=== PATIENT | female | born 1935 | race Caucasian/White ===

== ENCOUNTER 2020-01-12 14:47 | Outpatient (REF) | payer MEDICARE, SELFPAY ==
[2020-01-12 15:39] LABS: Estimated Average Glucose 120 mg/dL; Hemoglobin A1C 105.3431 umol/L; Hemoglobin A1c % 5.8 %
[2020-01-12 16:03] LABS: Anion Gap 13 (12-20); Blood Urea Nitrogen 16 mg/dL (9-16); Calcium 9.3 mg/dL (8.4-10.2); Carbon Dioxide 25 mmol/L (22-29); Chloride 108 mmol/L (96-108); Cholesterol 145 mg/dL; Estimated Glomerular Filt Rate 52; Glucose Random 128 mg/dL (60-115); HDL Cholesterol 55 mg/dL; LDL Cholesterol Calculated 67 mg/dl; Potassium 5.1 mmol/l (3.3-5.1); Sodium 141 mmol/L (135-145); Triglycerides 116 mg/dL
== END 2020-01-12 14:48 | disposition home or self-care (01) ==
LOC: HO.LAB 14:47
PROVIDERS: PCP Internal Medicine; Visit Provider Nurse Practitioner Family
DX: I15.0 Renovascular hypertension (principal); E78.00 Pure hypercholesterolemia, unspecified; E11.3593 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 without macular edema, bilateral
CPT/HCPCS: 80048; 80061; 83036

== ENCOUNTER 2020-03-10 14:25 | Outpatient (REF) | payer MEDICARE, SELFPAY ==
[2020-03-10 15:36] LABS: Alanine Aminotransferase 8 U/L (0-31); Albumin Level 4.1 g/dL (3.5-5.0); Alkaline Phosphatase 74 U/L (39-117); Anion Gap 16 (12-20); Aspartate Amino Transferase 18 U/L (5-31); Bilirubin Total 0.4 mg/dL (0.0-1.0); Blood Urea Nitrogen 22 mg/dL (9-16); Calcium 9.4 mg/dL (8.4-10.2); Carbon Dioxide 23 mmol/L (22-29); Chloride 106 mmol/L (96-108); Cholesterol 138 mg/dL; Estimated Glomerular Filt Rate 43; Glucose Fasting 134 mg/dL (60-99); HDL Cholesterol 59 mg/dL; LDL Cholesterol Calculated 59 mg/dl; Sodium 140 mmol/L (135-145); Total Protein 7.6 g/dL (6.5-8.0); Triglycerides 103 mg/dL
[2020-03-14 13:03] LABS: Vitamin D 25-OH, D2 <4 ng/mL; Vitamin D 25-OH, D3 29 ng/mL; Vitamin D 25-OH, Total 29 ng/mL (30-100)
== END 2020-03-10 14:26 | disposition home or self-care (01) ==
LOC: HO.LAB 14:25
PROVIDERS: PCP Internal Medicine; Visit Provider Internal Medicine
DX: E11.3593 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 without macular edema, bilateral (principal); E55.9 Vitamin D deficiency, unspecified; E78.5 Hyperlipidemia, unspecified
CPT/HCPCS: 80053; 80061; 82306

== ENCOUNTER 2020-07-13 14:00 | Outpatient (REF) | payer MEDICARE, SELFPAY ==
[2020-07-13 14:32] LABS: MANUAL DIFF FLAG NO
[2020-07-13 14:38] LABS: Basophils Percent Auto 0.2 % (0-2); Eosinophils Absolute Auto 0.8 X10*3/uL (0.0-0.4); Eosinophils Percent Auto 13.3 % (0-4); Hematocrit 30.5 % (37-47); Imm Gran Abs Auto 0.03 X10*3/uL (0.00-0.03); Imm Gran Pct Auto 0.5 % (0.0-0.4); Lymphocytes Absolute Auto 1.2 X10*3/uL (1.2-4.9); Lymphocytes Percent Auto 19.8 % (20-40); Mean Corpuscular HGB Conc 29.5 g/dl (31.0-35.0); Mean Platelet Volume 10.1 fL (9.4-12.3); Monocytes Absolute Auto 0.4 X10*3/uL (0.1-1.2); Monocytes Percent Auto 6.1 % (2-11); Neutrophils Absolute Auto 3.6 X10*3/uL (2.0-8.3); Neutrophils Percent Auto 60.1 % (45-73); Platelet Count 214 X10*3/uL (160-400); Red Blood Count 3.21 X10*6/uL (4.20-5.50); Red Cell Distribution Width 14.5 % (11.0-16.0)
[2020-07-13 14:55] LABS: Alanine Aminotransferase < 6 U/L (0-31); Albumin Level 3.9 g/dL (3.5-5.0); Alkaline Phosphatase 78 U/L (39-117); Anion Gap 15 (12-20); Aspartate Amino Transferase 14 U/L (5-31); Bilirubin Total 0.4 mg/dL (0.0-1.0); Blood Urea Nitrogen 21 mg/dL (9-16); Calcium 9.5 mg/dL (8.4-10.2); Carbon Dioxide 24 mmol/L (22-29); Chloride 108 mmol/L (96-108); Cholesterol 137 mg/dL; Estimated Glomerular Filt Rate 58; Glucose Fasting 137 mg/dL (60-99); HDL Cholesterol 60 mg/dL; LDL Cholesterol Calculated 63 mg/dl; Potassium 5.2 mmol/L (3.3-5.1); Sodium 142 mmol/L (135-145); Total Protein 7.3 g/dL (6.5-8.0); Triglycerides 74 mg/dL
[2020-07-13 16:46] LABS: Creatinine Urine 150.09 mg/dL; Microalbum/Creatinine Ratio Ur 472.3 ug/mg cr
[2020-07-14 13:06] LABS: Calcium (PTHI) 9.6 mg/dL (8.6-10.4); PTHI 92 pg/mL (14-64)
[2020-07-17 13:51] LABS: Vitamin D 25-OH, D2 <4 ng/mL; Vitamin D 25-OH, D3 36 ng/mL; Vitamin D 25-OH, Total 36 ng/mL (30-100)
== END 2020-07-13 14:01 | disposition home or self-care (01) ==
LOC: HO.LAB 14:00
PROVIDERS: PCP Internal Medicine; Visit Provider Internal Medicine Nephrology
DX: I12.9 Hypertensive chronic kidney disease with stage 1 through stage 4 chronic kidney disease, or unspecified chronic kidney disease (principal); E11.22 Type 2 diabetes mellitus with diabetic chronic kidney disease; N18.31 Chronic kidney disease, stage 3a; R60.0 Localized edema; E87.5 Hyperkalemia; E11.3593 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 without macular edema, bilateral; E78.5 Hyperlipidemia, unspecified; E55.9 Vitamin D deficiency, unspecified
CPT/HCPCS: 36415; 80053; 80061; 82043; 82306; 83970; 85025

== ENCOUNTER 2020-10-14 13:56 | Outpatient (REF) | payer MEDICARE, SELFPAY ==
[2020-10-14 14:49] LABS: MANUAL DIFF FLAG NO
[2020-10-14 14:52] LABS: Basophils Percent Auto 0.3 % (0-2); Eosinophils Absolute Auto 0.8 X10*3/uL (0.0-0.4); Eosinophils Percent Auto 10.6 % (0-4); Hematocrit 32.1 % (37-47); Hemoglobin 9.4 g/dl (12.0-16.0); Imm Gran Abs Auto 0.02 X10*3/uL (0.00-0.03); Imm Gran Pct Auto 0.3 % (0.0-0.4); Mean Corpuscular HGB Conc 29.3 g/dl (31.0-35.0); Mean Corpuscular Hemoglobin 27.9 pg (27.0-33.0); Mean Corpuscular Volume 95.3 fL (80-98); Mean Platelet Volume 10.5 fL (9.4-12.3); Monocytes Absolute Auto 0.5 X10*3/uL (0.1-1.2); Monocytes Percent Auto 6.6 % (2-11); Neutrophils Absolute Auto 4.9 X10*3/uL (2.0-8.3); Neutrophils Percent Auto 68.2 % (45-73); Platelet Count 206 X10*3/uL (160-400); Red Blood Count 3.37 X10*6/uL (4.20-5.50); Red Cell Distribution Width 15.9 % (11.0-16.0); White Blood Count 7.2 X10*3/uL (4.8-10.8)
[2020-10-14 15:19] LABS: Anion Gap 13 (12-20); Blood Urea Nitrogen 33 mg/dL (9-16); Calcium 9.6 mg/dL (8.4-10.2); Carbon Dioxide 23 mmol/L (22-29); Chloride 109 mmol/L (96-108); Estimated Glomerular Filt Rate 41; Phosphorus 3.5 mg/dL (2.7-4.5); Potassium 4.7 mmol/L (3.3-5.1); Sodium 140 mmol/L (135-145)
[2020-10-14 15:21] LABS: Anion Gap 13 (12-20); Blood Urea Nitrogen 33 mg/dL (9-16); Calcium 9.8 mg/dL (8.4-10.2); Carbon Dioxide 23 mmol/L (22-29); Chloride 110 mmol/L (96-108); Cholesterol 139 mg/dL; Estimated Glomerular Filt Rate 42; Glucose Fasting 138 mg/dL (60-99); HDL Cholesterol 51 mg/dL; LDL Cholesterol Calculated 70 mg/dl; Potassium 4.8 mmol/L (3.3-5.1); Sodium 141 mmol/L (135-145); Triglycerides 91 mg/dL
[2020-10-14 15:49] LABS: Renal w Reflex Lab Use Only Order verified
== END 2020-10-14 13:57 | disposition home or self-care (01) ==
LOC: HO.LAB 13:56
PROVIDERS: Absent Provider Nurse Practitioner Family; PCP Internal Medicine; Visit Provider Internal Medicine Nephrology
DX: E11.3593 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 without macular edema, bilateral (principal); E78.00 Pure hypercholesterolemia, unspecified; I12.9 Hypertensive chronic kidney disease with stage 1 through stage 4 chronic kidney disease, or unspecified chronic kidney disease; N18.30 Chronic kidney disease, stage 3 unspecified; R60.9 Edema, unspecified; E87.5 Hyperkalemia
CPT/HCPCS: 36415; 80048; 80051; 80061; 82310; 82565; 84100; 84520; 85025

== ENCOUNTER 2021-03-15 08:32 | Outpatient (REF) | payer MEDICARE, SELFPAY ==
--- NOTE | 2021-03-15 08:34 | EMG_ITS ---
This 85-year-old woman with a history of bilateral hand pain and numbness. Neurological examination reveals atrophy of the left abductor pollicis brevis and bilaterally APB weakness and decreased sensation in median nerve. No Tinel or Phalen sign. IMPRESSION: Carpal tunnel syndrome. Nerve conduction EMG study: Severe carpal tunnel syndrome on the left and moderately severe carpal tunnel syndrome on the right. Sensory axonal neuropathy. EMG of the C5-T1 innervated muscles is consistent with mild chronic denervated changes in the APB muscle consistent with median neuropathy. MD RENE Marquez/JEFF / [id number]
== END 2021-03-15 08:33 | disposition home or self-care (01) ==
LOC: HO.NEURO 08:32
PROVIDERS: PCP Internal Medicine; Visit Provider Internal Medicine
DX: G56.03 Carpal tunnel syndrome, bilateral upper limbs (principal)
CPT/HCPCS: 95886; 95913

== ENCOUNTER 2021-03-20 14:34 | Outpatient (REF) | payer MEDICARE, SELFPAY ==
[2021-03-20 14:57] LABS: MANUAL DIFF FLAG NO
[2021-03-20 15:12] LABS: Basophils Percent Auto 0.4 % (0-2); Eosinophils Absolute Auto 0.4 X10*3/uL (0.0-0.4); Eosinophils Percent Auto 6.4 % (0-4); Hemoglobin 9.9 g/dl (12.0-16.0); Imm Gran Abs Auto 0.03 X10*3/uL (0.00-0.03); Imm Gran Pct Auto 0.5 % (0.0-0.4); Lymphocytes Percent Auto 17.5 % (20-40); Mean Corpuscular Hemoglobin 29.8 pg (27.0-33.0); Mean Corpuscular Volume 99.4 fL (80.0-98.0); Monocytes Absolute Auto 0.3 X10*3/uL (0.1-1.2); Monocytes Percent Auto 5.8 % (2-11); Neutrophils Absolute Auto 3.8 x10*3/uL (2.0-8.3); Neutrophils Percent Auto 69.4 % (45-73); Platelet Count 206 X10*3/uL (160-400); Red Blood Count 3.32 X10*6/uL (4.20-5.50); Red Cell Distribution Width 13.2 % (11.0-16.0); White Blood Count 5.5 X10*3/uL (4.8-10.8)
[2021-03-20 15:25] LABS: Anion Gap 11 (12-20); Blood Urea Nitrogen 32 mg/dL (9-16); Calcium 9.9 mg/dL (8.4-10.2); Carbon Dioxide 25 mmol/L (22-29); Chloride 110 mmol/L (96-108); Estimated Glomerular Filt Rate 41; Potassium 4.7 mmol/L (3.3-5.1); Sodium 141 mmol/L (135-145)
[2021-03-20 15:30] LABS: Alanine Aminotransferase 7 U/L (0-31); Albumin Level 3.8 g/dL (3.5-5.0); Alkaline Phosphatase 77 U/L (39-117); Anion Gap 12 (12-20); Aspartate Amino Transferase 11 U/L (5-31); Bilirubin Total < 0.2 mg/dL (0.0-1.0); Blood Urea Nitrogen 32 mg/dL (9-16); Calcium 9.8 mg/dL (8.4-10.2); Carbon Dioxide 24 mmol/L (22-29); Chloride 110 mmol/L (96-108); Cholesterol 136 mg/dL; Estimated Glomerular Filt Rate 41; Glucose Fasting 156 mg/dL (60-99); HDL Cholesterol 47 mg/dL; LDL Cholesterol Calculated 62 mg/dl; Potassium 4.6 mmol/L (3.3-5.1); Sodium 141 mmol/L (135-145); Total Protein 7.1 g/dL (6.5-8.0); Triglycerides 136 mg/dL
[2021-03-24 12:52] LABS: Vitamin D 25-OH, D2 <4 ng/mL; Vitamin D 25-OH, D3 32 ng/mL; Vitamin D 25-OH, Total 32 ng/mL (30-100)
== END 2021-03-20 14:35 | disposition home or self-care (01) ==
LOC: HO.LAB 14:34
PROVIDERS: Absent Provider Internal Medicine; PCP Internal Medicine; Visit Provider Internal Medicine Nephrology
DX: E11.22 Type 2 diabetes mellitus with diabetic chronic kidney disease (principal); E11.3593 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 without macular edema, bilateral; I12.9 Hypertensive chronic kidney disease with stage 1 through stage 4 chronic kidney disease, or unspecified chronic kidney disease; N18.31 Chronic kidney disease, stage 3a; E55.9 Vitamin D deficiency, unspecified; E78.5 Hyperlipidemia, unspecified; D63.1 Anemia in chronic kidney disease; R60.0 Localized edema
CPT/HCPCS: 36415; 80051; 80053; 80061; 82043; 82306; 82310; 82565; 84520; 85025

== ENCOUNTER → 2021-04-18 12:47 | Outpatient (BNVA) | payer MEDICARE, SELFPAY | PROVIDERS: PCP Internal Medicine; Visit Provider Orthopaedic Surgery | DX: G56.03 Carpal tunnel syndrome, bilateral upper limbs (principal) | CPT/HCPCS: 99202 ==

== ENCOUNTER 2021-05-04 11:53 | Day surgery (SDC) | payer MEDICARE, SELFPAY ==
[2021-05-03 08:08] VITALS: BMI 39.9
--- NOTE | 2021-05-04 10:24 | W.PM.OPN ---
Operative Note Operative Note Date of Service: 05/04/21 Narrative: Preop diagnosis: 1. right Carpal tunnel syndrome Postop diagnosis: same Procedure: 1. right Carpal tunnel release Surgeon: Anh Peoples MD Anesthesia: local block using 1% lidocaine with epinephrine Findings: Thickened transverse carpal ligament. EBL: Less than 5 mL Specimens: None Complications: None Disposition: Brought to recovery room in stable condition Plan: Follow-up for 10-14 days for wound check and suture removal Indications: The patient is 85 years old, with right carpal tunnel syndrome that has been unresponsive to nonoperative management. The risks and benefits of operative treatment including but not limited to risk of damage to blood vessels, nerves, tendons, infection, persistent pain, persistent symptoms, or possible need for additional surgery were discussed with the patient and the patient wishes to proceed with surgery. Procedure: Once consent was obtained a local block was performed using a combination of 1% lidocaine with epinephrine. The patient was then brought back to the operating suite and placed on the operative table in supine position. A tourniquet was applied to the proximal aspect of the right upper extremity and the limb was prepped and draped in a standard surgical fashion. Once assured that we had a good block, a 1.5 cm longitudinal incision was made centered over the carpal tunnel. The incision was made through the skin to the subcutaneous tissues using a #15 blade. Dissection was made down to the level of the transverse carpal ligament with care being taken to protect the palmar cutaneous nerve. Once the transverse carpal ligament was clearly visualized, a longitudinal incision was made in the transverse carpal ligament 1st using a #15 blade, then using tenotomy scissors under direct visualization. Care was taken to look for and protect the motor branch of the median nerve when seen in this area. Once satisfied with our carpal tunnel release the wound was copiously irrigated with normal saline and hemostasis was obtained with a brief period of local pressure. The skin edges were reapproximated with some 5.0 nylon suture material and a sterile dressing was applied. The patient appears to have tolerated the procedure well and with no complications. All digits were well vascularized at the conclusion of the case.
[2021-05-04 12:03] VITALS: BP 154/51; PULSE 74; RESP 16; TEMP 36.7; O2SAT 98
--- NOTE | 2021-05-04 13:25 | MHC.SHP ---
Pre-Procedural Eval Section A Date of Service: 05/04/21 The patient is an INPATIENT: No Changes since office visit: No Cold of Flu in the past 2 weeks, No New Medical Problems, No Changes in Medication and No Patient answered all questions The History & Physical has been completed within 30 days and I have reviewed it.: Yes Section B Chief Complaint: carpal tunnel syndrome Allergies: Allergies Allergy/AdvReac Type Severity Reaction Status Date / Time No Known Allergies Allergy Unknown Verified 04/18/21 14:22 Plan I have reviewed the history and physical and performed a pertinent physical examination on my patient. No changes have occurred unless specified.
[2021-05-04 13:47] VITALS: BP 158/57; PULSE 74; RESP 16; TEMP 36.2; O2SAT 98
== END 2021-05-04 14:08 | disposition home or self-care (01) ==
PROVIDERS: PCP Internal Medicine; Visit Provider Orthopaedic Surgery
PROC: (CPT 64721; principal; 2021-05-04 13:30)
DX: G56.01 Carpal tunnel syndrome, right upper limb (principal); R20.0 Anesthesia of skin; I10 Essential (primary) hypertension; E11.9 Type 2 diabetes mellitus without complications; E55.9 Vitamin D deficiency, unspecified; F33.1 Major depressive disorder, recurrent, moderate; E78.00 Pure hypercholesterolemia, unspecified; Z87.891 Personal history of nicotine dependence; Z79.84 Long term (current) use of oral hypoglycemic drugs; Z79.899 Other long term (current) drug therapy
CPT/HCPCS: 64721

== ENCOUNTER → 2021-05-17 14:39 | Outpatient (BNVA) | payer MEDICARE, SELFPAY | PROVIDERS: PCP Internal Medicine; Visit Provider Orthopaedic Surgery | DX: G56.03 Carpal tunnel syndrome, bilateral upper limbs (principal) | CPT/HCPCS: 99212 ==

== ENCOUNTER 2021-08-25 10:10 | Outpatient (REF) | payer OTHER, SELFPAY ==
[2021-08-25 10:50] LABS: COVID-19 Test Negative (Negative)
== END 2021-08-25 10:11 | disposition home or self-care (01) ==
LOC: HO.LAB 10:10
PROVIDERS: Visit Provider Internal Medicine
DX: Z20.822 Contact with and (suspected) exposure to COVID-19 (principal)
CPT/HCPCS: 87635; C9803

== ENCOUNTER 2021-09-27 14:33 | Outpatient (REF) | payer OTHER, SELFPAY ==
--- NOTE | ~2021-09-27 | XR_ITS ---
EXAMINATION: XR CERVICAL SPINE CLINICAL INFORMATION: M54.2 - Cervicalgia COMPARISON: CT cervical spine 02/04/2017 TECHNIQUE: Cervical spine is imaged in 6 views. FINDINGS: Vertebral bodies are normal in height. There is no vertebral compression, spondylolisthesis, destructive process, or prevertebral soft tissue swelling. Cervical lordosis is within normal. The odontoid appears intact. There are degenerative disc changes again noted C5-C6 with disc narrowing and anterior and posterior spurring. There are mild degenerative disc changes C6-C7. No cervical rib. XR/XR cervical spine 2V IMPRESSION: -Degenerative disc changes C5-C6. -Mild degenerative disc changes C6-C7.
--- NOTE | ~2021-09-27 | XR_ITS ---
EXAMINATION: XR SHOULDER, RIGHT CLINICAL INFORMATION: M25.511 - Pain in right shoulder COMPARISON: None TECHNIQUE: Right shoulder is imaged in 3 views. FINDINGS: There is extensive calcific tendinosis involving the superior rotator cuff and long head biceps. There are degenerative changes acromioclavicular joint and mild narrowing inferior glenoid humeral joint. Mild mineralization and inferior labro-capsular soft tissues. There is no fracture or dislocation. XR/XR shoulder RT min 2V IMPRESSION: -Extensive calcific tendinosis rotator cuff. -Degenerative changes acromioclavicular joint and mild spurring glenohumeral joint.
[2021-09-27 16:00] LABS: Anion Gap 14 (12-20); Blood Urea Nitrogen 40 mg/dL (9-16); Calcium 9.3 mg/dL (8.4-10.2); Carbon Dioxide 21 mmol/L (22-29); Chloride 110 mmol/L (96-108); Estimated Glomerular Filt Rate 27; Potassium 4.6 mmol/L (3.3-5.1); Sodium 140 mmol/L (135-145)
[2021-09-27 16:26] LABS: Creatinine Urine 285.62 mg/dL; Protein/Creatinine Ratio, Ur 0.15 (<0.2); Total Protein Urine Random 44 mg/dL (<12)
== END 2021-09-27 14:34 | disposition home or self-care (01) ==
LOC: HO.XRAY 14:33
PROVIDERS: Absent Provider Internal Medicine; PCP Internal Medicine; Visit Provider Internal Medicine Nephrology
DX: M54.2 Cervicalgia (principal); M25.511 Pain in right shoulder; I10 Essential (primary) hypertension; N18.31 Chronic kidney disease, stage 3a
CPT/HCPCS: 36415; 72040; 73030; 80051; 82310; 82565; 84156; 84520

== ENCOUNTER 2021-12-06 15:15 | Outpatient (REF) | payer OTHER, SELFPAY ==
[2021-12-06 18:05] LABS: Anion Gap 19 (12-20); Blood Urea Nitrogen 51 mg/dL (9-16); Calcium 9.5 mg/dL (8.4-10.2); Carbon Dioxide 22 mmol/L (22-29); Chloride 107 mmol/L (96-108); Estimated Glomerular Filt Rate 28; Potassium 5.3 mmol/L (3.3-5.1); Sodium 143 mmol/L (135-145)
== END 2021-12-06 15:16 | disposition home or self-care (01) ==
LOC: HO.LAB 15:15
PROVIDERS: PCP Internal Medicine; Visit Provider Internal Medicine Nephrology
DX: N18.31 Chronic kidney disease, stage 3a (principal)
CPT/HCPCS: 36415; 80051; 82310; 82565; 84520

== ENCOUNTER → 2021-12-19 14:02 | Outpatient (BNVA) | payer OTHER, SELFPAY | PROVIDERS: PCP Internal Medicine; Visit Provider Orthopaedic Surgery | DX: G56.03 Carpal tunnel syndrome, bilateral upper limbs (principal) | CPT/HCPCS: 99212 ==

== ENCOUNTER 2022-01-04 12:51 | Day surgery (SDC) | payer OTHER, SELFPAY ==
--- NOTE | 2022-01-04 10:46 | W.PM.OPN ---
Operative Note Operative Note Date of Service: 01/04/22 Narrative: Preop diagnosis: 1. left Carpal tunnel syndrome Postop diagnosis: same Procedure: 1. left Carpal tunnel release Surgeon: nAh Peoples MD Anesthesia: local block using 1% lidocaine with epinephrine Findings: Thickened transverse carpal ligament. EBL: Less than 5 mL Specimens: None Complications: None Disposition: Brought to recovery room in stable condition Plan: Follow-up for 10-14 days for wound check and suture removal Indications: The patient is 86 years old, with left carpal tunnel syndrome that has been unresponsive to nonoperative management. The risks and benefits of operative treatment including but not limited to risk of damage to blood vessels, nerves, tendons, infection, persistent pain, persistent symptoms, or possible need for additional surgery were discussed with the patient and the patient wishes to proceed with surgery. Procedure: Once consent was obtained a local block was performed using a combination of 1% lidocaine with epinephrine. The patient was then brought back to the operating suite and placed on the operative table in supine position. A tourniquet was applied to the proximal aspect of the left upper extremity and the limb was prepped and draped in a standard surgical fashion. Once assured that we had a good block, a 2.0 cm longitudinal incision was made centered over the carpal tunnel. The incision was made through the skin to the subcutaneous tissues using a #15 blade. Dissection was made down to the level of the transverse carpal ligament with care being taken to protect the palmar cutaneous nerve. Once the transverse carpal ligament was clearly visualized, a longitudinal incision was made in the transverse carpal ligament 1st using a #15 blade, then using tenotomy scissors under direct visualization. Care was taken to look for and protect the motor branch of the median nerve when seen in this area. Once satisfied with our carpal tunnel release the wound was copiously irrigated with normal saline and hemostasis was obtained with a brief period of local pressure. The skin edges were reapproximated with some 5.0 nylon suture material and a sterile dressing was applied. The patient appears to have tolerated the procedure well and with no complications. All digits were well vascularized at the conclusion of the case.
[2022-01-04 13:01] VITALS: BMI 36.6
[2022-01-04 13:17] VITALS: BP 160/70; PULSE 72; RESP 16; TEMP 36.2; O2SAT 97
--- NOTE | 2022-01-04 14:39 | MHC.SHP ---
Pre-Procedural Eval Section A Date of Service: 01/04/22 The patient is an INPATIENT: No Changes since office visit: No Cold of Flu in the past 2 weeks, No New Medical Problems, No Changes in Medication and No Patient answered all questions The History & Physical has been completed within 30 days and I have reviewed it.: Yes Section B Chief Complaint: Carpal tunnel syndrome, left upper limb Allergies: Allergies Allergy/AdvReac Type Severity Reaction Status Date / Time No Known Allergies Allergy Unknown Verified 12/19/21 14:38 Plan I have reviewed the history and physical and performed a pertinent physical examination on my patient. No changes have occurred unless specified.
[2022-01-04 14:51] VITALS: BP 181/75; PULSE 70; RESP 16; TEMP 36.4; O2SAT 100
== END 2022-01-04 14:51 | disposition home or self-care (01) ==
PROVIDERS: PCP Internal Medicine; Visit Provider Orthopaedic Surgery
PROC: (CPT 64721; principal; 2022-01-04 14:30)
DX: G56.02 Carpal tunnel syndrome, left upper limb (principal); D64.9 Anemia, unspecified; I10 Essential (primary) hypertension; E11.9 Type 2 diabetes mellitus without complications; E55.9 Vitamin D deficiency, unspecified; F33.1 Major depressive disorder, recurrent, moderate; Z87.891 Personal history of nicotine dependence
CPT/HCPCS: 64721; J0171

== ENCOUNTER 2022-03-27 14:40 | Outpatient (REF) | payer OTHER, SELFPAY ==
[2022-03-27 16:30] LABS: Anion Gap 16 (12-20); Blood Urea Nitrogen 54 mg/dL (9-16); Calcium 9.4 mg/dL (8.4-10.2); Carbon Dioxide 24 mmol/L (22-29); Chloride 106 mmol/L (96-108); Estimated Glomerular Filt Rate 27; Potassium 4.9 mmol/L (3.3-5.1); Sodium 141 mmol/L (135-145)
== END 2022-03-27 14:41 | disposition home or self-care (01) ==
LOC: HO.LAB 14:40
PROVIDERS: PCP Internal Medicine; Visit Provider Internal Medicine Nephrology
DX: I12.9 Hypertensive chronic kidney disease with stage 1 through stage 4 chronic kidney disease, or unspecified chronic kidney disease (principal); N18.31 Chronic kidney disease, stage 3a
CPT/HCPCS: 36415; 80051; 82310; 82565; 84520

== ENCOUNTER 2022-05-17 14:30 | Outpatient (REF) | payer OTHER, SELFPAY ==
[2022-05-17 16:03] LABS: Anion Gap 14 (12-20); Blood Urea Nitrogen 70 mg/dL (9-16); Calcium 9.6 mg/dL (8.4-10.2); Carbon Dioxide 25 mmol/L (22-29); Chloride 106 mmol/L (96-108); Estimated Glomerular Filt Rate 17; Potassium 4.9 mmol/L (3.3-5.1); Sodium 140 mmol/L (135-145)
== END 2022-05-17 14:31 | disposition home or self-care (01) ==
LOC: HO.LAB 14:30
PROVIDERS: PCP Internal Medicine; Visit Provider Internal Medicine Nephrology
DX: I12.9 Hypertensive chronic kidney disease with stage 1 through stage 4 chronic kidney disease, or unspecified chronic kidney disease (principal); N18.31 Chronic kidney disease, stage 3a; R60.0 Localized edema
CPT/HCPCS: 36415; 80051; 82310; 82565; 84520

== ENCOUNTER 2022-06-25 14:51 | Outpatient (REF) | payer OTHER, SELFPAY | END 2022-06-25 14:52 | disposition home or self-care (01) | LOC: HO.LAB 14:51 | PROVIDERS: PCP Internal Medicine; Visit Provider Internal Medicine | DX: Z13.89 Encounter for screening for other disorder (principal) ==

== ENCOUNTER 2022-08-07 15:51 | Outpatient (REF) | payer OTHER, SELFPAY ==
[2022-08-07 17:21] LABS: Anion Gap 13 (12-20); Blood Urea Nitrogen 14 mg/dL (9-16); Calcium 9.5 mg/dL (8.4-10.2); Carbon Dioxide 24 mmol/L (22-29); Chloride 110 mmol/L (96-108); Estimated Glomerular Filt Rate 48; Potassium 4.9 mmol/L (3.3-5.1); Sodium 142 mmol/L (135-145)
== END 2022-08-07 15:52 | disposition home or self-care (01) ==
LOC: HO.LAB 15:51
PROVIDERS: PCP Internal Medicine; Visit Provider Internal Medicine Nephrology
DX: I12.9 Hypertensive chronic kidney disease with stage 1 through stage 4 chronic kidney disease, or unspecified chronic kidney disease (principal); N18.31 Chronic kidney disease, stage 3a
CPT/HCPCS: 36415; 80051; 82310; 82565; 84520

== ENCOUNTER 2022-08-11 13:47 | Emergency (ER) | payer OTHER, SELFPAY ==
--- NOTE | ~2022-08-11 | US_ITS ---
EXAMINATION: US VENOUS ULTRASOUND WITH DOPPLER LOWER EXTREMITY, BILATERAL CLINICAL INFORMATION: Bilateral leg edema. COMPARISON: None available. TECHNIQUE: Ultrasound of the deep veins is performed from the hip to the calf with compression sonography and color and pulse Doppler assessment. Spectral analysis with color-flow imaging is performed. FINDINGS: RIGHT: There is normal venous compression and respiratory variation and augmented flow. The visualized common femoral vein, superficial femoral vein, profunda femoral vein, popliteal vein, and the trifurcation region shows no evidence of deep venous thrombosis. There is no significant popliteal fossa cyst. LEFT: There is normal venous compression and respiratory variation and augmented flow. The visualized common femoral vein, superficial femoral vein, profunda femoral vein, popliteal vein, and the trifurcation region shows no evidence of deep venous thrombosis. There is no significant popliteal fossa cyst. If the patient's symptoms persist, followup ultrasound in 5 days 7 days might be of value to exclude proximal propagation from a non-visualized calf vein. US/US venous duplex LE BI IMPRESSION: No DVT demonstrated in bilateral lower extremity venous ultrasound.
--- NOTE | ~2022-08-11 | XR_ITS ---
EXAMINATION: XR CHEST CLINICAL INFORMATION: Shortness of breath, pedal edema. COMPARISON: 02/13/2018 chest radiograph. TECHNIQUE: Frontal view of the chest was obtained. FINDINGS: Mild linear markings are seen in the lower lung espinoza, right greater than left. Mild increased pulmonary vascular prominence. The heart and mediastinal structures are unremarkable. XR/XR chest 1V IMPRESSION: Mild linear atelectasis versus scarring in the lower lung espinoza, right greater than left. Mild congestion cannot be excluded.
[2022-08-11 14:07] VITALS: BP 182/48; PULSE 73; RESP 16; TEMP 37; O2SAT 97; BMI 34.4
[2022-08-11 14:08] VITALS: BP 190/112; PULSE 77; O2SAT 98
--- NOTE | 2022-08-11 14:13 | ED_ITS ---
HPI - General Adult General Chief complaint: General Medical Stated complaint: High BP per EMS Time Seen by Provider: 08/11/22 14:13 Source: patient, EMS, RN notes reviewed and old records reviewed Mode of arrival: EMS History of Present Illness HPI narrative: 87-year-old female with past medical history of anemia, diabetes, HTN, GERD, HL D, depression, presenting to the ED via EMS complaining of SOB, worse on exertion and elevated BP readings at home 200s over 90s since yesterday. Patient also reports acute on chronic bilateral LE edema > LLE. Denies fever, chills, cough, chest pain, abdominal pain, vomiting/diarrhea, recent travel. Denies taking home meds today Onset (ago): day(s) Related Data Previous Rx's Medication Instructions Recorded blood sugar diagnostic (FreeStyle #50 ea 05/13/20 Test strips) underpads 30 X 36 (Certainty #150 ea 07/18/20 Underpads) lancets 28 gauge #100 ea 12/09/20 mirtazapine 15 mg tablet 15 mg PO BEDTIME 90 days #90 tabs 03/23/21 paroxetine HCl 10 mg tablet 10 mg PO DAILY 90 days #90 tabs 03/23/21 acetaminophen 650 mg 650 mg PO Q8H PRN pain 30 days #90 07/28/21 tablet,extended release (Pain tabs Relief (acetaminophen)) FreeStyle Lite Strips (blood sugar 1 strip miscellaneous BID for 08/25/21 diagnostic) diabetes mellitus 30 days #50 strips recliner #1 ea 09/14/21 aspirin 81 mg tablet,delayed 81 mg PO DAILY 90 days #90 tabs 03/01/22 release calcium carbonate 500 mg-vitamin 1 tab PO BID 90 days #180 tabs 03/01/22 D3 10 mcg (400 unit) tablet cholecalciferol (vitamin D3) 25 25 mcg PO DAILY 90 days #90 tabs 03/01/22 mcg (1,000 unit) tablet metformin 1,000 mg tablet 1,000 mg PO BID 90 days #180 tabs 03/01/22 omeprazole 20 mg capsule,delayed 20 mg PO DAILY 90 days #90 caps 03/01/22 release pravastatin 40 mg tablet 40 mg PO DAILY 90 days #90 tabs 03/01/22 commode #1 ea 07/09/22 disposable bed pa #30 ea 07/09/22 incontinence pad, liner, disp #150 07/09/22 (Bladder Control Pads Ex Absorb) incontinence wipes #300 07/09/22 washable bedpads #2 07/09/22 furosemide 20 mg tablet 40 mg PO QAM HTN/Swelling 90 days 08/02/22 #180 tabs neomycin-bacitracn Zn-polymyx 3.5 1 appl topical DAILY 2 weeks #14 08/02/22 mg-400 unit-5,000 unit/gram top grams oint furosemide 20 mg tablet 40 mg PO DAILY #6 tabs 08/11/22 Allergies Allergy/AdvReac Type Severity Reaction Status Date / Time No Known Allergies Allergy Unknown Verified 08/02/22 17:08 Review of Systems Review of Systems: Constitutional: No Fever, No Chills, No Fatigue, No Malaise ENT/Mouth: No Ear Pain, No sore throat, No Rhinorrhea, No Swallowing Difficulty Eyes: No Eye Pain, No Swelling, No Vision Changes Cardiovascular: No Chest Pain, + SOB, + Dyspnea on Exertion, No Orthopnea, + Edema, No Palpitations Respiratory: No Cough, No Sputum, +Dyspnea Gastrointestinal: No Nausea, No Vomiting, No Diarrhea, No Constipation, No Abdo michaela pain Genitourinary: No Dysuria, No Hematuria, No Flank Pain Musculoskeletal: No joint pain, No Myalgias, No Joint Swelling Skin: No Skin Lesions, No rash Neuro: No Weakness, No Numbness, No Paresthesias, No Loss of Consciousness, No Dizziness, No Headache Yes all other systems are reviewed and are negative Constitutional: Constitutional: Reports as per [facility] Past Medical History Attestation statement: The following information was validated with the patient. Source: old records reviewed Medical History Anemia Bilateral carpal tunnel syndrome Carpal tunnel syndrome Diabetes Essential hypertension GERD (gastroesophageal reflux disease) High cholesterol Hypertension Hypovitaminosis D Moderate recurrent major depression Pure hypercholesterolemia Urinary incontinence Surgical History History of cholecystectomy S/P carpal tunnel release Family History Family History Father No problems noted. Mother No problems noted. Social History Social History Housing: Apartment Alcohol intake: never Patient Tobacco Use Status: Former Tobacco user Tobacco use type: Cigarette e-Cigarette/Vaping Use: Never Used Second Hand Smoke Exposure: No Advance Directives: No Advance Directives Information Provided: Yes service: No Current occupational status: disabled Current occupation: rt hand Cognitive needs: Yes Hearing needs: No Vision needs: Yes Physical Exam ED Vital Signs: Vital Signs - 24 hr 08/11/22 14:07 08/11/22 17:01 Temperature 98.6 F 98.3 F Pulse Rate 73 69 Respiratory Rate 16 22 H Blood Pressure 182/48 H 177/49 H Pulse Oximetry 97 96 Oxygen Delivery Method Room Air Room Air BMI result Body Mass Index 34.4 Const General: cooperative, healthy appearing and no acute distress Orientation/consciousness: patient oriented x3 Limitations: no limitations HENMT Head: Yes normal to inspection and Yes atraumatic Ears: hearing grossly normal bilaterally General nose exam: Normal external nose present Face and sinus: Yes normal facial exam Eyes General: appearance normal, both eyes and all related structures EOM: EOMs intact bilaterally Neck Neck: Yes normal visual inspection and Yes no meningeal signs Resp Effort & Inspection: normal respiratory effort and no respiratory distress Auscultation: diminished lung sounds bilateral in the lower lung espinoza Cardio Rate: regular rate Heart sounds: S1 normal heart sound present and S2 normal heart sound present GI Inspection: Yes normal to inspection Palpation (GI): Soft to palpation, nontender, no guarding and not rigid General: Yes no CVA tenderness Back/Spine/Pelvis Back: no CVA tenderness Skin Rashes: no rashes Wounds: no wounds Neuro General: patient oriented x3, tone normal and no meningeal signs Gait exam (Neuro): Normal gait present Extrem Other: + bilateral LE pitting edema > LLE. NV intact distally. No erythema/warmth General: Yes edema Course Course Course Narrative: XR chest 1V IMPRESSION: Mild linear atelectasis versus scarring in the lower lung espinoza, right greater than left. Mild congestion cannot be excluded. -1630--ED care transferred to [facility] pending venous duplex ultrasound, labs, and dispo per results Reevaluation(s) Reevaluation #1: Patient received in sign-out at change in shift pending labs and re-evaluation. The patient's troponin was very slightly elevated 24, she is not having any chest pain, her EKG is nonischemic. BNP was elevated to 347. Her chest x-ray is consistent with mild pulmonary vascular congestion. She takes Lasix 40 mg once daily at home. Will have her double the dose for the next 3 days. Her blood pressure has reduced to just above her baseline but she is still hypertensive. Again, she did not take her home medications today. I did discus s the patient anemia with her, she was guaiac negative and per her son, she is aware of her anemia and will see her liver specialist next week on Saturday. Time: 17:20 Medications Administered Discontinued Medications Generic Name Dose Route Start Last Admin Trade Name Freq PRN Reason Stop Dose Admin Furosemide 40 mg 08/11/22 14:50 08/11/22 15:06 Furosemide 40 Mg Tablet PO 08/11/22 14:51 40 mg ONCE ONE Administration Protocol Medical Decision Making Medical Decision Making [facility] Narrative: 87-year-old female with past medical history of anemia, diabetes, HTN, GERD, HLD, depression, presenting to the ED via EMS complaining of SOB, worse on exertion and elevated BP readings at home 200s over 90s since yesterday. Patient also reports acute on chronic bilateral LE edema > LLE. On exam hypertensive 182/48, NAD, nontoxic appearing, diminished lung sounds bibasilarly, bilateral LE pitting edema noted greater on the left without evidence of cellulitis. Concern for peripheral edema vs CHF vs pneumonia vs possible ACS. Lower suspicion for PE at this time. Plan: EKG, labs, CXR, venous duplex ultrasound, re-evaluate Please refer to course for remaining clinical decision making, interpretation of labs/imaging results, and discussions with consultants and/or family members. Differential Diagnosis Differential Diagnoses: The differential diagnosis associated with the presentation includes As above Admission/Observation Consideration of admission/observation: Escalation of care including admission/observation considered Lab Data [facility] Lab Attestation statement: I reviewed the patient's lab results. 08/11/22 16:14 08/11/22 16:14 Labs: Lab Results 08/11/22 08/11/22 08/11/22 Range/Units 16:14 16:14 16:14 WBC 5.8 (4.8-10.8) X10*3/uL RBC 3.02 L (4.20-5.50) X10*6/uL Hgb 7.3 L D (12.0-16.0) g/dl Hct 26.6 L (37.0-47.0) % MCV 88.1 (80.0-98.0) fL MCH 24.2 L (27.0-33.0) pg MCHC 27.4 L (31.0-35.0) g/dl RDW 16.0 (11.0-16.0) % Plt Count 234 (160-400) X10*3/uL MPV 9.5 (9.4-12.3) fL Immature Gran % (Auto) 0.7 H (0.0-0.4) % Neut % (Auto) 62.8 (45-73) % Lymph % (Auto) 18.8 L (20-40) % Verm[place] % (Auto) 6.4 (2-11) % Eos % (Auto) 10.6 H (0-4) % Baso % (Auto) 0.7 (0-2) % Lymph # (Auto) 1.1 L (1.2-4.9) X10*3/uL [place] # (Auto) 0.4 (0.1-1.2) X10*3/uL Eos # (Auto) 0.6 H (0.0-0.4) X10*3/uL Baso # (Auto) 0.0 (0.0-0.2) X10*3/uL Abs Immat Gran (auto) 0.04 H (0.00-0.03) X10*3/uL Absolute Neuts (auto) 3.6 (2.0-8.3) x10*3/uL Absolute Nucleated RBC 0.000 (0.0-0.012) X10*3/uL Nucleated RBC % (auto) 0.0 (0.0-0.2) /100WBC PT 11.4 (10.0-13.1) SEC INR 1.0 (0.9-1.1) Sodium 144 (135-145) mmol/L Potassium 4.2 (3.3-5.1) mmol/L Chloride 111 H (96-108) mmol/L Carbon Dioxide 23 (22-29) mmol/L Anion Gap 14 (12-20) BUN 15 (9-16) mg/dL Creatinine 0.94 (0.5-1.4) mg/dL Estim Creat Clear Calc 47.8 Estimated GFR 57 Random Glucose 114 (60-115) mg/dL Calcium 9.4 (8.4-10.2) mg/dL Magnesium 2.0 (1.6-2.6) mg/dL Total Bilirubin 0.4 (0.0-1.0) mg/dL Direct Bilirubin 0.2 (0.0-0.5) mg/dL AST 13 (5-31) U/L ALT 6 (0-31) U/L Alkaline Phosphatase 89 (39-117) U/L Troponin I High Sens (<3.5-17.0) ng/L B-Natriuretic Peptide (<100) pg/mL Total Protein 7.0 (6.5-8.0) g/dL Albumin 3.6 (3.5-5.0) g/dL Stool Occult Blood (NEGATIVE) 08/11/22 08/11/22 08/11/22 Range/Units 16:14 16:14 16:37 WBC (4.8-10.8) X10*3/uL RBC (4.20-5.50) X10*6/uL Hgb (12.0-16.0) g/dl Hct (37.0-47.0) % MCV (80.0-98.0) fL MCH (27.0-33.0) pg MCHC (31.0-35.0) g/dl RDW (11.0-16.0) % Plt Count (160-400) X10*3/uL MPV (9.4-12.3) fL Immature Gran % (Auto) (0.0-0.4) % Neut % (Auto) (45-73) % Lymph % (Auto) (20-40) % Vermillion % (Auto) (2-11) % Eos % (Auto) (0-4) % Baso % (Auto) (0-2) % Lymph # (Auto) (1.2-4.9) X10*3/uL [place] # (Auto) (0.1-1.2) X10*3/uL Eos # (Auto) (0.0-0.4) X10*3/uL Baso # (Auto) (0.0-0.2) X10*3/uL Abs Immat Gran (auto) (0.00-0.03) X10*3/uL Absolute Neuts (auto) (2.0-8.3) x10*3/uL Absolute Nucleated RBC (0.0-0.012) X10*3/uL Nucleated RBC % (auto) (0.0-0.2) /100WBC PT (10.0-13.1) SEC INR (0.9-1.1) Sodium (135-145) mmol/L Potassium (3.3-5.1) mmol/L Chloride (96-108) mmol/L Carbon Dioxide (22-29) mmol/L Anion Gap (12-20) BUN (9-16) mg/dL Creatinine (0.5-1.4) mg/dL Estim Creat Clear Calc Estimated GFR Random Glucose (60-115) mg/dL Calcium (8.4-10.2) mg/dL Magnesium (1.6-2.6) mg/dL Total Bilirubin (0.0-1.0) mg/dL Direct Bilirubin (0.0-0.5) mg/dL AST (5-31) U/L ALT (0-31) U/L Alkaline Phosphatase (39-117) U/L Troponin I High Sens 24.0 H (<3.5-17.0) ng/L B-Natriuretic Peptide 347 H (<100) pg/mL Total Protein (6.5-8.0) g/dL Albumin (3.5-5.0) g/dL Stool Occult Blood NEGATIVE (NEGATIVE) Radiology Impression Discussion of test interpretation with radiology: I have reviewed the radiologist's reading. External Record Review External record reviewed: Inpatient record, Office record, Outpatient record, Prior outpatient labs, Prior outpatient radiology, Primary care record and Outside ED record Tests considered The following testing was considered but not selected: As above Discharge Plan Discharge Clinical Impression: Pedal edema, Dyspnea, Anemia, Congestive heart failure Patient Disposition: Home, Self-Care Additional Instructions: You have a small increase in the amount of fluid around her lungs which is likely contributing to your trouble breathing. Your ultrasound did not show any evidence of blood clots Your blood work also showed that you are anemic with a hemoglobin of 7.6 Follow-up with your primary doctor For your trouble breathing, you should take a double dose of furosemide so total of 80 mg daily for the next 3 days Return for new or worsening symptoms Prescriptions: New furosemide 20 mg tablet 40 mg PO DAILY Qty: 6 0RF No Action (DME) FreeStyle Test Strip See Rx Instructions .ROUTE .MEDSUPPLY Qty: 50 11RF Rx Instructions: Use 1 test strip once a day (DME) underpads [Certainty Underpads] 30 X 36 pad See Rx Instructions .ROUTE .MEDSUPPLY Qty: 150 11RF Rx Instructions: Use 4 underpads twice a day (DME) lancets 28 gauge misc See Rx Instructions topical BID Qty: 100 11RF Rx Instructions: As directed acetaminophen [Pain Relief (acetaminophen)] 650 mg tablet extended release 650 mg PO Q8H PRN (Reason: pain) 30 Days Qty: 90 6RF FreeStyle Lite Strips Strip 1 strip miscellaneous BID 30 Days Qty: 50 11RF aspirin 81 mg tablet,delayed release (DR/EC) 81 mg PO DAILY 90 Days Qty: 90 3RF cholecalciferol (vitamin D3) 25 mcg (1,000 unit) tablet 25 mcg PO DAILY 90 Days Qty: 90 3RF calcium carbonate-vitamin D3 500 mg-10 mcg (400 unit) tablet 1 tab PO BID 90 Days Qty: 180 3RF metformin 1,000 mg tablet 1,000 mg PO BID 90 Days Qty: 180 3RF omeprazole 20 mg capsule,delayed release(DR/EC) 20 mg PO DAILY 90 Days Qty: 90 3RF pravastatin 40 mg tablet 40 mg PO DAILY 90 Days Qty: 90 3RF (DME) commode Kit See Rx Instructions .Route Qty: 1 0RF Rx Instructions: As directed (DME) Bladder Control Pads Ex Absorb Pad See Rx Instructions .Route Qty: 150 11RF Rx Instructions: As directed (DME) incontinence wipes See Rx Instructions .Route .MEDSUPPLY Qty: 300 11RF Rx Instructions: As directed (DME) disposable bed pa See Rx Instructions .Route .MEDSUPPLY Qty: 30 11RF Rx Instructions: As directed (DME) washable bedpads See Rx Instructions .Route .MEDSUPPLY Qty: 2 11RF Rx Instructions: As directed mirtazapine 15 mg tablet 15 mg PO BEDTIME 90 Days Qty: 90 3RF paroxetine HCl 10 mg tablet 10 mg PO DAILY 90 Days Qty: 90 3RF (DME) recliner See Rx Instructions .Route .MEDSUPPLY Qty: 1 0RF Rx Instructions: As directed furosemide 20 mg tablet 40 mg PO QAM 90 Days Qty: 180 1RF [id number] 3.5mg-400 unit- 5,000 unit/gram ointment 1 appl topical DAILY 14 Days Qty: 14 0RF
--- NOTE | 2022-08-11 14:24 | ECG_ITS ---
Test Reason : sob Blood Pressure : / mmHG Vent. Rate : 072 BPM Atrial Rate : 072 BPM P-R Int : 142 ms QRS Dur : 076 ms QT Int : 390 ms P-R-T Axes : 075 014 042 degrees QTc Int : 427 ms Normal sinus rhythm Normal ECG When compared with ECG of 13-FEB-2018 22:12, No significant change was found Referred By: Adriana Gibson Electronically Signed By:TAYLER SHELBY
[2022-08-11] MEDS: Furosemide 40 MG TABLET PO (15:06)
[2022-08-11 16:18] LABS: MANUAL DIFF FLAG NO
[2022-08-11 16:20] LABS: Basophils Percent Auto 0.7 % (0-2); Eosinophils Absolute Auto 0.6 X10*3/uL (0.0-0.4); Eosinophils Percent Auto 10.6 % (0-4); Hematocrit 26.6 % (37.0-47.0); Hemoglobin 7.3 g/dl (12.0-16.0); Imm Gran Abs Auto 0.04 X10*3/uL (0.00-0.03); Imm Gran Pct Auto 0.7 % (0.0-0.4); Lymphocytes Absolute Auto 1.1 X10*3/uL (1.2-4.9); Lymphocytes Percent Auto 18.8 % (20-40); Mean Corpuscular HGB Conc 27.4 g/dl (31.0-35.0); Mean Corpuscular Hemoglobin 24.2 pg (27.0-33.0); Mean Corpuscular Volume 88.1 fL (80.0-98.0); Mean Platelet Volume 9.5 fL (9.4-12.3); Monocytes Absolute Auto 0.4 X10*3/uL (0.1-1.2); Monocytes Percent Auto 6.4 % (2-11); Neutrophils Absolute Auto 3.6 x10*3/uL (2.0-8.3); Neutrophils Percent Auto 62.8 % (45-73); Platelet Count 234 X10*3/uL (160-400); Red Blood Count 3.02 X10*6/uL (4.20-5.50); White Blood Count 5.8 X10*3/uL (4.8-10.8)
[2022-08-11 16:30] LABS: Prothrombin Time 11.4 SEC (10.0-13.1)
[2022-08-11 16:45] LABS: Alanine Aminotransferase 6 U/L (0-31); Albumin Level 3.6 g/dL (3.5-5.0); Alkaline Phosphatase 89 U/L (39-117); Anion Gap 14 (12-20); Aspartate Amino Transferase 13 U/L (5-31); Bilirubin Direct 0.2 mg/dL (0.0-0.5); Bilirubin Total 0.4 mg/dL (0.0-1.0); Blood Urea Nitrogen 15 mg/dL (9-16); Calcium 9.4 mg/dL (8.4-10.2); Carbon Dioxide 23 mmol/L (22-29); Chloride 111 mmol/L (96-108); Creatinine Clr Calc Pharmacy 47.8; Estimated Glomerular Filt Rate 57; Glucose Random 114 mg/dL (60-115); Potassium 4.2 mmol/L (3.3-5.1); Sodium 144 mmol/L (135-145)
[2022-08-11 16:53] LABS: B Type Natriuretic Peptide 347 pg/mL (<100)
[2022-08-11 16:55] LABS: OBS Int Ctl Valid YES; OBS1 NEGATIVE (NEGATIVE)
[2022-08-11 17:01] VITALS: BP 177/49; PULSE 69; RESP 22; TEMP 36.8; O2SAT 96
[2022-08-11 17:30] VITALS: BP 195/68; PULSE 70; RESP 20; O2SAT 96
--- NOTE | 2022-08-11 17:30 | PC.NURSE ---
BP noted to be elevated, provider made aware but no new orders at this time.
== END 2022-08-11 17:35 | disposition home or self-care (01) ==
PROVIDERS: Physician Assistant; Emergency Provider Internal Medicine
DX: R60.0 Localized edema (principal); R06.00 Dyspnea, unspecified; D64.9 Anemia, unspecified; E11.22 Type 2 diabetes mellitus with diabetic chronic kidney disease; I13.0 Hypertensive heart and chronic kidney disease with heart failure and stage 1 through stage 4 chronic kidney disease, or unspecified chronic kidney disease; N18.4 Chronic kidney disease, stage 4 (severe); I50.9 Heart failure, unspecified; R06.02 Shortness of breath; E78.00 Pure hypercholesterolemia, unspecified; Z79.02 Long term (current) use of antithrombotics/antiplatelets; Z79.82 Long term (current) use of aspirin; Z79.899 Other long term (current) drug therapy
CPT/HCPCS: 36415; 71045; 80048; 80076; 82272; 83735; 83880; 84484; 85025; 85610; 93005; 93970; 99284

== ENCOUNTER 2022-08-30 13:56 | Outpatient (REF) | payer OTHER, SELFPAY ==
[2022-08-30 15:43] LABS: Creatinine Urine 213.53 mg/dL; Protein/Creatinine Ratio, Ur 0.22 (<0.2); Total Protein Urine Random 46 mg/dL (<12)
[2022-08-30 15:44] LABS: Albumin Level 3.7 g/dL (3.5-5.0); Anion Gap 15 (12-20); Blood Urea Nitrogen 23 mg/dL (9-16); Calcium 10.2 mg/dL (8.4-10.2); Carbon Dioxide 25 mmol/L (22-29); Chloride 107 mmol/L (96-108); Estimated Glomerular Filt Rate 44; Potassium 4.5 mmol/L (3.3-5.1); Sodium 142 mmol/L (135-145)
== END 2022-08-30 13:57 | disposition home or self-care (01) ==
LOC: HO.LAB 13:56
PROVIDERS: PCP Internal Medicine; Visit Provider Internal Medicine Nephrology
DX: I12.9 Hypertensive chronic kidney disease with stage 1 through stage 4 chronic kidney disease, or unspecified chronic kidney disease (principal); N18.31 Chronic kidney disease, stage 3a
CPT/HCPCS: 36415; 80051; 82040; 82310; 82565; 84156; 84520

== ENCOUNTER 2022-10-23 12:52 | Outpatient (REF) | payer OTHER, SELFPAY ==
--- NOTE | ~2022-10-23 | MM_ITS ---
EXAMINATION: MM SCREENING DIGITAL BREAST TOMOSYNTHESIS, BILATERAL CLINICAL INFORMATION: Screening. Asymptomatic. COMPARISON: Mammography: 10/05/2015, 07/08/2014, 05/14/2013, and 03/13/2012. TECHNIQUE: Digital breast tomosynthesis is performed in both the craniocaudal and mediolateral oblique views along with computer-aided detection (CAD). Synthesized 2D images are generated from the tomosynthesis. FINDINGS: There are scattered areas of fibroglandular density (ACR BI-RADS breast composition Category b). There are benign scattered calcifications and vascular calcifications in both breasts. There are no suspicious masses, suspicious grouped calcifications, or areas of architectural distortion. The parenchymal pattern is stable from prior exams. MM/MM tomosynthesis screening BI IMPRESSION: No mammographic evidence of malignancy. ASSESSMENT: BI-RADS BI-RADS 2 - Benign Findings RECOMMENDATION: Routine annual mammography screening. 1 year F/U This examination should not preclude the clinical evaluation of a suspicious palpable abnormality. This patient's information was entered into a reminder system with a target due date for their next mammogram.
== END 2022-10-23 12:53 | disposition home or self-care (01) ==
LOC: HO.MAMMO 12:52
PROVIDERS: PCP Internal Medicine; Visit Provider Internal Medicine
DX: Z12.31 Encounter for screening mammogram for malignant neoplasm of breast (principal)
CPT/HCPCS: 77063; 77067

== ENCOUNTER → 2022-10-23 13:15 | Outpatient (BNV) | payer OTHER, SELFPAY | PROVIDERS: PCP Internal Medicine; Visit Provider Radiology Diagnostic Radiology | DX: Z12.31 Encounter for screening mammogram for malignant neoplasm of breast (principal) | CPT/HCPCS: 77063; 77067 ==

== ENCOUNTER 2022-11-01 15:24 | Outpatient (AMB) | payer OTHER, SELFPAY ==
--- NOTE | 2022-11-01 15:42 | MHC.PC.OV ---
Vital Signs 11/01/22 15:44 11/01/22 16:09 Height 5 ft 4 in Weight 182 lb 8 oz BMI 31.3 BP 164/102 H 160/100 H Blood Pressure Location Lt brachial Lt brachial Position Sitting Sitting Pulse 68 Pulse Source Pulse Oximeter Pulse Oximetry (%) 98 Oxygen Delivery Method Room Air Intake Visit Reasons: dm Intake Note: Patient is here to follow up on DM type 2. 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 Accompanied by: Grandson Allergies No Known Allergies Allergy (Unknown, Verified 11/01/22 15:51) Medication List - Last Reconciled 11/01/22 by Karina Brothers MD acetaminophen ER (Pain Relief (acetaminophen)) 650 mg PO Q8H PRN 30 days aspirin 81 mg PO DAILY 90 days blood sugar diagnostic (FreeStyle Test strips) Use 1 test strip once a day calcium carbonate-vitamin D3 500 mg-10 mcg (400 unit) 1 tab PO BID 90 days cholecalciferol (vitamin D3) 25 mcg PO DAILY 90 days commode As directed [disposable bed pa As directed] FreeStyle Lite Strips (blood sugar diagnostic) 1 strip miscellaneous BID 30 days NS furosemide 40 mg (2 x 20 mg) PO DAILY furosemide 40 mg (2 x 20 mg) PO QAM 90 days incontinence pad, liner, disp (Bladder Control Pads Ex Absorb) As directed [incontinence wipes As directed] lancets As directed losartan 25 mg PO DAILY 90 days metformin 1,000 mg PO BID 90 days mirtazapine 15 mg PO BEDTIME 90 days [id number] 3.5mg-400 unit- 5,000 unit/gram 1 appl topical DAILY 2 weeks omeprazole 20 mg PO DAILY 90 days paroxetine HCl 10 mg PO DAILY 90 days pravastatin 40 mg PO DAILY 90 days [recliner As directed] underpads (Certainty Underpads) Use 4 underpads twice a day [washable bedpads As directed] Tobacco use date assessed: 07/02/22 Fall risk assessment: 2 + Falls in past year Last assessed Fall Risk: 11/01/22 Dental Screening Dental Screen Date: 11/01/22 Did you have a dental visit in the last 12 months?: Yes Did you have a dental problem in the last 6 months where you did not have access to dental care?: No Was dental information given to patient?: Patient has dentist HPI HPI Comments History of Present Illness Details This is an 87-year-old female with diabetes mellitus type 2, hypertension, hyperlipidemia, chronic kidney disease stage 3 and moderate major depression that comes today accompanied by grandson for follow-up on her conditions. A1c within goal. Blood pressure still elevated and I will increase losartan from 25 mg to 50 mg. Blood pressure will be recheck with nurse navigator in 3 weeks. Last LDL last year was within goal and this will be repeated. Chronic kidney disease has somewhat improved from stage IV to stage III with last GFR being 44 and this is follow by Nephrology. She also has anemia that is normocytic most likely due to chronic kidney disease. Denies any active bleeding. Walks with a walker for gait stability due to chronic back pain. Depression has been stable with paroxetine. [facility] Medical History (Updated 11/02/22 @ 05:25 by Karina Brothers MD) Anemia Bilateral carpal tunnel syndrome Carpal tunnel syndrome CKD (chronic kidney disease) stage 4, GFR 15-29 ml/min Diabetes Essential hypertension GERD (gastroesophageal reflux disease) High cholesterol Hypertension Hypovitaminosis D Moderate recurrent major depression Pure hypercholesterolemia Urinary incontinence Surgical History History of cholecystectomy S/P carpal tunnel release Family History Father No problems noted. Mother No problems noted. Social History Housing: Apartment Alcohol intake: never Patient Tobacco Use Status: Former Tobacco user Tobacco use type: Cigarette e-Cigarette/Vaping Use: Never Used Second Hand Smoke Exposure: No service: No Current occupational status: disabled Current occupation: rt hand Cognitive needs: Yes Hearing needs: No Vision needs: Yes Questionnaire Thrive Questionnaire Date Thrive assessed: 07/02/22 BHARAT-7 AMB Questionnaire BHARAT-7 Date BHARAT - 7 assessed: 07/02/22 Source: Developed by Drs. Nemesio Virgen, Anna Dempsey, Gil Avila and colleagues, with an educational hair from [employer] Review of Systems Const All systems reviewed & are unremarkable except as noted in HPI and below Eyes Reports no additional complaints, Denies change in vision and Denies other visual disturbances Card Denies chest pain at rest, Denies chest pain with activity, Denies edema, Denies irregular heart rhythm, Denies claudication, Denies dyspnea, Denies dyspnea on exertion, Denies orthopnea, Denies paroxysmal nocturnal dyspnea and Denies slow heart rate Resp Denies cough, Denies dyspnea and Denies dyspnea on exertion GI Denies abdominal pain, Denies change in bowel habits, Denies excessive flatus, Denies nausea and Denies vomiting Denies urinary incontinence, Denies urinary hesitancy and Denies urinary urgency Musc Denies abnormal gait, Denies atrophy, Denies deformity and Denies limited range of motion Skin/Breast Denies bleeding lesions, Denies changing lesions and Denies rash Neuro Denies abnormal gait and Denies lack of coordination Physical exam (Primary Care) Vital Signs: Last Vital Signs Pulse 68 11/01/22 15:44 BP 160/100 H 11/01/22 16:09 Pulse Ox 98 11/01/22 15:44 Oxygen Delivery Method Room Air 11/01/22 15:44 BMI result Body Mass Index 31.3 Tobacco/Smoking Status: Tobacco use Status Tobacco use date assessed 07/02/22 11/01/22 15:44 Patient Tobacco Use Status Former Tobacco user 11/01/22 15:44 Tobacco use type Cigarette 11/01/22 15:44 e-Cigarette/Vaping Use Never Used 11/01/22 15:44 Thrive Assessment: Date of Thrive Assessment Date Thrive assessed 07/02/22 11/01/22 15:44 Const Limitations: ambulation with walker Eyes General: appearance normal, both eyes and all related structures Eyelids: Yes eyelids normal Conjunctivae: conjunctivae normal Neck Neck: Yes normal visual inspection and Yes supple Resp Effort & Inspection: normal respiratory effort Auscultation: clear to auscultation bilaterally Cardio Jugular venous distension: no JVD Rate: regular rate Rhythm: regular rhythm Heart sounds: S1 normal heart sound present and S2 normal heart sound present Extrem General: Yes full ROM Results AMB Hemoglobin A1c AMB Hemoglobin A1c 5.7 % Last Edit by SHEY Oliver on 11/01/22 15:54 Results Reviewed Results Reviewed: Laboratory Last Values Hgb A1c (Clinic) 5.7 % (4.0-6.0) 11/01/22 15:41 Assessment and Plan Assessment & Plan (1) Diabetes: Code(s): E11.9 - Type 2 diabetes mellitus without complications Qualifiers: Diabetes mellitus type: type 2 Diabetes mellitus roll handler insulin use: without [place] [facility] use Diabetes mellitus complication status: with ophthalmic complications Diabetes mellitus complication detail: with diabetic retinopathy Diabetic retinopathy severity: with proliferative retinopathy Proliferative retinopathy type: unspecified Diabetes mellitus macular edema: macular edema presence unspecified Laterality: bilateral Qualified Code(s): 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 A1c goal is equal or less than 7% (2) Essential hypertension: Code(s): I10 - Essential (primary) hypertension Plan: Increase losartan to 50 mg. Blood pressure goal is equal or less than 130/80. (3) CKD (chronic kidney disease) stage 3, GFR 30-59 ml/min: Code(s): N18.30 - Chronic kidney disease, stage 3 unspecified Plan: Avoid NSAIDs. Keep blood pressure less than 130/80. Follow-up with nephrology. (4) Hyperlipidemia LDL goal <70: Code(s): E78.5 - Hyperlipidemia, unspecified Plan: Continue statins. Repeat lipid panel. LDL goal is less than 70. (5) Moderate recurrent major depression: Code(s): F33.1 - Major depressive disorder, recurrent, moderate Plan: Continue paroxetine. Orders: Orders Vitamin B12 and Folate 1 Week E53.8 - Deficiency of other specified B group vitamins Comprehensive [place]. Panel Fast 1 Week N18.4 - Chronic kidney disease, stage 4 (severe) IRON PROFILE 1 Week D64.9 - Anemia, unspecified Lipid Panel 1 Week E78.5 - Hyperlipidemia, unspecified Vitamin D 25-OH Total 1 Week E55.9 - Vitamin D deficiency, unspecified Microalbumin, Random (w Creat) 1 Week E11.9 - Type 2 diabetes mellitus without complications Complete Blood Count Auto Diff 1 Week D64.9 - Anemia, unspecified AMB Hemoglobin A1c 11/01/22 E11.9 - Type 2 diabetes mellitus without complications Medications: New losartan 50 mg PO DAILY 90 days 90 tabs 0RF I15.0 - Renovascular hypertension Refilled blood sugar diagnostic (FreeStyle Test strips) Use 1 test strip once a day 50 ea 11RF E11.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, bilateral Discontinued losartan Discontinued Reason: Patient Completed Course 25 mg PO DAILY 90 days 90 tabs 1RF Coding Level of Care Code Est Pt Level 4 (09494) Diagnoses Diabetes E11.3593 Diabetes mellitus type: type 2 Diabetes mellitus roll handler insulin use: without [place] [facility] use Diabetes mellitus complication status: with ophthalmic complications Diabetes mellitus complication detail: with diabetic retinopathy Diabetic retinopathy severity: with proliferative retinopathy Proliferative retinopathy type: unspecified Diabetes mellitus macular edema: macular edema presence unspecified Laterality: bilateral Essential hypertension I10 CKD (chronic kidney disease) stage 3, GFR 30-59 ml/min N18.30 Hyperlipidemia LDL goal <70 E78.5 Moderate recurrent major depression F33.1 Time Spent (min) 23
[2022-11-01 15:44] VITALS: BP 164/102; PULSE 68; O2SAT 98; BMI 31.3
[2022-11-01 16:09] VITALS: BP 160/100
== END 2022-11-01 16:20 | disposition home or self-care (01) ==
PROVIDERS: Visit Provider Internal Medicine
DX: E11.3593 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 without macular edema, bilateral (principal); I12.9 Hypertensive chronic kidney disease with stage 1 through stage 4 chronic kidney disease, or unspecified chronic kidney disease; N18.30 Chronic kidney disease, stage 3 unspecified; F33.1 Major depressive disorder, recurrent, moderate; E78.5 Hyperlipidemia, unspecified
CPT/HCPCS: 83036; 99214

== ENCOUNTER 2022-11-06 14:20 | Outpatient (REF) | payer OTHER, SELFPAY ==
[2022-11-06 14:32] LABS: MANUAL DIFF FLAG NO
[2022-11-06 14:45] LABS: Basophils Percent Auto 0.5 % (0-2); Eosinophils Absolute Auto 0.8 X10*3/uL (0.0-0.4); Eosinophils Percent Auto 12.8 % (0-4); Hematocrit 28.2 % (37.0-47.0); Imm Gran Abs Auto 0.01 X10*3/uL (0.00-0.03); Imm Gran Pct Auto 0.2 % (0.0-0.4); Mean Corpuscular HGB Conc 28.4 g/dl (31.0-35.0); Mean Corpuscular Volume 84.4 fL (80.0-98.0); Mean Platelet Volume 10.1 fL (9.4-12.3); Monocytes Absolute Auto 0.3 X10*3/uL (0.1-1.2); Monocytes Percent Auto 5.4 % (2-11); Neutrophils Absolute Auto 3.9 x10*3/uL (2.0-8.3); Neutrophils Percent Auto 64.1 % (45-73); Platelet Count 268 X10*3/uL (160-400); Red Blood Count 3.34 X10*6/uL (4.20-5.50); Red Cell Distribution Width 17.1 % (11.0-16.0); White Blood Count 6.1 X10*3/uL (4.8-10.8)
[2022-11-06 15:22] LABS: Alanine Aminotransferase 9 U/L (0-31); Alkaline Phosphatase 92 U/L (39-117); Anion Gap 12 (12-20); Aspartate Amino Transferase 16 U/L (5-31); Bilirubin Total 0.4 mg/dL (0.0-1.0); Blood Urea Nitrogen 17 mg/dL (9-16); Calcium 9.9 mg/dL (8.4-10.2); Carbon Dioxide 24 mmol/L (22-29); Chloride 111 mmol/L (96-108); Cholesterol 114 mg/dL (<200); Estimated Glomerular Filt Rate 49; Glucose Fasting 138 mg/dL (60-99); HDL Cholesterol 51 mg/dL (>40); Iron 23 mcg/dL (30-160); LDL Cholesterol Calculated 44 mg/dL (<100); Percent Iron Saturation 7 % (15-50); Sodium 142 mmol/L (135-145); Total Iron Binding Capacity 325 mcg/dL (228-428); Total Protein 7.5 g/dL (6.5-8.0); Triglycerides 97 mg/dL (<150); Unsaturated Iron Binding 302 ug/dL
[2022-11-06 15:37] LABS: Vitamin D 25-OH Total 44.2 ng/mL (>30)
[2022-11-06 15:47] LABS: Folate 10.4 ng/mL (> or = 4.0); Vitamin B12 525 pg/mL (200-900)
[2022-11-06 17:03] LABS: Microalbum/Creatinine Ratio Ur 120.6 ug/mg cr (<30)
== END 2022-11-06 14:21 | disposition home or self-care (01) ==
LOC: HO.LAB 14:20
PROVIDERS: PCP Internal Medicine; Visit Provider Internal Medicine
DX: I10 Essential (primary) hypertension (principal); D64.9 Anemia, unspecified; E53.8 Deficiency of other specified B group vitamins; E11.9 Type 2 diabetes mellitus without complications; E55.9 Vitamin D deficiency, unspecified; E78.5 Hyperlipidemia, unspecified
CPT/HCPCS: 36415; 80053; 80061; 82043; 82306; 82607; 82746; 83540; 85025

== ENCOUNTER 2022-12-19 15:15 | Outpatient (AMB) | payer OTHER, SELFPAY ==
--- NOTE | 2022-12-19 15:44 | MHC.PC.OV ---
Vital Signs 12/19/22 15:45 12/19/22 16:20 Height 5 ft 4 in Weight 176 lb BMI 30.2 BP 160/86 H 160/70 H Blood Pressure Location Lt brachial Lt brachial Position Sitting Sitting Pulse 56 Pulse Source Pulse Oximeter Temp Source Skin Pulse Oximetry (%) 99 Oxygen Delivery Method Room Air Intake Visit Reasons: HTN & BP meds Intake Note: pt states on going High blood pressure Medical Device Assembler Required: No Allergies No Known Allergies Allergy (Unknown, Verified 12/19/22 16:08) Medication List - Last Reconciled 12/19/22 by KWASI Briones acetaminophen ER (Pain Relief (acetaminophen)) 650 mg PO Q8H PRN 30 days aspirin 81 mg PO DAILY 90 days blood sugar diagnostic (FreeStyle Test strips) Use 1 test strip once a day calcium carbonate-vitamin D3 500 mg-10 mcg (400 unit) 1 tab PO BID 90 days cholecalciferol (vitamin D3) 25 mcg PO DAILY 90 days commode As directed [disposable bed pa As directed] ferrous sulfate 325 mg PO DAILY 90 days FreeStyle Lite Strips (blood sugar diagnostic) 1 strip miscellaneous BID 30 days NS furosemide 40 mg (2 x 20 mg) PO DAILY incontinence pad, liner, disp (Bladder Control Pads Ex Absorb) As directed [incontinence wipes As directed] lancets As directed losartan 100 mg PO DAILY 90 days metformin 1,000 mg PO BID 90 days mirtazapine 15 mg PO BEDTIME 90 days [id number]-cqhvahgyxCo-ghqzxvqzV 3.5mg-400 unit- 5,000 unit/gram 1 appl topical DAILY 2 weeks omeprazole 20 mg PO DAILY 90 days paroxetine HCl 10 mg PO DAILY 90 days pravastatin 40 mg PO DAILY 90 days [recliner As directed] underpads (Certainty Underpads) Use 4 underpads twice a day [washable bedpads As directed] Tobacco use date assessed: 12/19/22 Fall risk assessment: No Falls in past year Last assessed Fall Risk: 12/19/22 HPI HTN & BP meds HPI Details Patient is an 87-year-old female who presents today to follow-up on hypertension. Patient of Dr. Gomes. Medical history significant for hypertension, diabetes, GERD, hyperlipidemia, CKD stage 3-followed by Nephrology. Patient is on Lasix 20 mg in the morning, prescription for 40 mg in the morning, although patient reports taking only 20 mg in the morning because of increased urination with medication. In addition, patient reports that she has been taking losartan 100 mg b.i.d. instead of daily as ordered. She reports high blood pressures at home 180/70, one time she had systolic blood pressure of 140. Patient denies vision changes, chest pain, headache, or extremity swelling. Patient is a Polish-speaking and her ORTHOPTIST Sari was helping with interpretation. [facility] Medical History CKD (chronic kidney disease) stage 4, GFR 15-29 ml/min Anemia Bilateral carpal tunnel syndrome Moderate recurrent major depression Pure hypercholesterolemia Essential hypertension Carpal tunnel syndrome Urinary incontinence Hypovitaminosis D GERD (gastroesophageal reflux disease) High cholesterol Diabetes Hypertension Surgical History S/P carpal tunnel release History of cholecystectomy Family History Father No problems noted. Mother No problems noted. Social History Housing: Apartment Alcohol intake: never Patient Tobacco Use Status: Former Tobacco user Tobacco use type: Cigarette e-Cigarette/Vaping Use: Never Used Second Hand Smoke Exposure: No service: No Current occupational status: disabled Current occupation: rt hand Cognitive needs: Yes Hearing needs: No Vision needs: Yes Questionnaire PHQ-9 Over the last 2 weeks, how often have you been bothered by any of the following problems? 1. Little interest or pleasure in doing things: not at all 2. Feeling down, depressed, or hopeless: not at all 3. Trouble falling or staying asleep, or sleeping too much: not at all 4. Feeling tired or having little energy: not at all 5. Poor appetite or overeating: not at all 6. Feeling bad about yourself - or that you are a failure or have let yourself or your family down: not at all 7. Trouble concentrating on things, such as reading the newspaper or watching television: not at all 8. Moving or speaking so slowly that other people could have noticed. Or the opposite - being so fidgety or restless that you have been moving around a lot more than usual: not at all 9. Thoughts that you would be better off or of hurting yourself in some way: not at all Total score: 0 Depression Screening Interpretation: Negative Depression Screening Done: Yes 07273 - PHQ-9 Billing: Yes Source: Developed by Drs. Nemesio Virgen, Anna Dempsey, Gil Avila and colleagues, with an educational hair from [employer] Thrive Questionnaire Date Thrive assessed: 07/02/22 AUDIT C Alcohol Use Questionnaire (AUDIT-C) 1. How often do you have a drink containing alcohol?: Never 3. How often do you have six or more drinks on one occasion?: Never Total Score: 0 Score Reviewed/Action Taken: No BHARAT-7 AMB Questionnaire BHARAT-7 Date BHARAT - 7 assessed: 07/02/22 Source: Developed by Drs. Nemesio Virgen, Anna Dempsey, Gil Avila and colleagues, with an educational hair from [employer] Review of Systems Const Denies body aches, Denies chills, Denies fever(s) and Denies headache(s) Eyes Denies change in vision ENT Denies dizziness, Denies otalgia, Denies headache(s), Denies nasal discharge, Denies sinus pain and Denies sore throat Card Denies chest pain, Denies edema, Denies lightheadedness and Denies dyspnea Resp Denies cough, Denies dyspnea and Denies wheezing GI Denies abdominal pain Denies dysuria Musc Denies myalgias Skin/Breast Denies rash Neuro Denies dizziness and Denies headache(s) Aller/Immun Denies wheezing Physical exam (Primary Care) Vital Signs: Last Vital Signs Pulse 56 12/19/22 15:45 BP 160/70 H 12/19/22 16:20 Pulse Ox 99 12/19/22 15:45 Oxygen Delivery Method Room Air 12/19/22 15:45 BMI result Body Mass Index 30.2 Tobacco/Smoking Status: Tobacco use Status Tobacco use date assessed 12/19/22 12/19/22 15:46 Patient Tobacco Use Status Former Tobacco user 12/19/22 15:46 Tobacco use type Cigarette 12/19/22 15:46 e-Cigarette/Vaping Use Never Used 12/19/22 15:46 PHQ-9: PHQ-9 Score PHQ-9: Total score 0 12/19/22 16:28 Depression Screening Interpretation: Negative Thrive Assessment: Date of Thrive Assessment Date Thrive assessed 07/02/22 12/19/22 15:46 Const General: cooperative and no acute distress Orientation/consciousness: patient oriented x3 HENMT Head: Yes normocephalic and Yes atraumatic Throat: Yes posterior oropharynx normal Eyes General: appearance normal, both eyes and all related structures Neck Neck: Yes normal visual inspection and Yes full ROM Resp Effort & Inspection: normal respiratory effort and able to speak in complete sentences Auscultation: clear to auscultation bilaterally, no crackles, no rales, no rhonchi and no wheezes Cardio Rate: regular rate Rhythm: regular rhythm Heart sounds: S1 normal heart sound present and S2 normal heart sound present GI Auscultation: normal bowel sounds Skin General skin exam: no rashes or lesions noted Neuro General: patient oriented x3 Extrem General: Yes full ROM and No edema Office Procedures Flu Questionnaire Does the patient have a severe egg allergy?: No Does the patient have severe life threatening allergies?: No Does the patient have a fever or illness today?: No Has the patient ever had Guillain-[place] Syndrome?: No Has the patient ever had any past reaction to a flu shot?: No Immunizations flu vacc [id number] 6mos up(PF) 60 mcg(15 mcgx4)/0.5 mL IM syringe Performing Provider: KWASI Briones Performing Location: [facility] Administered by: SHEY Oliver on 12/19/22 16:41 Dose Route Admin Location Dispensed Lot Number Expiration Date [facility] Entry Level Account Representative 0.5 mL IM Left Deltoid 0.5 mL [id number] 09/15/23 [id number] Worklight VIS Given Date VIS Provided VIS Publication Date 12/19/22 Single Vaccine 20 Eligibility Eligibility Date Funding Source Not [facility] Eligible 12/19/22 Private Assessment and Plan Assessment & Plan (1) Hypertension: Code(s): I10 - Essential (primary) hypertension Qualifiers: Hypertension type: renovascular hypertension Qualified Code(s): I15.0 - Renovascular hypertension Plan: Goal BP equal or less than 140/90 Blood pressure elevated in the office today Patient denies acute symptoms Patient is to continue Lasix 20 mg in the morning and losartan 100 mg daily in the morning Start amlodipine 2.5 mg at bedtime-educated about possible adverse reactions and when to notify provider Reinforced low-sodium diet Continue to monitor blood pressures at home Signs and symptoms reviewed when to notify provider go to the emergency department Follow-up with nurse in 2 weeks for BP recheck Patient agreed with the plan Orders: Orders Influenza [id number] Immunization Today Z23 - Encounter for immunization Medications: New amlodipine 2.5 mg PO BEDTIME 30 tabs 1RF I10 - Essential (primary) hypertension Changed From furosemide 40 mg (2 x 20 mg) PO DAILY 6 tabs 0RF I10 - Essential (primary) hypertension To furosemide 20 mg PO DAILY 30 tabs 1RF I10 - Essential (primary) hypertension Coding Level of Care Code Est Pt Level 3 (48549) Diagnoses 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
[2022-12-19 15:45] VITALS: BP 160/86; PULSE 56; O2SAT 99; BMI 30.2
[2022-12-19 16:20] VITALS: BP 160/70
== END 2022-12-19 16:32 | disposition home or self-care (01) ==
PROVIDERS: PCP Internal Medicine; Visit Provider Nurse Practitioner Family
DX: Z23 Encounter for immunization (principal); I15.0 Renovascular hypertension
CPT/HCPCS: 90471; 90686; 99213

== ENCOUNTER 2023-03-04 15:05 | Outpatient (AMB) | payer OTHER, SELFPAY ==
--- NOTE | 2023-03-04 15:08 | A.OFFPC_ITS ---
Vital Signs 03/04/23 15:09 03/04/23 15:38 Height 5 ft 4 in Weight 179 lb BMI 30.7 BP 142/70 H 138/70 Blood Pressure Location Lt brachial Lt brachial Position Sitting Sitting Intake Visit Reasons: dm Intake Note: Patient here for a follow up DM Court Collections Officer Required: No Accompanied by: GATE WATCHMAN Allergies No Known Allergies Allergy (Unknown, Verified 03/04/23 15:25) Medication List - Last Reconciled 03/04/23 by Karina Brothers MD acetaminophen ER (Pain Relief (acetaminophen)) 650 mg PO Q8H PRN 30 days amlodipine 10 mg PO DAILY 90 days aspirin 81 mg PO DAILY 90 days blood sugar diagnostic (FreeStyle Test strips) Use 1 test strip once a day calcium carbonate-vitamin D3 500 mg-10 mcg (400 unit) 1 tab PO BID 90 days cholecalciferol (vitamin D3) 25 mcg PO DAILY 90 days commode As directed [disposable bed pa As directed] ferrous sulfate 325 mg PO DAILY 90 days FreeStyle Lite Strips (blood sugar diagnostic) 1 strip miscellaneous BID 30 days NS furosemide 20 mg PO DAILY incontinence pad, liner, disp (Bladder Control Pads Ex Absorb) As directed [incontinence wipes As directed] lancets As directed losartan 100 mg PO DAILY 90 days metformin 1,000 mg PO BID 90 days mirtazapine 15 mg PO BEDTIME 90 days [id number]-[id number]-yucqayigU 3.5mg-400 unit- 5,000 unit/gram 1 appl topical DAILY 2 weeks omeprazole 20 mg PO DAILY 90 days paroxetine HCl 10 mg PO DAILY 90 days pravastatin 40 mg PO DAILY 90 days [recliner As directed] underpads (Certainty Underpads) Use 4 underpads twice a day [washable bedpads As directed] Tobacco use date assessed: 12/19/22 Fall risk assessment: No Falls in past year Last assessed Fall Risk: 03/04/23 Dental Screening Dental Screen Date: 03/04/23 Did you have a dental visit in the last 12 months?: Yes Did you have a dental problem in the last 6 months where you did not have access to dental care?: No Was dental information given to patient?: Patient has dentist HPI HPI Comments History of Present Illness Details This is an 87-year-old female with diabetes mellitus type 2, hypertension, hyperlipidemia, moderate recurrent major depression and chronic kidney disease stage 3 comes today accompanied by GATE WATCHMAN for follow-up on her conditions. A1c within goal. Blood pressure stable. Last LDL was within goal. Depression well controlled with medications. GFR has improved to 49 and is follow by Nephrology. Walks with a walker for gait stability. Due to lumbar degenerative disc disease causing chronic constant low back pain she will benefit from a recliner which was prescribed a year ago but she is still not have it. [facility] Medical History (Updated 03/04/23 @ 15:41 by Karina Brothers MD) CKD (chronic kidney disease) stage 4, GFR 15-29 ml/min Anemia Bilateral carpal tunnel syndrome Moderate recurrent major depression Pure hypercholesterolemia Essential hypertension Carpal tunnel syndrome Urinary incontinence Hypovitaminosis D GERD (gastroesophageal reflux disease) High cholesterol Diabetes Hypertension Surgical History S/P carpal tunnel release History of cholecystectomy Family History Father No problems noted. Mother No problems noted. Social History Housing: Apartment Alcohol intake: never Patient Tobacco Use Status: Former Tobacco user Tobacco use type: Cigarette e-Cigarette/Vaping Use: Never Used Second Hand Smoke Exposure: No service: No Current occupational status: disabled Current occupation: rt hand Cognitive needs: Yes Hearing needs: No Vision needs: Yes Questionnaire Thrive Questionnaire Date Thrive assessed: 07/02/22 BHARAT-7 AMB Questionnaire BHARAT-7 Date BHARAT - 7 assessed: 07/02/22 Source: Developed by Drs. Nemesio Virgen, Anna Dempsey, Gil Avila and colleagues, with an educational hair from [employer]. Review of Systems Const All systems reviewed & are unremarkable except as noted in HPI and below Eyes Reports no additional complaints, Denies change in vision and Denies other visual disturbances Card Denies chest pain at rest, Denies chest pain with activity, Denies edema, Denies irregular heart rhythm, Denies claudication, Denies dyspnea, Denies dyspnea on exertion, Denies orthopnea, Denies paroxysmal nocturnal dyspnea and Denies slow heart rate Resp Denies cough, Denies dyspnea and Denies dyspnea on exertion GI Denies abdominal pain, Denies change in bowel habits, Denies excessive flatus, Denies nausea and Denies vomiting Denies urinary incontinence, Denies urinary hesitancy and Denies urinary urgency Musc Denies abnormal gait, Denies atrophy, Denies deformity and Denies limited range of motion Skin/Breast Denies bleeding lesions, Denies changing lesions and Denies rash Neuro Denies abnormal gait, Denies behavioral changes and Denies lack of coordination Psych Denies behavioral changes Physical exam (Primary Care) Vital Signs: Last Vital Signs BP 142/70 H 03/04/23 15:09 BMI result Body Mass Index 30.7 Tobacco/Smoking Status: Tobacco use Status Tobacco use date assessed 12/19/22 03/04/23 15:20 Patient Tobacco Use Status Former Tobacco user 03/04/23 15:20 Tobacco use type Cigarette 03/04/23 15:20 e-Cigarette/Vaping Use Never Used 03/04/23 15:20 Thrive Assessment: Date of Thrive Assessment Date Thrive assessed 07/02/22 03/04/23 15:20 Const Limitations: ambulation with walker Eyes General: appearance normal, both eyes and all related structures Eyelids: Yes eyelids normal Conjunctivae: conjunctivae normal Neck Neck: Yes normal visual inspection and Yes supple Resp Effort & Inspection: normal respiratory effort Auscultation: clear to auscultation bilaterally Cardio Jugular venous distension: no JVD Rate: regular rate Rhythm: regular rhythm Heart sounds: S1 normal heart sound present and S2 normal heart sound present Extrem General: Yes full ROM Results AMB Hemoglobin A1c AMB Hemoglobin A1c 6.1 % Last Edit by CULLEN Girard on 03/04/23 15:2 3 Results Reviewed Results Reviewed: Laboratory Last Values Hgb A1c (Clinic) 6.1 % (4.0-6.0) H 03/04/23 15:22 Assessment and Plan Assessment & Plan (1) CKD (chronic kidney disease) stage 3, GFR 30-59 ml/min: Code(s): N18.30 - Chronic kidney disease, stage 3 unspecified Qualifiers: Chronic kidney disease stage 3 subtype: stage 3a (GFR 45-59) Qualified Code(s): N18.31 - Chronic kidney disease, stage 3a Plan: Follow-up with Nephrology. Avoid NSAIDs. Keep blood pressure less than 130/80. (2) Hyperlipidemia LDL goal <70: Code(s): E78.5 - Hyperlipidemia, unspecified Plan: Continue statins. LDL goal is less than 70. (3) Moderate recurrent major depression: Code(s): F33.1 - Major depressive disorder, recurrent, moderate Plan: Continue paroxetine. (4) Diabetes: Code(s): E11.9 - Type 2 diabetes mellitus without complications Qualifiers: Diabetes mellitus type: type 2 Diabetes mellitus extermination supervisor insulin use: without extermination supervisor use Diabetes mellitus complication status: with ophthalmic complications Diabetes mellitus complication detail: with diabetic retinopathy Diabetic retinopathy severity: with proliferative retinopathy Proliferative retinopathy type: unspecified Diabetes mellitus macular edema: macular edema presence unspecified Laterality: bilateral Qualified Code(s): 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 A1c goal is equal or less than 7%. (5) Hypertension: Code(s): I10 - Essential (primary) hypertension Qualifiers: Hypertension type: renovascular hypertension Qualified Code(s): I15.0 - Renovascular hypertension Plan: Continue losartan and amlodipine. Blood pressure goal is equal or less than 130/80. Orders: Orders Complete Blood Count Auto Diff Today D64.9 - Anemia, unspecified Vitamin B12 and Folate Today E53.8 - Deficiency of other specified B group vitamins Comprehensive [place]. Panel Fast Today N18.30 - Chronic kidney disease, stage 3 unspecified AMB Hemoglobin A1c Today E11.9 - Type 2 diabetes mellitus without complications IRON PROFILE Today D64.9 - Anemia, unspecified Vitamin D 25-OH Total Today E55.9 - Vitamin D deficiency, unspecified Lipid Panel Today E78.5 - Hyperlipidemia, unspecified Microalbumin, Random (w Creat) Today E11.9 - Type 2 diabetes mellitus without complications Medications: Refilled amlodipine 10 mg PO DAILY 90 days 90 tabs 1RF losartan 100 mg PO DAILY 90 days 90 tabs 1RF ferrous sulfate 325 mg PO DAILY 90 days 90 tabs 1RF pravastatin 40 mg PO DAILY 90 days 90 tabs 3RF metformin 1,000 mg PO BID 90 days 180 tabs 3RF [recliner] As directed 1 ea 0RF M51.36 - Other intervertebral disc degeneration, lumbar region Coding Level of Care Code Est Pt Level 4 (70484) Diagnoses Stage 3a chronic kidney disease N18.31 Chronic kidney disease stage 3 subtype: stage 3a (GFR 45-59) Hyperlipidemia LDL goal <70 E78.5 Moderate recurrent major depression F33.1 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, without long-term current use of insulin, macular edema presence unspecified, unspecified proliferative retinopathy type E11.3593 Diabetes mellitus type: type 2 Diabetes mellitus [facility] insulin use: without extermination supervisor use Diabetes mellitus complication status: with ophthalmic complications Diabetes mellitus complication detail: with diabetic retinopathy Diabetic retinopathy severity: with proliferative retinopathy Proliferative retinopathy type: unspecified Diabetes mellitus macular edema: macular edema presence unspecified Laterality: bilateral 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
[2023-03-04 15:09] VITALS: BP 142/70; BMI 30.7
[2023-03-04 15:38] VITALS: BP 138/70
== END 2023-03-04 15:35 | disposition home or self-care (01) ==
PROVIDERS: PCP Internal Medicine; Visit Provider Internal Medicine
DX: E11.22 Type 2 diabetes mellitus with diabetic chronic kidney disease (principal); N18.31 Chronic kidney disease, stage 3a; F33.1 Major depressive disorder, recurrent, moderate; E11.3593 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 without macular edema, bilateral; E78.5 Hyperlipidemia, unspecified; I15.0 Renovascular hypertension
CPT/HCPCS: 83036; 99214

== ENCOUNTER 2023-04-04 14:24 | Outpatient (REF) | payer OTHER, SELFPAY ==
[2023-04-04 14:58] LABS: MANUAL DIFF FLAG NO
[2023-04-04 15:29] LABS: Estimated Average Glucose 114 mg/dL; Hemoglobin A1c % 5.6 % (<6.0)
[2023-04-04 15:32] LABS: Basophils Absolute Auto 0.1 X10*3/uL (0.0-0.2); Basophils Percent Auto 0.7 % (0-2); Eosinophils Absolute Auto 0.2 X10*3/uL (0.0-0.4); Eosinophils Percent Auto 2.6 % (0-4); Hematocrit 38.5 % (37.0-47.0); Hemoglobin 12.4 g/dl (12.0-16.0); Imm Gran Abs Auto 0.01 X10*3/uL (0.00-0.03); Imm Gran Pct Auto 0.1 % (0.0-0.4); Lymphocytes Absolute Auto 1.1 X10*3/uL (1.2-4.9); Lymphocytes Percent Auto 14.7 % (20-40); Mean Corpuscular HGB Conc 32.2 g/dl (31.0-35.0); Mean Corpuscular Hemoglobin 32.5 pg (27.0-33.0); Mean Corpuscular Volume 100.8 fL (80.0-98.0); Mean Platelet Volume 9.5 fL (9.4-12.3); Monocytes Absolute Auto 0.4 X10*3/uL (0.1-1.2); Monocytes Percent Auto 5.4 % (2-11); Neutrophils Absolute Auto 5.5 x10*3/uL (2.0-8.3); Neutrophils Percent Auto 76.5 % (45-73); Platelet Count 205 X10*3/uL (160-400); Red Blood Count 3.82 X10*6/uL (4.20-5.50); White Blood Count 7.2 X10*3/uL (4.8-10.8)
[2023-04-04 15:57] LABS: Iron 122 mcg/dL (30-160); Percent Iron Saturation 39 % (15-50); Total Iron Binding Capacity 315 mcg/dL (228-428); Unsaturated Iron Binding 193 ug/dL
[2023-04-04 16:12] LABS: Vitamin D 25-OH Total 37.7 ng/mL (>30)
[2023-04-04 16:25] LABS: Folate 9.5 ng/mL (> or = 4.0); Vitamin B12 653 pg/mL (200-900)
[2023-04-04 18:13] LABS: Creatinine Urine 141.28 mg/dL; Microalbum/Creatinine Ratio Ur 321.3 ug/mg cr (<30)
== END 2023-04-04 14:25 | disposition home or self-care (01) ==
LOC: HO.LAB 14:24
PROVIDERS: Absent Provider Internal Medicine Nephrology; PCP Internal Medicine; Visit Provider Internal Medicine
DX: E55.9 Vitamin D deficiency, unspecified (principal); E53.8 Deficiency of other specified B group vitamins; D64.9 Anemia, unspecified; E11.40 Type 2 diabetes mellitus with diabetic neuropathy, unspecified
CPT/HCPCS: 36415; 82043; 82306; 82570; 82607; 82746; 83036; 83540; 85025

== ENCOUNTER 2023-04-08 13:59 | Outpatient (REF) | payer OTHER, SELFPAY ==
[2023-04-08 14:12] LABS: MANUAL DIFF FLAG NO
[2023-04-08 14:19] LABS: Basophils Percent Auto 0.7 % (0-2); Eosinophils Absolute Auto 0.5 X10*3/uL (0.0-0.4); Eosinophils Percent Auto 7.5 % (0-4); Hematocrit 38.3 % (37.0-47.0); Hemoglobin 12.2 g/dl (12.0-16.0); Imm Gran Abs Auto 0.02 X10*3/uL (0.00-0.03); Imm Gran Pct Auto 0.3 % (0.0-0.4); Lymphocytes Absolute Auto 1.2 X10*3/uL (1.2-4.9); Lymphocytes Percent Auto 20.3 % (20-40); Mean Corpuscular HGB Conc 31.9 g/dl (31.0-35.0); Mean Corpuscular Hemoglobin 32.4 pg (27.0-33.0); Mean Corpuscular Volume 101.6 fL (80.0-98.0); Mean Platelet Volume 9.6 fL (9.4-12.3); Monocytes Absolute Auto 0.3 X10*3/uL (0.1-1.2); Monocytes Percent Auto 5.7 % (2-11); Neutrophils Absolute Auto 3.9 x10*3/uL (2.0-8.3); Neutrophils Percent Auto 65.5 % (45-73); Platelet Count 208 X10*3/uL (160-400); Red Blood Count 3.77 X10*6/uL (4.20-5.50); Red Cell Distribution Width 12.8 % (11.0-16.0)
[2023-04-08 15:50] LABS: Alanine Aminotransferase 8 U/L (0-31); Albumin Level 4.2 g/dL (3.5-5.0); Alkaline Phosphatase 90 U/L (39-117); Anion Gap 15 (12-20); Aspartate Amino Transferase 13 U/L (5-31); Bilirubin Total 0.4 mg/dL (0.0-1.0); Blood Urea Nitrogen 28 mg/dL (9-16); Calcium 10.1 mg/dL (8.4-10.2); Carbon Dioxide 26 mmol/L (22-29); Chloride 109 mmol/L (96-108); Cholesterol 133 mg/dL (<200); Estimated Glomerular Filt Rate 44; Glucose Fasting 128 mg/dL (60-99); HDL Cholesterol 61 mg/dL (>40); Iron 78 mcg/dL (30-160); LDL Cholesterol Calculated 56 mg/dL (<100); Percent Iron Saturation 27 % (15-50); Sodium 145 mmol/L (135-145); Total Iron Binding Capacity 289 mcg/dL (228-428); Total Protein 7.8 g/dL (6.5-8.0); Triglycerides 81 mg/dL (<150); Unsaturated Iron Binding 211 ug/dL
[2023-04-08 15:52] LABS: Vitamin D 25-OH Total 37.5 ng/mL (>30)
[2023-04-08 16:02] LABS: Folate 6.9 ng/mL (> or = 4.0); Vitamin B12 619 pg/mL (200-900)
[2023-04-08 18:02] LABS: Creatinine Urine 157.72 mg/dL; Microalbum/Creatinine Ratio Ur 286.5 ug/mg cr (<30)
== END 2023-04-08 14:00 | disposition home or self-care (01) ==
LOC: HO.LAB 13:59
PROVIDERS: PCP Internal Medicine; Visit Provider Internal Medicine
DX: D64.9 Anemia, unspecified (principal); N18.30 Chronic kidney disease, stage 3 unspecified; E55.9 Vitamin D deficiency, unspecified; E78.5 Hyperlipidemia, unspecified; E11.9 Type 2 diabetes mellitus without complications; E53.8 Deficiency of other specified B group vitamins
CPT/HCPCS: 36415; 80053; 80061; 82043; 82306; 82570; 82607; 82746; 83540; 85025

== ENCOUNTER 2023-04-10 14:32 | Outpatient (AMB) | payer OTHER, SELFPAY ==
[2023-04-10 14:52] VITALS: BP 132/74; PULSE 55; O2SAT 97; BMI 30.4
--- NOTE | 2023-04-10 14:52 | HO.NEPHOV ---
HPI HPI Comments History of Present Illness Details I had the privilege of seeing Sharon in follow-up of her chronic kidney disease and hypertension. Her volume status is well maintained on current dose of diuretics. Her blood pressure has been at goal. She does not have any chest pain, orthostatic symptoms, shortness of breath, proximal nocturnal dyspnea, orthopnea, pedal edema or urinary symptoms. She does not have any nausea vomiting or diarrhea. She does not take any nonsteroidal anti-inflammatories. She has not had any medication changes today. She is traveling to [place] this weekend for couple of weeks. She currently feels well. [facility], [facility] Medical History CKD (chronic kidney disease) stage 4, GFR 15-29 ml/min Anemia Bilateral carpal tunnel syndrome Moderate recurrent major depression Pure hypercholesterolemia Essential hypertension Carpal tunnel syndrome Urinary incontinence Hypovitaminosis D GERD (gastroesophageal reflux disease) High cholesterol Diabetes Hypertension Surgical History S/P carpal tunnel release History of cholecystectomy Family History Father No problems noted. Mother No problems noted. Social History Housing: Apartment Alcohol intake: never Patient Tobacco Use Status: Former Tobacco user Tobacco use type: Cigarette e-Cigarette/Vaping Use: Never Used Second Hand Smoke Exposure: No service: No Current occupational status: disabled Current occupation: rt hand Cognitive needs: Yes Hearing needs: No Vision needs: Yes Vital Signs 04/10/23 14:52 Height 5 ft 4 in Weight 177 lb 2 oz BMI 30.4 BP 132/74 Blood Pressure Location Lt brachial Position Sitting Pulse 55 Pulse Source Pulse Oximeter Pulse Oximetry (%) 97 Oxygen Delivery Method Room Air Physical Exam Vital Signs: Last Vital Signs Pulse 55 04/10/23 14:52 BP 132/74 04/10/23 14:52 Pulse Ox 97 04/10/23 14:52 Oxygen Delivery Method Room Air 04/10/23 14:52 BMI result Body Mass Index 30.4 Const General: comfortable and no acute distress Orientation/consciousness: patient oriented x3 HEENT Head: Yes normocephalic Mouth: Normal oral and palatal mucosa present Eyes EOM: EOMs intact bilaterally Neck Neck: Yes supple Resp Auscultation: clear to auscultation bilaterally Cardio Jugular venous distension: no JVD Rate: regular rate GI Palpation (GI): Soft to palpation Auscultation: normal bowel sounds General: Yes no CVA tenderness Back/Spine/Pelvis Back: no CVA tenderness Skin General skin exam: no rashes or lesions noted Neuro General: patient oriented x3 and moves all extremities Extrem General: Yes no pedal edema Assessment & Plan Assessment & Plan (1) CKD (chronic kidney disease) stage 3, GFR 30-59 ml/min: Code(s): N18.30 - Chronic kidney disease, stage 3 unspecified Qualifiers: Chronic kidney disease stage 3 subtype: stage 3a (GFR 45-59) Qualified Code(s): N18.31 - Chronic kidney disease, stage 3a (2) Essential hypertension: Code(s): I10 - Essential (primary) hypertension Plan Shraon has 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 She has no significant proteinuria. Her blood pressure is currently at goal. Her volume status is optimal. She avoids nonsteroidal anti-inflammatories. She is on angiotensin receptor ambrose. She is a great candidate for [employer]. I did not make any medication changes today. All her questions were answered. Follow-up blood work ordered. Follow-up appointment given. Orders: Orders Blood Urea Nitrogen 04/10/23 N18.30 - Chronic kidney disease, stage 3 unspecified Creatinine 04/10/23 N18.30 - Chronic kidney disease, stage 3 unspecified Protein Creatinine Ratio, Ur 04/10/23 N18.30 - Chronic kidney disease, stage 3 unspecified Electrolytes 04/10/23 N18.30 - Chronic kidney disease, stage 3 unspecified Coding Level of Care Code Est Pt Level 3 (37696) Diagnoses Stage 3a chronic kidney disease N18.31 Chronic kidney disease stage 3 subtype: stage 3a (GFR 45-59) Essential hypertension I10 Results Reviewed Nephrology Results: Hgb 12.2 g/dl (12.0-16.0) 04/08/23 WBC 6.0 X10*3/uL (4.8-10.8) 04/08/23 Plt Count 208 X10*3/uL (160-400) 04/08/23 Sodium 145 mmol/L (135-145) 04/08/23 Potassium 5.0 mmol/L (3.3-5.1) 04/08/23 Chloride 109 mmol/L (96-108) H 04/08/23 Carbon Dioxide 26 mmol/L (22-29) 04/08/23 BUN 28 mg/dL (9-16) H 04/08/23 Creatinine 1.18 mg/dL (0.5-1.4) 04/08/23 Calcium 10.1 mg/dL (8.4-10.2) 04/08/23 Urine Creatinine 157.72 mg/dL 04/08/23 Protein/Creatinin Ratio 0.22 (<0.2) H 08/30/22
== END 2023-04-10 15:17 | disposition home or self-care (01) ==
PROVIDERS: PCP Internal Medicine; Visit Provider Internal Medicine Nephrology
DX: N18.31 Chronic kidney disease, stage 3a (principal); I10 Essential (primary) hypertension
CPT/HCPCS: 99213

== ENCOUNTER → 2023-04-10 14:32 | Outpatient (BNVA) | payer OTHER, SELFPAY | PROVIDERS: PCP Internal Medicine; Visit Provider Internal Medicine Nephrology | DX: I12.9 Hypertensive chronic kidney disease with stage 1 through stage 4 chronic kidney disease, or unspecified chronic kidney disease (principal); N18.31 Chronic kidney disease, stage 3a | CPT/HCPCS: 99212 ==

== ENCOUNTER 2023-07-09 15:07 | Outpatient (AMB) | payer OTHER, SELFPAY ==
[2023-07-09 15:16] VITALS: BP 146/72; PULSE 54; O2SAT 98; BMI 30.6
--- NOTE | 2023-07-09 15:16 | A.OFFPC_ITS ---
Vital Signs 07/09/23 15:16 Height 5 ft 4 in Weight 178 lb 9.191 oz BMI 30.6 BP 146/72 H Blood Pressure Location Lt brachial Position Sitting Pulse 54 Pulse Source Pulse Oximeter Pulse Oximetry (%) 98 Oxygen Delivery Method Room Air Intake Visit Reasons: pe Intake Note: Patient is here today for a physical. 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 Accompanied by: Self / Same As Patient Allergies No Known Allergies Allergy (Unknown, Verified 07/09/23 15:38) Medication List - Last Reconciled 07/09/23 by Karina Brothers MD acetaminophen ER (Pain Relief (acetaminophen)) 650 mg PO Q8H PRN 30 days amlodipine 10 mg PO DAILY 90 days aspirin 81 mg PO DAILY 90 days blood sugar diagnostic (FreeStyle Test strips) Use 1 test strip once a day calcium carbonate-vitamin D3 500 mg-10 mcg (400 unit) 1 tab PO BID 90 days calcium carbonate-vitamin D3 600 mg-10 mcg (400 unit) 1 tab PO BID 90 days cholecalciferol (vitamin D3) 25 mcg PO DAILY 90 days commode As directed [disposable bed pa As directed] ferrous sulfate 325 mg PO DAILY 90 days FreeStyle Lite Strips (blood sugar diagnostic) 1 strip miscellaneous BID 30 days NS furosemide 20 mg PO DAILY incontinence pad, liner, disp (Bladder Control Pads Ex Absorb) As directed [incontinence wipes As directed] lancets As directed losartan 100 mg PO DAILY 90 days metformin 1,000 mg PO BID 90 days mirtazapine 15 mg PO BEDTIME 90 days [id number]-jgzkxeunR 3.5mg-400 unit- 5,000 unit/gram 1 appl topical DAILY 2 weeks omeprazole 20 mg PO DAILY 90 days paroxetine HCl 10 mg PO DAILY 90 days pravastatin 40 mg PO DAILY 90 days [recliner As directed] underpads (Certainty Underpads) Use 4 underpads twice a day [washable bedpads As directed] Tobacco use date assessed: 07/09/23 Fall risk assessment: No Falls in past year Last assessed Fall Risk: 07/09/23 Dental Screening Dental Screen Date: 07/09/23 Did you have a dental visit in the last 12 months?: No Did you have a dental problem in the last 6 months where you did not have access to dental care?: No HPI HPI Comments History of Present Illness Details This is an 88-year-old female with diabetes mellitus type 2, mild major depression and chronic kidney disease stage 3 that comes accompanied by [facility] for her physical exam. A1c within goal. Depression has markedly improved with paroxetine. 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 Last GFR was 44. She is aware she has to avoid NSAIDs. Blood pressure is usually within normal limits but today's mildly elevated. Walks with a walker for gait stability. Complains of chronic low back pain with bilateral leg weakness and will benefit from a recliner. She will also benefit from having diabetic shoes. No need for mammogram, Pap smear or colonoscopy due to age. Bone density test was ordered. [facility] Medical History (Updated 07/09/23 @ 18:07 by Karina Brothers MD) CKD (chronic kidney disease) stage 4, GFR 15-29 ml/min Anemia Bilateral carpal tunnel syndrome Moderate recurrent major depression Pure hypercholesterolemia Essential hypertension Carpal tunnel syndrome Urinary incontinence Hypovitaminosis D GERD (gastroesophageal reflux disease) High cholesterol Diabetes Hypertension Surgical History S/P carpal tunnel release History of cholecystectomy Family History Father No problems noted. Mother No problems noted. Social History (Updated 07/09/23 @ 15:43 by Karina Brothers MD) Housing: Apartment Alcohol intake: former Patient Tobacco Use Status: Former Tobacco user Tobacco use type: Cigarette e-Cigarette/Vaping Use: Never Used Second Hand Smoke Exposure: No service: No Current occupational status: disabled Current occupation: rt hand Cognitive needs: Yes Hearing needs: No Vision needs: Yes Questionnaire PHQ-9 Over the last 2 weeks, how often have you been bothered by any of the following problems? 1. Little interest or pleasure in doing things: not at all 2. Feeling down, depressed, or hopeless: not at all 3. Trouble falling or staying asleep, or sleeping too much: not at all 4. Feeling tired or having little energy: not at all 5. Poor appetite or overeating: not at all 6. Feeling bad about yourself - or that you are a failure or have let yourself or your family down: not at all 7. Trouble concentrating on things, such as reading the newspaper or watching television: not at all 8. Moving or speaking so slowly that other people could have noticed. Or the opposite - being so fidgety or restless that you have been moving around a lot more than usual: not at all 9. Thoughts that you would be better off or of hurting yourself in some way: not at all Total score: 0 Depression Screening Interpretation: Negative Depression Screening Done: Yes 15385 - PHQ-9 Billing: Yes Source: Developed by Drs. Nemesio Virgen, Anna Dempsey, Gil Avila and colleagues, with an educational hair from [employer]. Thrive Questionnaire Date Thrive assessed: 07/09/23 I am a: Patient What is your living situation today?: I have a steady place to live Within the past 12 months, did the food you bought not last and you didn't have the money to get more?: Never true Within the past 12 months, did you worry whether your food would run out before you got money to buy more?: Never true Do you have trouble paying for medicines?: No Do you have trouble getting transportation to medical appointments?: No Do you have trouble paying your heating and electricity bill?: No Do you have trouble taking care of your child, family member or friend?: No Do you have trouble with day-to-day activities such as bathing, preparing meals, shopping, managing finances, etc.?: No Are you currently unemployed and looking for a job?: No Are you interested in more education?: No Please select the resources that you would like help with: None Currently or been in a relationship where the following occur: no concerns reported THRIVE Score: 0 AUDIT C Alcohol Use Questionnaire (AUDIT-C) 1. How often do you have a drink containing alcohol?: Never 3. How often do you have six or more drinks on one occasion?: Never Total Score: 0 Score Reviewed/Action Taken: No BHARAT-7 AMB Questionnaire BHARAT-7 Date BHARAT - 7 assessed: 07/09/23 Feeling nervous, anxious, or on edge: 0 = Not at all Not being able to stop or control worryin = Nearly every day Worrying too much about different things: 0 = Not at all Trouble relaxin = Not at all Being so restless that it is hard to sit still: 0 = Not at all Becoming easily annoyed or irritable: 0 = Not at all Feeling afraid as if something awful might happen: 0 = Not at all Total BHARAT-7 score (0-4 normal; 5-9 mild; 10-14 moderate; 15-21 severe): 3 Source: Developed by Drs. Nemesio Virgen, Anna Dempsey, Gil Avila and colleagues, with an educational hair from [employer]. BHARAT-7 Assessment Billing BHARAT-7 Assessment Tool: BHARAT-7 Assessment 21924 Review of Systems Const All systems reviewed & are unremarkable except as noted in HPI and below Eyes Reports no additional complaints, Denies change in vision and Denies other visual disturbances Card Denies chest pain at rest, Denies chest pain with activity, Denies edema, Denies irregular heart rhythm, Denies claudication, Denies dyspnea, Denies dyspnea on exertion, Denies orthopnea, Denies paroxysmal nocturnal dyspnea and Denies slow heart rate Resp Denies cough, Denies dyspnea and Denies dyspnea on exertion Physical exam (Primary Care) Vital Signs: Last Vital Signs Pulse 54 07/09/23 15:16 BP 146/72 H 07/09/23 15:16 Pulse Ox 98 07/09/23 15:16 Oxygen Delivery Method Room Air 07/09/23 15:16 BMI result Body Mass Index 30.6 Tobacco/Smoking Status: Tobacco use Status Tobacco use date assessed 07/09/23 07/09/23 15:17 Patient Tobacco Use Status Former Tobacco user 07/09/23 15:43 Tobacco use type Cigarette 07/09/23 15:43 e-Cigarette/Vaping Use Never Used 07/09/23 15:43 PHQ-9: PHQ-9 Score PHQ-9: Total score 0 07/09/23 15:55 Depression Screening Interpretation: Negative Thrive Assessment: Date of Thrive Assessment Date Thrive assessed 07/09/23 07/09/23 15:17 Currently or been in a relationship where the following occur: no concerns reported Const Orientation/consciousness: patient oriented x3 Limitations: ambulation with walker HENMT Head: Yes normal to inspection, Yes normocephalic and Yes atraumatic Ears: external ears normal Eyes General: appearance normal, both eyes and all related structures Eyelids: Yes eyelids normal Conjunctivae: conjunctivae normal Neck Neck: Yes normal visual inspection and Yes supple Resp Effort & Inspection: normal respiratory effort Auscultation: clear to auscultation bilaterally Cardio Jugular venous distension: no JVD Rate: regular rate Rhythm: regular rhythm Heart sounds: S1 normal heart sound present and S2 normal heart sound present GI Inspection: Yes normal to inspection Palpation (GI): Soft to palpation and nontender Auscultation: normal bowel sounds Skin General skin exam: no rashes or lesions noted Neuro General: patient oriented x3 and no focal motor deficits Psych Appearance: grossly normal Results AMB Hemoglobin A1c AMB Hemoglobin A1c 5.3 % Last Edit by CULLEN Pagan on 07/09/23 15:34 Immunizations tetanus-diphtheria toxoids-Td 2 Lf unit-2 Lf unit/0.5 mL IM suspension Performing Provider: Karina Brothers MD [facility] Administered by: CULLEN Pagan on 07/09/23 15:56 Dose Route Admin Location Dispensed Lot Number Expiration Date NDC Sr. Operations Manager 0.5 mL IM Left Deltoid 0.5 mL [id number] 04/27/24 [address]-1 [employer] VIS Given Date VIS Provided VIS Publication Date 07/09/23 Single Vaccine 20 Eligibility Eligibility Date Funding Source Not [facility] Eligible 07/09/23 Private Results Reviewed Results Reviewed: Laboratory Last Values Hgb A1c (Clinic) 5.3 % (4.0-6.0) 07/09/23 11:50 Assessment and Plan Assessment & Plan (1) Physical exam: Code(s): Z00.00 - Encounter for general adult medical examination without abnormal findings Plan: Repeat in a year. (2) CKD (chronic kidney disease) stage 3, GFR 30-59 ml/min: Code(s): N18.30 - Chronic kidney disease, stage 3 unspecified Qualifiers: Chronic kidney disease stage 3 subtype: stage 3a (GFR 45-59) Qualified Code(s): N18.31 - Chronic kidney disease, stage 3a Plan: Follow-up nephrology. (3) Diabetes: Code(s): E11.9 - Type 2 diabetes mellitus without complications Qualifiers: Diabetes mellitus type: type 2 Diabetes mellitus fpc insulin use: without long term acute care registered nurse use Diabetes mellitus complication status: with ophthalmic complications Diabetes mellitus complication detail: with diabetic retinopathy Diabetic retinopathy severity: with proliferative retinopathy Proliferative retinopathy type: unspecified Diabetes mellitus macular edema: macular edema presence unspecified Laterality: bilateral Qualified Code(s): 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 A1c goal is equal or less than 7%. (4) Mild major depression: Code(s): F32.0 - Major depressive disorder, single episode, mild Plan: Continue paroxetine. Orders: Orders AMB Hemoglobin A1c Today E11.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, bilateral XR DEXA axial skeleton Today N95.9 - Unspecified menopausal and perimenopausal disorder Td State Immunization Today Z23 - Encounter for immunization Lipid Panel 4 Months E78.5 - Hyperlipidemia, unspecified Vitamin D 25-OH Total 4 Months E55.9 - Vitamin D deficiency, unspecified Comprehensive [place]. Panel Fast 4 Months N18.31 - Chronic kidney disease, stage 3a Microalbumin, Random (w Creat) 4 Months E11.9 - Type 2 diabetes mellitus without complications Medications: Changed From furosemide 20 mg PO DAILY 30 tabs 0RF I10 - Essential (primary) hypertension To furosemide 20 mg PO DAILY 90 days 90 tabs 1RF I10 - Essential (primary) hypertension Refilled blood sugar diagnostic (FreeStyle Test strips) Use 1 test strip once a day 100 ea 11RF E11.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, bilateral [recliner] As directed 1 ea 0RF M51.36 - Other intervertebral disc degeneration, lumbar region acetaminophen ER (Pain Relief (acetaminophen)) 650 mg PO Q8H 30 days PRN 90 tabs 6RF pain E11.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, bilateral amlodipine 10 mg PO DAILY 90 days 90 tabs 1RF calcium carbonate-vitamin D3 600 mg-10 mcg (400 unit) 1 tab PO BID 90 days 180 tabs 1RF cholecalciferol (vitamin D3) 25 mcg PO DAILY 90 days 90 tabs 3RF ferrous sulfate 325 mg PO DAILY 90 days 90 tabs 1RF losartan 100 mg PO DAILY 90 days 90 tabs 1RF metformin 1,000 mg PO BID 90 days 180 tabs 3RF mirtazapine 15 mg PO BEDTIME 90 days 90 tabs 3RF paroxetine HCl 10 mg PO DAILY 90 days 90 tabs 3RF pravastatin 40 mg PO DAILY 90 days 90 tabs 3RF lancets As directed 100 ea 11RF aspirin 81 mg PO DAILY 90 days 90 tabs 3RF omeprazole 20 mg PO DAILY 90 days 90 caps 3RF Discontinued 2 calcium carbonate-vitamin D3 500 mg-10 mcg (400 unit) Discontinued Reason: Duplicate 1 tab PO BID 90 days 180 tabs 3RF Coding Level of Care Code Est Pt Prev Care >65y(78199) Diagnoses Physical exam Z00.00 Stage 3a chronic kidney disease N18.31 Chronic kidney disease stage 3 subtype: stage 3a (GFR 45-59) 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, without long-term current use of insulin, macular edema presence unspecified, unspecified proliferative retinopathy type E11.3593 Diabetes mellitus type: type 2 Diabetes mellitus fpc insulin use: without long term acute care registered nurse use Diabetes mellitus complication status: with ophthalmic complications Diabetes mellitus complication detail: with diabetic retinopathy Diabetic retinopathy severity: with proliferative retinopathy Proliferative retinopathy type: unspecified Diabetes mellitus macular edema: macular edema presence unspecified Laterality: bilateral Mild major depression F32.0 Additional Codes BHARAT-7 Assessment Billing - BHARAT-7 Assessment Tool: BHARAT-7 Assessment [id number] ([id number]) Time Spent (min) 35
== END 2023-07-09 15:57 | disposition home or self-care (01) ==
PROVIDERS: PCP Internal Medicine; Visit Provider Internal Medicine
DX: Z00.00 Encounter for general adult medical examination without abnormal findings (principal); N18.31 Chronic kidney disease, stage 3a; E11.3593 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 without macular edema, bilateral; Z23 Encounter for immunization; F32.0 Major depressive disorder, single episode, mild
CPT/HCPCS: 83036; 90471; 90714; 99397

== ENCOUNTER 2023-07-17 15:17 | Outpatient (REF) | payer OTHER, SELFPAY ==
[2023-07-17 18:06] LABS: Anion Gap 14 (12-20); Blood Urea Nitrogen 19 mg/dL (9-16); Calcium 9.7 mg/dL (8.4-10.2); Carbon Dioxide 22 mmol/L (22-29); Chloride 109 mmol/L (96-108); Estimated Glomerular Filt Rate 59; Potassium 4.7 mmol/L (3.3-5.1); Sodium 140 mmol/L (135-145)
== END 2023-07-17 15:18 | disposition home or self-care (01) ==
LOC: HO.LAB 15:17
PROVIDERS: PCP Internal Medicine; Visit Provider Internal Medicine Nephrology
DX: I15.0 Renovascular hypertension (principal); E11.22 Type 2 diabetes mellitus with diabetic chronic kidney disease; N18.31 Chronic kidney disease, stage 3a
CPT/HCPCS: 36415; 80051; 82310; 82565; 84520; 99212

== ENCOUNTER 2023-07-17 15:17 | Outpatient (AMB) | payer OTHER, SELFPAY ==
--- NOTE | 2023-07-17 15:21 | HO.NEPHOV ---
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 Her volume status is well maintained on current dose of diuretics. Her blood pressure has been at goal. She does not have any chest pain, orthostatic symptoms, shortness of breath, proximal nocturnal dyspnea, orthopnea, pedal edema or urinary symptoms. She does not have any nausea vomiting or diarrhea. She does not take any nonsteroidal anti-inflammatories. She has not had any medication changes today. She currently feels well. [facility] Medical History (Updated 07/09/23 @ 18:07 by Karina Brothers MD) CKD (chronic kidney disease) stage 4, GFR 15-29 ml/min Anemia Bilateral carpal tunnel syndrome Moderate recurrent major depression Pure hypercholesterolemia Essential hypertension Carpal tunnel syndrome Urinary incontinence Hypovitaminosis D GERD (gastroesophageal reflux disease) High cholesterol Diabetes Hypertension Surgical History S/P carpal tunnel release History of cholecystectomy Family History Father No problems noted. Mother No problems noted. Social History Housing: Apartment Alcohol intake: former Patient Tobacco Use Status: Former Tobacco user Tobacco use type: Cigarette e-Cigarette/Vaping Use: Never Used Second Hand Smoke Exposure: No service: No Current occupational status: disabled Current occupation: rt hand Cognitive needs: Yes Hearing needs: No Vision needs: Yes Physical Exam Vital Signs: Last Vital Signs Pulse 52 07/17/23 15:22 BP 142/70 H 07/17/23 15:22 Pulse Ox 98 07/17/23 15:22 Oxygen Delivery Method Room Air 07/17/23 15:22 BMI result Body Mass Index 30.1 Const General: comfortable and no acute distress Orientation/consciousness: patient oriented x3 HEENT Head: Yes normocephalic Mouth: Normal oral and palatal mucosa present Eyes EOM: EOMs intact bilaterally Neck Neck: Yes supple Resp Auscultation: clear to auscultation bilaterally Cardio Jugular venous distension: no JVD Rate: regular rate GI Palpation (GI): Soft to palpation Auscultation: normal bowel sounds General: Yes no CVA tenderness Back/Spine/Pelvis Back: no CVA tenderness Skin General skin exam: no rashes or lesions noted Neuro General: patient oriented x3 and moves all extremities Extrem General: Yes no pedal edema Results Reviewed Nephrology Results: Hgb 12.2 g/dl (12.0-16.0) 04/08/23 WBC 6.0 X10*3/uL (4.8-10.8) 04/08/23 Plt Count 208 X10*3/uL (160-400) 04/08/23 Sodium 145 mmol/L (135-145) 04/08/23 Potassium 5.0 mmol/L (3.3-5.1) 04/08/23 Chloride 109 mmol/L (96-108) H 04/08/23 Carbon Dioxide 26 mmol/L (22-29) 04/08/23 BUN 28 mg/dL (9-16) H 04/08/23 Creatinine 1.18 mg/dL (0.5-1.4) 04/08/23 Calcium 10.1 mg/dL (8.4-10.2) 04/08/23 Urine Creatinine 157.72 mg/dL 04/08/23 Assessment & Plan Assessment & Plan (1) CKD (chronic kidney disease) stage 3, GFR 30-59 ml/min: Code(s): N18.30 - Chronic kidney disease, stage 3 unspecified Category: Medical Qualifiers: Chronic kidney disease stage 3 subtype: stage 3a (GFR 45-59) Qualified Code(s): N18.31 - Chronic kidney disease, stage 3a (2) Hypertension: Code(s): I10 - Essential (primary) hypertension Category: Medical Qualifiers: Hypertension type: renovascular hypertension Qualified Code(s): I15.0 - Renovascular hypertension Plan 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 She has no significant proteinuria. Her blood pressure is currently at goal. Her volume status is optimal. She avoids nonsteroidal anti-inflammatories. She is on angiotensin receptor ambrose. She is a great candidate for [employer]. I did not make any medication changes today. All her questions were answered. Follow-up blood work ordered. Follow-up appointment given. Orders: Orders Electrolytes 3 Months N18.31 - Chronic kidney disease, stage 3a Calcium 3 Months N18.31 - Chronic kidney disease, stage 3a Creatinine Today N18.31 - Chronic kidney disease, stage 3a Blood Urea Nitrogen Today N18.31 - Chronic kidney disease, stage 3a Electrolytes Today N18.31 - Chronic kidney disease, stage 3a Calcium Today N18.31 - Chronic kidney disease, stage 3a Creatinine 3 Months N18.31 - Chronic kidney disease, stage 3a Blood Urea Nitrogen 3 Months N18.31 - Chronic kidney disease, stage 3a Coding Level of Care Code Est Pt Level 4 (82900) Diagnoses Stage 3a chronic kidney disease N18.31 Chronic kidney disease stage 3 subtype: stage 3a (GFR 45-59) 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
[2023-07-17 15:22] VITALS: BP 140/70; PULSE 52; O2SAT 98; BMI 30.1
== END 2023-07-17 15:46 | disposition home or self-care (01) ==
PROVIDERS: PCP Internal Medicine; Visit Provider Internal Medicine Nephrology
DX: N18.31 Chronic kidney disease, stage 3a (principal); I15.0 Renovascular hypertension
CPT/HCPCS: 99214

== ENCOUNTER 2023-10-11 14:29 | Outpatient (REF) | payer OTHER, SELFPAY ==
--- NOTE | ~2023-10-11 | MM_ITS ---
EXAMINATION: BONE DENSITOMETRY CLINICAL INDICATION: Unspecified menopausal and perimenopausal disorder. COMPARISON: Baseline BD dated 03/12/2013. TECHNIQUE: Using a [employer] DXA System (software version: 13.1) manufactured by [employer], dual-energy x-ray absorptiometry was performed of the lumbar spine and left hip. The images are of good technical quality. Summary results are attached. FINDINGS: LEFT FEMUR, NECK: Current: BMD 0.881 g/cm2, Z-score 1.0, T-score -1.1, osteopenia. Baseline: BMD 1.073 g/cm2. LEFT FEMUR, TOTAL: Current: BMD 0.866 g/cm2, Z-score 0.9, T-score -1.1, osteopenia, 23.0% decrease from baseline (<5% change is not significant). Baseline: BMD 1.124 g/cm2. AP SPINE L1-L4: Current: BMD 1.322 g/cm2, Z-score 2.7, T-score 1.2, normal, 1.1% increase from baseline (<5% change is not significant). Baseline: BMD 1.308 g/cm2. IDENTIFIED RISK FACTORS: Height loss, history of fracture (adult), osteoporosis, recurrent falls, kidney disease, menopause, hysterectomy. HISTORY OF FRACTURE: Other. MEDICATIONS: Calcium supplements or multivitamin, vitamin D. MM/XR DEXA axial skeleton IMPRESSION: 1. DIAGNOSIS: Osteopenia based on the lowest T-score value of -1.1 in the femoral neck and total femur applying World Health Organization criteria. 2. 10-YEAR FRACTURE RISK PREDICTION, FRAX: Major osteoporotic fracture (clinical spine, forearm, hip or shoulder) 9.9%. Hip fracture 2.1%. 3. Treatment Recommendations: NOF guidelines recommend consideration for treatment in postmenopausal women and men age 50 and older presenting with the following: -A hip or vertebral (clinical or morphometric) fracture. -T-score less than or equal to -2.5 at the femoral neck or spine after appropriate evaluation to exclude secondary causes. -Low bone mass at the hip or spine and a 10-year fracture probability by FRAX of greater than or equal to 3% for hip fracture or greater than or equal to 20% for major osteoporotic fracture based on the [place] adapted WHO algorithm. 4. Other Recommendations: All treatment decisions require clinical judgment and consideration of individual patient factors, including patient preferences, comorbidities, previous drug use, risk factors not captured in the FRAX model (e.g. frailty, falls, vitamin D deficiency, increased bone turnover, interval significant decline in bone density) and possible under or overestimation of fracture risk by FRAX. Additional medical evaluation for secondary cause of low bone mineral density may be appropriate. FUTURE SCAN RECOMMENDATION: People with diagnosed cases of osteoporosis or at high risk for fracture should have regular bone mineral density tests. For patients eligible for Medicare, routine testing is allowed once every 2 years. The testing frequency can be increased to one year for patients who have rapidly progressing disease, those who are receiving or discontinuing medical therapy to restore bone mass, or have additional risk factors.
== END 2023-10-11 14:30 | disposition home or self-care (01) ==
LOC: HO.MAMMO 14:29
PROVIDERS: PCP Internal Medicine; Visit Provider Internal Medicine
DX: Z13.820 Encounter for screening for osteoporosis (principal); Z78.0 Asymptomatic menopausal state
CPT/HCPCS: 77080

== ENCOUNTER 2023-10-22 10:55 | Outpatient (AMB) | payer OTHER, SELFPAY ==
--- NOTE | 2023-10-22 11:05 | MHC.PC.OV ---
Vital Signs 10/22/23 11:09 10/22/23 11:48 Height 5 ft 7 in Weight 171 lb BMI 26.8 BP 168/90 H 160/90 H Blood Pressure Location Lt brachial Lt brachial Position Sitting Sitting Intake Visit Reasons: follow up Intake Note: Patient here for a follow up DM Employment Consultant Required: No Accompanied by: Grand Child Allergies No Known Allergies Allergy (Unknown, Verified 10/22/23 11:24) Medication List - Last Reconciled 10/22/23 by Karina Brothers MD acetaminophen ER (Pain Relief (acetaminophen)) 650 mg PO Q8H PRN 30 days amlodipine 10 mg PO DAILY 90 days aspirin 81 mg PO DAILY 90 days blood sugar diagnostic (FreeStyle Test strips) Use 1 test strip once a day calcium carbonate-vitamin D3 600 mg-10 mcg (400 unit) 1 tab PO BID 90 days cholecalciferol (vitamin D3) 25 mcg PO DAILY 90 days commode As directed ferrous sulfate 325 mg PO DAILY 90 days FreeStyle Lite Strips (blood sugar diagnostic) 1 strip miscellaneous BID 30 days NS furosemide 20 mg PO DAILY 90 days incontinence pad, liner, disp (Bladder Control Pads Ex Absorb) As directed [incontinence wipes As directed] lancets As directed losartan 100 mg PO DAILY 90 days metformin 1,000 mg PO BID 90 days mirtazapine 15 mg PO BEDTIME 90 days [id number]-lxuswjogY 3.5mg-400 unit- 5,000 unit/gram 1 appl topical DAILY 2 weeks omeprazole 20 mg PO DAILY 90 days paroxetine HCl 10 mg PO DAILY 90 days pravastatin 40 mg PO DAILY 90 days [recliner As directed] [washable bedpads As directed] Tobacco use date assessed: 07/09/23 Fall risk assessment: 2 + Falls in past year Last assessed Fall Risk: 10/22/23 Dental Screening Dental Screen Date: 07/09/23 HPI HPI Comments History of Present Illness Details This is an 88-year-old female with diabetes mellitus type 2, hypertension, hyperlipidemia and mild major depression that comes today accompanied by grandson for follow-up on her conditions. A1c within goal. Blood pressure elevated but she has not take her medications yet. Blood pressure will be recheck in 3 weeks by nurse navigator. Lipid panel will be order and her LDL goal should be less than 70. Mild major depression stable with paroxetine. Denies any chest pain or shortness on breath. She has chronic kidney disease stage 3 with last GFR being 49 and this is follow by Nephrology. No chest pain or shortness on breath. Walks with a walker for gait stability. [facility] Medical History CKD (chronic kidney disease) stage 4, GFR 15-29 ml/min Anemia Bilateral carpal tunnel syndrome Moderate recurrent major depression Pure hypercholesterolemia Essential hypertension Carpal tunnel syndrome Urinary incontinence Hypovitaminosis D GERD (gastroesophageal reflux disease) High cholesterol Diabetes Hypertension Surgical History S/P carpal tunnel release History of cholecystectomy Family History Father No problems noted. Mother No problems noted. Social History Housing: Apartment Alcohol intake: former Patient Tobacco Use Status: Former Tobacco user Tobacco use type: Cigarette e-Cigarette/Vaping Use: Never Used Second Hand Smoke Exposure: No service: No Current occupational status: disabled Current occupation: rt hand Cognitive needs: Yes Hearing needs: No Vision needs: Yes Questionnaire Thrive Questionnaire Date Thrive assessed: 07/09/23 BHARAT-7 AMB Questionnaire BHARAT-7 Date BHARAT - 7 assessed: 07/09/23 Source: Developed by Drs. Nemesio Virgen, Anna Dempsey, Gil Avila and colleagues, with an educational hair from [employer]. Review of Systems Const All systems reviewed & are unremarkable except as noted in HPI and below Card Denies chest pain at rest, Denies chest pain with activity, Denies edema, Denies irregular heart rhythm, Denies claudication, Denies dyspnea, Denies dyspnea on exertion, Denies orthopnea, Denies paroxysmal nocturnal dyspnea and Denies slow heart rate Resp Denies cough, Denies dyspnea and Denies dyspnea on exertion Physical exam (Primary Care) Vital Signs: Last Vital Signs BP 168/90 H 10/22/23 11:09 BMI result Body Mass Index 26.8 BMI Assessment/Plan discussion: High BMI High, discussed plan: lifestyle, weight reduction, dietary and physical activity Tobacco/Smoking Status: Tobacco use Status Tobacco use date assessed 07/09/23 10/22/23 11:06 Patient Tobacco Use Status Former Tobacco user 10/22/23 11:06 Tobacco use type Cigarette 10/22/23 11:06 e-Cigarette/Vaping Use Never Used 10/22/23 11:06 Thrive Assessment: Date of Thrive Assessment Date Thrive assessed 07/09/23 10/22/23 11:06 Const Limitations: ambulation with walker Resp Effort & Inspection: normal respiratory effort Auscultation: clear to auscultation bilaterally Cardio Jugular venous distension: no JVD Rate: regular rate Rhythm: regular rhythm Heart sounds: S1 normal heart sound present and S2 normal heart sound present Extrem General: Yes full ROM Psych Appearance: grossly normal Results AMB Hemoglobin A1c AMB Hemoglobin A1c 6.0 % Last Edit by CULLEN Girard on 10/22/23 11:24 Assessment and Plan Assessment & Plan (1) Mild major depression: Code(s): F32.0 - Major depressive disorder, single episode, mild Plan: Continue paroxetine. (2) CKD (chronic kidney disease) stage 3, GFR 30-59 ml/min: Code(s): N18.30 - Chronic kidney disease, stage 3 unspecified Qualifiers: Chronic kidney disease stage 3 subtype: stage 3a (GFR 45-59) Qualified Code(s): N18.31 - Chronic kidney disease, stage 3a Plan: Avoid NSAIDs. Blood pressure goal is less than 130/80. (3) Diabetes: Code(s): E11.9 - Type 2 diabetes mellitus without complications Qualifiers: Diabetes mellitus type: type 2 Diabetes mellitus watermelon harvesting supervisor insulin use: without watermelon harvesting supervisor use Diabetes mellitus complication status: with ophthalmic complications Diabetes mellitus complication detail: with diabetic retinopathy Diabetic retinopathy severity: with proliferative retinopathy Proliferative retinopathy type: unspecified Diabetes mellitus macular edema: macular edema presence unspecified Laterality: bilateral Qualified Code(s): 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 A1c goal is equal or less than 7%. (4) Essential hypertension: Code(s): I10 - Essential (primary) hypertension Plan: Continue amlodipine and losartan. Blood pressure goal is equal or less than 130/80. (5) Hyperlipidemia LDL goal <70: Code(s): E78.5 - Hyperlipidemia, unspecified Plan: Continue statins. LDL goal is less than 70. Orders: Orders AMB Hemoglobin A1c Today E11.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, bilateral Microalbumin, Random (w Creat) Today E11.9 - Type 2 diabetes mellitus without complications Comprehensive [place]. 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, without long-term current use of insulin, macular edema presence unspecified, unspecified proliferative retinopathy type E11.3593 Diabetes mellitus type: type 2 Diabetes mellitus watermelon harvesting supervisor insulin use: without fdc use Diabetes mellitus complication status: with ophthalmic complications Diabetes mellitus complication detail: with diabetic retinopathy Diabetic retinopathy severity: with proliferative retinopathy Proliferative retinopathy type: unspecified Diabetes mellitus macular edema: macular edema presence unspecified Laterality: bilateral Essential hypertension I10 Hyperlipidemia LDL goal <70 E78.5 Time Spent (min) 22
[2023-10-22 11:09] VITALS: BP 168/90; BMI 26.8
[2023-10-22 11:48] VITALS: BP 160/90
== END 2023-10-22 11:30 | disposition home or self-care (01) ==
PROVIDERS: PCP Internal Medicine; Visit Provider Internal Medicine
DX: F32.0 Major depressive disorder, single episode, mild (principal); I12.9 Hypertensive chronic kidney disease with stage 1 through stage 4 chronic kidney disease, or unspecified chronic kidney disease; N18.31 Chronic kidney disease, stage 3a; E78.5 Hyperlipidemia, unspecified; E11.649 Type 2 diabetes mellitus with hypoglycemia without coma
CPT/HCPCS: 83036; 99214; G2211

== ENCOUNTER 2023-10-22 13:52 | Outpatient (REF) | payer OTHER, SELFPAY ==
[2023-10-22 15:02] LABS: Alanine Aminotransferase 9 U/L (0-31); Alkaline Phosphatase 85 U/L (39-117); Anion Gap 11 (12-20); Aspartate Amino Transferase 13 U/L (5-31); Bilirubin Total 0.5 mg/dL (0.0-1.0); Blood Urea Nitrogen 24 mg/dL (9-16); Carbon Dioxide 24 mmol/L (22-29); Chloride 110 mmol/L (96-108); Cholesterol 126 mg/dL (<200); Estimated Glomerular Filt Rate 54; Glucose Fasting 104 mg/dL (60-99); HDL Cholesterol 50 mg/dL (>40); LDL Cholesterol Calculated 54 mg/dL (<100); Potassium 4.4 mmol/L (3.3-5.1); Sodium 141 mmol/L (135-145); Total Protein 7.4 g/dL (6.5-8.0); Triglycerides 110 mg/dL (<150)
[2023-10-22 15:51] LABS: Creatinine Urine 153.15 mg/dL
[2023-10-22 16:03] LABS: Microalbum/Creatinine Ratio Ur 624.8 ug/mg cr (<30)
== END 2023-10-22 13:53 | disposition home or self-care (01) ==
LOC: HO.LAB 13:52
PROVIDERS: Absent Provider Internal Medicine; PCP Internal Medicine; Visit Provider Internal Medicine Nephrology
DX: E11.22 Type 2 diabetes mellitus with diabetic chronic kidney disease (principal); N18.31 Chronic kidney disease, stage 3a; E78.5 Hyperlipidemia, unspecified
CPT/HCPCS: 80053; 80061; 82043; 82570

== ENCOUNTER 2023-12-17 14:09 | Outpatient (REF) | payer OTHER, SELFPAY ==
[2023-12-17 15:37] LABS: Anion Gap 12 (12-20); Blood Urea Nitrogen 21 mg/dL (9-16); Calcium 9.7 mg/dL (8.4-10.2); Carbon Dioxide 26 mmol/L (22-29); Chloride 108 mmol/L (96-108); Estimated Glomerular Filt Rate > 60; Potassium 4.6 mmol/L (3.3-5.1); Sodium 141 mmol/L (135-145)
[2023-12-17 15:42] LABS: Creatinine Urine 147.09 mg/dL
[2023-12-17 15:56] LABS: Total Protein Urine Random 220 mg/dL (<12)
== END 2023-12-17 14:10 | disposition home or self-care (01) ==
LOC: HO.LAB 14:09
PROVIDERS: PCP Internal Medicine; Visit Provider Internal Medicine Nephrology
DX: N18.31 Chronic kidney disease, stage 3a (principal); N18.30 Chronic kidney disease, stage 3 unspecified
CPT/HCPCS: 36415; 80051; 82310; 82565; 82570; 84156; 84520

== ENCOUNTER 2023-12-20 14:12 | Outpatient (AMB) | payer OTHER, SELFPAY ==
[2023-12-20 14:31] VITALS: BP 130/68; PULSE 58; O2SAT 98; BMI 30.1
--- NOTE | 2023-12-20 14:31 | HO.NEPHOV ---
Vital Signs 12/20/23 14:31 Height 5 ft 4 in Weight 175 lb 8 oz BMI 30.1 BP 130/68 Blood Pressure Location Rt brachial Position Sitting Pulse 58 Pulse Source Pulse Oximeter Pulse Oximetry (%) 98 Oxygen Delivery Method Room Air Intake Visit Reasons: CKD/ 4 MO FU/ Conf Electric Motor Repairman Required: No Accompanied by: Daughter Allergies No Known Allergies Allergy (Unknown, Verified 12/20/23 14:35) HPI Comments Details: I had the privilege of seeing Sharon in follow-up of her chronic kidney disease and hypertension. Her volume status is well maintained on current dose of diuretics. Her blood pressure has been at goal. She does not have any chest pain, orthostatic symptoms, shortness of breath, proximal nocturnal dyspnea, orthopnea, pedal edema or urinary symptoms. She does not have any nausea vomiting or diarrhea. She does not take any nonsteroidal anti-inflammatories. She has not had any medication changes today. She currently feels well. [facility] Medical History CKD (chronic kidney disease) stage 4, GFR 15-29 ml/min Anemia Bilateral carpal tunnel syndrome Moderate recurrent major depression Pure hypercholesterolemia Essential hypertension Carpal tunnel syndrome Urinary incontinence Hypovitaminosis D GERD (gastroesophageal reflux disease) High cholesterol Diabetes Hypertension Surgical History S/P carpal tunnel release History of cholecystectomy Family History Father No problems noted. Mother No problems noted. Social History Housing: Apartment Alcohol intake: former Patient Tobacco Use Status: Former Tobacco user Tobacco use type: Cigarette e-Cigarette/Vaping Use: Never Used Second Hand Smoke Exposure: No service: No Current occupational status: disabled Current occupation: rt hand Cognitive needs: Yes Hearing needs: No Vision needs: Yes Review of Systems Const All systems reviewed & are unremarkable except as noted in HPI and below Physical Exam Vital Signs: Last Vital Signs Pulse 58 12/20/23 14:31 BP 130/68 12/20/23 14:31 Pulse Ox 98 12/20/23 14:31 Oxygen Delivery Method Room Air 12/20/23 14:31 BMI result Body Mass Index 30.1 Const General: comfortable and no acute distress Orientation/consciousness: patient oriented x3 HEENT Head: Yes normocephalic Mouth: Normal oral and palatal mucosa present Eyes EOM: EOMs intact bilaterally Neck Neck: Yes supple Resp Auscultation: clear to auscultation bilaterally Cardio Jugular venous distension: no JVD Rate: regular rate GI Palpation (GI): Soft to palpation Auscultation: normal bowel sounds General: Yes no CVA tenderness Back/Spine/Pelvis Back: no CVA tenderness Skin General skin exam: no rashes or lesions noted Neuro General: patient oriented x3 and moves all extremities Extrem General: Yes no pedal edema Results Reviewed Nephrology Results: Hgb 12.2 g/dl (12.0-16.0) 04/08/23 WBC 6.0 X10*3/uL (4.8-10.8) 04/08/23 Plt Count 208 X10*3/uL (160-400) 04/08/23 Sodium 141 mmol/L (135-145) 12/17/23 Potassium 4.6 mmol/L (3.3-5.1) 12/17/23 Chloride 108 mmol/L (96-108) 12/17/23 Carbon Dioxide 26 mmol/L (22-29) 12/17/23 BUN 21 mg/dL (9-16) H 12/17/23 Creatinine 0.87 mg/dL (0.5-1.4) 12/17/23 Calcium 9.7 mg/dL (8.4-10.2) 12/17/23 Urine Creatinine 147.09 mg/dL 12/17/23 Protein/Creatinin Ratio 1.50 (<0.2) H 12/17/23 Assessment & Plan Assessment & Plan (1) CKD (chronic kidney disease) stage 3, GFR 30-59 ml/min: Code(s): N18.30 - Chronic kidney disease, stage 3 unspecified Category: Medical Qualifiers: Chronic kidney disease stage 3 subtype: stage 3a (GFR 45-59) Qualified Code(s): N18.31 - Chronic kidney disease, stage 3a (2) Essential hypertension: Code(s): I10 - Essential (primary) hypertension Category: Medical Plan 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 She has no significant proteinuria. Her blood pressure is currently at goal. She avoids nonsteroidal anti-inflammatories. She is on angiotensin receptor ambrose. She is a great candidate for Osper. I did not make any medication changes today. All her questions were answered. Follow-up blood work ordered. Follow-up appointment given. Orders: Orders Creatinine 4 Months N18.31 - Chronic kidney disease, stage 3a Electrolytes 4 Months N18.31 - Chronic kidney disease, stage 3a Albumin Level 4 Months N18.31 - Chronic kidney disease, stage 3a Blood Urea Nitrogen 4 Months N18.31 - Chronic kidney disease, stage 3a Coding Level of Care Code Est Pt Level 4 (39594) Diagnoses Stage 3a chronic kidney disease N18.31 Chronic kidney disease stage 3 subtype: stage 3a (GFR 45-59) Essential hypertension I10
== END 2023-12-20 14:51 | disposition home or self-care (01) ==
PROVIDERS: PCP Internal Medicine; Visit Provider Internal Medicine Nephrology
DX: I12.9 Hypertensive chronic kidney disease with stage 1 through stage 4 chronic kidney disease, or unspecified chronic kidney disease (principal); N18.31 Chronic kidney disease, stage 3a
CPT/HCPCS: 99214

== ENCOUNTER → 2023-12-20 14:12 | Outpatient (BNVA) | payer OTHER, SELFPAY | PROVIDERS: PCP Internal Medicine; Visit Provider Internal Medicine Nephrology | DX: I12.9 Hypertensive chronic kidney disease with stage 1 through stage 4 chronic kidney disease, or unspecified chronic kidney disease (principal); E11.22 Type 2 diabetes mellitus with diabetic chronic kidney disease; N18.31 Chronic kidney disease, stage 3a | CPT/HCPCS: 99212 ==

== ENCOUNTER 2024-04-17 11:40 | Outpatient (REF) | payer OTHER, SELFPAY ==
[2024-04-17 12:14] LABS: MANUAL DIFF FLAG NO
--- OUTSIDE RECORDS SUMMARY | 2024-04-17 12:23 | XMS_ITS | Encounter Summary ---
Author Organization [employer] [facility] Address [address] [place] [address] Care Team Providers Care Support Service Tech Name Role Phone Unavailable Primary Care Provider Unavailabl e Encounter Details Date Type Department Care Team (Late st Contact Info) Description 02/28/2022 Abstract [facility]AL [address] [place] [address] Brian Boydaris [address] [place] [address] Social History Tobacco Use Types Packs/Day Years Used Date Smoking Tobacco: Never Assessed Comments Unknown Sex and Gender Information Value Date Recorded Sex Assigned at Female 01/15/2022 10:15 AM EDT Legal Sex Female 10:15 AM EDT Gender Identity Female 04/26/2022 12:57 PM EST Sexual Orientation Choose not to disclose 2021 10:15 AM EDT documented as of this encounter Plan of Treatment Not on file documented as of this encounter Procedures Procedure Name Priority Date/Time Associated Diagnosis Comments 31 EXTRACTION Routine 02/28/2022 12:00 AM EST 24 EXTRACTION Routine 02/28/2022 12:00 AM EST 19 EXTRACTION Routine 02/28/2022 12:00 AM EST 18 EXTRACTION Routine 02/28/2022 12:00 AM EST 17 EXTRACTION Routine 02/28/2022 12:00 AM EST 16 EXTRACTION Routine 02/28/2022 12:00 AM EST 15 EXTRACTION Routine 02/28/2022 12:00 AM EST 3 EXTRACTION Routine 02/28/2022 12:00 AM EST 2 EXTRACTION Routine 02/28/2022 12:00 AM EST 14 EXTRACTION Routine 02/28/2022 12:00 AM EST 1 EXTRACTION Routine 02/28/2022 12:00 AM EST documented in this encounter Visit Diagnoses Not on filedocumented in this encounter
--- OUTSIDE RECORDS SUMMARY | 2024-04-17 12:23 | XMS_ITS | Clinical Summary ---
Author Organization [facility] Address [address] [place] [address] [place] [address] Phone Care Team Providers Care Customer Support Agent Name Role Phone Karina Baires MD Primary Care Provider [phone] Allergies No known active allergies Medications aspirin (ST JOSE) 81 MG EC tablet Take 1 tablet by mouth 1 (one) time each day Active cholecalciferol (VITAMIN D-3) 25 MCG (1000 UT) tablet Take 1 capsule by mouth 1 (one) time each day Active metFORMIN (GLUCOPHAGE) 1000 MG tablet Take 1 tablet by mouth 2 (two) times a day with meals Active calcium carbonate-tana calciferol (Calcium 500+D) 500-400 MG-UNIT per tablet Take 1 tablet by mouth 2 (two) times a day Active omeprazole (PriLOSEC) [address] capsule Take 1 capsule by mouth 1 (one) time each day 07/06/2020 Active Mapap Arthritis Pain 650 MG 8 hr tablet Take 1 tablet by mouth if needed 06/29/2020 Active losartan (COZAAR) 25 MG tablet Take 1 tablet by mouth 1 (one) time each day 09/29/2022 Active furosemide (LASIX) 40 MG tablet TAKE 1 TABLET BY MOUTH TWICE DAILY 56 tablet 11/09/2022 Active Active Problems Problem Noted Date Diagnosed Date Acute nontraumatic kidney injury 05/23/2022 Hypertension 10/19/2020 Stage 3a chronic kidney disease 06/15/2020 Edema 06/15/2020 Hyperkalemia 06/15/2020 Hypertensive renal disease 06/15/2020 Family History Medical History Relation Comments Stroke Child 1 Hypertension Child 2 Relation Status Comments Child 1 Child 2 Father Mother Social History Tobacco Use Types Packs/Day Years Used Date Smoking Tobacco: Never Smokeless Tobacco: Never Tobacco Cessation:Counseling Given: Not Answered Alcohol Use Standard Drinks/Week Comments No 0 (1 standard drink = 0.6 oz pur e alcohol) Comments Unknown Sex and Gender Information Value Date Recorded Sex Assigned at Not on file Legal Sex Female 5:08 PM EST Gender Identity Not on file Sexual Orientation Not on file Last Filed Vital Signs Vital Sign Reading Time Taken Comments Blood Pressure 136/80 10/10/2022 3:07 PM EDT Pulse 68 06/27/2022 2:39 PM EDT Temperature - - Respiratory Rate - - Oxygen Saturation 95% 05/23/2022 1:54 PM EST Inhaled Oxygen Concentration - - Weight 85.7 kg (189 lb) 10/10/2022 3:07 PM EDT Height 165.1 cm (5' 5 ) 05/23/2022 1:54 PM EST Body Mass Index 31.45 05/23/2022 1:54 PM EST Plan of Treatment Health Maintenance Due Date Last Done Comments Pneumococcal Vaccine: 65+ Ye ars (1 of 2 - PCV) 1941 Influenza Vaccine (#1) 2023 Hepatitis B Vaccine Aged Out No longe r eligible based on patient's age to complete this topic Insurance [facility] ([id number]) [facility] ([id number]) [place] [id number] Care Teams Customer Support Agent Relationship Specialty Start Date End Date Karina Baires MD [address] [place] [address] PCP - General 03/28/20
--- OUTSIDE RECORDS SUMMARY | 2024-04-17 12:23 | XMS_ITS | Clinical Summary ---
Author Organization [employer] [facility] Address [address] [place] [address] [address] [place] [address] Care Team Providers Care Intelligence Senior Sergeant Name Role Phone Unavailable Primary Care Provider Unavailabl e Allergies No known active allergies Medications acetaminophen (Tylenol) 500 MG tabletIndication s:Dental abscess Take 1 tablet (500 mg) by mouth every 6 (six) hours if needed for mild pain for up to 20 doses. 20 tablet 04/26/2022 Active Aspirin Low Dose 81 MG EC tablet 05/15/2022 Act no cholecalciferol (Vitamin D3) 25 MCG (1000 UT) tablet 05/15/2022 Active Social History Tobacco Use Types Packs/Day Years Used Date Smoking Tobacco: Never Assessed Comments Unknown Sex and Gender Information Value Date Recorded Sex Assigned at Female 01/15/2022 10:15 AM EDT Legal Sex Female 10:15 AM EDT Gender Identity Female 04/26/2022 12:57 PM EST Sexual Orientation Choose not to disclose 2021 10:15 AM EDT Last Filed Vital Signs Vital Sign Reading Time Taken Comments Blood Pressure 120/60 06/05/2022 2:08 PM EDT Pulse 70 06/05/2022 2:08 PM EDT Temperature - - Respiratory Rate - - Oxygen Saturation - - Inhaled Oxygen Concentration - - Weight - - Height - - Body Mass Index - - Plan of Treatment Health Maintenance Due Date Last Done Comments Dental Prophylaxis 1937 Dental X-Ray: Bitewings 1937 Dental X-Ray: Full Mouth 1937 Depression Screening 1937 Lipid Panel 1937 SDOH Screening 1937 Alcohol/Substance Use Screening 1949 Tobacco Screening 1949 RSV Patients and Patients Aged 60 years or older (1 - 1-dose 75+ series) 2012 Zoster Vaccines (2 of 3) 08/12/2014 06/17/2014 Dental Oral Exam 12/07/2022 06/05/2022 COVID-19 Vaccine (3 - season) 2023 11/07/2020, 10/10/2020 Influenza Vaccine (#1) 2023 , 03/23/2021, 12/17/2018, Additional history exists DTaP/Tdap/Td Vaccines (4 - Td or Tdap) 07/08/2033 07/09/2023, 03/25/2017, 12/14/2013, Additional history exists Hepatitis B Vaccines Completed 01/07/2015, 09/27/2014, 06/17/2014 Pneumococcal Vaccine: 50+ Years Completed 04/13/2015, 05/25/2010, 11/17/1999 HIB Vaccines Aged Out No longer eligi ble based on patient's age to complete this topic HPV Vaccines Aged Out No longer eligi ble based on patient's age to complete this topic Hepatitis A Vaccines Aged Out No long er eligible based on patient's age to complete this topic IPV Vaccines Aged Out No longer eligi ble based on patient's age to complete this topic Meningococcal Vaccine Aged Out No kayy diana eligible based on patient's age to complete this topic RSV under 20 months Aged Out No longe r eligible based on patient's age to complete this topic Rotavirus Vaccines Aged Out No longer eligible based on patient's age to complete this topic Procedures Procedure Name Priority Date/Time Associated Diagnosis Comments PERIODIC ORAL EVALUATION - ESTABLISHED PATIENT Routine 06/05/2022 2:00 PM EDT Periodontal disease from Last 3 Months or Most Recently Relevant to Health Maintenance Insurance [facility]AL - [facility]
[2024-04-17 12:46] LABS: Basophils Absolute Auto 0.1 X10*3/uL (0.0-0.2); Eosinophils Absolute Auto 0.3 X10*3/uL (0.0-0.4); Eosinophils Percent Auto 5.5 % (0-4); Hematocrit 37.2 % (37.0-47.0); Hemoglobin 11.7 g/dl (12.0-16.0); Imm Gran Abs Auto 0.02 X10*3/uL (0.00-0.03); Imm Gran Pct Auto 0.4 % (0.0-0.4); Lymphocytes Absolute Auto 1.1 X10*3/uL (1.2-4.9); Lymphocytes Percent Auto 20.5 % (20-40); Mean Corpuscular HGB Conc 31.5 g/dl (31.0-35.0); Mean Corpuscular Hemoglobin 32.9 pg (27.0-33.0); Mean Corpuscular Volume 104.5 fL (80.0-98.0); Monocytes Absolute Auto 0.3 X10*3/uL (0.1-1.2); Neutrophils Absolute Auto 3.4 x10*3/uL (2.0-8.3); Neutrophils Percent Auto 66.6 % (45-73); Platelet Count 174 X10*3/uL (160-400); Red Blood Count 3.56 X10*6/uL (4.20-5.50); Red Cell Distribution Width 12.6 % (11.0-16.0); White Blood Count 5.1 X10*3/uL (4.8-10.8)
[2024-04-17 13:33] LABS: Alanine Aminotransferase 10 U/L (0-31); Albumin Level 3.8 g/dL (3.5-5.0); Alkaline Phosphatase 84 U/L (39-117); Anion Gap 13 (12-20); Aspartate Amino Transferase 21 U/L (5-31); Bilirubin Total 0.5 mg/dL (0.0-1.0); Blood Urea Nitrogen 26 mg/dL (9-16); Calcium 9.9 mg/dL (8.4-10.2); Carbon Dioxide 24 mmol/L (22-29); Chloride 111 mmol/L (96-108); Cholesterol 139 mg/dL (<200); Estimated Glomerular Filt Rate 56; Glucose Fasting 124 mg/dL (60-99); HDL Cholesterol 56 mg/dL (>40); Iron 67 mcg/dL (30-160); LDL Cholesterol Calculated 67 mg/dL (<100); Percent Iron Saturation 26 % (15-50); Potassium 4.6 mmol/L (3.3-5.1); Sodium 143 mmol/L (135-145); Total Iron Binding Capacity 255 mcg/dL (228-428); Total Protein 7.4 g/dL (6.5-8.0); Triglycerides 82 mg/dL (<150); Unsaturated Iron Binding 188 ug/dL
[2024-04-17 13:49] LABS: Vitamin D 25-OH Total 31.8 ng/mL (>30)
[2024-04-17 13:55] LABS: Creatinine Urine 173.12 mg/dL; Microalbum/Creatinine Ratio Ur 1155.2 ug/mg cr (<30); Microalbumin Urine > 2000.0 mg/L
== END 2024-04-17 11:41 | disposition home or self-care (01) ==
LOC: HO.LAB 11:40
PROVIDERS: PCP Internal Medicine; Visit Provider Internal Medicine
DX: D64.9 Anemia, unspecified (principal); E55.9 Vitamin D deficiency, unspecified; E11.9 Type 2 diabetes mellitus without complications; N18.31 Chronic kidney disease, stage 3a; E78.5 Hyperlipidemia, unspecified
CPT/HCPCS: 36415; 80053; 80061; 82043; 82306; 82570; 83540; 85025

== ENCOUNTER 2024-04-21 15:24 | Outpatient (AMB) | payer OTHER, SELFPAY ==
--- OUTSIDE RECORDS SUMMARY | 2024-04-21 15:27 | XMS_ITS | Encounter Summary ---
Author Organization [employer] [facility] Address [address] [place] [address] Care Team Providers Care Palliative Senior Np Name Role Phone Unavailable Primary Care Provider Unavailabl e Encounter Details Date Type Department Care Team (Late st Contact Info) Description 02/28/2022 Abstract [facility] [address] [place] [address] Brian Boydaris [address] [place] [address] Social History Tobacco Use Types Packs/Day Years [...]
--- OUTSIDE RECORDS SUMMARY | 2024-04-21 15:27 | XMS_ITS | Clinical Summary ---
Author Organization [facility] Address [address] [place] [address] [place] [address] Phone Care Team Providers Care Marine Consultant Name Role Phone Karina Baires MD Primary Care Provider [phone] Allergies No known active allergies Medications aspirin [...] patient's age to complete this topic Insurance [facility] ([id number]) [facility] ([id number]) [place] [id number] Care Teams Marine Consultant Relationship Specialty Start Date End Date Karina Baires MD [address] [place] [address] PCP - General 03/28/20
--- OUTSIDE RECORDS SUMMARY | 2024-04-21 15:27 | XMS_ITS | Clinical Summary ---
Author Organization [employer] [facility] Address [address] [place] [address] [address] [place] [address] Care Team Providers Care Process Checker Name Role Phone Unavailable Primary Care Provider [...] Relevant to Health Maintenance Insurance DENTAL - [facility]
--- NOTE | 2024-04-21 15:32 | A.OFFPC_ITS ---
Vital Signs 04/21/24 15:33 Height 5 ft 4 in Weight 173 lb BMI 29.7 BP 148/76 H Blood Pressure Location Lt brachial Position Sitting Intake Visit Reasons: 6M- Follow up - Med Review Industrial Machine Operator Required: Yes Industrial Machine Operator Language: Critical Care Clinical Nurse Specialist Name: Karina Brothers MD Information Interpreted: non-clinical & clinical Accompanied by: INSOLE BOTTOM FILLER Allergies No Known Allergies Allergy (Unknown, Verified 04/21/24 16:08) Medication List - Last Reconciled 04/21/24 by Karina Brothers MD acetaminophen ER (Pain Relief (acetaminophen)) 650 mg PO Q8H PRN 30 days amlodipine 10 mg PO DAILY 90 days aspirin 81 mg PO DAILY 90 days blood sugar diagnostic (FreeStyle Test strips) Use 1 test strip once a day calcium carbonate-vitamin D3 600 mg-10 mcg (400 unit) 1 tab PO BID 90 days cholecalciferol (vitamin D3) 25 mcg PO DAILY 90 days commode As directed [compression stockings As directed] ferrous sulfate 325 mg PO DAILY 90 days FreeStyle Lite Strips (blood sugar diagnostic) 1 strip miscellaneous BID 30 days NS furosemide 20 mg PO DAILY 90 days incontinence pad, liner, disp (Bladder Control Pads Ex Absorb) As directed [incontinence wipes As directed] lancets As directed losartan 100 mg PO DAILY 90 days metformin 1,000 mg PO BID 90 days mirtazapine 15 mg PO BEDTIME 90 days czboihyv-rmyvdwazjXr-mwnorsetU 3.5mg-400 unit- 5,000 unit/gram 1 appl topical DAILY 2 weeks omeprazole 20 mg PO DAILY 90 days paroxetine HCl 10 mg PO DAILY 90 days pravastatin 40 mg PO DAILY 90 days [recliner As directed] [washable bedpads As directed] Tobacco use date assessed: 04/21/24 Fall risk assessment: 2 + Falls in past year Dental Screening Dental Screen Date: 04/21/24 Did you have a dental visit in the last 12 months?: Yes Did you have a dental problem in the last 6 months where you did not have access to dental care?: No Was dental information given to patient?: Patient has dentist HPI HPI Comments History of Present Illness Details The patient is an 88-year-old female presenting for follow-up on her chronic conditions. Her medical history includes essential hypertension, for which she is currently taking amlodipine and losartan. She also has a history of diabetes mellitus type 2, well controlled with a current A1c of 5.8%. She is on metformin as part of her diabetes management plan. The patient suffers from osteopenia, diagnosed last year, which is managed with calcium and vitamin D supplementation. Additionally, she has depression with anxiety, managed with paroxetine and mirtazapine. Her hyperlipidemia is controlled with pravastatin, and her recent LDL levels are reported to be at 67 mg/dL, indicating adequate control. Proteinuria was noted in recent lab results, with a microalbumin level exceeding 2000, necessitating a follow-up with a bilingual sales consultant. While she reports no active smoking or alcohol use in her current lifestyle, there is a history of smoking and alcohol use in her younger years. She is also seeking a referral to a window glass installer following her previous clinician's passing, and she requires assistance with obtaining orthopedic footwear. [facility] Medical History (Updated 04/21/24 @ 20:14 by Karina Brothers MD) CKD (chronic kidney disease) stage 3, GFR 30-59 ml/min CKD (chronic kidney disease) stage 4, GFR 15-29 ml/min Anemia Bilateral carpal tunnel syndrome Moderate recurrent major depression Pure hypercholesterolemia Essential hypertension Carpal tunnel syndrome Urinary incontinence Hypovitaminosis D GERD (gastroesophageal reflux disease) High cholesterol Diabetes Hypertension Surgical History S/P carpal tunnel release History of cholecystectomy Family History Father No problems noted. Mother No problems noted. Social History Housing: Apartment Alcohol intake: former Patient Tobacco Use Status: Former Tobacco user Tobacco use type: Cigarette e-Cigarette/Vaping Use: Never Used Second Hand Smoke Exposure: No service: No Current occupational status: disabled Current occupation: rt hand Cognitive needs: Yes Hearing needs: No Vision needs: Yes Questionnaire PHQ-9 Over the last 2 weeks, how often have you been bothered by any of the following problems? 1. Little interest or pleasure in doing things: several days 2. Feeling down, depressed, or hopeless: several days 3. Trouble falling or staying asleep, or sleeping too much: not at all 4. Feeling tired or having little energy: several days 5. Poor appetite or overeating: several days 6. Feeling bad about yourself - or that you are a failure or have let yourself or your family down: not at all 7. Trouble concentrating on things, such as reading the newspaper or watching television: not at all 8. Moving or speaking so slowly that other people could have noticed. Or the opposite - being so fidgety or restless that you have been moving around a lot more than usual: not at all 9. Thoughts that you would be better off or of hurting yourself in some way: not at all Total score: 4 Depression Screening Interpretation: Positive Depression Screening Follow-up: Existing condition and Follow-up Visit Requested Depression Screening Done: Yes 19689 - PHQ-9 Billing: Yes Source: Developed by Drs. Nemesio Virgen, Anna Dempsey, Gil Avila and colleagues, with an educational hair from [employer]. Thrive Questionnaire Date Thrive assessed: 04/21/24 I am a: Patient What is your living situation today?: I have a steady place to live Within the past 12 months, did the food you bought not last and you didn't have the money to get more?: Never true Within the past 12 months, did you worry whether your food would run out before you got money to buy more?: Never true Do you have trouble paying for medicines?: No Do you have trouble getting transportation to medical appointments?: No Do you have trouble paying your heating and electricity bill?: No Do you have trouble taking care of your child, family member or friend?: No Do you have trouble with day-to-day activities such as bathing, preparing meals, shopping, managing finances, etc.?: No Are you currently unemployed and looking for a job?: No Are you interested in more education?: No Please select the resources that you would like help with: None Currently or been in a relationship where the following occur: No concerns reported THRIVE Score: 0 AUDIT C Alcohol Use Questionnaire (AUDIT-C) 1. How often do you have a drink containing alcohol?: Never Total Score: 0 Score Reviewed/Action Taken: No BHARAT-7 AMB Questionnaire BHARAT-7 Date BHARAT - 7 assessed: 02/04/25 Feeling nervous, anxious, or on edge: 1 = Several days Not being able to stop or control worryin = Not at all Worrying too much about different things: 1 = Several days Trouble relaxin = Not at all Being so restless that it is hard to sit still: 0 = Not at all Becoming easily annoyed or irritable: 0 = Not at all Feeling afraid as if something awful might happen: 0 = Not at all Total BHARAT-7 score (0-4 normal; 5-9 mild; 10-14 moderate; 15-21 severe): 2 Source: Developed by Drs. Nemesio Virgen, Anna Dempsey, Gil Avila and colleagues, with an educational hair from [employer]. BHARAT-7 Assessment Billing BHARAT-7 Assessment Tool: BHARAT-7 Assessment 52622 Review of Systems Const All systems reviewed & are unremarkable except as noted in HPI and below Card Denies chest pain at rest, Denies chest pain with activity, Denies edema, Denies irregular heart rhythm, Denies claudication, Denies dyspnea, Denies dyspnea on exertion, Denies orthopnea, Denies paroxysmal nocturnal dyspnea and Denies slow heart rate Resp Denies cough, Denies dyspnea and Denies dyspnea on exertion GI Denies abdominal pain, Denies change in bowel habits, Denies excessive flatus, Denies nausea and Denies vomiting Physical exam (Primary Care) Vital Signs: Last Vital Signs BP 148/76 H 04/21/24 15:33 BMI result Body Mass Index 29.7 Tobacco/Smoking Status: Tobacco use Status Tobacco use date assessed 04/21/24 04/21/24 15:43 Patient Tobacco Use Status Former Tobacco user 04/21/24 15:43 Tobacco use type Cigarette 04/21/24 15:43 e-Cigarette/Vaping Use Never Used 04/21/24 15:43 PHQ-9: PHQ-9 Score PHQ-9: Total score 4 04/21/24 16:28 Depression Screening Interpretation: Positive Depression Screening Follow-up: Existing condition and Follow-up Visit Requested Thrive Assessment: Date of Thrive Assessment Date Thrive assessed 04/21/24 04/21/24 15:43 Currently or been in a relationship where the following occur: No concerns reported Const General: cooperative Limitations: ambulation with walker Resp Effort & Inspection: normal respiratory effort Auscultation: clear to auscultation bilaterally Cardio Jugular venous distension: no JVD Rate: regular rate Rhythm: regular rhythm Heart sounds: S1 normal heart sound present and S2 normal heart sound present Extrem General: Yes full ROM Office Procedures Flu Questionnaire Does the patient have a severe egg allergy?: No Results AMB Hemoglobin A1c AMB Hemoglobin A1c 5.8 % Last Edit by CULLEN Girard on 04/21/24 15:4 8 Immunizations Fluarix Triv [id number] (PF) 45 mcg (15 mcg x 3)/0.5 mL IM syringe Performing Provider: Karina Brothers MD Performing Location: [facility] Documented (not given) by: CULLEN Girard on 04/21/24 16:29 Reason Not Given: Patient Refused Results Reviewed Results Reviewed: Laboratory Last Values Hgb A1c (Clinic) 5.8 % (4.0-6.0) 04/21/24 15:32 Coding Level of Care Code Est Pt Level 4 (52276) Complex EM visit Add On G2211 Diagnoses Mild major depression F32.0 Hyperlipidemia LDL goal <70 E78.5 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, without long-term current use of insulin, macular edema presence unspecified, unspecified proliferative retinopathy type E11.3593 Diabetes mellitus type: type 2 Diabetes mellitus terminal operations manager insulin use: without assisted use Diabetes mellitus complication status: with ophthalmic complications Diabetes mellitus complication detail: with diabetic retinopathy Diabetic retinopathy severity: with proliferative retinopathy Proliferative retinopathy type: unspecified Diabetes mellitus macular edema: macular edema presence unspecified Laterality: bilateral Essential hypertension I10 Additional Codes BHARAT-7 Assessment Billing - BHARAT-7 Assessment Tool: BHARAT-7 Assessment 82461 ([id number]) PHQ-9 - 07788 - PHQ-9 Billing: Yes ([id number]) Time Spent (min) 22 Assessment & Plan Assessment & Plan (1) Mild major depression: Code(s): F32.0 - Major depressive disorder, single episode, mild Category: Medical (2) Hyperlipidemia LDL goal <70: Code(s): E78.5 - Hyperlipidemia, unspecified Category: Medical (3) Diabetes: Code(s): E11.9 - Type 2 diabetes mellitus without complications Category: Medical Qualifiers: Diabetes mellitus type: type 2 Diabetes mellitus assisted insulin use: without terminal operations manager use Diabetes mellitus complication status: with ophthalmic complications Diabetes mellitus complication detail: with diabetic retinopathy Diabetic retinopathy severity: with proliferative retinopathy Proliferative retinopathy type: unspecified Diabetes mellitus macular edema: macular edema presence unspecified Laterality: bilateral Qualified Code(s): E11.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, bilateral (4) Essential hypertension: Code(s): I10 - Essential (primary) hypertension Category: Medical Plan - Continue current antihypertensive regimen with amlodipine and losartan pending nephrology consultation. - Maintain diabetes management with metformin, given excellent glycemic control. - Continue depression and anxiety management with paroxetine and mirtazapine. - Reassess osteopenia management as needed; ensure continued calcium and vitamin D intake. - Follow-up with bilingual sales consultant for consultation on proteinuria management. - Issue a referral for a window glass installer at [facility] in [place]. - Adjust pain management strategy to two tablets every 8 hours due to inadequate relief from current regimen. Patient was informed and verbally consented to the use of an ambient scribe for clinic note documentation during this visit. Following the review of the patient's medical history and current condition, I discussed her excellent control of diabetes, with A1c levels well below the target threshold. Her blood pressure control is stable, with existing medication therapy. I emphasized the importance of continuing her current regimens for hypertension, diabetes, and hyperlipidemia due to optimal control. We addressed changes to her pain management by increasing the dosage frequency to enhance effectiveness. I also discussed the need for a nephrology consultation to evaluate her significant proteinuria, which may necessitate adjustments in her antihypertensive medications to reduce renal stress. A referral to [facility] pod[facility] was issued due to the previous provider's passing. I highlighted the pending approval of mobility aids and suggested continued follow-up. Orders: Orders AMB Hemoglobin A1c Today E11.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, bilateral Influenza [id number] Immunization Today Z23 - Encounter for immunization Referrals Podiatry Referral E11.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, bilateral Medications: Changed From acetaminophen ER (Pain Relief (acetaminophen)) 650 mg PO Q8H 30 days PRN 90 tabs 6RF pain To acetaminophen ER (Pain Relief (acetaminophen)) 1,300 mg (2 x 650 mg) PO Q8H PRN 180 tabs 6RF pain 30 days Refilled [recliner] As directed 1 ea 0RF M51.36 - Other intervertebral disc degeneration, lumbar region Patient Instructions: - Continue all medications as prescribed. - Follow up with the bilingual sales consultant as planned. - Maintain a balanced diet rich in calcium and vitamin D. - Await podiatry appointment at [facility] in [place]. - Monitor pain relief with adjusted dosing and report any changes. - Contact the office for any new symptoms or concerns.
[2024-04-21 15:33] VITALS: BP 148/76; BMI 29.7
== END 2024-04-21 16:21 | disposition home or self-care (01) ==
PROVIDERS: PCP Internal Medicine; Visit Provider Internal Medicine
DX: F32.0 Major depressive disorder, single episode, mild (principal); E78.5 Hyperlipidemia, unspecified; E11.3593 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 without macular edema, bilateral; I10 Essential (primary) hypertension; Z23 Encounter for immunization

== ENCOUNTER → 2024-04-21 15:24 | Outpatient (BNVA) | payer OTHER, SELFPAY | PROVIDERS: PCP Internal Medicine; Visit Provider Internal Medicine | DX: F32.0 Major depressive disorder, single episode, mild (principal); E78.5 Hyperlipidemia, unspecified; E11.3593 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 without macular edema, bilateral; I10 Essential (primary) hypertension | CPT/HCPCS: 83036; 90471; 96127; 99212 ==

== ENCOUNTER 2024-05-06 09:01 | Inpatient (IN) | payer OTHER, SELFPAY ==
[2024-05-06] VITALS (9 sets, daily range): BP systolic 159–224; BP diastolic 47–105; PULSE 60–71; RESP 12–18; TEMP 36.6–37.1; O2SAT 96–98; BMI 28.5
--- NOTE | ~2024-05-06 | MR_ITS ---
CLINICAL HISTORY: altered mental status, no obvious etiology, neg CT Pt motion throughout images. MR brain without gadolinium Comparison: CT 05/06/2024 Findings: No acute signal abnormalities noted on diffusion-weighted imaging. No acute intracranial fluid collection, hematoma or signal abnormality. Chronic ischemic white matter disease and volume loss noted. Midline structures are intact and within normal limits. Normal flow voids are noted within the vascular structures. Nonspecific right mastoid density. Sinuses and left mastoids clear. Impression: No significant abnormalities. This document has been electronically signed by: Jaiden Corley MD on 05/08/2024 19:55:31
--- NOTE | ~2024-05-06 | CT_ITS ---
EXAMINATION: CT HEAD WITHOUT CONTRAST CLINICAL INFORMATION: Altered mental status. COMPARISON: 02/13/2018. TECHNIQUE: Contiguous axial imaging was performed from the skull base to vertex without intravenous administration of contrast. This CT examination was performed using dose optimization techniques as appropriate, variously including the following: *Automated exposure control *Adjustment of mA and/or kV according to patient size (this includes techniques or standardized protocols for targeted exams where dose is matched to indication/reason for exam; i.e. extremities or head) *Use of iterative reconstruction technique FINDINGS: There is no evidence of intracranial hemorrhage or extra-axial fluid collection. There is no mass effect, or edema. No CT evidence of acute territorial infarct. Ventricles, sulci, and cisterns are normal in size and configuration for patient age. No hydrocephalus. No midline shift. Negative hyperdense MCA sign. Negative insular ribbon sign. Patchy periventricular and deep white matter hypoattenuation is consistent with mild small vessel ischemic changes. 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 Partial empty sella. Mild atheromatous calcification of the bilateral carotid siphons. Globes and orbital contents image normally. There are bilateral lens replacements. No extracranial soft tissue abnormalities. The paranasal sinuses, mastoid air cells, and tympanic cavities are normally aerated. No suspicious bony abnormalities. Hyperostosis frontalis. There are no acute fractures evident. CT/CT head/brain wo IV con IMPRESSION: No acute intracranial abnormalities. Stable chronic changes. Electronically signed by: Reagan Ogden MD 05/06/2024 11:46 AM [facility]
--- NOTE | 2024-05-06 09:02 | ED_ITS ---
HPI - General Adult General Chief complaint: Altered Mental Status Stated complaint: CONFUSION 2 DAYS Time Seen by Provider: 05/06/24 09:02 History of Present Illness ED Provider: Stacey BRADLEY narrative: The patient is an 88-year-old female who lives at home with her family. An ambulance was called today because the family was concerned that she has been confused. She apparently tried to get up and go outside naked today. Family also says that she has been more incontinent of urine. There is no report of any fever, sweats, chills. No report of vomiting. No report of headache or other body pains. The patient denies headache, chest pain, shortness of breath, abdominal pain, nausea, vomiting. She is poorly oriented. Family says that the patient has a tendency to depression and she has a therapist. Apparently the birthday anniversary of a sister who recently is coming up. Related Data Previous Rx's ?Medication ?Instructions ?Recorded commode #1 ea 07/09/22 incontinence pad, liner, disp #150 ea 07/09/22 (Bladder Control Pads Ex Absorb) incontinence wipes #300 ea 07/09/22 washable bedpads #2 ea 07/09/22 neomycin-bacitracn Zn-polymyx 3.5 1 appl topical DAILY 2 weeks #14 08/02/22 mg-400 unit-5,000 unit/gram top grams oint aspirin 81 mg tablet,delayed 81 mg PO DAILY 90 days #90 tabs 07/09/23 release blood sugar diagnostic (FreeStyle #100 ea 07/09/23 Test strips) cholecalciferol (vitamin D3) 25 25 mcg PO DAILY 90 days #90 tabs 07/09/23 mcg (1,000 unit) tablet lancets 28 gauge #100 ea 07/09/23 metformin 1,000 mg tablet 1,000 mg PO BID 90 days #180 tabs 07/09/23 mirtazapine 15 mg tablet 15 mg PO BEDTIME 90 days #90 tabs 07/09/23 omeprazole 20 mg capsule,delayed 20 mg PO DAILY 90 days #90 caps 07/09/23 release pravastatin 40 mg tablet 40 mg PO DAILY 90 days #90 tabs 07/09/23 FreeStyle Lite Strips (blood sugar 1 strip miscellaneous BID for 07/19/23 diagnostic) diabetes mellitus 30 days #60 strips compression stockings #4 ea 11/03/23 furosemide 20 mg tablet 20 mg PO DAILY 90 days #90 tabs 01/03/24 amlodipine 10 mg tablet 10 mg PO DAILY 90 days #90 tabs 03/26/24 calcium 600 mg (as 1 tab PO BID 90 days #180 tabs 03/26/24 carbonate)-vitamin D3 10 mcg (400 unit) tablet ferrous sulfate 325 mg (65 mg 325 mg PO DAILY 90 days #90 tabs 03/26/24 iron) tablet losartan 100 mg tablet 100 mg PO DAILY 90 days #90 tabs 03/26/24 acetaminophen 650 mg 1,300 mg (2 x 650 mg) PO Q8H PRN 04/21/24 tablet,extended release (Pain pain 30 days #180 tabs Relief (acetaminophen)) recliner #1 ea 04/21/24 Allergies Allergy/AdvReac Type Severity Reaction Status Date / Time No Known Allergies Allergy Unknown Verified 05/06/24 09:18 Review of Systems 2 Review of Systems: Yes all other systems are reviewed and are negative PMFSH Past Medical History Medical History (Updated 05/06/24 @ 18:58 by Anuel Ibarra MD) CKD (chronic kidney disease) stage 3, GFR 30-59 ml/min CKD (chronic kidney disease) stage 4, GFR 15-29 ml/min Anemia Bilateral carpal tunnel syndrome Moderate recurrent major depression Pure hypercholesterolemia Essential hypertension Carpal tunnel syndrome Urinary incontinence Hypovitaminosis D GERD (gastroesophageal reflux disease) High cholesterol Diabetes Hypertension Surgical History S/P carpal tunnel release History of cholecystectomy Family History Family History Father No problems noted. Mother No problems noted. Social History Social History Housing: Apartment Alcohol intake: former Patient Tobacco Use Status: Former Tobacco user Tobacco use type: Cigarette Smoked in Last 30 Days: No e-Cigarette/Vaping Use: Never Used Second Hand Smoke Exposure: No Use of substances other than those prescribed or required for medical reasons: No Advance Directives: No Advance Directives Information Provided: Yes service: No Current occupational status: disabled Current occupation: rt hand Cognitive needs: Yes Hearing needs: No Vision needs: Yes Physical Exam ED Vital Signs: Vital Signs - 24 hr 05/06/24 09:13 05/06/24 10:25 05/06/24 10:29 Temperature 97.9 F Pulse Rate 64 60 Respiratory Rate 18 16 Blood Pressure 214/83 H 224/72 H 224/72 H Pulse Oximetry 97 Oxygen Delivery Method Room Air 05/06/24 10:30 05/06/24 12:05 05/06/24 14:23 Temperature 98.3 F 98.8 F Pulse Rate 66 66 Respiratory Rate 12 13 Blood Pressure 224/72 H 199/62 H 159/50 H Pulse Oximetry 97 97 Oxygen Delivery Method Room Air Room Air 05/06/24 14:56 Temperature 97.8 F Pulse Rate 71 Respiratory Rate 18 Blood Pressure 160/47 H Pulse Oximetry 97 Oxygen Delivery Method Room Air BMI result Body Mass Index 28.5 Const Other: The patient is awake and alert. She has a pleasant demeanor. She does not seem in distress. However she is poorly oriented and can not tell me how old she is or where she is or why she is here. HENMT Other: Face is symmetrical. Mucous membranes moist. Tongue is midline. Eyes Other: Pupils are round equal, conjunctivae are clear, extraocular movements intact. Neck Neck: Yes full ROM, Yes no lymphadenopathy and Yes no JVD Resp Effort & Inspection: normal respiratory effort Auscultation: clear to auscultation bilaterally Cardio Rate: regular rate Rhythm: regular rhythm Heart sounds: S1 normal heart sound present and S2 normal heart sound present GI Other: Abdomen is soft and nontender Skin Other: skin is dry and unremarkable Neuro Other: the patient is awake. she has a normal level of alertness. Her demeanor is cheerful and positive. She is very poorly oriented however. She cannot tell me the year or her age or her address. Cranial nerves 2-12 are intact. She moves her extremities symmetrically and appropriately. She has no focal neurological deficits. She seems to have a mental status consistent with dementia. Extrem Other: No peripheral edema. No calf swelling or tenderness. Psych Other: The patient is awake but seems poorly oriented in a manner consistent with dementia. She seems to have a cheerful demeanor. She is quite disoriented. Medications Administered Discontinued Medications Generic Name Dose Route Start Last Admin Trade Name Freq PRN Reason Stop Dose Admin Amlodipine Besylate 10 mg 05/06/24 10:06 05/06/24 10:29 Amlodipine Besylate 10 Mg Tablet PO 05/06/24 10:07 10 mg ONCE ONE Administration Protocol Losartan Potassium 100 mg 05/06/24 10:06 05/06/24 10:30 Losartan Potassium 50 Mg Tablet PO 05/06/24 10:07 100 mg ONCE ONE Administration Protocol Medical Decision Making Medical Decision Making MDM Narrative: The patient is an 88-year-old female who comes to the emergency room with 2 days of a change in behavior. The grandson was at the bedside and said the patient has not been herself for the last 2 days. She has seemed more confused and has been exhibiting uncharacteristic behaviors such as getting up at odd hours and wandering around and having trouble getting dressed. Family thought there might be increased frequency of urination. No fevers. The patient is denying any pains. She is denying any headache, chest pain or abdominal pain. There has been no nausea or vomiting. She has no obvious focal neurological findings on exam. The patient's medical testing is essentially unremarkable. Her white count is 5.4, hemoglobin 13.3, platelet count 176. The differential on her white count is normal. Her basic metabolic panel is unremarkable. Electrolytes are normal. Renal function is good. Glucose is 117. Her troponin is 24.9. This seems to be her baseline. A previous troponin was 24.0 Urinalysis is unremarkable. No sign of a UTI. Noncontrast head CT shows no acute findings. The patient is strikes me as being pleasantly demented. She does not strike me as acutely ill. The grandson says that her behavior over the last 2 days is fairly distinctly different and uncharacteristic for her. I do not find any obvious acute medical explanation for this change. The grandson also spoke about the patient being depressed about the upcoming birthday anniversary of a relative who was very close to the patient. Grandson believes the patient has been depressed because of this imminent birthday. It is possible that the patient has behavior changes could be related to depression. Given that the family seems to have trouble managing the patient has behavior I think a care team and possibly a psychiatric consult might be helpful. Lab Data 05/06/24 10:23 05/06/24 10:23 Labs: Lab Results 05/06/24 05/06/24 Range/Units 10:23 17:53 WBC 5.4 (4.8-10.8) X10*3/uL RBC 3.95 L (4.20-5.50) X10*6/uL Hgb 13.3 (12.0-16.0) g/dl Hct 40.8 (37.0-47.0) % MCV 103.3 H (80.0-98.0) fL MCH 33.7 H (27.0-33.0) pg MCHC 32.6 (31.0-35.0) g/dl RDW 12.4 (11.0-16.0) % Plt Count 176 (160-400) X10*3/uL MPV 9.7 (9.4-12.3) fL Immature Gran % (Auto) 0.2 (0.0-0.4) % Neut % (Auto) 55.9 (45-73) % Lymph % (Auto) 29.1 (20-40) % Garrett % (Auto) 8.4 (2-11) % Eos % (Auto) 5.8 H (0-4) % Baso % (Auto) 0.6 (0-2) % Lymph # (Auto) 1.6 (1.2-4.9) X10*3/uL Garrett # (Auto) 0.5 (0.1-1.2) X10*3/uL Eos # (Auto) 0.3 (0.0-0.4) X10*3/uL Baso # (Auto) 0.0 (0.0-0.2) X10*3/uL Abs Immat Gran (auto) 0.01 (0.00-0.03) X10*3/uL Absolute Neuts (auto) 3.0 (2.0-8.3) x10*3/uL Absolute Nucleated RBC 0.000 (0.0-0.012) X10*3/uL Nucleated RBC % (auto) 0.0 (0.0-0.2) /100WBC Sodium 140 (135-145) mmol/L Potassium 4.6 (3.3-5.1) mmol/L Chloride 108 (96-108) mmol/L Carbon Dioxide 23 (22-29) mmol/L Anion Gap 14 (12-20) BUN 17 H (9-16) mg/dL Creatinine 0.78 (0.5-1.4) mg/dL Estim Creat Clear Calc 55.2 Estimated GFR > 60 Random Glucose 117 H (60-115) mg/dL Calcium 9.7 (8.4-10.2) mg/dL Magnesium 1.9 (1.6-2.6) mg/dL Total Bilirubin 0.6 (0.0-1.0) mg/dL Direct Bilirubin 0.1 (0.0-0.5) mg/dL AST 36 H (5-31) U/L ALT 14 (0-31) U/L Alkaline Phosphatase 79 (39-117) U/L Troponin I High Sens 24.9 H 21.8 H (<3.5-17.0) ng/L C-Reactive Protein 0.14 (< or = 0.50) mg/dL Total Protein 8.0 (6.5-8.0) g/dL Albumin 3.9 (3.5-5.0) g/dL Urine Color Yellow Urine Appearance Clear Urine pH 6.5 (5.0-9.0) Ur Specific [place] 1.010 (1.005-1.025) Urine Protein 300 (3+) H (Neg-Trace) mg/dL Urine Glucose (UA) Negative (Negative) mg/dL Urine Ketones Negative (Negative) mg/dL Urine Blood Trace H (Negative) Urine Nitrite Negative (Negative) Ur Leukocyte Esterase Negative (Negative) Urine RBC 0-2 (0-2) /HPF Urine WBC 0-5 (0-5) /HPF Ur Squamous Epith Cells 0-2 (0-2) /HPF Urine Bacteria None Seen (None Seen) Hyaline Casts 0-2 (0-2) /LPF Influenza Type A (PCR) NEGATIVE (Negative) Influenza Type B (PCR) NEGATIVE (Negative) RSV RNA Qual (PCR) NEGATIVE (Negative) SARS-CoV-2 RNA (RT-PCR) NEGATIVE (Negative) Independent Interpretation I performed an independent interpretation of an: EKG Interpretation: EKG at 09:27 shows normal sinus rhythm at 62 beats per minute. No definite acute ischemic changes. Discharge Plan Discharge Clinical Impression: Altered mental status Patient Disposition: Still a Patient Prescriptions: No Action (DME) commode Kit See Rx Instructions .Route Qty: 1 0RF Rx Instructions: As directed (DME) Bladder Control Pads Ex Absorb Pad See Rx Instructions .Route Qty: 150 11RF Rx Instructions: As directed (DME) incontinence wipes See Rx Instructions .Route .MEDSUPPLY Qty: 300 11RF Rx Instructions: As directed (DME) washable bedpads See Rx Instructions .Route .MEDSUPPLY Qty: 2 11RF Rx Instructions: As directed FreeStyle Lite Strips Strip 1 strip miscellaneous BID 30 Days Qty: 60 11RF (DME) compression stockings See Rx Instructions .Route .MEDSUPPLY Qty: 4 3RF Rx Instructions: As directed furosemide 20 mg tablet 20 mg PO DAILY 90 Days Qty: 90 5RF calcium carbonate-vitamin D3 600 mg-10 mcg (400 unit) tablet 1 tab PO BID 90 Days Qty: 180 0RF amlodipine 10 mg tablet 10 mg PO DAILY 90 Days Qty: 90 0RF losartan 100 mg tablet 100 mg PO DAILY 90 Days Qty: 90 0RF ferrous sulfate 325 mg (65 mg iron) tablet 325 mg PO DAILY 90 Days Qty: 90 0RF eztmofew-[id number] 3.5mg-400 unit- 5,000 unit/gram ointment 1 appl topical DAILY 14 Days Qty: 14 0RF (DME) FreeStyle Test Strip See Rx Instructions .ROUTE .MEDSUPPLY Qty: 100 11RF Rx Instructions: Use 1 test strip once a day (DME) lancets 28 gauge misc See Rx Instructions topical BID Qty: 100 11RF Rx Instructions: As directed aspirin 81 mg tablet,delayed release (DR/EC) 81 mg PO DAILY 90 Days Qty: 90 3RF cholecalciferol (vitamin D3) 25 mcg (1,000 unit) tablet 25 mcg PO DAILY 90 Days Qty: 90 3RF metformin 1,000 mg tablet 1,000 mg PO BID 90 Days Qty: 180 3RF mirtazapine 15 mg tablet 15 mg PO BEDTIME 90 Days Qty: 90 3RF omeprazole 20 mg capsule,delayed release(DR/EC) 20 mg PO DAILY 90 Days Qty: 90 3RF pravastatin 40 mg tablet 40 mg PO DAILY 90 Days Qty: 90 3RF acetaminophen [Pain Relief (acetaminophen)] 650 mg tablet extended release 1,300 mg PO Q8H PRN (Reason: pain) 30 Days Qty: 180 6RF (DME) recliner See Rx Instructions .Route .MEDSUPPLY Qty: 1 0RF Rx Instructions: As directed Print Language: Setswana
--- NOTE | 2024-05-06 09:10 | ECG_ITS ---
Test Reason : altered mental Blood Pressure : */* mmHG Vent. Rate : 62 BPM Atrial Rate : 62 BPM P-R Int : 126 ms QRS Dur : 70 ms QT Int : 396 ms P-R-T Axes : 0 60 -6 degrees QTcB Int : 401 ms Normal sinus rhythm Nonspecific ST and T wave abnormality Abnormal ECG When compared with ECG of 11-Aug-2022 15:04, Inverted T waves have replaced nonspecific T wave abnormality in Inferior leads Referred By: Anuel Ibarra Electronically Signed By: TAYLER SHELBY
--- OUTSIDE RECORDS SUMMARY | 2024-05-06 10:14 | XMS_ITS | Clinical Summary ---
Author Organization [facility] Address [address] [place] [address] [place] [address] Phone Care Team Providers Care Hiv Prevention Specialist Name Role Phone Karina Baires MD Primary Care Provider [phone] Allergies No known active allergies Medications aspirin [...] patient's age to complete this topic Insurance [facility] ([id number]) [facility] ([id number]) [place] [id number] Care Teams Hiv Prevention Specialist Relationship Specialty Start Date End Date Karina Baires MD [address] [place] [address] PCP - General 03/28/20
[2024-05-06 10:28] LABS: MANUAL DIFF FLAG NO
[2024-05-06] MEDS: amLODIPine Besylate 10 MG TABLET PO (10:29)
[2024-05-06] MEDS: Losartan Potassium 50 MG TABLET 100 MG PO (10:30)
[2024-05-06 10:31] LABS: Appearance Urine Clear; Basophils Percent Auto 0.6 % (0-2); Color Urine Yellow; Eosinophils Absolute Auto 0.3 X10*3/uL (0.0-0.4); Eosinophils Percent Auto 5.8 % (0-4); Glucose Urine UA Negative (Negative); Hematocrit 40.8 % (37.0-47.0); Hemoglobin 13.3 g/dl (12.0-16.0); Imm Gran Abs Auto 0.01 X10*3/uL (0.00-0.03); Imm Gran Pct Auto 0.2 % (0.0-0.4); Leukocyte Esterase Urine Negative (Negative); Lymphocytes Absolute Auto 1.6 X10*3/uL (1.2-4.9); Lymphocytes Percent Auto 29.1 % (20-40); Mean Corpuscular HGB Conc 32.6 g/dl (31.0-35.0); Mean Corpuscular Hemoglobin 33.7 pg (27.0-33.0); Mean Corpuscular Volume 103.3 fL (80.0-98.0); Mean Platelet Volume 9.7 fL (9.4-12.3); Monocytes Absolute Auto 0.5 X10*3/uL (0.1-1.2); Monocytes Percent Auto 8.4 % (2-11); Neutrophils Percent Auto 55.9 % (45-73); Nitrite Urine Negative (Negative); PH 6.5 (5.0-9.0); Platelet Count 176 X10*3/uL (160-400); Red Blood Count 3.95 X10*6/uL (4.20-5.50); Red Cell Distribution Width 12.4 % (11.0-16.0); UMIC TRIGGER UACC YES; Urine Blood Trace (Negative); Urine Ketones Negative (Negative); Urine Protein 300 (3+) mg/dL (Neg-Trace); White Blood Count 5.4 X10*3/uL (4.8-10.8)
[2024-05-06 10:36] LABS: Bacteria Urine None Seen (None Seen); Hyaline Casts Urine 0-2 /LPF (0-2); RBC Urine 0-2 /HPF (0-2); Squamous Epithelial Cell Urine 0-2 /HPF (0-2); WBC Urine 0-5 /HPF (0-5)
--- NOTE | 2024-05-06 10:45 | PC.NURSE ---
Pt presents to ED via EMS from home for confusion and weakness X2 days worsening. per family, pt very confused, not making sense and not recognizing them X2 days, tried to leave the house at 1AM. Pt is alert and mostly oriented at baseline, breathing even and unlabored, skin warm and dry. Uses walker at baseline. Family denies recent falls or illnesses. Pt did not take her normal meds this morning or last night.
[2024-05-06 10:58] LABS: Alanine Aminotransferase 14 U/L (0-31); Albumin Level 3.9 g/dL (3.5-5.0); Alkaline Phosphatase 79 U/L (39-117); Anion Gap 14 (12-20); Aspartate Amino Transferase 36 U/L (5-31); Bilirubin Direct 0.1 mg/dL (0.0-0.5); Bilirubin Total 0.6 mg/dL (0.0-1.0); Blood Urea Nitrogen 17 mg/dL (9-16); C Reactive Protein 0.14 mg/dL (< or = 0.50); Calcium 9.7 mg/dL (8.4-10.2); Carbon Dioxide 23 mmol/L (22-29); Chloride 108 mmol/L (96-108); Creatinine Clr Calc Pharmacy 55.2; Estimated Glomerular Filt Rate > 60; Glucose Random 117 mg/dL (60-115); Magnesium 1.9 mg/dL (1.6-2.6); Potassium 4.6 mmol/L (3.3-5.1); Sodium 140 mmol/L (135-145)
[2024-05-06 11:15] LABS: Troponin-I High Sensitivity 24.9 ng/L (<3.5-17.0)
[2024-05-06 11:18] LABS: Influenza A PCR NEGATIVE (Negative); Influenza B PCR NEGATIVE (Negative); Resp Syncy Virus RNA Qual PCR NEGATIVE (Negative); SARS COV2 PCR INHOUSE NEGATIVE (Negative)
--- NOTE | 2024-05-06 15:31 | PC.NURSE ---
Per provider pt cleared medically, plan for psych eval
--- NOTE | 2024-05-06 16:37 | PC.NURSE ---
Med rec done by this RN using list from family member
[2024-05-06 18:17] LABS: Troponin-I High Sensitivity 21.8 ng/L (<3.5-17.0)
[2024-05-06] MEDS: diphenhydrAMINE HCL 50 MG/ML VIAL IVPUSH (22:12)
[2024-05-06] MEDS: LORazepam 2 MG/ML VIAL 1 MG IVPUSH (22:15)
--- NOTE | 2024-05-06 22:23 | PC.NURSE ---
pt medicated per mar, pt reposition in bed.
[2024-05-07] VITALS (7 sets, daily range): BP systolic 159–197; BP diastolic 54–73; PULSE 74–82; RESP 14–19; TEMP 36.4–37.7; O2SAT 95–97
[2024-05-07] MEDS: OLANZapine 10 MG VIAL IM (00:29)
--- NOTE | 2024-05-07 07:33 | MHC.EDTECH ---
Patient is sleeping now.
--- NOTE | 2024-05-07 15:42 | PHA.MEDREC ---
Addendum entered by Jennyfer Hernadez RPh 05/07/24 16:00: reviewed by [facility]. Original Note: Pharmacy Consult ? Medication Reconciliation Pharmacy reviewed med rec done by nursing. Got list from patients family at bedside and they were able to confirm how the patient is taking their medications. He confirmed she is not taking any topical ointments or creams at this time, I took off the Neomycin-Bacitracin ointment and he confirmed she last took her medications yesterday morning.
--- NOTE | 2024-05-07 16:28 | PM.PSYCN ---
History of Present Illness Date of Service: 05/07/24 Chief Complaint: Confusion x 2 Days Requesting physician: Priscila Hernandez Discussed with referring provider: Yes Sources of Information: patient interviewed, chart reviewed and crisis/core team assessment reviewed HPI Narrative: Patient is a 89-year-old Stateless-speaking female with history of HTN, DM, HLD, mild depression who presents for sudden onset delirium. Psychiatry consulted to assess psychiatric component to altered mental status. In the ED, patient remained confused and not fully oriented; overnight she became combative and required medication restraint. Today Family at her side which includes daughter and grandson and granddaughter. Patient is confused. She is oriented to herself but not the place or the situation. Family reports that about 3 days ago, patient said she was going to bed early because I am cold. She woke up about 01:00 and said she needs to go to the doctor but was redirected to sleep; she got up at 05:00, walked around the house naked, put on only a coat and tried to go outside; she did not recognize her grandson or her family members, was not making sense and confused. Family brought her to the emergency room. Family, primarily grandson, reports that patient has had no recent illness or trauma, medication changes or travel. They say she is functional at baseline, independent, no confusion, no history of dementia, always fully oriented and organized in speech and behavior, takes care of herself without trouble. She does have a [employer] that comes in to help cook and clean the house but otherwise she is fully independent. They say nothing like this has ever happened before and she has never been aggressive. Grandson reports that patient has had some stressful situations over the past few months which include her daughter dying about 4 months ago in December; 1 of her daughters is having health issues and an [id number] grandson is having other psychosocial stressors. However patient has been coping with these chronic struggles without any obvious issues. And this episode was sudden. Past Psychiatric History: None other than history of mild depression Medical Evaluation Reviewed: Yes [facility] Medical History (Updated 05/09/24 @ 08:40 by Mega Paz MD) CKD (chronic kidney disease) stage 3, GFR 30-59 ml/min CKD (chronic kidney disease) stage 4, GFR 15-29 ml/min Anemia Bilateral carpal tunnel syndrome Moderate recurrent major depression Pure hypercholesterolemia Essential hypertension Carpal tunnel syndrome Urinary incontinence Hypovitaminosis D GERD (gastroesophageal reflux disease) High cholesterol Diabetes Hypertension Surgical History S/P carpal tunnel release History of cholecystectomy Family History: None Social History: Lives at home with her daughter and grand children Independent Substance History: None Trauma History: Deferred Diagnostics Vital Signs (24Hr): Vital Signs - 24 hr 05/06/24 20:43 05/07/24 01:10 05/07/24 06:15 Temperature 98.3 F 97.7 F 97.6 F Pulse Rate 68 74 76 Respiratory Rate 18 14 17 Blood Pressure 165/105 H 159/55 H 165/54 H Pulse Oximetry 98 95 97 Oxygen Delivery Method Room Air Room Air Room Air 05/07/24 11:51 05/07/24 14:42 Temperature 97.6 F Pulse Rate 82 76 Respiratory Rate 19 16 Blood Pressure 172/73 H 197/59 H Pulse Oximetry 97 96 Oxygen Delivery Method Room Air Room Air BMI result Body Mass Index 28.5 Labs 05/07/24 17:57 05/07/24 17:57 Labs: Laboratory Results - last 48 hr 05/06/24 05/06/24 10:23 17:53 WBC 5.4 RBC 3.95 L Hgb 13.3 Hct 40.8 MCV 103.3 H MCH 33.7 H MCHC 32.6 RDW 12.4 Plt Count 176 MPV 9.7 Immature Gran % (Auto) 0.2 Neut % (Auto) 55.9 Lymph % (Auto) 29.1 Gibson % (Auto) 8.4 Eos % (Auto) 5.8 H Baso % (Auto) 0.6 Lymph # (Auto) 1.6 Gibson # (Auto) 0.5 Eos # (Auto) 0.3 Baso # (Auto) 0.0 Abs Immat Gran (auto) 0.01 Absolute Neuts (auto) 3.0 Absolute Nucleated RBC 0.000 Nucleated RBC % (auto) 0.0 Sodium 140 Potassium 4.6 Chloride 108 Carbon Dioxide 23 Anion Gap 14 BUN 17 H Creatinine 0.78 Estim Creat Clear Calc 55.2 Estimated GFR > 60 Random Glucose 117 H Calcium 9.7 Magnesium 1.9 Total Bilirubin 0.6 Direct Bilirubin 0.1 AST 36 H ALT 14 Alkaline Phosphatase 79 Troponin I High Sens 24.9 H 21.8 H C-Reactive Protein 0.14 Total Protein 8.0 Albumin 3.9 Urine Color Yellow Urine Appearance Clear Urine pH 6.5 Ur Specific [place] 1.010 Urine Protein 300 (3+) H Urine Glucose (UA) Negative Urine Ketones Negative Urine Blood Trace H Urine Nitrite Negative Ur Leukocyte Esterase Negative Urine RBC 0-2 Urine WBC 0-5 Ur Squamous Epith Cells 0-2 Urine Bacteria None Seen Hyaline Casts 0-2 Influenza Type A (PCR) NEGATIVE Influenza Type B (PCR) NEGATIVE RSV RNA Qual (PCR) NEGATIVE SARS-CoV-2 RNA (RT-PCR) NEGATIVE Imaging Radiology Impressions: ITS Impressions Head CT 05/06/24 11:15 IMPRESSION: No acute intracranial abnormalities. Stable chronic changes. Electronically signed by: Reagan Ogden MD 05/06/2024 11:46 AM [facility] Mental Status Exam Mental Status Exam Narrative: Pt is alert only to self; does not know where she is or understand the situation. Patient disorganized in speech and behavior, trying to get out of the bed, unable to answer questions appropriately. Patient in bed, in night gown; affect constricted, eye contact distracted; speech is sparse but when talks, normal volume, rate and prosody; psychomotor agitation present. Thought process disorganized; thought content disorganized. Earlier Patient reported seeing visual hallucinations however this was only after antipsychotic medication was administered for medication restraint Insight and judgment impaired. Medications Allergies Allergies Allergy/AdvReac Type Severity Reaction Status Date / Time No Known Allergies Allergy Unknown Verified 05/06/24 09:18 Assessment & Plan Assessment & Plan (1) Delirium: Status: Acute Code(s): R41.0 - Disorientation, unspecified (2) Hypertension: Qualifiers: Hypertension type: renovascular hypertension Qualified Code(s): I15.0 - Renovascular hypertension Status: Acute Code(s): I10 - Essential (primary) hypertension (3) High cholesterol: Status: Acute Code(s): E78.00 - Pure hypercholesterolemia, unspecified (4) Diabetes: Qualifiers: Diabetes mellitus type: type 2 Diabetes mellitus senior care insulin use: without senior care use Diabetes mellitus complication status: with ophthalmic complications Diabetes mellitus complication detail: with diabetic retinopathy Diabetic retinopathy severity: with proliferative retinopathy Proliferative retinopathy type: unspecified Diabetes mellitus macular edema: macular edema presence unspecified Laterality: bilateral Qualified Code(s): E11.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, bilateral Status: Acute Code(s): E11.9 - Type 2 diabetes mellitus without complications (5) Mild major depression: Status: Acute Code(s): F32.0 - Major depressive disorder, single episode, mild Plan HPI: Patient is a 89-year-old Stateless-speaking female with history of HTN, DM, HLD, mild depression who presents for sudden onset delirium. Psychiatry consulted to assess psychiatric component to altered mental status. In the ED, patient remained confused and not fully oriented; overnight she became combative and required medication restraint. Today Family at her side which includes daughter and grandson and granddaughter. Patient is confused. She is oriented to herself but not the place or the situation. Family reports that about 3 days ago, patient said she was going to bed early because I am cold. She woke up about 01:00 and said she needs to go to the doctor but was redirected to sleep; she got up at 05:00, walked around the house naked, put on only a coat and tried to go outside; she did not recognize her grandson or her family members, was not making sense and confused. Family brought her to the emergency room. Family, primarily grandson, reports that patient has had no recent illness or trauma, medication changes or travel. They say she is functional at baseline, independent, no confusion, no history of dementia, always fully oriented and organized in speech and behavior, takes care of herself without trouble. She does have a [employer] that comes in to help cook and clean the house but otherwise she is fully independent. They say nothing like this has ever happened before and she has never been aggressive. Grandson reports that patient has had some stressful situations over the past few months which include her daughter dying about 4 months ago in December; 1 of her daughters is having health issues and an ofm-je-fbyaw grandson is having other psychosocial stressors. However patient has been coping with these chronic struggles without any obvious issues. And this episode was sudden. Formulation/clinical reasoning: Patient presents as delirious. While it is possible she may have some mild to moderate underlying cognitive decline, it has been chronically subclinical and she has remained fully functional and independent and it would not account for this sudden change in mental status. Patient does have some significantly stressful events going on her life, the of her daughter 4 months ago, her other daughter healthcare issues... However these are chronic and though possibly contributory, are very unlikely to account for this sudden change in mental status. Physician'S Assistant discussed case with ED provider and agree that current workup is unremarkable, including head CT. However, At this time, patient's presentation does not appear to be psychiatrically related and entry writer recommends continued medical workup; consider Neurology consult, LP? MRI? -entry writer discussed case with Dr. Swanson who agrees that patient's sudden decline seems unlikely to be due to solely a psychiatric illness -psychiatry will continue to follow as needed. Total time managing care of this patient today ____ minutes. Patient educated on: diagnosis Informed Consent: does not understand
[2024-05-07 18:03] LABS: MANUAL DIFF FLAG NO
[2024-05-07 18:05] LABS: Basophils Percent Auto 0.5 % (0-2); Eosinophils Absolute Auto 0.1 X10*3/uL (0.0-0.4); Hemoglobin 11.7 g/dl (12.0-16.0); Imm Gran Abs Auto 0.02 X10*3/uL (0.00-0.03); Imm Gran Pct Auto 0.3 % (0.0-0.4); Lymphocytes Absolute Auto 1.1 X10*3/uL (1.2-4.9); Lymphocytes Percent Auto 14.3 % (20-40); Mean Corpuscular HGB Conc 33.4 g/dl (31.0-35.0); Mean Corpuscular Hemoglobin 33.3 pg (27.0-33.0); Mean Corpuscular Volume 99.7 fL (80.0-98.0); Mean Platelet Volume 9.6 fL (9.4-12.3); Monocytes Absolute Auto 0.7 X10*3/uL (0.1-1.2); Monocytes Percent Auto 9.4 % (2-11); Neutrophils Absolute Auto 5.8 x10*3/uL (2.0-8.3); Neutrophils Percent Auto 74.5 % (45-73); Platelet Count 190 X10*3/uL (160-400); Red Blood Count 3.51 X10*6/uL (4.20-5.50); Red Cell Distribution Width 12.5 % (11.0-16.0); White Blood Count 7.8 X10*3/uL (4.8-10.8)
[2024-05-07 18:12] LABS: Ammonia 31 umol/L (13-55)
[2024-05-07 18:19] LABS: Alanine Aminotransferase 24 U/L (0-31); Albumin Level 3.5 g/dL (3.5-5.0); Alkaline Phosphatase 80 U/L (39-117); Anion Gap 12 (12-20); Aspartate Amino Transferase 54 U/L (5-31); Bilirubin Direct 0.2 mg/dL (0.0-0.5); Bilirubin Total 0.6 mg/dL (0.0-1.0); Blood Urea Nitrogen 13 mg/dL (9-16); Calcium 9.5 mg/dL (8.4-10.2); Carbon Dioxide 26 mmol/L (22-29); Chloride 108 mmol/L (96-108); Estimated Glomerular Filt Rate > 60; Glucose Random 133 mg/dL (60-115); Lipase 11 U/L (8-78); Potassium 3.7 mmol/L (3.3-5.1); Sodium 142 mmol/L (135-145); Total Protein 6.9 g/dL (6.5-8.0)
--- NOTE | 2024-05-07 21:30 | MHC.EDTECH ---
This pct assumed care of Patient at 1900 ,Patient was soiled ,bed bath given ,bedding change ,clear pure wick in place and clean gown given .RN Yue aware of Patient high blood Pressure ,Patient was very combative during care ,Patient grand son at bedside ,600 ml urine empty from purewick .
[2024-05-07] MEDS: Losartan Potassium 50 MG TABLET 100 MG PO (21:48)
[2024-05-07] MEDS: amLODIPine Besylate 10 MG TABLET PO (21:49)
[2024-05-08] VITALS (15 sets, daily range): BP systolic 167–253; BP diastolic 54–88; PULSE 55–76; RESP 16–20; TEMP 36–36.9; O2SAT 93–99
[2024-05-08] MEDS: LORazepam 2 MG/ML VIAL IVPUSH (00:11)
[2024-05-08] MEDS: diphenhydrAMINE HCL 50 MG/ML VIAL 25 MG IVPUSH (00:11)
--- NOTE | 2024-05-08 03:42 | PC.NURSE ---
report rec from marcos sterling
--- NOTE | 2024-05-08 07:42 | PC.NURSE ---
assumed care of patient 0700, patient is somnolent, slightly open eyes to noxious stimuli. patient VSS, ED provider notified of hypertension. resp even and unlabored, sitter in place for safety.
--- NOTE | 2024-05-08 09:21 | PC.NURSE ---
patient remains somnolent, patient unable to take morning meds safely at this time. will make ED attending aware. VSS, resp even and unlabored, sitter remains in place.
[2024-05-08] MEDS: Labetalol HCL 100 MG/20 ML VIAL 10 MG IVPUSH (12:26)
--- NOTE | 2024-05-08 13:40 | MHC.CM.ED ---
Received case management consult this morning from Dr Ibarra. Patient came to the ER on 05/06 with AMS. Patient was seen by Care Team. Psych consult was recommended. Waiting for psych consult note to be completed. Physical therapy eval ordered and attempted. Patient unable to participate d/t being drowsy. Patient received IV benadryl and ativan last night. Discharge plan is unable to be determined at this time. Continue to monitor for d/c needs.
--- NOTE | 2024-05-08 14:23 | PC.NURSE ---
patient mri form complered with grandlaina dudley on the phone
[2024-05-08 16:08] LABS: Thyroid Stimulating Hormone 1.78 uIU/mL (0.32-4.0)
[2024-05-08] MEDS: Labetalol HCL 100 MG/20 ML VIAL IVPUSH (16:24)
--- NOTE | 2024-05-08 18:12 | PC.NURSE ---
patient appears to be more awake, grandson at bedside. patient off unit to MRI
[2024-05-08] MEDS: amLODIPine Besylate 10 MG TABLET PO (19:54)
[2024-05-08] MEDS: Losartan Potassium 50 MG TABLET 100 MG PO (19:55)
[2024-05-08] MEDS: metFORMIN HCl 1,000 MG TABLET 1000 MG PO (20:54)
[2024-05-08] MEDS: Mirtazapine 15 MG TABLET PO (20:54)
[2024-05-08 21:00] LABS: Glucose, Whole Blood 105 mg/dL (60-115)
[2024-05-08] MEDS: Calcium + Vitamin D 250 MG TABLET 500 MG PO (21:39)
--- NOTE | 2024-05-08 21:53 | PC.NURSE ---
Blood pressure remains elevated at this time. MD aware. Ordered losaartan and amlodipine since patient did not take this morning due to lethargy. Will continue to monitor blood pressure and keep MD informed.
[2024-05-08 22:05] LABS: Appearance Urine Clear; Color Urine Yellow; Glucose Urine UA Negative (Negative); Leukocyte Esterase Urine Negative (Negative); Nitrite Urine Negative (Negative); UMIC TRIGGER UACC YES; Urine Blood Moderate (2+) (Negative); Urine Ketones 15 mg/dL (Negative); Urine Protein >=1000 (4+) mg/dL (Neg-Trace)
[2024-05-08 22:20] LABS: Bacteria Urine None Seen (None Seen); Granular Casts Urine Present; Hyaline Casts Urine 0-2 /LPF (0-2); RBC Urine 0-2 /HPF (0-2); Squamous Epithelial Cell Urine 0-2 /HPF (0-2); WBC Urine 0-5 /HPF (0-5)
[2024-05-09] VITALS (7 sets, daily range): BP systolic 126–182; BP diastolic 55–83; PULSE 83–96; RESP 14–18; TEMP 36.4–36.8; O2SAT 95–98
--- NOTE | 2024-05-09 02:12 | PC.NURSE ---
this rn assumed care of pt @ 2300. pt calm and cooperative positioned on back with lights dimmed to promote sleep. pt denies pain or discomfort at this time
--- NOTE | 2024-05-09 02:47 | PC.NURSE ---
dr hamlin made aware of BP of 182/70 no new orders at this time
--- NOTE | 2024-05-09 03:06 | PC.NURSE ---
pt calm and cooperative found to have self removed iv from R hand pt unable to say why iv was removed
--- NOTE | 2024-05-09 04:36 | PC.NURSE ---
pt repositioned in bed and sat up after requesting a drink of water. pt provided with water
--- NOTE | 2024-05-09 05:42 | MHC.EDTECH ---
Pt received incontinence care and right after was able to get up with assistance by this tech and a nurse to move bowels on commode at this time. Pt was able to get into bed with assistance and able to communicate and also know that she was at a hospital when asked if she knew where she was.
--- NOTE | 2024-05-09 05:43 | PC.NURSE ---
pt found to be attempting to get out of bed states needs to use restroom bedpan use attempted pt did not want to use pt two assist to bedside commode bedlinens changed loose foul smelling stool noted dr hamlin made aware stool sample collect pt repositioned back to bed lights dimmed to promote sleep
[2024-05-09] MEDS: Omeprazole 20 MG CAPSULE.DR PO (06:23)
--- NOTE | 2024-05-09 06:26 | PC.NURSE ---
pt medicated according to grecia pt repositioned to back lights dimmed to promote rest
[2024-05-09] MEDS: Cholecalciferol (Vitamin D3) 25 MCG TABLET PO (09:13)
[2024-05-09] MEDS: Ferrous Sulfate 324 MG TABLET.DR PO (09:13)
[2024-05-09] MEDS: amLODIPine Besylate 10 MG TABLET PO (09:13)
[2024-05-09] MEDS: metFORMIN HCl 1,000 MG TABLET 1000 MG PO ×2 (09:13→21:57)
[2024-05-09] MEDS: Aspirin Enteric Coated 81 MG TABLET.DR PO (09:13)
[2024-05-09] MEDS: Losartan Potassium 50 MG TABLET 100 MG PO (09:13)
[2024-05-09] MEDS: Pravastatin Sodium 40 MG TABLET PO (09:14)
[2024-05-09] MEDS: Calcium + Vitamin D 250 MG TABLET 500 MG PO ×2 (09:14→21:58)
[2024-05-09] MEDS: Furosemide 20 MG TABLET PO (09:14)
--- NOTE | 2024-05-09 09:46 | PC.NURSE ---
resumed care of patient at 0700, pt resting in bed comfortably, Tech at bedside to assist with feeding patient as she did not have good hand coordination with eating, pt has been cooperative with care as of this morning, she took her medications whole with some staff assist by RN.
[2024-05-09 11:34] LABS: Adenovirus F 40/41 Not Detected (Not Detect.); Astrovirus Not Detected (Not Detect.); Campylobacter Not Detected (Not Detect.); Cryptosporidium Not Detected (Not Detect.); Cyclospora cayetanensis Not Detected (Not Detect.); E. coli EAEC Not Detected (Not Detect.); E. coli EPEC Not Detected (Not Detect.); E. coli ETEC Not Detected (Not Detect.); E. coli STEC Not Detected (Not Detect.); Entamoeba histolytica Not Detected (Not Detect.); Norovirus GI/GII Not Detected (Not Detect.); Plesiomonas shigelloides Not Detected (Not Detect.); Rotavirus A Not Detected (Not Detect.); Salmonella Not Detected (Not Detect.); Sapovirus Detected (Not Detect.); Shigella sp./EIEC Not Detected (Not Detect.); Vibrio Not Detected (Not Detect.); Vibrio Cholerae Not Detected (Not Detect.); Yersinia enterocolitica Not Detected (Not Detect.)
[2024-05-09 11:55] LABS: Giardia lamblia Detected (Not Detect.)
--- NOTE | 2024-05-09 13:37 | MHC.CM.PN ---
CM FOLLOWING. AWAITING NEUROLOGY CONSULT.
[2024-05-09] MEDS: metroNIDAZOLE 500 MG TABLET PO ×2 (13:46→21:57)
[2024-05-09] MEDS: OLANZapine 5 MG TABLET PO (13:46)
--- NOTE | 2024-05-09 13:52 | PC.NURSE ---
Pt starting to get anxious trying to get out of bed, needing to be redirected multiple times, camera placed on patient at this time. PO zyprexa given per MAY.
--- NOTE | 2024-05-09 13:55 | PM.IMHP ---
History of Present Illness Date of Service: 05/09/24 Chief Complaint: confusion 89-year-old woman presented to the ER on 04/1924. According to the patient's family the patient had seemed more confused than normal and family was concerned. The patient is confused but knows her name but unable to say where she was. Patient has been in the ER for psychiatric evaluation due to depression however patient had foul smelling stool and the stool was checked and found to be positive for Giardia therefore medical admission was requested. The psychiatric team also felt that the patient's behavior was more related to dementia. In the ER brain MRI was negative for any significant abnormality, UA negative, no leukocytosis or fever. In the ER, patient received labetalol and Norvasc for hypertension, Zyprexa and Flagyl. Plan will be to admit patient for treatment of giardia and acute encephalopathy. Review of Systems Review of Systems: Yes Unobtainable due to mental status [facility] Medical History (Updated 05/09/24 @ 08:40 by Mega Paz MD) CKD (chronic kidney disease) stage 3, GFR 30-59 ml/min CKD (chronic kidney disease) stage 4, GFR 15-29 ml/min Anemia Bilateral carpal tunnel syndrome Moderate recurrent major depression Pure hypercholesterolemia Essential hypertension Carpal tunnel syndrome Urinary incontinence Hypovitaminosis D GERD (gastroesophageal reflux disease) High cholesterol Diabetes Hypertension Family History Father No problems noted. Mother No problems noted. Surgical History S/P carpal tunnel release History of cholecystectomy Social History Housing: Apartment Alcohol intake: former Patient Tobacco Use Status: Former Tobacco user Tobacco use type: Cigarette Smoked in Last 30 Days: No e-Cigarette/Vaping Use: Never Used Second Hand Smoke Exposure: No Use of substances other than those prescribed or required for medical reasons: No Advance Directives: No Advance Directives Information Provided: Yes service: No Current occupational status: disabled Current occupation: rt hand Cognitive needs: Yes Hearing needs: No Vision needs: Yes Meds Allergies Allergy/AdvReac Type Severity Reaction Status Date / Time No Known Allergies Allergy Unknown Verified 05/06/24 09:18 Active Medications: Current Medications Acetaminophen (Acetaminophen 325 Mg Tablet) 1,300 mg PO Q8H PRN PRN Reason: pain Acetaminophen (Acetaminophen 325 Mg Tablet) 650 mg PO Q6H PRN PRN Reason: Pain, Mild 1-3,fever,headache Amlodipine Besylate (Amlodipine Besylate 10 Mg Tablet) 10 mg PO DAILY [facility]; Protocol Last Admin: 05/09/24 09:13 Dose: 10 mg Aspirin (Aspirin Enteric Coated 81 Mg Tablet.) 81 mg PO DAILY [facility] Last Admin: 05/09/24 09:13 Dose: 81 mg Calcium Carbonate (Calcium Carbonate 750 Mg Tab.Chew) 750 mg PO Q4H PRN PRN Reason: Heartburn Calcium Carbonate/Cholecalciferol (Calcium + Vitamin D 250 Mg Tablet) 500 mg PO BID [facility] Last Admin: 05/09/24 09:14 Dose: 500 mg Ferrous Sulfate (Ferrous Sulfate 324 Mg Tablet.) 324 mg PO DAILY [facility] Last Admin: 05/09/24 09:13 Dose: 324 mg Furosemide (Furosemide 20 Mg Tablet) 20 mg PO DAILY [facility]; Protocol Last Admin: 05/09/24 09:14 Dose: 20 mg Heparin Sodium (Porcine) (Heparin Sodium,Porcine 5,000 Unit/Ml Vial) 5,000 unit SUBCUT Q12H [facility] Losartan Potassium (Losartan Potassium 50 Mg Tablet) 100 mg PO DAILY [facility]; Protocol Last Admin: 05/09/24 09:13 Dose: 100 mg Magnesium Hydroxide (Milk Of Magnesia 30 Ml Oral.Susp) 30 ml PO DAILY PRN PRN Reason: Constipation Melatonin (Melatonin 3 Mg Tablet) 6 mg PO BEDTIME PRN PRN Reason: Insomnia Metformin HCl (Metformin Hcl 1,000 Mg Tablet) 1,000 mg PO BID [facility] Last Admin: 05/09/24 09:13 Dose: 1,000 mg Metronidazole (Metronidazole 500 Mg Tablet) 500 mg PO Q8H [facility] Mirtazapine (Mirtazapine 15 Mg Tablet) 15 mg PO BEDTIME [facility] Last Admin: 05/08/24 20:54 Dose: 15 mg Omeprazole (Omeprazole 20 Mg Capsule.) 20 mg PO DAILY@0630 [facility] Last Admin: 05/09/24 06:23 Dose: 20 mg Ondansetron HCl (Ondansetron Hcl 4 Mg/2 Ml Vial) 4 mg IVPUSH Q8H PRN PRN Reason: Nausea and Vomiting Pravastatin Sodium (Pravastatin Sodium 40 Mg Tablet) 40 mg PO DAILY [facility] Last Admin: 05/09/24 09:14 Dose: 40 mg Sodium Chloride (0.9 % Sodium Chloride Flush 3 Ml Syringe) 3 ml IVFLUSH QSHIFT [facility] Vitamin D (Cholecalciferol (Vitamin D3) 25 Mcg Tablet) 25 mcg PO DAILY [facility] Last Admin: 05/09/24 09:13 Dose: 25 mcg Home Medications ?Medication ?Instructions ?Recorded ?Confirmed ?Last Taken ?Type omeprazole 20 mg capsule,delayed 20 mg PO DAILY@0630 05/07/24 05/07/24 1 Day Ago History release ~05/06/24 Physical Exam Vital Signs and Narrative: Vital Signs: Last Vital Signs Temp 97.9 F 05/09/24 13:14 Pulse 90 05/09/24 13:14 Resp 14 05/09/24 13:14 BP 157/73 H 05/09/24 13:14 Pulse Ox 97 05/09/24 13:14 O2 Del Method Room Air 05/09/24 13:14 BMI result Body Mass Index 28.5 Appearing in no acute distress head is normocephalic atraumatic eyes pupils are PERRLA sclera is anicteric mouth throat mucous membranes are intact and moist neck is supple no lymphadenopathy, no JVD noted lung sounds are clear to auscultation heart regular rate rhythm, clear S1, S2 positive bowel sounds, abdomen is soft, nontender neuro patient is alert, confused Results Labs 05/07/24 17:57 05/07/24 17:57 Labs: Laboratory Results - last 24 hr 05/07/24 05/08/24 05/08/24 17:57 20:57 21:53 POC Glucose 105 TSH 1.78 Urine Color Yellow Urine Appearance Clear Urine pH 6.0 Ur Specific [place] 1.020 Urine Protein >=1000 (4+) H Urine Glucose (UA) Negative Urine Ketones 15 Urine Blood Moderate (2+) H Urine Nitrite Negative Ur Leukocyte Esterase Negative Urine RBC 0-2 Urine WBC 0-5 Ur Squamous Epith Cells 0-2 Urine Bacteria None Seen Hyaline Casts 0-2 Granular Casts Present Stl C. cayetanensis PCR Stool Rotavirus A PCR Stl Adenov F 40/41 PCR Stool Astrovirus (PCR) Stool Campylobacter PCR Stool Cryptosporidium PCR Stl Sh Tox Pr E STEC PCR Stool E coli O157 PCR Stl Enterotoxigenic E PCR Stool EPEC (PCR) Stool EAEC (PCR) Stl E. histolytica PCR Stool Giardia Lamblia PCR Stl P. shigelloides PCR Stool Salmonella PCR Stool Sapovirus (PCR) Stl Shigella/EIEC PCR St Y.enterocolitica PCR Stool Vibrio (PCR) Stl Vibrio cholerae PCR Stl Norovirus GI/GII PCR 05/09/24 05:49 POC Glucose TSH Urine Color Urine Appearance Urine pH Ur Specific [place] Urine Protein Urine Glucose (UA) Urine Ketones Urine Blood Urine Nitrite Ur Leukocyte Esterase Urine RBC Urine WBC Ur Squamous Epith Cells Urine Bacteria Hyaline Casts Granular Casts Stl C. cayetanensis PCR Not Detected Stool Rotavirus A PCR Not Detected Stl Adenov F 40/41 PCR Not Detected Stool Astrovirus (PCR) Not Detected Stool Campylobacter PCR Not Detected Stool Cryptosporidium PCR Not Detected Stl Sh Tox Pr E STEC PCR Not Detected Stool E coli O157 PCR Not applicable Stl Enterotoxigenic E PCR Not Detected Stool EPEC (PCR) Not Detected Stool EAEC (PCR) Not Detected Stl E. histolytica PCR Not Detected Stool Giardia Lamblia PCR Detected A Stl P. shigelloides PCR Not Detected Stool Salmonella PCR Not Detected Stool Sapovirus (PCR) Detected A Stl Shigella/EIEC PCR Not Detected St Y.enterocolitica PCR Not Detected Stool Vibrio (PCR) Not Detected Stl Vibrio cholerae PCR Not Detected Stl Norovirus GI/GII PCR Not Detected Assessment and Plan (1) Hypertension: Qualifiers: Hypertension type: renovascular hypertension Qualified Code(s): I15.0 - Renovascular hypertension Status: Acute Plan 89-year-old Amharic-speaking woman admitted to medical service for findings of giardia diarrhea. Acute encephalopathy. Unknown etiology UA negative, no fever or leukocytosis, no acute significant abnormality on MRI Possibly secondary to Giardia Blood cultures pending Giardia/sapovirus IV Flagyl 500 mg every 8 hours for 5-7 days Supportive care Hypertension Stable blood pressure Continue amlodipine, furosemide, losartan Diabetes mellitus type 2 Sliding scale, ADA diet Macrocytic anemia, chronic Stable H&H Continue iron supplementation GERD Continue PPI Disposition. Physical therapy consultation DVT prophylaxis with heparin Full code Quality Stroke Does the patient have a stroke diagnosis?: No VTE Prior VTE?: No VTE Risk Level:: Medical - moderate - high VTE Device Contraindication: Treatment Not Indicated VTE Drug Contraindication: N/A - Med Ordered
--- NOTE | 2024-05-09 14:12 | P.CNNE_ITS ---
History of Present Illness Data of Consult Service Date: 05/09/24 Primary Care Provider: Radha Singh MD [facility] Reason for consult: Confusion 89 years old woman I was asked to see for change in mental status. She was unable to provide any meaningful history. Apparently she was admitted few days ago with this problem. There was no evidence of any focal weakness or seizure- like episode. There was no history of drug use for exposure. Review of Systems 2 Review of Systems: No recent cold or flu-like illness PMFSH Past Medical History Medical History (Updated 05/09/24 @ 08:40 by Mega Paz MD) CKD (chronic kidney disease) stage 3, GFR 30-59 ml/min CKD (chronic kidney disease) stage 4, GFR 15-29 ml/min Anemia Bilateral carpal tunnel syndrome Moderate recurrent major depression Pure hypercholesterolemia Essential hypertension Carpal tunnel syndrome Urinary incontinence Hypovitaminosis D GERD (gastroesophageal reflux disease) High cholesterol Diabetes Hypertension Family History Family History Father No problems noted. Mother No problems noted. Surgical History Surgical History S/P carpal tunnel release History of cholecystectomy Social History Social History Housing: Apartment Alcohol intake: former Patient Tobacco Use Status: Former Tobacco user Tobacco use type: Cigarette Smoked in Last 30 Days: No e-Cigarette/Vaping Use: Never Used Second Hand Smoke Exposure: No Use of substances other than those prescribed or required for medical reasons: No Advance Directives: No Advance Directives Information Provided: Yes service: No Current occupational status: disabled Current occupation: rt hand Cognitive needs: Yes Hearing needs: No Vision needs: Yes Meds Allergies Allergy/AdvReac Type Severity Reaction Status Date / Time No Known Allergies Allergy Unknown Verified 05/06/24 09:18 Active Medications: Current Medications Acetaminophen (Acetaminophen 325 Mg Tablet) 1,300 mg PO Q8H PRN PRN Reason: pain Acetaminophen (Acetaminophen 325 Mg Tablet) 650 mg PO Q6H PRN PRN Reason: Pain, Mild 1-3,fever,headache Amlodipine Besylate (Amlodipine Besylate 10 Mg Tablet) 10 mg PO DAILY [facility]; Protocol Last Admin: 05/09/24 09:13 Dose: 10 mg Aspirin (Aspirin Enteric Coated 81 Mg Tablet.) 81 mg PO DAILY [facility] Last Admin: 05/09/24 09:13 Dose: 81 mg Calcium Carbonate (Calcium Carbonate 750 Mg Tab.Chew) 750 mg PO Q4H PRN PRN Reason: Heartburn Calcium Carbonate/Cholecalciferol (Calcium + Vitamin D 250 Mg Tablet) 500 mg PO BID [facility] Last Admin: 05/09/24 09:14 Dose: 500 mg Ferrous Sulfate (Ferrous Sulfate 324 Mg Tablet.) 324 mg PO DAILY [facility] Last Admin: 05/09/24 09:13 Dose: 324 mg Furosemide (Furosemide 20 Mg Tablet) 20 mg PO DAILY [facility]; Protocol Last Admin: 05/09/24 09:14 Dose: 20 mg Heparin Sodium (Porcine) (Heparin Sodium,Porcine 5,000 Unit/Ml Vial) 5,000 unit SUBCUT Q12H [facility] Losartan Potassium (Losartan Potassium 50 Mg Tablet) 100 mg PO DAILY [facility]; Protocol Last Admin: 05/09/24 09:13 Dose: 100 mg Magnesium Hydroxide (Milk Of Magnesia 30 Ml Oral.Susp) 30 ml PO DAILY PRN PRN Reason: Constipation Melatonin (Melatonin 3 Mg Tablet) 6 mg PO BEDTIME PRN PRN Reason: Insomnia Metformin HCl (Metformin Hcl 1,000 Mg Tablet) 1,000 mg PO BID [facility] Last Admin: 05/09/24 09:13 Dose: 1,000 mg Metronidazole (Metronidazole 500 Mg Tablet) 500 mg PO Q8H [facility] Mirtazapine (Mirtazapine 15 Mg Tablet) 15 mg PO BEDTIME [facility] Last Admin: 05/08/24 20:54 Dose: 15 mg Omeprazole (Omeprazole 20 Mg Capsule.) 20 mg PO DAILY@0630 [facility] Last Admin: 05/09/24 06:23 Dose: 20 mg Ondansetron HCl (Ondansetron Hcl 4 Mg/2 Ml Vial) 4 mg IVPUSH Q8H PRN PRN Reason: Nausea and Vomiting Pravastatin Sodium (Pravastatin Sodium 40 Mg Tablet) 40 mg PO DAILY [facility] Last Admin: 05/09/24 09:14 Dose: 40 mg Sodium Chloride (0.9 % Sodium Chloride Flush 3 Ml Syringe) 3 ml IVFLUSH QSHIFT [facility] Vitamin D (Cholecalciferol (Vitamin D3) 25 Mcg Tablet) 25 mcg PO DAILY [facility] Last Admin: 05/09/24 09:13 Dose: 25 mcg Home Medications ?Medication ?Instructions ?Recorded ?Confirmed ?Last Taken ?Type omeprazole 20 mg capsule,delayed 20 mg PO DAILY@0630 05/07/24 05/07/24 1 Day Ago History release ~05/06/24 Physical Exam 2 Vital Signs: Vital Signs: Last Vital Signs Temp 97.9 F 05/09/24 13:14 Pulse 90 05/09/24 13:14 Resp 14 05/09/24 13:14 BP 157/73 H 05/09/24 13:14 Pulse Ox 97 05/09/24 13:14 O2 Del Method Room Air 05/09/24 13:14 BMI result Body Mass Index 28.5 Neuro: Other: He is alert and awake with normal spontaneity of speech fluency comprehension and affect. He does not speak Welsh but even in Kyrgyz she did understand me in followed some commands. In Kyrgyz she was following commands. She thought she was in [place] and she did not know what was going on. Face was symmetrical. Visual espinoza are full. There was no focal weakness. Plantars were flexor. Speech was normal. Results Labs 05/07/24 17:57 05/07/24 17:57 Labs: Urine 05/08/24 Range/Units 21:53 Urine Color Yellow Urine Appearance Clear Urine pH 6.0 (5.0-9.0) Ur Specific [place] 1.020 (1.005-1.025) Urine Protein >=1000 (4+) H (Neg-Trace) mg/dL Urine Glucose (UA) Negative (Negative) mg/dL Her head CT revealed mild cerebral atrophy but for her age this CT was pretty good. MRI of brain did not reveal any significant acute abnormality. Assessment and Plan (1) Delirium: Status: Acute Elderly woman with change in mental status. This type of presentation typically happens with a common infection like UTI, which apparently was not found but she was still being treated for alternate infection. 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 Treatment of infection is recommended. Otherwise she should go back to her place of residence as soon as possible as prolonged stay in hospital might create more behavioral difficulties. Procedures Date of Service Date of Service: 05/09/24
[2024-05-09] MEDS: LORazepam 2 MG/ML VIAL 1 MG IM (14:20)
--- NOTE | 2024-05-09 19:25 | PC.NURSE ---
Pt remains intermit aggravated, if family is at bedside pt is more cooperative, camera remains in place at this time. Pt has removed multiple IVs, this RN reached out to MD who agreed to keep IV removed if pt is not cooperative.
[2024-05-09 21:53] LABS: Glucose, Whole Blood 132 mg/dL (60-115)
[2024-05-09] MEDS: Mirtazapine 15 MG TABLET PO (21:58)
[2024-05-10] MEDS: Heparin Sodium,Porcine 5,000 UNIT/ML VIAL 5000 UNIT SUBCUT ×2 (02:50→14:03)
[2024-05-10 03:57] VITALS: BP 167/59; TEMP 36.6
[2024-05-10] MEDS: Omeprazole 20 MG CAPSULE.DR PO (05:37)
[2024-05-10] MEDS: metroNIDAZOLE 500 MG TABLET PO ×3 (05:37→21:10)
[2024-05-10 05:52] LABS: MANUAL DIFF FLAG NO
[2024-05-10 05:55] LABS: Basophils Percent Auto 0.5 % (0-2); Eosinophils Absolute Auto 0.1 X10*3/uL (0.0-0.4); Eosinophils Percent Auto 0.9 % (0-4); Hematocrit 38.7 % (37.0-47.0); Hemoglobin 12.9 g/dl (12.0-16.0); Imm Gran Abs Auto 0.03 X10*3/uL (0.00-0.03); Imm Gran Pct Auto 0.3 % (0.0-0.4); Lymphocytes Absolute Auto 0.9 X10*3/uL (1.2-4.9); Lymphocytes Percent Auto 10.5 % (20-40); Mean Corpuscular HGB Conc 33.3 g/dl (31.0-35.0); Mean Corpuscular Hemoglobin 32.9 pg (27.0-33.0); Mean Corpuscular Volume 98.7 fL (80.0-98.0); Mean Platelet Volume 9.7 fL (9.4-12.3); Monocytes Absolute Auto 0.7 X10*3/uL (0.1-1.2); Monocytes Percent Auto 7.4 % (2-11); Neutrophils Absolute Auto 7.1 x10*3/uL (2.0-8.3); Neutrophils Percent Auto 80.4 % (45-73); Platelet Count 214 X10*3/uL (160-400); Red Blood Count 3.92 X10*6/uL (4.20-5.50); Red Cell Distribution Width 12.6 % (11.0-16.0); White Blood Count 8.8 X10*3/uL (4.8-10.8)
--- NOTE | 2024-05-10 05:55 | PC.NURSE ---
Patient medicated per MAR, patient took medications whole with water. Patient resting on stretcher bed at this time, video monitor at bedside for safety.
[2024-05-10 06:07] LABS: Anion Gap 16 (12-20); Blood Urea Nitrogen 24 mg/dL (9-16); Calcium 9.9 mg/dL (8.4-10.2); Carbon Dioxide 23 mmol/L (22-29); Chloride 105 mmol/L (96-108); Creatinine Clr Calc Pharmacy 49.7; Estimated Glomerular Filt Rate > 60; Glucose Random 140 mg/dL (60-115); Potassium 3.9 mmol/L (3.3-5.1); Sodium 140 mmol/L (135-145)
[2024-05-10 06:16] VITALS: BP 178/73; RESP 18; TEMP 36.9
[2024-05-10 06:17] LABS: Glucose, Whole Blood 143 mg/dL (60-115)
[2024-05-10] MEDS: amLODIPine Besylate 10 MG TABLET PO (11:24)
[2024-05-10] MEDS: Losartan Potassium 50 MG TABLET 100 MG PO (11:24)
[2024-05-10 11:29] VITALS: BMI 25.2
[2024-05-10 11:39] VITALS: BP 151/97; PULSE 92; RESP 16; TEMP 35.8; O2SAT 96
[2024-05-10 11:58] LABS: Glucose, Whole Blood 146 mg/dL (60-115)
--- NOTE | 2024-05-10 12:58 | MHC.CM.PN ---
Patient is here with increased Confusion; CM spoke with Primary Contact/Grandson/Kye @ [phone] and addressed IMM with him (at Kye's request, the original has been left at bedside and a copy will be placed in the chart). Patient lives in an apartment with her Grandson and her Daughter and she uses a walker to assist with mobility. Patient has a [employer]IST[employer] 15 hours/week and Kye has requested a referral to [facility]. 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 PCP is Dr.Maria Guzman and Grandson VS S for transport to home. Patient is not able to complete a HCP at this time rt/t Confusion.
--- NOTE | 2024-05-10 13:28 | HO.PM.IMPN ---
Subjective Subjective Date of Service: 05/10/24 Interval History: seen and evaluated this morning altered, unable to provide any meaningful answers looks comfortable Review of Systems Review of Systems: Yes Unobtainable due to mental status Physical Exam Vital Signs: Vital Signs: Last Vital Signs Temp 96.5 F L 05/10/24 11:39 Pulse 92 05/10/24 11:39 Resp 16 05/10/24 11:39 BP 151/97 H 05/10/24 11:39 Pulse Ox 96 05/10/24 11:39 O2 Del Method Room Air 05/10/24 11:39 BMI result Body Mass Index 25.2 Const: Other: Constitutional : alert, non-verbal, not in distress Cardiovascular : no JVP, no lower extremity edema Respiratory : bilateral chest movement, not in resp distress Gastrointestinal: soft, lax, Non tender Skin : Warm, Dry Neurological : Alert with stimulation, makes eye contact but not interactive , No focal deficit Objective Data Active Medications Acetaminophen (Acetaminophen 325 Mg Tablet) 1,300 mg PO Q8H PRN PRN Reason: pain Acetaminophen (Acetaminophen 325 Mg Tablet) 650 mg PO Q6H PRN PRN Reason: Pain, Mild 1-3,fever,headache Amlodipine Besylate (Amlodipine Besylate 10 Mg Tablet) 10 mg PO DAILY [facility]; Protocol Last Admin: 05/10/24 11:24 Dose: 10 mg Documented By: RAJ Aspirin (Aspirin Enteric Coated 81 Mg Tablet.) 81 mg PO DAILY [facility] Last Admin: 05/10/24 11:55 Dose: Not Given Documented By: RAJ Non-Admin Reason: Agitation Calcium Carbonate (Calcium Carbonate 750 Mg Tab.Chew) 750 mg PO Q4H PRN PRN Reason: Heartburn Calcium Carbonate/Cholecalciferol (Calcium + Vitamin D 250 Mg Tablet) 500 mg PO BID [facility] Last Admin: 05/10/24 11:55 Dose: Not Given Documented By: RAJ Non-Admin Reason: Agitation Ferrous Sulfate (Ferrous Sulfate 324 Mg Tablet.) 324 mg PO DAILY [facility] Last Admin: 05/10/24 12:24 Dose: Not Given Documented By: RAJ Non-Admin Reason: Agitation Furosemide (Furosemide 20 Mg Tablet) 20 mg PO DAILY [facility]; Protocol Last Admin: 05/10/24 12:25 Dose: Not Given Documented By: RAJ Non-Admin Reason: Agitation Heparin Sodium (Porcine) (Heparin Sodium,Porcine 5,000 Unit/Ml Vial) 5,000 unit SUBCUT Q12H [facility] Last Admin: 05/10/24 02:50 Dose: 5,000 unit Documented By: SOFI Losartan Potassium (Losartan Potassium 50 Mg Tablet) 100 mg PO DAILY [facility]; Protocol Last Admin: 05/10/24 11:24 Dose: 100 mg Documented By: RAJ Magnesium Hydroxide (Milk Of Magnesia 30 Ml Oral.Susp) 30 ml PO DAILY PRN PRN Reason: Constipation Melatonin (Melatonin 3 Mg Tablet) 6 mg PO BEDTIME PRN PRN Reason: Insomnia Metformin HCl (Metformin Hcl 1,000 Mg Tablet) 1,000 mg PO BID [facility] Last Admin: 05/10/24 11:56 Dose: Not Given Documented By: RAJ Non-Admin Reason: Agitation Metronidazole (Metronidazole 500 Mg Tablet) 500 mg PO Q8H [facility] Last Admin: 05/10/24 05:37 Dose: 500 mg Documented By: SOFI Mirtazapine (Mirtazapine 15 Mg Tablet) 15 mg PO BEDTIME [facility] Last Admin: 05/09/24 21:58 Dose: 15 mg Documented By: SOFI Omeprazole (Omeprazole 20 Mg Capsule.Dr) 20 mg PO DAILY@0630 [facility] Last Admin: 05/10/24 05:37 Dose: 20 mg Documented By: SOFI Ondansetron HCl (Ondansetron Hcl 4 Mg/2 Ml Vial) 4 mg IVPUSH Q8H PRN PRN Reason: Nausea and Vomiting Pravastatin Sodium (Pravastatin Sodium 40 Mg Tablet) 40 mg PO DAILY [facility] Last Admin: 05/10/24 11:56 Dose: Not Given Documented By: RAJ Non-Admin Reason: Agitation Sodium Chloride (0.9 % Sodium Chloride Flush 3 Ml Syringe) 3 ml IVFLUSH QSHIFT [facility] Last Admin: 05/10/24 08:00 Dose: Not Given Documented By: CLAIRE Non-Admin Reason: No Access Vitamin D (Cholecalciferol (Vitamin D3) 25 Mcg Tablet) 25 mcg PO DAILY [facility] Last Admin: 05/10/24 11:55 Dose: Not Given Documented By: RAJ Non-Admin Reason: Agitation Labs 05/10/24 05:39 05/10/24 05:39 Labs: Laboratory Results - last 24 hr 02/22/25 02/23/25 02/23/25 21:47 05:39 06:13 MCV 98.7 H MCH 32.9 MCHC 33.3 RDW 12.6 Plt Count 214 MPV 9.7 Immature Gran % (Auto) 0.3 Neut % (Auto) 80.4 H Lymph % (Auto) 10.5 L [place] % (Auto) 7.4 Eos % (Auto) 0.9 Baso % (Auto) 0.5 Lymph # (Auto) 0.9 L [place] # (Auto) 0.7 Eos # (Auto) 0.1 Baso # (Auto) 0.0 Abs Immat Gran (auto) 0.03 Absolute Neuts (auto) 7.1 Absolute Nucleated RBC 0.000 Nucleated RBC % (auto) 0.0 Anion Gap 16 Estim Creat Clear Calc 49.7 Estimated GFR > 60 POC Glucose 132 H 143 H Random Glucose 140 H Calcium 9.9 05/10/24 11:50 MCV MCH MCHC RDW Plt Count MPV Immature Gran % (Auto) Neut % (Auto) Lymph % (Auto) [place] % (Auto) Eos % (Auto) Baso % (Auto) Lymph # (Auto) [place] # (Auto) Eos # (Auto) Baso # (Auto) Abs Immat Gran (auto) Absolute Neuts (auto) Absolute Nucleated RBC Nucleated RBC % (auto) Anion Gap Estim Creat Clear Calc Estimated GFR POC Glucose 146 H Random Glucose Calcium Assessment and Plan (1) Colitis due to Giardia lamblia: Status: Acute (2) Delirium: Status: Acute Plan 89-year-old Georgian-speaking woman admitted to medical service for findings of giardia diarrhea. Acute toxic metabolic encephalopathy. Multifactorial; infection, medications, demetia, delerium treated infection avoid sedative meds Blood cultures pending redirect Giardia/sapovirus PO Flagyl 500 mg every 8 hours for 5-7 days Supportive care Hypertension Stable blood pressure Continue amlodipine, furosemide, losartan Diabetes mellitus type 2 Sliding scale, ADA diet Macrocytic anemia, chronic Stable H&H Continue iron supplementation GERD Continue PPI Disposition. Physical therapy consultation DVT prophylaxis with heparin Full code The patient will need overnight monitoring for altered mentation and treatment of infection Quality Stroke Does the patient have a stroke diagnosis?: No VTE Prior VTE?: No VTE Risk Level:: Medical - moderate - high VTE Device Contraindication: Treatment Not Indicated VTE Drug Contraindication: N/A - Med Ordered
[2024-05-10 16:00] VITALS: BP 115/61; PULSE 90; RESP 20; TEMP 36.6; O2SAT 100
[2024-05-10 16:14] LABS: Glucose, Whole Blood 138 mg/dL (60-115)
[2024-05-10 19:55] VITALS: BP 165/63; PULSE 80; RESP 16; TEMP 36.6; O2SAT 97
[2024-05-10] MEDS: metFORMIN HCl 1,000 MG TABLET 1000 MG PO (21:10)
[2024-05-10] MEDS: Mirtazapine 15 MG TABLET PO (21:10)
[2024-05-10 22:52] VITALS: PULSE 87; RESP 16; TEMP 36.2; O2SAT 97
[2024-05-11] MEDS: Heparin Sodium,Porcine 5,000 UNIT/ML VIAL 5000 UNIT SUBCUT ×2 (03:50→14:58)
[2024-05-11 04:00] VITALS: BP 120/60; PULSE 77; RESP 20; TEMP 37.1; O2SAT 95
[2024-05-11 06:40] LABS: MANUAL DIFF FLAG NO
[2024-05-11 06:49] LABS: Basophils Percent Auto 0.5 % (0-2); Eosinophils Absolute Auto 0.2 X10*3/uL (0.0-0.4); Eosinophils Percent Auto 2.3 % (0-4); Hematocrit 37.6 % (37.0-47.0); Imm Gran Abs Auto 0.02 X10*3/uL (0.00-0.03); Imm Gran Pct Auto 0.3 % (0.0-0.4); Lymphocytes Absolute Auto 1.3 X10*3/uL (1.2-4.9); Lymphocytes Percent Auto 16.7 % (20-40); Mean Corpuscular HGB Conc 31.9 g/dl (31.0-35.0); Mean Corpuscular Hemoglobin 32.8 pg (27.0-33.0); Mean Corpuscular Volume 102.7 fL (80.0-98.0); Mean Platelet Volume 9.9 fL (9.4-12.3); Monocytes Absolute Auto 0.8 X10*3/uL (0.1-1.2); Monocytes Percent Auto 10.1 % (2-11); Neutrophils Absolute Auto 5.4 x10*3/uL (2.0-8.3); Neutrophils Percent Auto 70.1 % (45-73); Platelet Count 217 X10*3/uL (160-400); Red Blood Count 3.66 X10*6/uL (4.20-5.50); Red Cell Distribution Width 12.4 % (11.0-16.0); White Blood Count 7.7 X10*3/uL (4.8-10.8)
[2024-05-11] MEDS: metroNIDAZOLE 500 MG TABLET PO ×3 (06:49→21:32)
[2024-05-11] MEDS: Omeprazole 20 MG CAPSULE.DR PO (06:49)
[2024-05-11 07:18] LABS: Anion Gap 14 (12-20); Blood Urea Nitrogen 32 mg/dL (9-16); Calcium 9.2 mg/dL (8.4-10.2); Carbon Dioxide 26 mmol/L (22-29); Chloride 105 mmol/L (96-108); Creatinine Clr Calc Pharmacy 32.5; Estimated Glomerular Filt Rate 45; Glucose Random 129 mg/dL (60-115); Potassium 3.7 mmol/L (3.3-5.1); Sodium 141 mmol/L (135-145)
[2024-05-11 07:39] VITALS: BP 149/58; PULSE 76; RESP 16; TEMP 36.6; O2SAT 96
[2024-05-11 08:08] LABS: Glucose, Whole Blood 124 mg/dL (60-115)
[2024-05-11 08:32] VITALS: BP 141/62; PULSE 80; RESP 16; TEMP 36.2; O2SAT 94
[2024-05-11] MEDS: Cholecalciferol (Vitamin D3) 25 MCG TABLET PO (09:07)
[2024-05-11 09:08] VITALS: BP 141/62
[2024-05-11] MEDS: amLODIPine Besylate 10 MG TABLET PO (09:08)
[2024-05-11] MEDS: Ferrous Sulfate 324 MG TABLET.DR PO (09:08)
[2024-05-11] MEDS: metFORMIN HCl 1,000 MG TABLET 1000 MG PO (09:08)
[2024-05-11] MEDS: Calcium + Vitamin D 250 MG TABLET 500 MG PO ×2 (09:08→20:00)
[2024-05-11] MEDS: Furosemide 20 MG TABLET PO (09:08)
[2024-05-11] MEDS: Pravastatin Sodium 40 MG TABLET PO (09:08)
[2024-05-11] MEDS: Losartan Potassium 50 MG TABLET 100 MG PO (09:08)
[2024-05-11] MEDS: Aspirin Enteric Coated 81 MG TABLET.DR PO (09:09)
--- NOTE | 2024-05-11 10:22 | P.PNIM_ITS ---
Subjective Subjective Date of Service: 05/11/24 Interval History: seen and evaluated this morning more alert and interactive mildly confused but verbal and communicating looks comfortable Review of Systems Review of Systems: Yes all other systems are reviewed and are negative Physical Exam 2 Vital Signs: Vital Signs: Last Vital Signs Temp 97.1 F 05/11/24 08:32 Pulse 80 05/11/24 08:32 Resp 16 05/11/24 08:32 BP 141/62 H 05/11/24 09:08 Pulse Ox 94 05/11/24 08:32 O2 Del Method Room Air 05/11/24 08:32 BMI result Body Mass Index 25.2 Const: Other: Constitutional : alert, interactive, not in distress Cardiovascular : no JVP, no lower extremity edema Respiratory : bilateral chest movement, not in resp distress Gastrointestinal: soft, lax, Non tender Skin : Warm, Dry Neurological : Alert , oriented to self , No focal deficit Objective Data Active Medications Acetaminophen (Acetaminophen 325 Mg Tablet) 1,300 mg PO Q8H PRN PRN Reason: pain Acetaminophen (Acetaminophen 325 Mg Tablet) 650 mg PO Q6H PRN PRN Reason: Pain, Mild 1-3,fever,headache Amlodipine Besylate (Amlodipine Besylate 10 Mg Tablet) 10 mg PO DAILY [facility]; Protocol Last Admin: 05/11/24 09:08 Dose: 10 mg Documented By: ELVIA Aspirin (Aspirin Enteric Coated 81 Mg Tablet.) 81 mg PO DAILY [facility] Last Admin: 05/11/24 09:09 Dose: 81 mg Documented By: ELVIA Calcium Carbonate (Calcium Carbonate 750 Mg Tab.Chew) 750 mg PO Q4H PRN PRN Reason: Heartburn Calcium Carbonate/Cholecalciferol (Calcium + Vitamin D 250 Mg Tablet) 500 mg PO BID [facility] Last Admin: 05/11/24 09:08 Dose: 500 mg Documented By: ELVIA Ferrous Sulfate (Ferrous Sulfate 324 Mg Tablet.) 324 mg PO DAILY [facility] Last Admin: 05/11/24 09:08 Dose: 324 mg Documented By: ELVIA Furosemide (Furosemide 20 Mg Tablet) 20 mg PO DAILY [facility]; Protocol Last Admin: 05/11/24 09:08 Dose: 20 mg Documented By: ELVIA Heparin Sodium (Porcine) (Heparin Sodium,Porcine 5,000 Unit/Ml Vial) 5,000 unit SUBCUT Q12H [facility] Last Admin: 05/11/24 03:50 Dose: 5,000 unit Documented By: MARQUISE Losartan Potassium (Losartan Potassium 50 Mg Tablet) 100 mg PO DAILY [facility]; Protocol Last Admin: 05/11/24 09:08 Dose: 100 mg Documented By: ELVIA Magnesium Hydroxide (Milk Of Magnesia 30 Ml Oral.Susp) 30 ml PO DAILY PRN PRN Reason: Constipation Melatonin (Melatonin 3 Mg Tablet) 6 mg PO BEDTIME PRN PRN Reason: Insomnia Metformin HCl (Metformin Hcl 1,000 Mg Tablet) 1,000 mg PO BID [facility] Last Admin: 05/11/24 09:08 Dose: 1,000 mg Documented By: ELVIA Metronidazole (Metronidazole 500 Mg Tablet) 500 mg PO Q8H [facility] Last Admin: 05/11/24 06:49 Dose: 500 mg Documented By: MARQUISE Mirtazapine (Mirtazapine 15 Mg Tablet) 15 mg PO BEDTIME [facility] Last Admin: 05/10/24 21:10 Dose: 15 mg Documented By: DAVID Omeprazole (Omeprazole 20 Mg Capsule.Dr) 20 mg PO DAILY@0630 [facility] Last Admin: 05/11/24 06:49 Dose: 20 mg Documented By: MARQUISE Ondansetron HCl (Ondansetron Hcl 4 Mg/2 Ml Vial) 4 mg IVPUSH Q8H PRN PRN Reason: Nausea and Vomiting Pravastatin Sodium (Pravastatin Sodium 40 Mg Tablet) 40 mg PO DAILY [facility] Last Admin: 05/11/24 09:08 Dose: 40 mg Documented By: ELVIA Sodium Chloride (0.9 % Sodium Chloride Flush 3 Ml Syringe) 3 ml IVFLUSH QSHIFT [facility] Last Admin: 05/11/24 08:31 Dose: Not Given Documented By: ELVIA Non-Admin Reason: No Access Vitamin D (Cholecalciferol (Vitamin D3) 25 Mcg Tablet) 25 mcg PO DAILY [facility] Last Admin: 05/11/24 09:07 Dose: 25 mcg Documented By: ELVIA Labs 05/11/24 05:50 05/11/24 05:50 Labs: Laboratory Results - last 24 hr 05/10/24 05/10/24 05/11/24 11:50 16:08 05:50 MCV 102.7 H MCH 32.8 MCHC 31.9 RDW 12.4 Plt Count 217 MPV 9.9 Immature Gran % (Auto) 0.3 Neut % (Auto) 70.1 Lymph % (Auto) 16.7 L [place] % (Auto) 10.1 Eos % (Auto) 2.3 Baso % (Auto) 0.5 Lymph # (Auto) 1.3 [place] # (Auto) 0.8 Eos # (Auto) 0.2 Baso # (Auto) 0.0 Abs Immat Gran (auto) 0.02 Absolute Neuts (auto) 5.4 Absolute Nucleated RBC 0.000 Nucleated RBC % (auto) 0.0 Anion Gap 14 Estim Creat Clear Calc 32.5 Estimated GFR 45 POC Glucose 146 H 138 H Random Glucose 129 H Calcium 9.2 D 05/11/24 08:04 MCV MCH MCHC RDW Plt Count MPV Immature Gran % (Auto) Neut % (Auto) Lymph % (Auto) [place] % (Auto) Eos % (Auto) Baso % (Auto) Lymph # (Auto) [place] # (Auto) Eos # (Auto) Baso # (Auto) Abs Immat Gran (auto) Absolute Neuts (auto) Absolute Nucleated RBC Nucleated RBC % (auto) Anion Gap Estim Creat Clear Calc Estimated GFR POC Glucose 124 H Random Glucose Calcium Microbiology Microbiology Results: Microbiology 05/09/24 13:07 Blood Culture - Preliminary Blood - Venous No growth after 24 hours. 05/09/24 13:07 Blood Culture - Preliminary Blood - Venous No growth after 24 hours. Assessment and Plan (1) Colitis due to Giardia lamblia: Status: Acute (2) Delirium: Status: Acute (3) Altered mental status: Status: Acute Plan 89-year-old Kiswahili-speaking woman admitted to medical service for findings of giardia diarrhea. Acute toxic metabolic encephalopathy. Multifactorial; infection, medications, demetia, delerium treated infection avoid sedative meds Blood cultures pending redirect as needed Giardia/sapovirus diarrhea resolving PO Flagyl 500 mg every 8 hours for 5-7 days Supportive care Physical deconditining PT eval Hypertension Stable blood pressure Continue amlodipine, furosemide, losartan Diabetes mellitus type 2 Sliding scale, ADA diet Macrocytic anemia, chronic Stable H&H Continue iron supplementation GERD Continue PPI Disposition. Physical therapy consultation DVT prophylaxis with heparin Full code The patient will need overnight monitoring for altered mentation and treatment of infection Quality Stroke Does the patient have a stroke diagnosis?: No VTE Prior VTE?: No VTE Risk Level:: Medical - moderate - high VTE Device Contraindication: Treatment Not Indicated VTE Drug Contraindication: N/A - Med Ordered
[2024-05-11 11:12] LABS: Glucose, Whole Blood 187 mg/dL (60-115)
--- NOTE | 2024-05-11 12:43 | MHC.CM.PN ---
pt to be dcd home w/vna will be transported by shefali kramer completed an placed on chart
[2024-05-11 15:20] VITALS: BP 137/77; PULSE 83; RESP 18; TEMP 36.4; O2SAT 97
[2024-05-11 19:23] VITALS: BP 167/73; PULSE 80; RESP 18; TEMP 36.6; O2SAT 97
[2024-05-11] MEDS: metFORMIN HCl 500 MG TABLET PO (20:00)
[2024-05-11] MEDS: Mirtazapine 15 MG TABLET PO (20:00)
[2024-05-12] MEDS: Heparin Sodium,Porcine 5,000 UNIT/ML VIAL 5000 UNIT SUBCUT ×2 (02:01→14:15)
[2024-05-12 03:13] VITALS: BP 159/82; PULSE 84; RESP 16; TEMP 36.3; O2SAT 98
[2024-05-12] MEDS: metroNIDAZOLE 500 MG TABLET PO ×2 (05:37→14:15)
[2024-05-12] MEDS: Omeprazole 20 MG CAPSULE.DR PO (05:37)
[2024-05-12 06:49] LABS: Anion Gap 14 (12-20); Blood Urea Nitrogen 31 mg/dL (9-16); Calcium 9.5 mg/dL (8.4-10.2); Carbon Dioxide 27 mmol/L (22-29); Chloride 105 mmol/L (96-108); Creatinine Clr Calc Pharmacy 38.6; Estimated Glomerular Filt Rate 55; Glucose Random 117 mg/dL (60-115); Sodium 142 mmol/L (135-145)
[2024-05-12 07:23] VITALS: BP 172/77; PULSE 84; RESP 16; TEMP 36.8; O2SAT 97
[2024-05-12 07:30] LABS: Glucose, Whole Blood 129 mg/dL (60-115)
[2024-05-12 09:29] VITALS: BP 172/77
[2024-05-12] MEDS: amLODIPine Besylate 10 MG TABLET PO (09:29)
[2024-05-12] MEDS: Furosemide 20 MG TABLET PO (09:29)
[2024-05-12] MEDS: Pravastatin Sodium 40 MG TABLET PO (09:29)
[2024-05-12] MEDS: Losartan Potassium 50 MG TABLET 100 MG PO (09:29)
[2024-05-12] MEDS: Calcium + Vitamin D 250 MG TABLET 500 MG PO (09:30)
[2024-05-12] MEDS: metFORMIN HCl 500 MG TABLET PO (09:30)
[2024-05-12] MEDS: Cholecalciferol (Vitamin D3) 25 MCG TABLET PO (09:30)
[2024-05-12] MEDS: Ferrous Sulfate 324 MG TABLET.DR PO (09:30)
[2024-05-12] MEDS: Aspirin Enteric Coated 81 MG TABLET.DR PO (09:30)
--- NOTE | 2024-05-12 10:23 | P.F2F_ITS ---
Service Date Service Date: 05/12/24 Encounter Date of encounter: 05/12/24 Reasons for Services Signs and symptoms assessed: physical deconditioning Reason for physical therapy: home safety and mobility and therapeutic exercises Homebound: Leaving the home is medically contraindicated at this time without the asist of a device and/or another person due th the listed conditions above and below. Reason homebound: unsteady gait / fall risk Certification: Based on the above findings, I certify that this patient is confined to the home and needs intermittent senior living care, physical therapy and/or speech therapy, or continues to need occupational therapy. The patient is under my care, and I have initiated the establishment of the plan of care. The patient will be followed by a physician who will periodically review the plan of care. Time Spent With Patient Time: Total time managing care of this patient today ____ minutes.
--- NOTE | 2024-05-12 10:24 | P.DS_ITS ---
DS: Providers Provider Date of Service: 05/12/24 Date of admission: 05/09/24 13:45 Date of discharge: 05/12/24 Primary care physician: Radha Singh MD Consults: 05/06/24 13:42 ED CARE Team Crisis Consult Stat Comment: Reason for consultation: behavioral changes in older person c depression 05/08/24 07:15 Consult to Case Management Stat Comment: 05/09/24 08:19 Consult to Neurology Routine Consulting Provider: [facility] Reason for consultation: sudden onset confusion DS: Diagnosis Discharge Diagnosis (1) Colitis due to Giardia lamblia: Status: Acute (2) Delirium: Status: Acute (3) Altered mental status: Status: Acute (4) Physical deconditioning: Status: Acute DS: Summary Hospital Course Hospital Course: Admission note HPI 89-year-old woman presented to the ER on 04/1924. According to the patient's family the patient had seemed more confused than normal and family was concerned. The patient is confused but knows her name but unable to say where she was. Patient has been in the ER for psychiatric evaluation due to depression however patient had foul smelling stool and the stool was checked and found to be positive for Giardia therefore medical admission was requested. The psychiatric team also felt that the patient's behavior was more related to dementia. In the ER brain MRI was negative for any significant abnormality, UA negative, no leukocytosis or fever. In the ER, patient received labetalol and Norvasc for hypertension, Zyprexa and Flagyl. Plan will be to admit patient for treatment of giardia and acute encephalopathy. Hospital course The patient was treated for the following: # acute toxic metabolic encephalopathy. believed to be multifactorial as a result of infection, medications, demetia, delerium. treated infection and avoided sedative meds with redirect as needed as her mentation improved back to baseline. # Treated for colitis cause by Giardia and sapovirus infection with Metoprolol as diarrhea resolved and she was able to tolerate PO. PO Flagyl 500 mg every 8 hours for 5 days on discharge. to keep her well hydrated. # Physical deconditining. PT evaluation recommended short term rehab but family prefers to take her back home with VNA services. Discharge plan Continue Flagyl for 5 more days keep well hydrated increase physical activity as tolerated Time Attestation Discharge Coordination Time (in mins): 39 Quality: Safe Use of Opioids Does Pt have an Active Cancer Diagnosis on the Problem List?: No Quality: Stroke Does the patient have a stroke diagnosis?: No Physical Exam Vital Signs: Vital Signs: Last Vital Signs Temp 98.3 F 05/12/24 07:23 Pulse 84 05/12/24 07:23 Resp 16 05/12/24 07:23 BP 172/77 H 05/12/24 09:29 Pulse Ox 97 05/12/24 07:23 O2 Del Method Room Air 05/12/24 07:23 BMI result Body Mass Index 25.2 Const: Other: Constitutional : alert, interactive, not in distress Cardiovascular : no JVP, no lower extremity edema Respiratory : bilateral chest movement, not in resp distress Gastrointestinal: soft, lax, Non tender Skin : Warm, Dry Neurological : Alert , oriented to self , No focal deficit DS: Data Data Completed and Pending Labs on day of discharge: Laboratory Results - last 24 hr 05/11/24 05/12/24 05/12/24 11:08 05:48 07:26 Hold Purple Top SEE NOTE Sodium 142 Potassium 4.0 Chloride 105 Carbon Dioxide 27 Anion Gap 14 BUN 31 H Creatinine 0.96 Estim Creat Clear Calc 38.6 Estimated GFR 55 POC Glucose 187 H 129 H Random Glucose 117 H Calcium 9.5 Preliminary micro results at discharge 05/09/24 13:07 Blood Culture - Preliminary Blood - Venous No growth after 48 hours. 05/09/24 13:07 Blood Culture - Preliminary Blood - Venous No growth after 48 hours. Imaging Chest x-ray: Radiologist's impression: ITS Impressions Head CT 05/06/24 11:15 IMPRESSION: No acute intracranial abnormalities. Stable chronic changes. Electronically signed by: Reagan Ogden MD 05/06/2024 11:46 AM [facility] [place], [place] Discharge Plan Discharge Anticipated Discharge Date/Time: 05/12/24 10:21 Patient Disposition: Home Health Service Discharge Diagnosis: Colitis Giardia lambia infection Referrals: Radha White MD [Primary Care Provider] - 1 Week Discharge Medications: New metronidazole 500 mg Tablet 500 mg PO Q8H 5 Days Qty: 15 0RF Continued (DME) commode Kit See Rx Instructions .Route Qty: 1 0RF Rx Instructions: As directed (DME) Bladder Control Pads Ex Absorb Pad See Rx Instructions .Route Qty: 150 11RF Rx Instructions: As directed (DME) incontinence wipes See Rx Instructions .Route .MEDSUPPLY Qty: 300 11RF Rx Instructions: As directed (DME) washable bedpads See Rx Instructions .Route .MEDSUPPLY Qty: 2 11RF Rx Instructions: As directed (DME) compression stockings See Rx Instructions .Route .MEDSUPPLY Qty: 4 3RF Rx Instructions: As directed furosemide 20 mg tablet 20 mg PO DAILY 90 Days Qty: 90 5RF calcium carbonate-vitamin D3 600 mg-10 mcg (400 unit) tablet 1 tab PO BID 90 Days Qty: 180 0RF amlodipine 10 mg tablet 10 mg PO DAILY 90 Days Qty: 90 0RF losartan 100 mg tablet 100 mg PO DAILY 90 Days Qty: 90 0RF ferrous sulfate 325 mg (65 mg iron) tablet 325 mg PO DAILY 90 Days Qty: 90 0RF omeprazole 20 mg capsule,delayed release(DR/EC) 20 mg PO DAILY@0630 (DME) FreeStyle Test Strip See Rx Instructions .ROUTE .MEDSUPPLY Qty: 100 11RF Rx Instructions: Use 1 test strip once a day (DME) lancets 28 gauge misc See Rx Instructions topical BID Qty: 100 11RF Rx Instructions: As directed aspirin 81 mg tablet,delayed release (DR/EC) 81 mg PO DAILY 90 Days Qty: 90 3RF cholecalciferol (vitamin D3) 25 mcg (1,000 unit) tablet 25 mcg PO DAILY 90 Days Qty: 90 3RF metformin 1,000 mg tablet 1,000 mg PO BID 90 Days Qty: 180 3RF mirtazapine 15 mg tablet 15 mg PO BEDTIME 90 Days Qty: 90 3RF pravastatin 40 mg tablet 40 mg PO DAILY 90 Days Qty: 90 3RF acetaminophen [Pain Relief (acetaminophen)] 650 mg tablet extended release 1,300 mg PO Q8H PRN (Reason: pain) 30 Days Qty: 180 6RF (DME) recliner See Rx Instructions .Route .MEDSUPPLY Qty: 1 0RF Rx Instructions: As directed Discharge Orders: Discharge Order (Routine); Ordered 05/12/24 Ordered By: Gerson Chance Diet: Advance to usual diet Activity on Discharge: As tolerated Stand Alone Forms: Patient Portal Discharge page Print Language: French Care Plan Goals: Continue Flagyl for 5 more days keep well hydrated increase physical activity as tolerated Health Concerns: Colitis : Giardia infection Plan of Treatment: Metronidazole Assessment: as above
--- NOTE | 2024-05-12 10:49 | MHC.CM.PN ---
DEVONTE MCGHEE WILL PICK PT UP AT 2 PT DCD HOME WITH [facility]
== END 2024-05-12 15:07 | disposition home health service (06) | DRG 371 ==
LOC: HO.ED 18:58 → HO.EDOVER 05-09 15:18 → HO.IMC 05-10 09:05 → HO.S3 05-11 07:41
PROVIDERS: Emergency Medicine; Admitting Provider Nurse Practitioner Acute Care; Emergency Provider Emergency Medicine; PCP Internal Medicine; Visit Provider Student in an Organized Health Care Education/Training Program
DX: A07.1 Giardiasis [lambliasis] (principal); G92.8 Other toxic encephalopathy; F05 Delirium due to known physiological condition; F32.0 Major depressive disorder, single episode, mild; K21.9 Gastro-esophageal reflux disease without esophagitis; N18.30 Chronic kidney disease, stage 3 unspecified; F03.90 Unspecified dementia, unspecified severity, without behavioral disturbance, psychotic disturbance, mood disturbance, and anxiety; E11.22 Type 2 diabetes mellitus with diabetic chronic kidney disease; D53.9 Nutritional anemia, unspecified; I12.9 Hypertensive chronic kidney disease with stage 1 through stage 4 chronic kidney disease, or unspecified chronic kidney disease; E78.5 Hyperlipidemia, unspecified; E78.00 Pure hypercholesterolemia, unspecified; Z87.891 Personal history of nicotine dependence; Z20.822 Contact with and (suspected) exposure to COVID-19; Z79.82 Long term (current) use of aspirin; Z79.84 Long term (current) use of oral hypoglycemic drugs; Z79.899 Other long term (current) drug therapy
CPT/HCPCS: 0241U; 36415; 70450; 70551; 80048; 80076; 81001; 81003; 82140; 82947; 83690; 83735; 84443; 84484; 85025; 86140; 87040; 87507; 93005; 97162; 99285; J1200; J1644; J1920; J2060; J2359; S9485

== ENCOUNTER → 2024-05-06 09:10 | Outpatient (BNV) | payer OTHER, SELFPAY | PROVIDERS: Emergency Provider Emergency Medicine; PCP Internal Medicine; Visit Provider Internal Medicine | DX: R94.31 Abnormal electrocardiogram [ECG] [EKG] (principal); R41.82 Altered mental status, unspecified | CPT/HCPCS: 93010 ==

== ENCOUNTER → 2024-05-06 09:51 | Outpatient (BNV) | payer OTHER, SELFPAY | PROVIDERS: Emergency Provider Emergency Medicine; PCP Internal Medicine; Visit Provider Psychiatry & Neurology Psychiatry | DX: F32.0 Major depressive disorder, single episode, mild (principal); R41.0 Disorientation, unspecified; E11.3593 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 without macular edema, bilateral | CPT/HCPCS: 99283 ==

== ENCOUNTER → 2024-05-06 09:51 | Outpatient (BNV) | payer OTHER, SELFPAY | PROVIDERS: Emergency Provider Emergency Medicine; PCP Internal Medicine; Visit Provider Psychiatry & Neurology Neurology | DX: R41.0 Disorientation, unspecified (principal) | CPT/HCPCS: 99222 ==

== ENCOUNTER → 2024-05-06 11:03 | Outpatient (BNV) | payer OTHER, SELFPAY | PROVIDERS: Emergency Provider Emergency Medicine; PCP Internal Medicine; Visit Provider Radiology Diagnostic Radiology | DX: R41.82 Altered mental status, unspecified (principal) | CPT/HCPCS: 70450 ==

== ENCOUNTER → 2024-05-08 14:09 | Outpatient (BNV) | payer OTHER, SELFPAY | PROVIDERS: Emergency Provider Emergency Medicine; PCP Internal Medicine; Visit Provider Radiology Diagnostic Radiology | DX: R41.82 Altered mental status, unspecified (principal) | CPT/HCPCS: 70551 ==

== ENCOUNTER → 2024-05-09 13:45 | Outpatient (BNV) | payer OTHER, SELFPAY | PROVIDERS: Admitting Provider Nurse Practitioner Acute Care; Emergency Provider Emergency Medicine; PCP Internal Medicine; Visit Provider Nurse Practitioner Acute Care | DX: A07.1 Giardiasis [lambliasis] (principal); R41.82 Altered mental status, unspecified | CPT/HCPCS: 99232; 99239; G0180 ==

== ENCOUNTER 2024-05-13 14:38 | Outpatient (AMB) | payer OTHER, SELFPAY ==
--- NOTE | 2024-05-13 14:39 | HO.NEPHOV_ITS ---
Vital Signs 05/13/24 14:58 Height 5 ft 5 in Weight 158 lb BMI 26.3 BP 136/56 L Blood Pressure Location Lt brachial Position Sitting Intake Visit Reasons: CKD-Conf Front Office Developer Required: No Accompanied by: Other Relationship Allergies No Known Allergies Allergy (Unknown, Verified 05/13/24 15:00) Do you need a note to return to daycare/school/sports/work: No HPI Comments Details: Sharon in follow-up of her chronic kidney disease and hypertension. She recently had a hospitalization for GI infection as well as AMS. Her volume status is well maintained on current dose of diuretics. Her blood pressure has been at goal. She does not have any chest pain, orthostatic symptoms, shortness of breath, proximal nocturnal dyspnea, orthopnea, pedal edema or urinary symptoms. She does not have any nausea vomiting or diarrhea now. She does not take any nonsteroidal anti-inflammatories. She currently feels improved since recent hospital D/C. [facility] Medical History CKD (chronic kidney disease) stage 3, GFR 30-59 ml/min CKD (chronic kidney disease) stage 4, GFR 15-29 ml/min Anemia Bilateral carpal tunnel syndrome Moderate recurrent major depression Pure hypercholesterolemia Essential hypertension Carpal tunnel syndrome Urinary incontinence Hypovitaminosis D GERD (gastroesophageal reflux disease) High cholesterol Diabetes Hypertension Surgical History S/P carpal tunnel release History of cholecystectomy Family History Father No problems noted. Mother No problems noted. Social History Household Members: Unknown / Unable to assess Housing: Unknown / Unable to assess Do you presently have visiting nurse or other home services: No (unknown) Alcohol intake: former Patient Tobacco Use Status: Former Tobacco user Tobacco use type: Cigarette e-Cigarette/Vaping Use: Never Used Second Hand Smoke Exposure: No service: No Current occupational status: disabled Current occupation: rt hand Cognitive needs: Yes Hearing needs: No Vision needs: Yes Review of Systems Const All systems reviewed & are unremarkable except as noted in HPI and below Physical Exam Vital Signs: Last Vital Signs BP 136/56 L 05/13/24 14:58 BMI result Body Mass Index 26.3 Const General: comfortable and no acute distress Orientation/consciousness: patient oriented x3 HEENT Head: Yes normocephalic Mouth: Normal oral and palatal mucosa present Eyes EOM: EOMs intact bilaterally Neck Neck: Yes supple Resp Auscultation: clear to auscultation bilaterally Cardio Jugular venous distension: no JVD Rate: regular rate GI Palpation (GI): Soft to palpation Auscultation: normal bowel sounds General: Yes no CVA tenderness Back/Spine/Pelvis Back: no CVA tenderness Skin General skin exam: no rashes or lesions noted Neuro General: patient oriented x3 and moves all extremities Extrem General: Yes no pedal edema Results Reviewed Nephrology Results: Hgb 12.0 g/dl (12.0-16.0) 05/11/24 WBC 7.7 X10*3/uL (4.8-10.8) 05/11/24 Plt Count 217 X10*3/uL (160-400) 05/11/24 Sodium 142 mmol/L (135-145) 05/12/24 Potassium 4.0 mmol/L (3.3-5.1) 05/12/24 Chloride 105 mmol/L (96-108) 05/12/24 Carbon Dioxide 27 mmol/L (22-29) 05/12/24 BUN 31 mg/dL (9-16) H 05/12/24 Creatinine 0.96 mg/dL (0.5-1.4) 05/12/24 Calcium 9.5 mg/dL (8.4-10.2) 05/12/24 Urine Protein >=1000 (4+) mg/dL (Neg-Trace) H 5 Urine Creatinine 173.12 mg/dL 04/17/24 Assessment & Plan Assessment & Plan (1) Hypertension: Code(s): I10 - Essential (primary) hypertension Category: Medical Qualifiers: Hypertension type: renovascular hypertension Qualified Code(s): I15.0 - Renovascular hypertension (2) Proteinuria: Code(s): R80.9 - Proteinuria, unspecified Category: Medical Qualifiers: Proteinuria type: other Qualified Code(s): R80.8 - Other proteinuria Plan 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 She had no significant proteinuria in the past but may be having now( being repeated). Her blood pressure is currently at goal. She avoids nonsteroidal anti- inflammatories. She is on angiotensin receptor ambrose. She is a great candidate for New Relic. I did not make any medication changes today. All her questions were answered. Follow-up blood work ordered. Follow-up appointment given. Orders: Orders Electrolytes 2 Months I15.0 - Renovascular hypertension Protein Creatinine Ratio, Ur 2 Months I15.0 - Renovascular hypertension Creatinine 2 Months I15.0 - Renovascular hypertension Blood Urea Nitrogen 2 Months I15.0 - Renovascular hypertension Coding Level of Care Code Est Pt Level 4 (24010) Diagnoses 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 Other proteinuria R80.8 Proteinuria type: other
[2024-05-13 14:58] VITALS: BP 136/56; BMI 26.3
--- OUTSIDE RECORDS SUMMARY | 2024-05-13 18:02 | XMS_ITS | Encounter Summary ---
Author Organization [facility] [facility] Address [address] 7[address] [place] [address] Care Team Providers Care Industrial Analyst Name Role Phone Unavailable Primary Care Provider Unavailabl e Encounter Details Date Type Department Care Team (Late st Contact Info) Description 05/06/2024 Orders Only [facility] External Provider, [facility] Social History Tobacco Use Types Packs/Day Years [...] Procedure Name Priority Date/Time Associated Diagnosis Comments HIGH SENSITIVITY TROPONIN I Routine 05/07/2024 5:57 PM EST CBC WITH AUTO DIFFERENTIAL Routine 05/07/2024 5:57 PM EST LIPASE Routine 05/07/2024 5:57 PM EST AMMONIA (P) Routine 05/07/2024 5:57 PM EST HEPATIC FUNCTION PANEL Routine 05/07/2024 5:57 PM EST BASIC METABOLIC PANEL Routine 05/07/2024 5:57 PM EST HIGH SENSITIVITY TROPONIN I Routine 05/06/2024 5:[address] HEAD WO CONTRAST Routine 05/06/2024 1 1:15 AM EST documented in this encounter Results * (ABNORMAL) High Sensitivity Troponin I (05/07/2024 5:57 PM EST) [facility] TROPONIN I HIGH SENSITIVITY 29.0(H) <3.5 - 17.0 ng/L [facility] Comment:The Sanders high sens itivity Troponin-I results should beused in conjunction with other diagnostic information suchas ECG, clinical observations and information, and patientsymptoms to aid in the diagnosis of NM. 05/07/2024 5:57 PM EST 05/07/2024 5:57 PM EST Generic External Data Provider LAB BLOOD ORDERAB LES Final Result Performing Organization Address [facility]/ZIP Co de Phone Number [facility] [address] [place] [phone] * Lipase (05/07/2024 5:57 PM EST) [facility] Lipase 11 8 - 78 U/L [facility] 05/07/2024 5:57 PM EST 05/07/2024 5:57 PM EST Generic External Data Provider LAB BLOOD ORDERAB LES Final Result Performing Organization Address [facility] Co de Phone Number [facility] [address] [place] [phone] * (ABNORMAL) Basic Metabolic Panel (05/07/2024 5:57 PM EST) [facility] Sodium 142 135 - 145 mmol/L [facility] Potassium 3.7 3.3 - 5.1 mmol/L [facility] Chloride 108 96 - 108 mmol/L [facility] Carbon Dioxide 26 22 - 29 mmol/L [facility] Anion Gap 12 12 - 20 [facility] Urea Nitrogen (BUN) 13 9 - 16 mg/dL [facility] Creatinine, Serum 0.73 0.5 - 1.4 mg/dL [facility] Creatinine Clr Calc Pharmacy 59.0 [facility] Comment:Provided height and weight: 167.64 cm,80 kg.eGFR (calculated from the MDRD study equation) and eCrCl(calculated from the Cockcroft-Gault equation) are based ondifferent parameters and may not yield comparable results.If eCrCl result is absurd, please check patient'sheight/weight. Estimated Glomerular Filt Rate >60 [facility] Comment:Chronic Kidney Disea se: Estimated GFR < 60 mL/min/1.09g9Mldyrc Kidney Disease: Estimated GFR < 15 mL/min/1.73m2 Glucose 133(H) 60 - 115 mg/dL [facility] Calcium 9.5 8.4 - 10.2 mg/dL [facility] 05/07/2024 5:57 PM EST 05/07/2024 5:57 PM EST us Generic External Data Provider LAB BLOOD ORDERAB LES Final Result Performing Organization Address [facility] Co de Phone Number [facility] [address] [place] [phone] * (ABNORMAL) Hepatic Function Panel (05/07/2024 5:57 PM EST) Bilirubin, Total 0.6 0.0 - 1.0 mg/dL [facility] Bilirubin, Direct 0.2 0.0 - 0.5 mg/dL [facility] Aspartate Amino Transferase 54(H) 5 - 31 U/L [facility] Alanine Aminotransferase 24 0 - 31 U/L [facility] Total Protein 6.9 6.5 - 8.0 g/dL [facility] Albumin Level 3.5 3.5 - 5.0 g/dL [facility] Alkaline Phosphatase 80 39 - 117 U/L [facility] 05/07/2024 5:57 PM EST 05/07/2024 5:57 PM EST us Generic External Data Provider LAB BLOOD ORDERAB LES Final Result Performing Organization Address City/[facility]/ZIP Co de Phone Number [facility] [address] [place] [phone] * Ammonia, Plasma (05/07/2024 5:57 PM EST) Pathologist [facility] Ammonia (P) 31 13 - 55 umol/L [facility] 05/07/2024 5:57 PM EST 05/07/2024 6:02 PM EST us Generic External Data Provider LAB BLOOD ORDERAB LES Final Result Performing Organization Address City/[facility] Co de Phone Number [facility] [address] [place] [phone] * (ABNORMAL) CBC auto differential (05/07/2024 5:57 PM EST) [facility] White Blood Count 7.8 4.8 - 10.8 X10*3/uL [facility] Red Blood Count 3.51(L) 4.20 - 5.50 X10*6/uL [facility] Hemoglobin 11.7(L) 12.0 - 16.0 g/dl [facility] Hematocrit 35.0(L) 37.0 - 47.0 % [facility] Mean Corpuscular Volume 99.7(H) 80.0 - 98.0 fL [facility] Mean Corpuscular Hemoglobin 33.3(H) 27.0 - 33.0 pg [facility] Mean Corpuscular HGB Conc 33.4 31.0 - 35.0 g/dl [facility] Red Cell Distribution Width 12.5 11.0 - 16.0 % [facility] Platelet Count 190 160 - 400 X10*3/uL [facility] Mean Platelet Volume 9.6 9.4 - 12.3 fL [facility] Neutrophils Percent Auto 74.5(H) 45 - 73 % [facility] Imm Gran Pct Auto 0.3 0.0 - 0.4 % [facility] Lymphocytes Percent Auto 14.3(L) 20 - 40 % [facility] Monocytes Percent Auto 9.4 2 - 11 % [facility] Eosinophils Percent Auto 1.0 0 - 4 % [facility] Basophils Percent Auto 0.5 0 - 2 % [facility] NRBC Pct Auto 0.0 0.0 - 0.2 /100WBC [facility] Neutrophils Absolute Auto 5.8 2.0 - 8.3 x10*3/uL [facility] Imm Gran Abs Auto 0.02 0.00 - 0.03 X10*3/uL [facility] Lymphocytes Absolute Auto 1.1(L) 1.2 - 4.9 X10*3/uL [facility] Monocytes Absolute Auto 0.7 0.1 - 1.2 X10*3/uL [facility] Eosinophils Absolute Auto 0.1 0.0 - 0.4 X10*3/uL [facility] Basophils Absolute Auto 0.0 0.0 - 0.2 X10*3/uL [facility] NRBC Abs Auto 0.000 0.0 - 0.012 X10*3/uL [facility] 05/07/2024 5:57 PM EST 05/07/2024 5:57 PM EST us Generic External Data Provider LAB BLOOD ORDERAB LES Final Result [facility] [address] [place] [phone] * (ABNORMAL) High Sensitivity Troponin I (05/06/2024 5:53 PM EST) TROPONIN I HIGH SENSITIVITY 21.8(H) <3.5 - 17.0 ng/L [facility] Comment:The Sanders high sens itivity Troponin-I results should beused in conjunction with other diagnostic information suchas ECG, clinical observations and information, and patientsymptoms to aid in the diagnosis of NM. 05/06/2024 5:53 PM EST 05/06/2024 5:56 PM EST us Generic External Data Provider LAB BLOOD ORDERAB LES Final Result [facility] [address] [place] [phone] * CT Head w/o Contrast (05/06/2024 11:15 AM EST) Anatomical Region Laterality Modality Head, Neck Computed Tomogra phy 05/06/2024 11:1 5 AM EST Narrative 05/06/2024 11:48 AM EST ? [facility] ?[address] ?[place] [address] ? CT Scan Report ? Signed ? Patient: Sharon Gaona ?MR#: [id number] ? : 1935 ?Acct:[id number] ? Age/Sex: 88 / F ?ADM Date: 05/06/24 ? Loc: HO.ED ? Attending Dr: ? Ordering Physician: Anuel Ibarra MD ?? Date of Service: 05/06/24 ?? Procedure(s): CT head/brain wo IV con ?? Accession Number(s): [id number] ? cc: Radha White MD; Anuel Ibarra MD ? Report Number: ?? [id number]: Total DLP = 1254.00 mGy-cm ?? EXAMINATION: ?? CT HEAD WITHOUT CONTRAST ? CLINICAL INFORMATION: ?? Altered mental status. ? COMPARISON: ?? 02/13/2018. ? TECHNIQUE: ?? Contiguous axial imaging was performed from the skull base to vertex ?? without intravenous administration of contrast. ? This CT examination was performed using dose optimization techniques as ?? appropriate, variously including the following: ?? *Automated exposure control ?? *Adjustment of mA and/or kV according to patient size (this includes ?? techniques or standardized protocols for targeted exams where dose is ?? matched to indication/reason for exam; i.e. extremities or head) ?? *Use of iterative reconstruction technique ? FINDINGS: ?? There is no evidence of intracranial hemorrhage or extra-axial fluid ?? collection. ?? There is no mass effect, or edema. No CT evidence of acute territorial ?? infarct. ?? Ventricles, sulci, and cisterns are normal in size and configuration ?? for patient age. No hydrocephalus. No midline shift. ?? Negative hyperdense MCA sign. Negative insular ribbon sign. ? Patchy periventricular and deep white matter hypoattenuation is ?? consistent with mild small vessel ischemic changes. ?? 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 ?? Partial empty sella. ?? Mild atheromatous calcification of the bilateral carotid siphons. ? Globes and orbital contents image normally. There are bilateral lens ?? replacements. ?? No extracranial soft tissue abnormalities. ? The paranasal sinuses, mastoid air cells, and tympanic cavities are ?? normally aerated. ?? No suspicious bony abnormalities. Hyperostosis frontalis. There are no ?? acute fractures evident. ? CT/CT head/brain wo IV con ?? IMPRESSION: ?? No acute intracranial abnormalities. Stable chronic changes. ? Electronically signed by: ??Reagan Ogden MD ??05/06/2024 11:46 AM EST RP ? Dictated By: ?Reagan Ogden MD ? Signed By: ?<Electronically signed by Reagan Ogden MD in OV> ?05/06/24 1146 ? DD/ 1115 ? TD/TT: 05/06/24 1132 ? Vacuum Forming Machine Operator: ? Procedure Note Cristobal, Image - 05/07/[address] [place] [address] [address] Scan Report Signed Patient: Sharon Gaona#: [id number] : 8Acct:[id number] Age/Sex: 88 / FADM Date: 05/06/24 Loc: HO.ED Attending Dr: Ordering Physician: Anuel Ibarra MD Date of Service: 05/06/24 Procedure(s): CT head/brain wo IV con Accession Number(s): [id number] cc: Radha White MD; Anuel Ibarra MD Report Number: [id number]: Total DLP = 1254.00 mGy-cm EXAMINATION: CT HEAD WITHOUT CONTRAST CLINICAL INFORMATION: Altered mental status. COMPARISON: 02/13/2018. TECHNIQUE: Contiguous axial imaging was performed from the skull base to vertex without intravenous administration of contrast. This CT examination was performed using dose optimization techniques as appropriate, variously including the following: *Automated exposure control *Adjustment of mA and/or kV according to patient size (this includes techniques or standardized protocols for targeted exams where dose is matched to indication/reason for exam; i.e. extremities or head) *Use of iterative reconstruction technique FINDINGS: There is no evidence of intracranial hemorrhage or extra-axial fluid collection. There is no mass effect, or edema. No CT evidence of acute territorial infarct. Ventricles, sulci, and cisterns are normal in size and configuration for patient age. No hydrocephalus. No midline shift. Negative hyperdense MCA sign. Negative insular ribbon sign. Patchy periventricular and deep white matter hypoattenuation is consistent with mild small vessel ischemic changes. 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 Partial empty sella. Mild atheromatous calcification of the bilateral carotid siphons. Globes and orbital contents image normally. There are bilateral lens replacements. No extracranial soft tissue abnormalities. The paranasal sinuses, mastoid air cells, and tympanic cavities are normally aerated. No suspicious bony abnormalities. Hyperostosis frontalis. There are no acute fractures evident. CT/CT head/brain wo IV con IMPRESSION: No acute intracranial abnormalities. Stable chronic changes. Electronically signed by: Reagan Ogden MD 05/06/2024 11:46 AM [facility] Dictated By: Reagan Ogden MD Signed By: <Electronically signed by Reagan Ogden MD in OV> 05/06/24 1146 DD/ 1115 TD/TT: 05/06/24 1132 Vacuum Forming Machine Operator: [facility] External Provider IMG CT PROCEDURES Final Result documented in this encounter Visit Diagnoses Not on filedocumented in this encounter
--- OUTSIDE RECORDS SUMMARY | 2024-05-13 18:02 | XMS_ITS | Encounter Summary ---
Author Organization [employer] [facility] Address [address] [place] [address] Care Team Providers Care Retail Service Lead Merchandiser Name Role Phone Unavailable Primary Care Provider Unavailabl e Encounter Details Date Type Department Care Team (Late st Contact Info) Description 02/28/2022 Abstract [facility] [address] [place] [address] Brian Boydaris [address] [place] [address] Social History Tobacco Use Types Packs/Day Years [...]
--- OUTSIDE RECORDS SUMMARY | 2024-05-13 18:02 | XMS_ITS | Clinical Summary ---
Author Organization [facility] Address [address] [place] [phone] Phone Care Team Providers Care Tube Closing Machine Operator Name Role Phone Karina Baires MD Primary Care Provider [phone] Allergies No known active allergies Medications aspirin [...] patient's age to complete this topic Insurance [facility] ([id number]) [facility] ([id number]) [place] [id number] Care Teams Tube Closing Machine Operator Relationship Specialty Start Date End Date Karina Baires MD [address] [place] [address] PCP - General 03/28/20
--- OUTSIDE RECORDS SUMMARY | 2024-05-13 18:02 | XMS_ITS | Clinical Summary ---
Author Organization [facility] [facility] Address [address] 7t [place] [address] Care Team Providers Care Curriculum Development Coordinator Name Role Phone Unavailable Primary Care Provider [...] 25 MCG (1000 UT) tablet 05/15/2022 Active Encounters Date Type Department Care Team Description 05/06/2024 Orders Only [facility] External Provider, [facility] from Last 3 Months Social History Tobacco Use Types Packs/Day Years [...] 03/23/2021, 12/17/2018, Additional history exists DTaP/Tdap/Td Vaccines (5 - Td or Tdap) 07/08/2033 07/09/2023, 03/25/2017, 03/25/2017, Additional history exists Hepatitis B Vaccines Completed [...] TROPONIN I Routine 05/07/2024 5:57 PM EST LIPASE Routine 05/07/2024 5:57 PM EST BASIC METABOLIC PANEL Routine 05/07/2024 5:57 PM EST HEPATIC FUNCTION PANEL Routine 05/07/2024 5:57 PM EST AMMONIA (P) Routine 05/07/2024 5:57 PM EST CBC WITH AUTO DIFFERENTIAL Routine 05/07/2024 5:57 PM EST HIGH SENSITIVITY TROPONIN I Routine 05/06/2024 5:[address] HEAD WO CONTRAST Routine 05/06/2024 1 1:15 AM EST PERIODIC ORAL EVALUATION - ESTABLISHED PATIENT Routine 06/05/2022 2:00 PM EDT Periodontal disease from Last 3 Months or Most Recently Relevant to Health Maintenance Results * (ABNORMAL) High Sensitivity Troponin I (05/07/2024 5:57 PM EST) Only the most recent of2 resultswithin the time period is included. [facility] TROPONIN I HIGH SENSITIVITY 29.0(H) <3.5 - 17.0 ng/L [facility] Comment:The Sanders high sens itivity Troponin-I results should beused in conjunction with other diagnostic information suchas ECG, clinical observations and information, and patientsymptoms to aid in the diagnosis of VT. 05/07/2024 5:57 PM EST 05/07/2024 5:57 PM EST us Generic External Data Provider LAB BLOOD ORDERAB LES Final Result [facility] [address] [place] [address] [phone] * (ABNORMAL) CBC auto differential (05/07/2024 5:57 PM EST) [facility] White Blood Count 7.8 4.8 - 10.8 X10*3/uL [facility] Red Blood Count 3.51(L) 4.20 - 5.50 X10*6/uL [facility] Hemoglobin 11.7(L) 12.0 - 16.0 g/dl [facility] Hematocrit 35.0(L) 37.0 - 47.0 % [facility] Mean Corpuscular Volume 99.7(H) 80.0 - 98.0 fL [facility] Mean Corpuscular Hemoglobin 33.3(H) 27.0 - 33.0 pg [facility] Mean Corpuscular HGB Conc 33.4 31.0 - 35.0 g/dl [facility] Red Cell Distribution Width 12.5 11.0 - 16.0 % [facility] Platelet Count 190 160 - 400 X10*3/uL [facility] Mean Platelet Volume 9.6 9.4 - 12.3 fL [facility] Neutrophils Percent Auto 74.5(H) 45 - 73 % [facility] Imm Gran Pct Auto 0.3 0.0 - 0.4 % [facility] Lymphocytes Percent Auto 14.3(L) 20 - 40 % [facility] Monocytes Percent Auto 9.4 2 - 11 % [facility] Eosinophils Percent Auto 1.0 0 - 4 % [facility] Basophils Percent Auto 0.5 0 - 2 % [facility] NRBC Pct Auto 0.0 0.0 - 0.2 /100WBC [facility] Neutrophils Absolute Auto 5.8 2.0 - 8.3 x10*3/uL [facility] Imm Gran Abs Auto 0.02 0.00 - 0.03 X10*3/uL [facility] Lymphocytes Absolute Auto 1.1(L) 1.2 - 4.9 X10*3/uL [facility] Monocytes Absolute Auto 0.7 0.1 - 1.2 X10*3/uL [facility] Eosinophils Absolute Auto 0.1 0.0 - 0.4 X10*3/uL [facility] Basophils Absolute Auto 0.0 0.0 - 0.2 X10*3/uL [facility] NRBC Abs Auto 0.000 0.0 - 0.012 X10*3/uL [facility] 05/07/2024 5:57 PM EST 05/07/2024 5:57 PM EST us Generic External Data Provider LAB BLOOD ORDERAB LES Final Result [facility] [address] [place] [phone] * Lipase (05/07/2024 5:57 PM EST) Lipase 11 8 - 78 U/L [facility] 05/07/2024 5:57 PM EST 05/07/2024 5:57 PM EST Generic External Data Provider LAB BLOOD ORDERAB LES Final Result Performing Organization Address City/[facility]/ZIP Co de Phone Number [facility] [address] [place] [phone] * Ammonia, Plasma (05/07/2024 5:57 PM EST) Pathologist [facility] Ammonia (P) 31 13 - 55 umol/L [facility] 05/07/2024 5:57 PM EST 05/07/2024 6:02 PM EST us Generic External Data Provider LAB BLOOD ORDERAB LES Final Result Performing Organization Address City/[facility]/ZIP Co de Phone Number [facility] [address] [place] [phone] * (ABNORMAL) Hepatic Function Panel (05/07/2024 5:57 PM EST) Bilirubin, Total 0.6 0.0 - 1.0 mg/dL [facility] Bilirubin, Direct 0.2 0.0 - 0.5 mg/dL [facility] Aspartate Amino Transferase 54(H) 5 - 31 U/L [facility] Alanine Aminotransferase 24 0 - 31 U/L [facility] Total Protein 6.9 6.5 - 8.0 g/dL [facility] Albumin Level 3.5 3.5 - 5.0 g/dL [facility] Alkaline Phosphatase 80 39 - 117 U/L [facility] 05/07/2024 5:57 PM EST 05/07/2024 5:57 PM EST us Generic External Data Provider LAB BLOOD ORDERAB LES Final Result Performing Organization Address City/[facility]/ZIP Co de Phone Number [facility] [address] [place] [phone] * (ABNORMAL) Basic Metabolic Panel (05/07/2024 5:57 PM EST) Sodium 142 135 - 145 mmol/L [facility] Potassium 3.7 3.3 - 5.1 mmol/L [facility] Chloride 108 96 - 108 mmol/L [facility] Carbon Dioxide 26 22 - 29 mmol/L [facility] Anion Gap 12 12 - 20 [facility] Urea Nitrogen (BUN) 13 9 - 16 mg/dL [facility] Creatinine, Serum 0.73 0.5 - 1.4 mg/dL [facility] Creatinine Clr Calc Pharmacy 59.0 [facility] Comment:Provided height and weight: 167.64 cm,80 kg.eGFR (calculated from the MDRD study equation) and eCrCl(calculated from the Cockcroft-Gault equation) are based ondifferent parameters and may not yield comparable results.If eCrCl result is absurd, please check patient'sheight/weight. Estimated Glomerular Filt Rate >60 [facility] Comment:Chronic Kidney Disea se: Estimated GFR < 60 mL/min/1.89n5Xuuzpa Kidney Disease: Estimated GFR < 15 mL/min/1.73m2 Glucose 133(H) 60 - 115 mg/dL [facility] Calcium 9.5 8.4 - 10.2 mg/dL [facility] 05/07/2024 5:57 PM EST 05/07/2024 5:57 PM EST us Generic External Data Provider LAB BLOOD ORDERAB LES Final Result Performing Organization Address [facility]/ZIP Co de Phone Number [facility] [address] [place] [phone] * CT Head w/o Contrast (05/06/2024 11:15 AM EST) Anatomical Region Laterality Modality Head, Neck Computed Tomogra phy 05/06/2024 11:1 5 AM EST Narrative 05/06/2024 11:48 AM EST ? [facility] ?[address] ?[place] [address] ? CT Scan Report ? Signed ? Patient: Gaona,Sharon ?MR#: [id number] ? : 1935 ?Acct:[id number] ? Age/Sex: 88 / F ?ADM Date: 05/06/24 ? Loc: HO.ED ? Attending Dr: ? Ordering Physician: Anuel Ibarra MD ?? Date of Service: 05/06/24 ?? Procedure(s): CT head/brain wo IV con ?? Accession Number(s): [id number] ? cc: Radha White MD; Anuel Ibarra MD ? Report Number: ?? [id number]: Total DLP = 1254.00 mGy-cm ?? EXAMINATION: [...] DD/ 1115 ? TD/TT: 05/06/24 1132 ? Storage Receipt Poster: ? Procedure Note Deep Jain - 05/07/[address] [place] [address] [address] Scan Report Signed Patient: Sharon GaonaMR#: [id number] : 8Acct:[id number] Age/Sex: 88 / FADM Date: 05/06/24 Loc: HO.ED Attending Dr: Ordering Physician: Anuel Ibarra MD Date of Service: 05/06/24 Procedure(s): CT head/brain wo IV con Accession Number(s): [id number] cc: Radha White MD; Anuel Ibarra MD Report Number: [id number]: Total DLP = 1254.00 mGy-cm EXAMINATION: CT [...] by: Reagan Ogden MD 05/06/2024 11:46 AM [facility] Dictated By: Reagan Ogden MD Signed By: <Electronically signed by Reagan Ogden MD in OV> 05/06/24 1146 DD/ 1115 TD/TT: 05/06/24 1132 Storage Receipt Poster: [facility] External Provider IMG CT PROCEDURES Final Result from Last 3 Months Insurance [facility] Member Subscriber Plan / Payer (Ef fective 2015-Present) Name:Sharon Gaona Relation to Subscriber:Self Name:Sharon Gaona Payer ID:Not on file Group ID:[id number] Type:Not on file Address: [place] [id number] [facility] - [facility]
== END 2024-05-13 15:34 | disposition home or self-care (01) ==
PROVIDERS: PCP Internal Medicine; Visit Provider Internal Medicine Nephrology
DX: I12.9 Hypertensive chronic kidney disease with stage 1 through stage 4 chronic kidney disease, or unspecified chronic kidney disease (principal); E11.22 Type 2 diabetes mellitus with diabetic chronic kidney disease; N18.30 Chronic kidney disease, stage 3 unspecified; R80.8 Other proteinuria
CPT/HCPCS: 99214

== ENCOUNTER → 2024-05-13 14:38 | Outpatient (BNVA) | payer OTHER, SELFPAY | PROVIDERS: PCP Internal Medicine; Visit Provider Internal Medicine Nephrology | DX: I15.0 Renovascular hypertension (principal); R80.8 Other proteinuria | CPT/HCPCS: 99212 ==

== ENCOUNTER 2024-07-08 14:32 | Outpatient (REF) | payer OTHER, SELFPAY ==
[2024-07-08 15:28] LABS: Albumin Level 4.1 g/dL (3.5-5.0); Anion Gap 14 (12-20); Blood Urea Nitrogen 39 mg/dL (9-16); Carbon Dioxide 26 mmol/L (22-29); Chloride 105 mmol/L (96-108); Estimated Glomerular Filt Rate 52; Potassium 4.7 mmol/L (3.3-5.1); Sodium 140 mmol/L (135-145)
[2024-07-08 15:43] LABS: Creatinine Urine 101.53 mg/dL; Protein/Creatinine Ratio, Ur 1.55 (<0.2); Total Protein Urine Random 157 mg/dL (<12)
--- OUTSIDE RECORDS SUMMARY | 2024-07-08 17:25 | XMS_ITS | Encounter Summary ---
Author Organization [employer] [facility] Address [address] [place] [address] Care Team Providers Care Mobile Device Developer Name Role Phone Unavailable Primary Care Provider Unavailabl e Encounter Details Date Type Department Care Team (Late st Contact Info) Description 02/28/2022 Abstract [facility] [address] [place] [address] Brian Boydaris [address] [place] [address] Social History Tobacco Use Types Packs/Day Years [...]
--- OUTSIDE RECORDS SUMMARY | 2024-07-08 17:25 | XMS_ITS | Clinical Summary ---
Author Organization [facility] Address [address] [place] [address] [place] [phone] Phone Care Team Providers Care Sign Writer Hand Name Role Phone Karina Baires MD Primary Care Provider [phone] Allergies No known active allergies Medications aspirin [...] Due Date Last Done Comments Pneumococcal Vaccine: 50+ Ye ars (1 of 2 - PCV) 1954 Influenza Vaccine (Season Ended) 2024 Hepatitis B Vaccine Aged Out No longe r eligible based on patient's age to complete this topic Insurance [facility] ([id number]) [facility] ([id number]) [place] [id number] Care Teams Sign Writer Hand Relationship Specialty Start Date End Date Karina aBires MD [address] [place] [address] PCP - General 03/28/20
--- OUTSIDE RECORDS SUMMARY | 2024-07-08 17:25 | XMS_ITS | Clinical Summary ---
Author Organization [facility] Address [address] [place] [address] Care Team Providers Care Lead Sustainability Specialist Name Role Phone Unavailable Primary Care Provider [...] Department Care Team Description 05/06/2024 Orders Only [facility] External Provider, [facility] from Last 3 Months Social History [...] of2 resultswithin the time period is included. [facility] TROPONIN I HIGH SENSITIVITY 29.0(H) <3.5 - 17.0 ng/L [facility] Comment:The Sanders high sens itivity Troponin-I results should beused in conjunction with other diagnostic information suchas ECG, clinical observations and information, and patientsymptoms to aid in the diagnosis of [place]. 05/07/2024 5:57 PM EST 05/07/2024 5:57 PM EST us Generic External Data Provider LAB BLOOD ORDERAB LES Final Result [facility] [address] [place] [address] [phone] * (ABNORMAL) CBC auto differential (05/07/2024 5:57 PM EST) [facility] White Blood Count 7.8 4.8 - 10.8 X10*3/uL [facility] Red Blood Count 3.51(L) 4.20 - 5.50 X10*6/uL [facility] Hemoglobin 11.7(L) 12.0 - 16.0 g/dl [facility] Hematocrit 35.0(L) 37.0 - 47.0 % [facility] Mean Corpuscular Volume 99.7(H) 80.0 - 98.0 fL [facility] Mean Corpuscular Hemoglobin 33.3(H) 27.0 - 33.0 pg [facility] Mean Corpuscular HGB Conc 33.4 31.0 - 35.0 g/dl [facility] Red Cell Distribution Width 12.5 11.0 - 16.0 % [facility] Platelet Count 190 160 - 400 X10*3/uL [facility] Mean Platelet Volume 9.6 9.4 - 12.3 fL [facility] Neutrophils Percent Auto 74.5(H) 45 - 73 % [facility] Imm Gran Pct Auto 0.3 0.0 - 0.4 % [facility] Lymphocytes Percent Auto 14.3(L) 20 - 40 % [facility] Monocytes Percent Auto 9.4 2 - 11 % [facility] Eosinophils Percent Auto 1.0 0 - 4 % [facility] Basophils Percent Auto 0.5 0 - 2 % [facility] NRBC Pct Auto 0.0 0.0 - 0.2 /100WBC [facility] Neutrophils Absolute Auto 5.8 2.0 - 8.3 x10*3/uL [facility] Imm Gran Abs Auto 0.02 0.00 - 0.03 X10*3/uL [facility] Lymphocytes Absolute Auto 1.1(L) 1.2 - 4.9 X10*3/uL [facility] Monocytes Absolute Auto 0.7 0.1 - 1.2 X10*3/uL [facility] Eosinophils Absolute Auto 0.1 0.0 - 0.4 X10*3/uL [facility] Basophils Absolute Auto 0.0 0.0 - 0.2 X10*3/uL [facility] NRBC Abs Auto 0.000 0.0 - 0.012 X10*3/uL [facility] 05/07/2024 5:57 PM EST 05/07/2024 5:57 PM EST us Generic External Data Provider LAB BLOOD ORDERAB LES Final Result [facility] [address] [place] [phone] * Lipase (05/07/2024 5:57 PM EST) Lipase 11 8 - 78 U/L [facility] 05/07/2024 5:57 PM EST 05/07/2024 5:57 PM EST Generic External Data Provider LAB BLOOD ORDERAB LES Final Result Performing Organization Address City/[facility]/ZIP Co de Phone Number [facility] [address] [place] [phone] * Ammonia, Plasma (05/07/2024 5:57 PM EST) Pathologist [facility] Ammonia (P) 31 13 - 55 umol/L [facility] 05/07/2024 5:57 PM EST 05/07/2024 6:02 PM EST us Generic External Data Provider LAB BLOOD ORDERAB LES Final Result Performing Organization Address City/[facility]/ZIP Co de Phone Number [facility] [address] [place] [phone] * (ABNORMAL) Hepatic Function Panel (05/07/2024 5:57 PM EST) Bilirubin, Total 0.6 0.0 - 1.0 mg/dL [facility] Bilirubin, Direct 0.2 0.0 - 0.5 mg/dL [facility] Aspartate Amino Transferase 54(H) 5 - 31 U/L [facility] Alanine Aminotransferase 24 0 - 31 U/L [facility] Total Protein 6.9 6.5 - 8.0 g/dL [facility] Albumin Level 3.5 3.5 - 5.0 g/dL [facility] Alkaline Phosphatase 80 39 - 117 U/L [facility] 05/07/2024 5:57 PM EST 05/07/2024 5:57 PM EST us Generic External Data Provider LAB BLOOD ORDERAB LES Final Result Performing Organization Address City/[facility]/ZIP Co de Phone Number [facility] [address] [place] [phone] * (ABNORMAL) Basic Metabolic Panel (05/07/2024 5:57 PM EST) Sodium 142 135 - 145 mmol/L [facility] Potassium 3.7 3.3 - 5.1 mmol/L [facility] Chloride 108 96 - 108 mmol/L [facility] Carbon Dioxide 26 22 - 29 mmol/L [facility] Anion Gap 12 12 - 20 [facility] Urea Nitrogen (BUN) 13 9 - 16 mg/dL [facility] Creatinine, Serum 0.73 0.5 - 1.4 mg/dL [facility] Creatinine Clr Calc Pharmacy 59.0 [facility] Comment:Provided height and weight: 167.64 cm,80 kg.eGFR (calculated from the MDRD study equation) and eCrCl(calculated from the Cockcroft-Gault equation) are based ondifferent parameters and may not yield comparable results.If eCrCl result is absurd, please check patient'sheight/weight. Estimated Glomerular Filt Rate >60 [facility] Comment:Chronic Kidney Disea se: Estimated GFR < 60 mL/min/1.64c5Hulvks Kidney Disease: Estimated GFR < 15 mL/min/1.73m2 Glucose 133(H) 60 - 115 mg/dL [facility] Calcium 9.5 8.4 - 10.2 mg/dL [facility] 05/07/2024 5:57 PM EST 05/07/2024 5:57 PM EST us Generic External Data Provider LAB BLOOD ORDERAB LES Final Result Performing Organization Address [facility]/ZIP Co de Phone Number [facility] [address] [place] [phone] * CT Head w/o Contrast (05/06/2024 11:15 AM EST) Anatomical Region Laterality Modality Head, Neck Computed Tomogra phy 05/06/2024 11:1 5 AM EST Narrative 05/06/2024 11:48 AM EST ? [facility] ?[address] ?[place] [address] ? CT Scan Report ? Signed ? Patient: Gaona,Sharon ?MR#: [id number] ? : 1935 ?Acct:[id number] ? Age/Sex: 88 / F ?ADM Date: 05/06/24 ? Loc: HO.ED ? Attending Dr: ? Ordering Physician: Anuel Ibarra MD ?? Date of Service: 05/06/24 ?? Procedure(s): CT head/brain wo IV con ?? Accession Number(s): [id number] ? cc: Radha White MD; Anuel Ibarra MD ? Report Number: ?? [id number]: Total DLP = 1254.00 mGy-cm ?? EXAMINATION: [...] DD/ 1115 ? TD/TT: 05/06/24 1132 ? Adoption Specialist: ? Procedure Note Deep Jain - 05/07/[address] [place] [address] [address] Scan Report Signed Patient: Sharon GaonaMR#: [id number] : 8Acct:[id number] Age/Sex: 88 / FADM Date: 05/06/24 Loc: HO.ED Attending Dr: Ordering Physician: Anuel Ibarra MD Date of Service: 05/06/24 Procedure(s): CT head/brain wo IV con Accession Number(s): [id number] cc: Radha White MD; Anuel Ibarra MD Report Number: [id number]: Total DLP = 1254.00 mGy-cm EXAMINATION: CT [...] by: Reagan Ogden MD 05/06/2024 11:46 AM [facility] Dictated By: Reagan Ogden MD Signed By: <Electronically signed by Reagan Ogden MD in OV> 05/06/24 1146 DD/ 1115 TD/TT: 05/06/24 1132 Adoption Specialist: [facility] External Provider IMG CT PROCEDURES Final Result from Last 3 Months Insurance [facility] Member Subscriber Plan / Payer (Ef fective 2015-Present) Name:Sharon Gaona Relation to Subscriber:Self Name:Sharon Gaona Payer ID:Not on file Group ID:[id number] Type:Not on file Address: [place] [id number] [facility]
== END 2024-07-08 14:33 | disposition home or self-care (01) ==
LOC: HO.LAB 14:32
PROVIDERS: Absent Provider Internal Medicine; PCP Internal Medicine; Visit Provider Internal Medicine Nephrology
DX: I15.0 Renovascular hypertension (principal); N18.31 Chronic kidney disease, stage 3a
CPT/HCPCS: 36415; 80051; 82040; 82565; 82570; 84156; 84520

== ENCOUNTER 2024-07-15 14:17 | Outpatient (AMB) | payer OTHER, SELFPAY ==
--- NOTE | 2024-07-15 14:27 | HO.NEPHOV ---
Vital Signs 07/15/24 14:29 Height 5 ft 5 in Weight 163 lb 4 oz BMI 27.2 BP 142/50 H Blood Pressure Location Rt brachial Position Sitting Pulse 64 Pulse Source Pulse Oximeter Pulse Oximetry (%) 98 Oxygen Delivery Method Room Air Intake Visit Reasons: CKD-Conf [employer] Required: Yes [employer] Language: Lawnmower Repair Mechanic Services: [employer] Offered & Declined ([facility] scientific recruiter services refused ) Accompanied by: Daughter Allergies No Known Allergies Allergy (Unknown, Verified 07/15/24 14:29) HPI Comments Details: Sharon in follow-up of her chronic kidney disease and hypertension. Her volume status is well maintained on current dose of diuretics. Her blood pressure has been at goal. She does not have any chest pain, orthostatic symptoms, shortness of breath, proximal nocturnal dyspnea, orthopnea, pedal edema or urinary symptoms. She does not have any nausea vomiting or diarrhea now. She does not take any nonsteroidal anti-inflammatories. She has some edema but had no other new complaints at the time of this visit [facility] Medical History CKD (chronic kidney disease) stage 3, GFR 30-59 ml/min CKD (chronic kidney disease) stage 4, GFR 15-29 ml/min Anemia Bilateral carpal tunnel syndrome Moderate recurrent major depression Pure hypercholesterolemia Essential hypertension Carpal tunnel syndrome Urinary incontinence Hypovitaminosis D GERD (gastroesophageal reflux disease) High cholesterol Diabetes Hypertension Surgical History S/P carpal tunnel release History of cholecystectomy Family History Father No problems noted. Mother No problems noted. Social History Household Members: Unknown / Unable to assess Housing: Unknown / Unable to assess Do you presently have visiting nurse or other home services: No (unknown) Alcohol intake: former Patient Tobacco Use Status: Former Tobacco user Tobacco use type: Cigarette e-Cigarette/Vaping Use: Never Used Second Hand Smoke Exposure: No service: No Current occupational status: disabled Current occupation: rt hand Cognitive needs: Yes Hearing needs: No Vision needs: Yes Review of Systems Const All systems reviewed & are unremarkable except as noted in HPI and below Physical Exam Vital Signs: Last Vital Signs Pulse 64 07/15/24 14:29 BP 142/50 H 07/15/24 14:29 Pulse Ox 98 07/15/24 14:29 Oxygen Delivery Method Room Air 07/15/24 14:29 BMI result Body Mass Index 27.2 Const General: comfortable and no acute distress Orientation/consciousness: patient oriented x3 HEENT Head: Yes normocephalic Mouth: Normal oral and palatal mucosa present Eyes EOM: EOMs intact bilaterally Neck Neck: Yes supple Resp Auscultation: clear to auscultation bilaterally Cardio Jugular venous distension: no JVD Rate: regular rate GI Palpation (GI): Soft to palpation Auscultation: normal bowel sounds General: Yes no CVA tenderness Back/Spine/Pelvis Back: no CVA tenderness Skin General skin exam: no rashes or lesions noted Neuro General: patient oriented x3 and moves all extremities Extrem General: Yes no pedal edema Results Reviewed Nephrology Results: Hgb 12.0 g/dl (12.0-16.0) 05/11/24 WBC 7.7 X10*3/uL (4.8-10.8) 05/11/24 Plt Count 217 X10*3/uL (160-400) 05/11/24 Sodium 140 mmol/L (135-145) 07/08/24 Potassium 4.7 mmol/L (3.3-5.1) 07/08/24 Chloride 105 mmol/L (96-108) 07/08/24 Carbon Dioxide 26 mmol/L (22-29) 07/08/24 BUN 39 mg/dL (9-16) H 07/08/24 Creatinine 1.01 mg/dL (0.5-1.4) 07/08/24 Calcium 9.5 mg/dL (8.4-10.2) 05/12/24 Urine Protein >=1000 (4+) mg/dL (Neg-Trace) H 05/08/24 Urine Creatinine 101.53 mg/dL 07/08/24 Protein/Creatinin Ratio 1.55 (<0.2) H 07/08/24 Assessment & Plan Assessment & Plan (1) Proteinuria: Code(s): R80.9 - Proteinuria, unspecified Category: Medical Qualifiers: Proteinuria type: other Qualified Code(s): R80.8 - Other proteinuria (2) Essential hypertension: Code(s): I10 - Essential (primary) hypertension Category: Medical Plan 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 She had no significant proteinuria in the past but has it now. Her blood pressure is usually at goal. I D/Gerson lasix 20 mg and started her on bumex 1 mg daily. She avoids nonsteroidal anti-inflammatories. She is on angiotensin receptor ambrose. I started her on 10 mg Jardiance daily as well. I did not make any other medication changes today. All her questions were answered. Follow-up blood work ordered. Follow-up appointment given. Orders: Orders Creatinine 1 Month I10 - Essential (primary) hypertension, R80.8 - Other proteinuria Electrolytes 1 Month I10 - Essential (primary) hypertension, R80.8 - Other proteinuria Blood Urea Nitrogen 1 Month I10 - Essential (primary) hypertension, R80.8 - Other proteinuria Medications: New bumetanide 1 mg PO DAILY 90 tabs 3RF empagliflozin (Jardiance) 10 mg PO DAILY 30 tabs 6RF Discontinued furosemide Discontinued Reason: Doctor's Order 20 mg PO DAILY 90 days 90 tabs 5RF I10 - Essential (primary) hypertension Coding Level of Care Code Est Pt Level 4 (67369) Diagnoses Other proteinuria R80.8 Proteinuria type: other Essential hypertension I10
[2024-07-15 14:29] VITALS: BP 142/50; PULSE 64; O2SAT 98; BMI 27.2
--- OUTSIDE RECORDS SUMMARY | 2024-07-15 15:39 | XMS_ITS | Clinical Summary ---
Author Organization [facility] Address [address] [place] [address] Care Team Providers Care Site Supervisor Name Role Phone Unavailable Primary Care Provider [...] Department Care Team Description 05/06/2024 Orders Only [facility] External Provider, [facility] from Last 3 Months Social History [...] of2 resultswithin the time period is included. [facility] TROPONIN I HIGH SENSITIVITY 29.0(H) <3.5 - 17.0 ng/L [facility] Comment:The Sanders high sens itivity Troponin-I results should beused in conjunction with other diagnostic information suchas ECG, clinical observations and information, and patientsymptoms to aid in the diagnosis of AR. 05/07/2024 5:57 PM EST 05/07/2024 5:57 PM EST us Generic External Data Provider LAB BLOOD ORDERAB LES Final Result [facility] [address] [place] [address] [phone] * (ABNORMAL) CBC auto differential (05/07/2024 5:57 PM EST) [facility] White Blood Count 7.8 4.8 - 10.8 X10*3/uL [facility] Red Blood Count 3.51(L) 4.20 - 5.50 X10*6/uL [facility] Hemoglobin 11.7(L) 12.0 - 16.0 g/dl [facility] Hematocrit 35.0(L) 37.0 - 47.0 % [facility] Mean Corpuscular Volume 99.7(H) 80.0 - 98.0 fL [facility] Mean Corpuscular Hemoglobin 33.3(H) 27.0 - 33.0 pg [facility] Mean Corpuscular HGB Conc 33.4 31.0 - 35.0 g/dl [facility] Red Cell Distribution Width 12.5 11.0 - 16.0 % [facility] Platelet Count 190 160 - 400 X10*3/uL [facility] Mean Platelet Volume 9.6 9.4 - 12.3 fL [facility] Neutrophils Percent Auto 74.5(H) 45 - 73 % [facility] Imm Gran Pct Auto 0.3 0.0 - 0.4 % [facility] Lymphocytes Percent Auto 14.3(L) 20 - 40 % [facility] Monocytes Percent Auto 9.4 2 - 11 % [facility] Eosinophils Percent Auto 1.0 0 - 4 % [facility] Basophils Percent Auto 0.5 0 - 2 % [facility] NRBC Pct Auto 0.0 0.0 - 0.2 /100WBC [facility] Neutrophils Absolute Auto 5.8 2.0 - 8.3 x10*3/uL [facility] Imm Gran Abs Auto 0.02 0.00 - 0.03 X10*3/uL [facility] Lymphocytes Absolute Auto 1.1(L) 1.2 - 4.9 X10*3/uL [facility] Monocytes Absolute Auto 0.7 0.1 - 1.2 X10*3/uL [facility] Eosinophils Absolute Auto 0.1 0.0 - 0.4 X10*3/uL [facility] Basophils Absolute Auto 0.0 0.0 - 0.2 X10*3/uL [facility] NRBC Abs Auto 0.000 0.0 - 0.012 X10*3/uL [facility] 05/07/2024 5:57 PM EST 05/07/2024 5:57 PM EST us Generic External Data Provider LAB BLOOD ORDERAB LES Final Result [facility] [address] [place] [address] [phone] * Lipase (05/07/2024 5:57 PM EST) Lipase 11 8 - 78 U/L [facility] 05/07/2024 5:57 PM EST 05/07/2024 5:57 PM EST Generic External Data Provider LAB BLOOD ORDERAB LES Final Result Performing Organization Address City/[facility]/ZIP Co de Phone Number [facility] [address] [place] [address] [phone] * Ammonia, Plasma (05/07/2024 5:57 PM EST) Pathologist [facility] Ammonia (P) 31 13 - 55 umol/L [facility] 05/07/2024 5:57 PM EST 05/07/2024 6:02 PM EST us Generic External Data Provider LAB BLOOD ORDERAB LES Final Result Performing Organization Address City/[facility]/ZIP Co de Phone Number [facility] [address] [place] [address] [phone] * (ABNORMAL) Hepatic Function Panel (05/07/2024 5:57 PM EST) Bilirubin, Total 0.6 0.0 - 1.0 mg/dL [facility] Bilirubin, Direct 0.2 0.0 - 0.5 mg/dL [facility] Aspartate Amino Transferase 54(H) 5 - 31 U/L [facility] Alanine Aminotransferase 24 0 - 31 U/L [facility] Total Protein 6.9 6.5 - 8.0 g/dL [facility] Albumin Level 3.5 3.5 - 5.0 g/dL [facility] Alkaline Phosphatase 80 39 - 117 U/L [facility] 05/07/2024 5:57 PM EST 05/07/2024 5:57 PM EST us Generic External Data Provider LAB BLOOD ORDERAB LES Final Result Performing Organization Address City/[facility]/ZIP Co de Phone Number [facility] [address] [place] [address] [phone] * (ABNORMAL) Basic Metabolic Panel (05/07/2024 5:57 PM EST) Sodium 142 135 - 145 mmol/L [facility] Potassium 3.7 3.3 - 5.1 mmol/L [facility] Chloride 108 96 - 108 mmol/L [facility] Carbon Dioxide 26 22 - 29 mmol/L [facility] Anion Gap 12 12 - 20 [facility] Urea Nitrogen (BUN) 13 9 - 16 mg/dL [facility] Creatinine, Serum 0.73 0.5 - 1.4 mg/dL [facility] Creatinine Clr Calc Pharmacy 59.0 [facility] Comment:Provided height and weight: 167.64 cm,80 kg.eGFR (calculated from the MDRD study equation) and eCrCl(calculated from the Cockcroft-Gault equation) are based ondifferent parameters and may not yield comparable results.If eCrCl result is absurd, please check patient'sheight/weight. Estimated Glomerular Filt Rate >60 [facility] Comment:Chronic Kidney Disea se: Estimated GFR < 60 mL/min/[id number] Kidney Disease: Estimated GFR < 15 mL/min/1.73m2 Glucose 133(H) 60 - 115 mg/dL [facility] Calcium 9.5 8.4 - 10.2 mg/dL [facility] 05/07/2024 5:57 PM EST 05/07/2024 5:57 PM EST us Generic External Data Provider LAB BLOOD ORDERAB LES Final Result Performing Organization Address [facility]/ZIP Co de Phone Number [facility] [address] [place] [phone] * CT Head w/o Contrast (05/06/2024 11:15 AM EST) Anatomical Region Laterality Modality Head, Neck Computed Tomogra phy 05/06/2024 11:1 5 AM EST Narrative 05/06/2024 11:48 AM EST ? [facility] ?[address] ?[place] [address] ? CT Scan Report ? Signed ? Patient: Gaona,Sharon ?MR#: [id number] ? : 1935 ?Acct:[id number] ? Age/Sex: 88 / F ?ADM Date: 05/06/24 ? Loc: HO.ED ? Attending Dr: ? Ordering Physician: Anuel Ibarra MD ?? Date of Service: 05/06/24 ?? Procedure(s): CT head/brain wo IV con ?? Accession Number(s): [id number] ? cc: Radha White MD; Anuel Ibarra MD ? Report Number: ?? [id number]: Total DLP = 1254.00 mGy-cm ?? EXAMINATION: [...] DD/ 1115 ? TD/TT: 05/06/24 1132 ? Service Delivery Manager: ? Procedure Note Deep Jain - 05/07/[address] [place] [phone] [address] Scan Report Signed Patient: Sharon GaonaMR#: [id number] : 8Acct:[id number] Age/Sex: 88 / FADM Date: 05/06/24 Loc: HO.ED Attending Dr: Ordering Physician: Anuel Ibarra MD Date of Service: 05/06/24 Procedure(s): CT head/brain wo IV con Accession Number(s): [id number] cc: Radha White MD; Anuel Ibarra MD Report Number: [id number]: Total DLP = 1254.00 mGy-cm EXAMINATION: CT [...] by: Reagan Ogden MD 05/06/2024 11:46 AM [facility] Dictated By: Reagan Ogden MD Signed By: <Electronically signed by Reagan Ogden MD in OV> 05/06/24 1146 DD/ 1115 TD/TT: 05/06/24 1132 Service Delivery Manager: [facility] External Provider IMG CT PROCEDURES Final Result from Last [address] [facility] Member Subscriber Plan / Payer (Ef fective 2015-Present) Name:Sharon Gaona Relation to Subscriber:Self Name:Sharon Gaona Payer ID:Not on file Group ID:[id number] Type:Not on file Address: [place] [id number] DENTAL - [facility]
--- OUTSIDE RECORDS SUMMARY | 2024-07-15 15:39 | XMS_ITS | Encounter Summary ---
Author Organization [facility] Address [address] [place] [address] Care Team Providers Care Core Inspector Name Role Phone Unavailable Primary Care Provider Unavailabl e Encounter Details Date Type Department Care Team (Late st Contact Info) Description 02/28/2022 Abstract [facility] [address] [place] [address] Brian Boydaris [address] [place] [address] Social History Tobacco Use Types Packs/Day Years [...]
--- OUTSIDE RECORDS SUMMARY | 2024-07-15 15:39 | XMS_ITS | Clinical Summary ---
Author Organization [facility] Address [address] [place] [address] [place] [phone] Phone Care Team Providers Care Juice Standardizer Name Role Phone Karina Baires MD Primary Care Provider [phone] Allergies No known active allergies Medications aspirin [...] patient's age to complete this topic Insurance [facility] ([id number]) [facility] ([id number]) [place] [id number] Care Teams Juice Standardizer Relationship Specialty Start Date End Date Karina Baires MD [address] [place] [address] PCP - General 03/28/20
== END 2024-07-15 14:53 | disposition home or self-care (01) ==
LOC: HO.HKA 14:18
PROVIDERS: PCP Internal Medicine; Visit Provider Internal Medicine Nephrology
DX: R80.8 Other proteinuria (principal); I10 Essential (primary) hypertension
CPT/HCPCS: 99214

== ENCOUNTER → 2024-07-15 14:17 | Outpatient (BNVA) | payer OTHER, SELFPAY | PROVIDERS: PCP Internal Medicine; Visit Provider Internal Medicine Nephrology | DX: Z00.00 Encounter for general adult medical examination without abnormal findings (principal); E11.3593 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 without macular edema, bilateral; E11.22 Type 2 diabetes mellitus with diabetic chronic kidney disease; E78.5 Hyperlipidemia, unspecified; F32.0 Major depressive disorder, single episode, mild; E55.9 Vitamin D deficiency, unspecified; I12.9 Hypertensive chronic kidney disease with stage 1 through stage 4 chronic kidney disease, or unspecified chronic kidney disease; N18.31 Chronic kidney disease, stage 3a; R80.8 Other proteinuria | CPT/HCPCS: 96127; 99212; 99397 ==

== ENCOUNTER 2024-07-15 15:09 | Outpatient (AMB) | payer OTHER, SELFPAY ==
[2024-07-15 15:30] VITALS: BP 144/60; BMI 28.0
--- NOTE | 2024-07-15 15:30 | A.OFFPC_ITS ---
Vital Signs 07/15/24 15:30 Height 5 ft 5 in Weight 168 lb BMI 28.0 BP 144/60 H Blood Pressure Location Lt brachial Position Sitting Intake Visit Reasons: annual exam Intake Note: Patient here for a physical exam Family And Consumer Sciences Professor Required: Yes Family And Consumer Sciences Professor Language: Franchise Manager Name: Karina Brothers MD Information Interpreted: non-clinical & clinical Accompanied by: CAN CLOSING MACHINE TENDER Allergies No Known Allergies Allergy (Unknown, Verified 07/15/24 16:01) Medication List - Last Reconciled 07/15/24 by Karina Brothers MD acetaminophen ER (Pain Relief (acetaminophen)) 1,300 mg (2 x 650 mg) PO Q8H PRN 30 days amlodipine 10 mg PO DAILY 90 days aspirin 81 mg PO DAILY 90 days blood sugar diagnostic (FreeStyle Test strips) Use 1 test strip once a day bumetanide 1 mg PO DAILY calcium carbonate-vitamin D3 600 mg-10 mcg (400 unit) 1 tab PO BID 90 days cholecalciferol (vitamin D3) 25 mcg PO DAILY 90 days commode As directed [compression stockings As directed] empagliflozin (Jardiance) 10 mg PO DAILY ferrous sulfate 325 mg PO DAILY 90 days incontinence pad, liner, disp (Bladder Control Pads Ex Absorb) As directed [incontinence wipes As directed] lancets As directed losartan 100 mg PO DAILY 90 days metformin 1,000 mg PO BID 90 days mirtazapine 15 mg PO BEDTIME 90 days omeprazole 20 mg PO DAILY pravastatin 40 mg PO DAILY 90 days [recliner As directed] [washable bedpads As directed] Tobacco use date assessed: 04/21/24 Fall risk assessment: 2 + Falls in past year Last assessed Fall Risk: 07/15/24 Dental Screening Dental Screen Date: 04/21/24 HPI HPI Comments History of Present Illness Details The patient is an 89-year-old female presenting for her annual physical examination. She has a documented history of Type 2 Diabetes Mellitus, which is well-controlled with an A1c of 5.8% as of April. There is a continuation of hypertension management, which includes monitoring her potassium levels noted at 4.7 mmol/L during her recent evaluation. The patient has nephropathy characterized by elevated protein levels in urine, managed by a esl tutor. Hyperlipidemia in her history is treated with pravastatin for cholesterol management. She also has osteopenia, identified via bone densitometry, preceding the development of osteoporosis. She has eliminated her smoking and alcohol consumption habits. The patient's medication regimen includes Tylenol, amlodipine, aspirin, calcium with vitamin D, metformin, mirtazapine, omeprazole, pravastatin, losartan, and Jardiance. - Osteopenia management with calcium and vitamin D supplements - Diabetic monitoring with A1c testing, recent result 5.8% in April - Hypertension management with ongoing m onitoring of blood pressure and potassium levels - Hyperlipidemia management with pravast atin - Regular nephrology follow-up for prote inuria and renal function monitoring [facility] Medical History (Updated 07/15/24 @ 17:10 by Karina Brothers MD) Mild major depression CKD (chronic kidney disease) stage 3, GFR 30-59 ml/min Diabetes CKD (chronic kidney disease) stage 4, GFR 15-29 ml/min Anemia Bilateral carpal tunnel syndrome Moderate recurrent major depression Pure hypercholesterolemia Essential hypertension Carpal tunnel syndrome Urinary incontinence Hypovitaminosis D GERD (gastroesophageal reflux disease) High cholesterol Hypertension Surgical History S/P carpal tunnel release History of cholecystectomy Family History Father No problems noted. Mother No problems noted. Social History Household Members: Unknown / Unable to assess Housing: Unknown / Unable to assess Do you presently have visiting nurse or other home services: No (unknown) Alcohol intake: former Patient Tobacco Use Status: Former Tobacco user Tobacco use type: Cigarette e-Cigarette/Vaping Use: Never Used Second Hand Smoke Exposure: No service: No Current occupational status: disabled Current occupation: rt hand Cognitive needs: Yes Hearing needs: No Vision needs: Yes Questionnaire PHQ-9 Over the last 2 weeks, how often have you been bothered by any of the following problems? 1. Little interest or pleasure in doing things: not at all 2. Feeling down, depressed, or hopeless: several days 3. Trouble falling or staying asleep, or sleeping too much: not at all 4. Feeling tired or having little energy: not at all 5. Poor appetite or overeating: not at all 6. Feeling bad about yourself - or that you are a failure or have let yourself or your family down: not at all 7. Trouble concentrating on things, such as reading the newspaper or watching television: not at all 8. Moving or speaking so slowly that other people could have noticed. Or the opposite - being so fidgety or restless that you have been moving around a lot more than usual: not at all 9. Thoughts that you would be better off or of hurting yourself in some way: not at all Total score: 1 Depression Screening Interpretation: Negative Depression Screening Done: Yes 93633 - PHQ-9 Billing: Yes Source: Developed by Drs. Nemesio Virgen, Anna Dempsey, Gil Avila and colleagues, with an educational hair from [employer]. Thrive Questionnaire Date Thrive assessed: 07/15/24 I am a: Patient What is your living situation today?: I choose not to answer this question THRIVE Score: 0 BHARAT-7 AMB Questionnaire BHARAT-7 Date BHARAT - 7 assessed: 04/21/24 Source: Developed by Drs. Nemesio Virgen, Anna Dempsey, Gil Avila and colleagues, with an educational hair from [employer]. Review of Systems Const All systems reviewed & are unremarkable except as noted in HPI and below Eyes Reports no additional complaints, Denies change in vision and Denies other visual disturbances Card Denies chest pain at rest, Denies chest pain with activity, Denies edema, Denies irregular heart rhythm, Denies claudication, Denies orthopnea, Denies paroxysmal nocturnal dyspnea and Denies slow heart rate Physical exam (Primary Care) Vital Signs: Last Vital Signs BP 144/60 H 07/15/24 15:30 BMI result Body Mass Index 28.0 Tobacco/Smoking Status: Tobacco use Status Tobacco use date assessed 04/21/24 07/15/24 15:36 Patient Tobacco Use Status Former Tobacco user 07/15/24 15:36 Tobacco use type Cigarette 07/15/24 15:36 e-Cigarette/Vaping Use Never Used 07/15/24 15:36 PHQ-9: PHQ-9 Score PHQ-9: Total score 1 07/15/24 16:04 Depression Screening Interpretation: Negative Thrive Assessment: Date of Thrive Assessment Date Thrive assessed 07/15/24 07/15/24 15:36 Const Limitations: ambulation with cane HENMT General nose exam: Normal external nose present and No nasal discharge present Face and sinus: Yes sinuses nontender Mouth: lip normal Eyes General: appearance normal, both eyes and all related structures Eyelids: Yes eyelids normal Conjunctivae: conjunctivae normal Neck Neck: Yes normal visual inspection and Yes supple Resp Effort & Inspection: normal respiratory effort Auscultation: clear to auscultation bilaterally Cardio Jugular venous distension: no JVD Rate: regular rate Rhythm: regular rhythm Heart sounds: S1 normal heart sound present and S2 normal heart sound present GI Inspection: Yes normal to inspection Palpation (GI): Soft to palpation and nontender Auscultation: normal bowel sounds Skin General skin exam: no rashes or lesions noted Neuro General: no focal motor deficits Extrem General: Yes full ROM Psych Appearance: grossly normal Coding Level of Care Code Est Pt Prev Care >65y(86152) Diagnoses Physical exam Z00.00 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, without long-term current use of insulin, macular edema presence unspecified, unspecified proliferative retinopathy type E11.3593 Diabetes mellitus type: type 2 Diabetes mellitus truck terminal manager insulin use: without senior care use Diabetes mellitus complication status: with ophthalmic complications Diabetes mellitus complication detail: with diabetic retinopathy Diabetic retinopathy severity: with proliferative retinopathy Proliferative retinopathy type: unspecified Diabetes mellitus macular edema: macular edema presence unspecified Laterality: bilateral Stage 3a chronic kidney disease N18.31 Chronic kidney disease stage 3 subtype: stage 3a (GFR 45-59) Mild major depression F32.0 Additional Codes PHQ-9 - 59496 - PHQ-9 Billing: Yes ([id number]) Time Spent (min) 32 Assessment & Plan Assessment & Plan (1) Physical exam: Code(s): Z00.00 - Encounter for general adult medical examination without abnormal findings Category: Medical (2) Diabetes: Code(s): E11.9 - Type 2 diabetes mellitus without complications Category: Medical Qualifiers: Diabetes mellitus type: type 2 Diabetes mellitus senior care insulin use: without truck terminal manager use Diabetes mellitus complication status: with ophthalmic complications Diabetes mellitus complication detail: with diabetic retinopathy Diabetic retinopathy severity: with proliferative retinopathy Proliferative retinopathy type: unspecified Diabetes mellitus macular edema: macular edema presence unspecified Laterality: bilateral Qualified Code(s): E11.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 For hypertension, I advise continuing the prescribed antihypertensive medications with regular assessment due to stable potassium. Hyperlipidemia treatment proceeds with pravastatin. Osteopenia management requires calcium and vitamin D supplementation to mitigate osteoporosis risk. Kidney function will be monitored with ongoing collaboration with nephrology to address elevated proteinuria. The patient has been prescribed compression socks to support vascular health, with adjustments made based on comfort and willingness. No immediate changes are necessary based on current evaluations. Patient was informed and verbally consented to the use of an ambient scribe for clinic note documentation during this visit. Orders: Orders Lipid Panel 4 Months E78.5 - Hyperlipidemia, unspecified Vitamin D 25-OH Total 4 Months E55.9 - Vitamin D deficiency, unspecified Patient Instructions: - Continue current diabetes medications and monitor glucose levels regularly - Take prescribed hypertension and hyperlipidemia medications as directed - Maintain daily intake of calcium and vitamin D - Monitor blood pressure and report any substantial changes - Review renal function with esl tutor as scheduled - Consider wearing compression socks as discussed, based on comfort preferences - Report any new or worsening symptoms promptly
--- OUTSIDE RECORDS SUMMARY | 2024-07-15 16:11 | XMS_ITS | Encounter Summary ---
Author Organization [facility] Address [address] [place] [address] Care Team Providers Care Exterior Designer Name Role Phone Unavailable Primary Care Provider Unavailabl e Encounter Details Date Type Department Care Team (Late st Contact Info) Description 02/28/2022 Abstract [facility] [address] [place] [address] Brian Boydaris [address] [place] [address] Social History Tobacco Use Types Packs/Day Years [...]
--- OUTSIDE RECORDS SUMMARY | 2024-07-15 16:11 | XMS_ITS | Clinical Summary ---
Author Organization [employer] [facility] Address [address] [place] [address] Care Team Providers Care Supervisor Assembly Room Name Role Phone Unavailable Primary Care Provider [...] Department Care Team Description 05/06/2024 Orders Only [facility] External Provider, [facility] from Last 3 Months Social History [...] of2 resultswithin the time period is included. [facility] TROPONIN I HIGH SENSITIVITY 29.0(H) <3.5 - 17.0 ng/L [facility] Comment:The Sanders high sens itivity Troponin-I results should beused in conjunction with other diagnostic information suchas ECG, clinical observations and information, and patientsymptoms to aid in the diagnosis of [place]. 05/07/2024 5:57 PM EST 05/07/2024 5:57 PM EST us Generic External Data Provider LAB BLOOD ORDERAB LES Final Result [facility] [address] [place] [address] [phone] * (ABNORMAL) CBC auto differential (05/07/2024 5:57 PM EST) [facility] White Blood Count 7.8 4.8 - 10.8 X10*3/uL [facility] Red Blood Count 3.51(L) 4.20 - 5.50 X10*6/uL [facility] Hemoglobin 11.7(L) 12.0 - 16.0 g/dl [facility] Hematocrit 35.0(L) 37.0 - 47.0 % [facility] Mean Corpuscular Volume 99.7(H) 80.0 - 98.0 fL [facility] Mean Corpuscular Hemoglobin 33.3(H) 27.0 - 33.0 pg [facility] Mean Corpuscular HGB Conc 33.4 31.0 - 35.0 g/dl [facility] Red Cell Distribution Width 12.5 11.0 - 16.0 % [facility] Platelet Count 190 160 - 400 X10*3/uL [facility] Mean Platelet Volume 9.6 9.4 - 12.3 fL [facility] Neutrophils Percent Auto 74.5(H) 45 - 73 % [facility] Imm Gran Pct Auto 0.3 0.0 - 0.4 % [facility] Lymphocytes Percent Auto 14.3(L) 20 - 40 % [facility] Monocytes Percent Auto 9.4 2 - 11 % [facility] Eosinophils Percent Auto 1.0 0 - 4 % [facility] Basophils Percent Auto 0.5 0 - 2 % [facility] NRBC Pct Auto 0.0 0.0 - 0.2 /100WBC [facility] Neutrophils Absolute Auto 5.8 2.0 - 8.3 x10*3/uL [facility] Imm Gran Abs Auto 0.02 0.00 - 0.03 X10*3/uL [facility] Lymphocytes Absolute Auto 1.1(L) 1.2 - 4.9 X10*3/uL [facility] Monocytes Absolute Auto 0.7 0.1 - 1.2 X10*3/uL [facility] Eosinophils Absolute Auto 0.1 0.0 - 0.4 X10*3/uL [facility] Basophils Absolute Auto 0.0 0.0 - 0.2 X10*3/uL [facility] NRBC Abs Auto 0.000 0.0 - 0.012 X10*3/uL [facility] 05/07/2024 5:57 PM EST 05/07/2024 5:57 PM EST us Generic External Data Provider LAB BLOOD ORDERAB LES Final Result [facility] [address] [place] [address] [phone] * Lipase (05/07/2024 5:57 PM EST) Lipase 11 8 - 78 U/L [facility] 05/07/2024 5:57 PM EST 05/07/2024 5:57 PM EST Generic External Data Provider LAB BLOOD ORDERAB LES Final Result Performing Organization Address City/[facility]/ZIP Co de Phone Number [facility] [address] [place] [address] [phone] * Ammonia, Plasma (05/07/2024 5:57 PM EST) Pathologist [facility] Ammonia (P) 31 13 - 55 umol/L [facility] 05/07/2024 5:57 PM EST 05/07/2024 6:02 PM EST us Generic External Data Provider LAB BLOOD ORDERAB LES Final Result Performing Organization Address City/[facility]/ZIP Co de Phone Number [facility] [address] [place] [address] [phone] * (ABNORMAL) Hepatic Function Panel (05/07/2024 5:57 PM EST) Bilirubin, Total 0.6 0.0 - 1.0 mg/dL [facility] Bilirubin, Direct 0.2 0.0 - 0.5 mg/dL [facility] Aspartate Amino Transferase 54(H) 5 - 31 U/L [facility] Alanine Aminotransferase 24 0 - 31 U/L [facility] Total Protein 6.9 6.5 - 8.0 g/dL [facility] Albumin Level 3.5 3.5 - 5.0 g/dL [facility] Alkaline Phosphatase 80 39 - 117 U/L [facility] 05/07/2024 5:57 PM EST 05/07/2024 5:57 PM EST us Generic External Data Provider LAB BLOOD ORDERAB LES Final Result Performing Organization Address City/[facility]/ZIP Co de Phone Number [facility] [address] [place] [address] [phone] * (ABNORMAL) Basic Metabolic Panel (05/07/2024 5:57 PM EST) Sodium 142 135 - 145 mmol/L [facility] Potassium 3.7 3.3 - 5.1 mmol/L [facility] Chloride 108 96 - 108 mmol/L [facility] Carbon Dioxide 26 22 - 29 mmol/L [facility] Anion Gap 12 12 - 20 [facility] Urea Nitrogen (BUN) 13 9 - 16 mg/dL [facility] Creatinine, Serum 0.73 0.5 - 1.4 mg/dL [facility] Creatinine Clr Calc Pharmacy 59.0 [facility] Comment:Provided height and weight: 167.64 cm,80 kg.eGFR (calculated from the MDRD study equation) and eCrCl(calculated from the Cockcroft-Gault equation) are based ondifferent parameters and may not yield comparable results.If eCrCl result is absurd, please check patient'sheight/weight. Estimated Glomerular Filt Rate >60 [facility] Comment:Chronic Kidney Disea se: Estimated GFR < 60 mL/min/[id number] Kidney Disease: Estimated GFR < 15 mL/min/1.73m2 Glucose 133(H) 60 - 115 mg/dL [facility] Calcium 9.5 8.4 - 10.2 mg/dL [facility] 05/07/2024 5:57 PM EST 05/07/2024 5:57 PM EST us Generic External Data Provider LAB BLOOD ORDERAB LES Final Result Performing Organization Address [facility]/ZIP Co de Phone Number [facility] [address] [place] [phone] * CT Head w/o Contrast (05/06/2024 11:15 AM EST) Anatomical Region Laterality Modality Head, Neck Computed Tomogra phy 05/06/2024 11:1 5 AM EST Narrative 05/06/2024 11:48 AM EST ? [facility] ?[address] ?[place] [address] ? CT Scan Report ? Signed ? Patient: Gaona,Sharon ?MR#: [id number] ? : 1935 ?Acct:[id number] ? Age/Sex: 88 / F ?ADM Date: 05/06/24 ? Loc: HO.ED ? Attending Dr: ? Ordering Physician: Anuel Ibarra MD ?? Date of Service: 05/06/24 ?? Procedure(s): CT head/brain wo IV con ?? Accession Number(s): [id number] ? cc: Radha White MD; Anuel Ibarra MD ? Report Number: ?? [id number]: Total DLP = 1254.00 mGy-cm ?? EXAMINATION: [...] DD/ 1115 ? TD/TT: 05/06/24 1132 ? Power Electronics Engineer: ? Procedure Note Deep Jain - 05/07/[address] [place] [address] [address] Scan Report Signed Patient: Sharon GaonaMR#: [id number] : 8Acct:[id number] Age/Sex: 88 / FADM Date: 05/06/24 Loc: HO.ED Attending Dr: Ordering Physician: Anuel Ibarra MD Date of Service: 05/06/24 Procedure(s): CT head/brain wo IV con Accession Number(s): [id number] cc: Radha White MD; Anuel Ibarra MD Report Number: [id number]: Total DLP = 1254.00 mGy-cm EXAMINATION: CT [...] 05/06/24 1146 DD/ 1115 TD/TT: 05/06/24 1132 Power Electronics Engineer: [facility] External Provider IMG CT PROCEDURES Final Result from Last 3 Months Insurance [facility] Member Subscriber Plan / Payer (Ef fective 2015-Present) Name:Sharon Gaona Relation to Subscriber:Self Name:Sharon Gaona Payer ID:Not on file Group ID:[id number] Type:Not on file Address: [place] [id number] [facility] - [facility]
--- OUTSIDE RECORDS SUMMARY | 2024-07-15 16:11 | XMS_ITS | Clinical Summary ---
Author Organization [facility] Address [address] [place] [address] [place] [address] Phone Care Team Providers Care Parking Lot Attendant And Cashier Name Role Phone Karina Baires MD Primary Care Provider [phone] Allergies No known active allergies Medications aspirin [...] patient's age to complete this topic Insurance [facility] ([id number]) [facility] ([id number]) [place] [id number] Care Teams Parking Lot Attendant And Cashier Relationship Specialty Start Date End Date Karina Baires MD [address] [place] [address] PCP - General 03/28/20
== END 2024-07-15 16:14 | disposition home or self-care (01) ==
LOC: HO.HMCH 15:09
PROVIDERS: PCP Internal Medicine; Visit Provider Internal Medicine
DX: Z00.00 Encounter for general adult medical examination without abnormal findings (principal); E11.3593 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 without macular edema, bilateral; N18.31 Chronic kidney disease, stage 3a; F32.0 Major depressive disorder, single episode, mild

== ENCOUNTER 2024-08-11 10:47 | Outpatient (REF) | payer OTHER, SELFPAY ==
--- OUTSIDE RECORDS SUMMARY | 2024-08-11 11:36 | XMS_ITS | Clinical Summary ---
Author Organization [facility] Address [address] [place] [place] [address] Phone Care Team Providers Care Steward/[employer] D[employer] Name Role Phone Karina Baires MD Primary Care Provider [phone] Allergies No known active allergies Medications aspirin [...] patient's age to complete this topic Insurance [facility] ([id number]) [facility] ([id number]) [place] [phone] Care Teams Steward/[employer] Relationship Specialty Start Date End Date Karina Baires MD [address] [place] [address] PCP - General 03/28/20
[2024-08-11 11:56] LABS: Anion Gap 14 (12-20); Blood Urea Nitrogen 35 mg/dL (9-16); Carbon Dioxide 24 mmol/L (22-29); Chloride 108 mmol/L (96-108); Estimated Glomerular Filt Rate 46; Potassium 4.5 mmol/L (3.3-5.1); Sodium 141 mmol/L (135-145)
[2024-08-11 12:43] LABS: Estimated Average Glucose 123 mg/dL; Hemoglobin A1c % 5.9 % (<6.0); Total Hemoglobin (HGBA1C) 3174.5302 umol/L
== END 2024-08-11 10:48 | disposition home or self-care (01) ==
LOC: HO.LAB 10:47
PROVIDERS: PCP Internal Medicine; Visit Provider Internal Medicine Nephrology
DX: R80.8 Other proteinuria (principal); I10 Essential (primary) hypertension; Z13.1 Encounter for screening for diabetes mellitus
CPT/HCPCS: 36415; 80051; 82565; 83036; 84520

== ENCOUNTER 2024-08-14 13:50 | Outpatient (AMB) | payer OTHER, SELFPAY ==
--- OUTSIDE RECORDS SUMMARY | 2024-08-14 13:58 | XMS_ITS | Clinical Summary ---
Author Organization [facility] Address [address] [place] [address] [place] [address] Phone Care Team Providers Care Computer Forwarding System Markup Clerk Name Role Phone Karina Baires MD Primary Care Provider [phone] Allergies No known active allergies Medications aspirin [...] patient's age to complete this topic Insurance [facility] ([id number]) [facility] ([id number]) [place] [id number] Care Teams Computer Forwarding System Markup Clerk Relationship Specialty Start Date End Date Karina Baires MD [address] [place] [address] PCP - General 03/28/20
--- NOTE | 2024-08-14 14:06 | HO.NEPHOV ---
Vital Signs 08/14/24 14:08 Height 5 ft 5 in Weight 163 lb BMI 27.1 BP 136/60 Blood Pressure Location Rt brachial Position Sitting Pulse 54 Pulse Source Pulse Oximeter Pulse Oximetry (%) 97 Oxygen Delivery Method Room Air Intake Visit Reasons: 1 MO FU-Conf Western Tack Assembly Line Worker Required: Yes Western [employer] Assembly Line Worker Language: Dimension [employer]ar[employer] Supervisor Services: Western Tack Assembly Line Worker Offered & Declined ([facility] [place] refused ) Accompanied by: Other Relationship Allergies No Known Allergies Allergy (Unknown, Verified 08/14/24 14:07) HPI Comments Details: Sharon in follow-up of her chronic kidney disease and hypertension. Her volume status is well maintained on current dose of diuretics. Her blood pressure has been at goal. She does not have any chest pain, orthostatic symptoms, shortness of breath, proximal nocturnal dyspnea, orthopnea, pedal edema or urinary symptoms. She does not have any nausea vomiting or diarrhea now. She does not take any nonsteroidal anti-inflammatories. She had no other new complaints at the time of this visit [facility] Medical History (Updated 08/14/24 @ 14:21 by Chad Lawson MD) Mild major depression CKD (chronic kidney disease) stage 3, GFR 30-59 ml/min Diabetes CKD (chronic kidney disease) stage 4, GFR 15-29 ml/min Anemia Bilateral carpal tunnel syndrome Moderate recurrent major depression Pure hypercholesterolemia Essential hypertension Carpal tunnel syndrome Urinary incontinence Hypovitaminosis D GERD (gastroesophageal reflux disease) High cholesterol Hypertension Surgical History S/P carpal tunnel release History of cholecystectomy Family History Father No problems noted. Mother No problems noted. Social History Household Members: Unknown / Unable to assess Housing: Unknown / Unable to assess Do you presently have visiting nurse or other home services: No (unknown) Alcohol intake: former Patient Tobacco Use Status: Former Tobacco user Tobacco use type: Cigarette e-Cigarette/Vaping Use: Never Used Second Hand Smoke Exposure: No service: No Current occupational status: disabled Current occupation: rt hand Cognitive needs: Yes Hearing needs: No Vision needs: Yes Review of Systems Const All systems reviewed & are unremarkable except as noted in HPI and below Physical Exam Vital Signs: Last Vital Signs Pulse 54 05/30/25 14:08 BP 136/60 08/14/24 14:08 Pulse Ox 97 08/14/24 14:08 Oxygen Delivery Method Room Air 08/14/24 14:08 BMI result Body Mass Index 27.1 Const General: comfortable and no acute distress Orientation/consciousness: patient oriented x3 HEENT Head: Yes normocephalic Mouth: Normal oral and palatal mucosa present Eyes EOM: EOMs intact bilaterally Neck Neck: Yes supple Resp Auscultation: clear to auscultation bilaterally Cardio Jugular venous distension: no JVD Rate: regular rate GI Palpation (GI): Soft to palpation Auscultation: normal bowel sounds General: Yes no CVA tenderness Back/Spine/Pelvis Back: no CVA tenderness Skin General skin exam: no rashes or lesions noted Neuro General: patient oriented x3 and moves all extremities Extrem General: Yes no pedal edema Results Reviewed Nephrology Results: Hgb 12.0 g/dl (12.0-16.0) 05/11/24 WBC 7.7 X10*3/uL (4.8-10.8) 05/11/24 Plt Count 217 X10*3/uL (160-400) 05/11/24 Sodium 141 mmol/L (135-145) 08/11/24 Potassium 4.5 mmol/L (3.3-5.1) 08/11/24 Chloride 108 mmol/L (96-108) 08/11/24 Carbon Dioxide 24 mmol/L (22-29) 08/11/24 BUN 35 mg/dL (9-16) H 08/11/24 Creatinine 1.12 mg/dL (0.5-1.4) 08/11/24 Calcium 9.5 mg/dL (8.4-10.2) 05/12/24 Urine Protein >=1000 (4+) mg/dL (Neg-Trace) H 05/08/24 Urine Creatinine 101.53 mg/dL 07/08/24 Protein/Creatinin Ratio 1.55 (<0.2) H 07/08/24 Assessment & Plan Assessment & Plan (1) CKD (chronic kidney disease) stage 3, GFR 30-59 ml/min: Code(s): N18.30 - Chronic kidney disease, stage 3 unspecified Category: Medical Qualifiers: Chronic kidney disease stage 3 subtype: stage 3a (GFR 45-59) Qualified Code(s): N18.31 - Chronic kidney disease, stage 3a (2) Hypertension: Onset Date: 10/19/20 Code(s): I10 - Essential (primary) hypertension Category: Medical Qualifiers: Hypertension type: primary hypertension Qualified Code(s): I10 - Essential (primary) hypertension Plan 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 She had no significant proteinuria in the past but has it now. Her blood pressure is usually at goal. She can continue bumex 1 mg daily. She avoids nonsteroidal anti-inflammatories. She is on angiotensin receptor ambrose. She should continue 10 mg Jardiance daily as well. I did not make any other medication changes today. All her questions were answered. Follow-up blood work ordered. Follow-up appointment given. Orders: Orders Protein Creatinine Ratio, Ur 3 Months I10 - Essential (primary) hypertension, N18.31 - Chronic kidney disease, stage 3a Medications: Refilled empagliflozin (Jardiance) 10 mg PO DAILY 30 tabs 6RF bumetanide 1 mg PO DAILY 90 tabs 3RF Coding Level of Care Code Est Pt Level 4 (65508) Diagnoses Stage 3a chronic kidney disease N18.31 Chronic kidney disease stage 3 subtype: stage 3a (GFR 45-59) Primary hypertension I10 Hypertension type: primary hypertension
[2024-08-14 14:08] VITALS: BP 136/60; PULSE 54; O2SAT 97; BMI 27.1
== END 2024-08-14 14:25 | disposition home or self-care (01) ==
LOC: HO.HKA 13:51
PROVIDERS: PCP Internal Medicine; Visit Provider Internal Medicine Nephrology
DX: N18.31 Chronic kidney disease, stage 3a (principal); I10 Essential (primary) hypertension
CPT/HCPCS: 99214

== ENCOUNTER → 2024-08-14 13:50 | Outpatient (BNVA) | payer OTHER, SELFPAY | PROVIDERS: PCP Internal Medicine; Visit Provider Internal Medicine Nephrology | DX: I12.9 Hypertensive chronic kidney disease with stage 1 through stage 4 chronic kidney disease, or unspecified chronic kidney disease (principal); N18.31 Chronic kidney disease, stage 3a | CPT/HCPCS: 99212 ==

== ENCOUNTER 2024-11-05 13:40 | Outpatient (REF) | payer OTHER, SELFPAY ==
--- OUTSIDE RECORDS SUMMARY | 2024-11-05 13:50 | XMS_ITS | Clinical Summary ---
Author Organization [facility] Address [address] [place] [place] [address] Phone Care Team Providers Care Sort Line Name Role Phone Karina Baires MD Primary Care Provider Allergies No known active allergies Medications aspirin [...] of 2 - PCV) 1954 Influenza Vaccine (#1) 2024 Hepatitis B Vaccine Aged Out No longe r eligible based on patient's age to complete this topic Insurance [facility] ([id number]) [facility] ([id number]) [place] [phone] Care Teams Sort Line Relationship Specialty Start Date End Date Karina Baires MD [address] [place] [address] PCP - General 03/28/20
--- OUTSIDE RECORDS SUMMARY | 2024-11-05 13:50 | XMS_ITS | Clinical Summary ---
Author Organization [employer] Address [address] [place] [address] [address]t [place] [address] Care Team Providers Care Safety Associate Name Role Phone Unavailable Primary Care Provider [...] Mass Index - - Plan of Treatment Upcoming Encounters Date Type Department Care Team (Late st Contact Info) Description 02/03/2025 3:00 PM EST Office Visit [facility] [address] [place] [address] Gracie Aguilar Health Maintenance Due Date Last Done Comments [...] season) 2023 11/07/2020, 10/10/2020 Influenza Vaccine (#1) 2024 , 03/23/2021, 12/17/2018, Additional history exists DTaP/Tdap/Td [...] patient's age to complete this topic Meningococcal B Vaccine Aged Out No l onger eligible based on patient's age to complete [...] Most Recently Relevant to Health Maintenance Insurance [facility]
[2024-11-05 14:40] LABS: Cholesterol 131 mg/dL (<200); HDL Cholesterol 59 mg/dL (>40); Triglycerides 97 mg/dL (<150)
[2024-11-05 16:16] LABS: Protein/Creatinine Ratio, Ur 1.77 (<0.2); Total Protein Urine Random 279 mg/dL (<12)
== END 2024-11-05 13:41 | disposition home or self-care (01) ==
LOC: HO.LAB 13:40
PROVIDERS: PCP Internal Medicine; Visit Provider Internal Medicine Nephrology
DX: I12.9 Hypertensive chronic kidney disease with stage 1 through stage 4 chronic kidney disease, or unspecified chronic kidney disease (principal); N18.31 Chronic kidney disease, stage 3a; E78.5 Hyperlipidemia, unspecified; E55.9 Vitamin D deficiency, unspecified
CPT/HCPCS: 36415; 80061; 82306; 82570; 84156

== ENCOUNTER 2024-11-09 14:35 | Outpatient (AMB) | payer OTHER, SELFPAY ==
--- NOTE | 2024-11-09 14:43 | HO.NEPHOV_ITS ---
Vital Signs 11/09/24 14:59 Height 5 ft 5 in Weight 165 lb 4 oz BMI 27.5 BP 140/60 H Blood Pressure Location Rt brachial Position Sitting Intake Visit Reasons: 3mon follow-up w/lab-Conf Tunneling Machine Operator Required: Yes Tunneling Machine Operator Language: Staff Electronic Warfare Officer Services: Tunneling Machine Operator Offered & Declined ([facility] historic interpreter services refused) Accompanied by: Other Relationship Allergies No Known Allergies Allergy (Unknown, Verified 11/09/24 14:58) HPI Comments Details: Sharon in follow-up of her chronic kidney disease and hypertension. Her volume status is well maintained on current dose of diuretics. Her blood pressure has been at goal. She does not have any chest pain, orthostatic symptoms, shortness of breath, proximal nocturnal dyspnea, orthopnea, pedal edema or urinary symptoms. She does not have any nausea vomiting or diarrhea now. She does not take any nonsteroidal anti-inflammatories. She had no other new complaints at the time of this visit [facility] Medical History (Updated 08/14/24 @ 14:21 by Chad Lawson MD) Mild major depression CKD (chronic kidney disease) stage 3, GFR 30-59 ml/min Diabetes CKD (chronic kidney disease) stage 4, GFR 15-29 ml/min Anemia Bilateral carpal tunnel syndrome Moderate recurrent major depression Pure hypercholesterolemia Essential hypertension Carpal tunnel syndrome Urinary incontinence Hypovitaminosis D GERD (gastroesophageal reflux disease) High cholesterol Hypertension Surgical History S/P carpal tunnel release History of cholecystectomy Family History Father No problems noted. Mother No problems noted. Social History Household Members: Unknown / Unable to assess Housing: Unknown / Unable to assess Do you presently have visiting nurse or other home services: No (unknown) Alcohol intake: former Patient Tobacco Use Status: Former Tobacco user Tobacco use type: Cigarette e-Cigarette/Vaping Use: Never Used Second Hand Smoke Exposure: No service: No Current occupational status: disabled Current occupation: rt hand Cognitive needs: Yes Hearing needs: No Vision needs: Yes Review of Systems Const All systems reviewed & are unremarkable except as noted in HPI and below Physical Exam Const General: comfortable and no acute distress Orientation/consciousness: patient oriented x3 HEENT Head: Yes normocephalic Mouth: Normal oral and palatal mucosa present Eyes EOM: EOMs intact bilaterally Neck Neck: Yes supple Resp Auscultation: clear to auscultation bilaterally Cardio Jugular venous distension: no JVD Rate: regular rate GI Palpation (GI): Soft to palpation Auscultation: normal bowel sounds General: Yes no CVA tenderness Back/Spine/Pelvis Back: no CVA tenderness Skin General skin exam: no rashes or lesions noted Neuro General: patient oriented x3 and moves all extremities Extrem General: Yes no pedal edema Results Reviewed Nephrology Results: Sodium, (135-145) 141 mmol/L 08/11/24 Potassium, (3.3-5.1) 4.5 mmol/L 08/11/24 Chloride, (96-108) 108 mmol/L 08/11/24 Carbon Dioxide, (22-29) 24 mmol/L 08/11/24 BUN, (9-16) 35 mg/dL H 08/11/24 Creatinine, (0.5-1.4) 1.12 mg/dL 08/11/24 Urine Creatinine 157.24 mg/dL 11/05/24 Protein/Creatinin Ratio, (<0.2) 1.77 H 11/05/24 Assessment & Plan Assessment & Plan (1) Hypertension: Onset Date: 10/19/20 Code(s): I10 - Essential (primary) hypertension Category: Medical Qualifiers: Hypertension type: primary hypertension Qualified Code(s): I10 - Essential (primary) hypertension (2) CKD (chronic kidney disease) stage 3, GFR 30-59 ml/min: Code(s): N18.30 - Chronic kidney disease, stage 3 unspecified Category: Medical Qualifiers: Chronic kidney disease stage 3 subtype: stage 3a (GFR 45-59) Qualified Code(s): N18.31 - Chronic kidney disease, stage 3a (3) Proteinuria: Code(s): R80.9 - Proteinuria, unspecified Category: Medical Qualifiers: Proteinuria type: other Qualified Code(s): R80.8 - Other proteinuria Plan 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 She had no significant proteinuria in the past but has it now. Her blood pressure is usually at goal. She can continue bumex 1 mg daily. She avoids nonsteroidal anti-inflammatories. She is on angiotensin receptor ambrose. She should continue 10 mg Jardiance daily as well. I did not make any other medication changes today. All her questions were answered. Follow-up blood work ordered. Follow-up appointment given. Orders: Orders Creatinine 3 Months I10 - Essential (primary) hypertension, N18.31 - Chronic kidney disease, stage 3a Electrolytes 3 Months I10 - Essential (primary) hypertension, N18.31 - Chronic kidney disease, stage 3a Blood Urea Nitrogen 3 Months I10 - Essential (primary) hypertension, N18.31 - Chronic kidney disease, stage 3a Medications: Refilled bumetanide 1 mg PO DAILY 90 tabs 4RF amlodipine 10 mg PO DAILY 90 tabs 5RF 90 days empagliflozin (Jardiance) 10 mg PO DAILY 30 tabs 6RF losartan 100 mg PO DAILY 90 tabs 3RF 90 days Coding Level of Care Code Est Pt Level 4 (05098) Diagnoses Primary hypertension I10 Hypertension type: primary hypertension Stage 3a chronic kidney disease N18.31 Chronic kidney disease stage 3 subtype: stage 3a (GFR 45-59) Other proteinuria R80.8 Proteinuria type: other
[2024-11-09 14:59] VITALS: BP 140/60; BMI 27.5
--- OUTSIDE RECORDS SUMMARY | 2024-11-09 16:21 | XMS_ITS | Clinical Summary ---
Author Organization [employer] Address [address] [place] [address] [address] [place] [address] Care Team Providers Care Director Medical Name Role Phone Unavailable Primary Care Provider [...] Description 02/03/2025 3:00 PM EST Office Visit [facility] [address] [place] [address] Gracie Aguilar Health Maintenance Due Date Last [...] Most Recently Relevant to Health Maintenance Insurance [facility]
--- OUTSIDE RECORDS SUMMARY | 2024-11-09 16:21 | XMS_ITS | Encounter Summary ---
Author Organization [facility] Address [address] 7[address] [place] [address] Care Team Providers Care Contact Lens Manufacturer Name Role Phone Unavailable Primary Care Provider Unavailabl e Encounter Details Date Type Department Care Team (Late st Contact Info) Description 02/28/2022 Abstract [facility] ADULT DENTAL [address] [place] [address] Brian Boydaris [address] [place] [address] Social History Tobacco Use Types Packs/Day Years Used Date Smoking Tobacco: Never Assessed Comments Unknown Sex and Gender Information Value Date Recorded Sex Assigned at Female 01/15/2022 10:15 AM EDT Legal Sex Female 10:15 AM EDT Gender Identity Female 04/26/2022 12:57 PM EST Sexual Orientation Choose not to disclose 2021 10:15 AM EDT documented as of this encounter Plan of Treatment Upcoming Encounters Date Type Department Care Team (Late st Contact Info) Description 02/03/2025 3:00 PM EST Office Visit [facility] ADULT DENTAL [address] [place] [address] Gracie Aguilar documented as of this encounter Procedures Procedure [...]
--- OUTSIDE RECORDS SUMMARY | 2024-11-09 16:21 | XMS_ITS | Clinical Summary ---
Author Organization [facility] Address [address] [place] [address] Phone Care Team Providers Care Research Attorney Name Role Phone Karina Baires MD Primary Care Provider [phone] Allergies No known active allergies Medications aspirin [...] patient's age to complete this topic Insurance [facility] ([id number]) [facility] ([id number]) [place] [id number] Care Teams Research Attorney Relationship Specialty Start Date End Date Karina Baires MD [address] [place] [address] PCP - General 03/28/20
== END 2024-11-09 15:09 | disposition home or self-care (01) ==
LOC: HO.HKA 14:39
PROVIDERS: PCP Internal Medicine; Visit Provider Internal Medicine Nephrology
DX: I10 Essential (primary) hypertension (principal); N18.31 Chronic kidney disease, stage 3a; R80.8 Other proteinuria
CPT/HCPCS: 99214

== ENCOUNTER → 2024-11-09 14:35 | Outpatient (BNVA) | payer OTHER, SELFPAY | PROVIDERS: PCP Internal Medicine; Visit Provider Internal Medicine Nephrology | DX: I10 Essential (primary) hypertension (principal); N18.31 Chronic kidney disease, stage 3a | CPT/HCPCS: 99212 ==

== ENCOUNTER 2024-11-24 14:59 | Outpatient (AMB) | payer OTHER, SELFPAY ==
--- NOTE | 2024-11-24 15:05 | A.OFFPC_ITS ---
Vital Signs 11/24/24 15:08 Height 5 ft 5 in Weight 165 lb 8 oz BMI 27.5 BP 140/60 H Blood Pressure Location Lt brachial Position Sitting Pulse 58 Pulse Source Pulse Oximeter Pulse Oximetry (%) 98 Oxygen Delivery Method Room Air Intake Visit Reasons: dm Block Engraver Required: No Accompanied by: Self / Same As Patient Allergies No Known Allergies Allergy (Unknown, Verified 11/24/24 15:37) Medication List - Last Reconciled 11/24/24 by Karina Brothers MD acetaminophen ER (Pain Relief (acetaminophen)) 1,300 mg (2 x 650 mg) PO Q8H PRN 30 days amlodipine 10 mg PO DAILY 90 days aspirin 81 mg PO DAILY 90 days blood sugar diagnostic (FreeStyle Test strips) Use 1 test strip once a day bumetanide 1 mg PO DAILY calcium carbonate-vitamin D3 600 mg-10 mcg (400 unit) 1 tab PO BID 90 days cholecalciferol (vitamin D3) 25 mcg PO DAILY 90 days commode As directed [compression stockings As directed] empagliflozin (Jardiance) 10 mg PO DAILY ferrous sulfate 325 mg PO DAILY 90 days incontinence pad, liner, disp (Bladder Control Pads Ex Absorb) As directed [incontinence wipes As directed] lancets As directed losartan 100 mg PO DAILY 90 days metformin 1,000 mg PO BID 90 days mirtazapine 15 mg PO BEDTIME 90 days omeprazole 20 mg PO DAILY paroxetine HCl 10 mg PO DAILY pravastatin 40 mg PO DAILY 90 days [recliner As directed] walker (Ultra-Light Rollator misc) As directed [washable bedpads As directed] Tobacco use date assessed: 11/24/24 Fall risk assessment: No Falls in past year Last assessed Fall Risk: 11/24/24 Dental Screening Dental Screen Date: 11/24/24 Did you have a dental visit in the last 12 months?: Yes Did you have a dental problem in the last 6 months where you did not have access to dental care?: No Was dental information given to patient?: Patient has dentist HPI HPI Comments History of Present Illness Details The patient is an 89-year-old female presenting with chronic condition management and preventative care. Hypertension is managed with amlodipine and losartan, with no reported allergies to medications. The patient adheres to her medication regimen, including bumetanide for diuresis. Osteopenia was identified in a bone density test conducted in September 2023, with calcium and vitamin D recommended as treatment. Hyperlipidemia is controlled with pravastatin, and recent labs show LDL cholesterol at 53 mg/dL, which is within the target range. The patient has a history of depression with anxiety, managed with paroxetine and mirtazapine. Gastroesophageal reflux disease is treated with omeprazole. Type 2 Diabetes Mellitus is managed with metformin and Jardiance, with blood glucose levels typically around 130 mg/dL. Microalbuminuria is monitored by a powder room attendant, with a follow-up appointment scheduled for February 19. [facility] Medical History Mild major depression CKD (chronic kidney disease) stage 3, GFR 30-59 ml/min Diabetes CKD (chronic kidney disease) stage 4, GFR 15-29 ml/min Anemia Bilateral carpal tunnel syndrome Moderate recurrent major depression Pure hypercholesterolemia Essential hypertension Carpal tunnel syndrome Urinary incontinence Hypovitaminosis D GERD (gastroesophageal reflux disease) High cholesterol Hypertension Surgical History S/P carpal tunnel release History of cholecystectomy Family History Father No problems noted. Mother No problems noted. Social History Household Members: Unknown / Unable to assess Housing: Unknown / Unable to assess Do you presently have visiting nurse or other home services: No (unknown) Alcohol intake: former Patient Tobacco Use Status: Former Tobacco user Tobacco use type: Cigarette e-Cigarette/Vaping Use: Never Used Second Hand Smoke Exposure: No service: No Current occupational status: disabled Current occupation: rt hand Cognitive needs: Yes Hearing needs: No Vision needs: Yes Questionnaire PHQ-9 Over the last 2 weeks, how often have you been bothered by any of the following problems? 1. Little interest or pleasure in doing things: not at all 2. Feeling down, depressed, or hopeless: several days 3. Trouble falling or staying asleep, or sleeping too much: not at all 4. Feeling tired or having little energy: not at all 5. Poor appetite or overeating: not at all 6. Feeling bad about yourself - or that you are a failure or have let yourself or your family down: not at all 7. Trouble concentrating on things, such as reading the newspaper or watching television: not at all 8. Moving or speaking so slowly that other people could have noticed. Or the opposite - being so fidgety or restless that you have been moving around a lot more than usual: not at all 9. Thoughts that you would be better off or of hurting yourself in some way: not at all Total score: 1 Depression Screening Interpretation: Negative Depression Screening Done: Yes 39147 - PHQ-9 Billing: Yes Source: Developed by Drs. Nemesio Virgen, Anna Dempsey, Gil Avila and colleagues, with an educational hair from [employer]. Thrive Questionnaire Date Thrive assessed: 11/24/24 I am a: Patient What is your living situation today?: I choose not to answer this question Within the past 12 months, did the food you bought not last and you didn't have the money to get more?: Often true Within the past 12 months, did you worry whether your food would run out before you got money to buy more?: Often true Do you have trouble paying for medicines?: No Do you have trouble getting transportation to medical appointments?: No Do you have trouble paying your heating and electricity bill?: No Do you have trouble taking care of your child, family member or friend?: No Do you have trouble with day-to-day activities such as bathing, preparing meals, shopping, managing finances, etc.?: No Are you currently unemployed and looking for a job?: No Are you interested in more education?: No Please select the resources that you would like help with: None THRIVE Score: 2 AUDIT C Alcohol Use Questionnaire (AUDIT-C) 1. How often do you have a drink containing alcohol?: Never Total Score: 0 Score Reviewed/Action Taken: No BHARAT-7 AMB Questionnaire BHARAT-7 Date BHARAT - 7 assessed: 11/24/24 Feeling nervous, anxious, or on edge: 0 = Not at all Not being able to stop or control worryin = Not at all Worrying too much about different things: 0 = Not at all Trouble relaxin = Not at all Being so restless that it is hard to sit still: 1 = Several days Becoming easily annoyed or irritable: 0 = Not at all Feeling afraid as if something awful might happen: 0 = Not at all Total BHARAT-7 score (0-4 normal; 5-9 mild; 10-14 moderate; 15-21 severe): 1 Source: Developed by Drs. Nemesio Virgen, Anna Dempsey, Gil Avila and colleagues, with an educational hair from [employer]. BHARAT-7 Assessment Billing BHARAT-7 Assessment Tool: BHARAT-7 Assessment 64371 Review of Systems Const All systems reviewed & are unremarkable except as noted in HPI and below Card Denies chest pain at rest, Denies chest pain with activity, Denies edema, Denies irregular heart rhythm, Denies claudication, Denies dyspnea, Denies dyspnea on exertion, Denies orthopnea, Denies paroxysmal nocturnal dyspnea and Denies slow heart rate Resp Denies cough, Denies dyspnea and Denies dyspnea on exertion Neuro Denies lack of coordination Physical exam (Primary Care) Vital Signs: Last Vital Signs Pulse 58 11/24/24 15:08 BP 140/60 H 11/24/24 15:08 Pulse Ox 98 11/24/24 15:08 Oxygen Delivery Method Room Air 11/24/24 15:08 BMI result Body Mass Index 27.5 Tobacco/Smoking Status: Tobacco use Status Tobacco use date assessed 11/24/24 11/24/24 15:17 Patient Tobacco Use Status Former Tobacco user 11/24/24 15:17 Tobacco use type Cigarette 11/24/24 15:17 e-Cigarette/Vaping Use Never Used 11/24/24 15:17 PHQ-9: PHQ-9 Score PHQ-9: Total score 1 11/24/24 15:40 Depression Screening Interpretation: Negative Thrive Assessment: Date of Thrive Assessment Date Thrive assessed 11/24/24 11/24/24 15:17 Resp Effort & Inspection: normal respiratory effort Auscultation: clear to auscultation bilaterally Cardio Jugular venous distension: no JVD Rate: regular rate Rhythm: regular rhythm Heart sounds: S1 normal heart sound present and S2 normal heart sound present Extrem General: Yes full ROM Coding Level of Care Code Est Pt Level 4 (00581) Complex EM visit Add On G2211 Diagnoses Mild major depression F32.0 Essential hypertension I10 Hyperlipidemia LDL goal <70 E78.5 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, without long-term current use of insulin, macular edema presence unspecified, unspecified proliferative retinopathy type E11.3593 Diabetes mellitus type: type 2 Diabetes mellitus intermediate insulin use: without marine oil terminal superintendent use Diabetes mellitus complication status: with ophthalmic complications Diabetes mellitus complication detail: with diabetic retinopathy Diabetic retinopathy severity: with proliferative retinopathy Proliferative retinopathy type: unspecified Diabetes mellitus macular edema: macular edema presence unspecified Laterality: bilateral Stage 3a chronic kidney disease N18.31 Chronic kidney disease stage 3 subtype: stage 3a (GFR 45-59) Gastroesophageal reflux disease, unspecified whether esophagitis present K21.9 Esophagitis presence: esophagitis presence not specified Microalbuminuria R80.9 Additional Codes BHARAT-7 Assessment Billing - BHARAT-7 Assessment Tool: BHARAT-7 Assessment 25934 ([id number]) PHQ-9 - 46281 - PHQ-9 Billing: Yes ([id number]) Time Spent (min) 22 Assessment & Plan Assessment & Plan (1) Mild major depression: Code(s): F32.0 - Major depressive disorder, single episode, mild Category: Medical (2) Essential hypertension: Code(s): I10 - Essential (primary) hypertension Category: Medical (3) Hyperlipidemia LDL goal <70: Code(s): E78.5 - Hyperlipidemia, unspecified Category: Medical (4) Diabetes: Code(s): E11.9 - Type 2 diabetes mellitus without complications Category: Medical Qualifiers: Diabetes mellitus type: type 2 Diabetes mellitus intermediate insulin use: without intermediate use Diabetes mellitus complication status: with ophthalmic complications Diabetes mellitus complication detail: with diabetic retinopathy Diabetic retinopathy severity: with proliferative retinopathy Proliferative retinopathy type: unspecified Diabetes mellitus macular edema: macular edema presence unspecified Laterality: bilateral Qualified Code(s): E11.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, bilateral (5) CKD (chronic kidney disease) stage 3, GFR 30-59 ml/min: Code(s): N18.30 - Chronic kidney disease, stage 3 unspecified Category: Medical Qualifiers: Chronic kidney disease stage 3 subtype: stage 3a (GFR 45-59) Qualified Code(s): N18.31 - Chronic kidney disease, stage 3a (6) GERD (gastroesophageal reflux disease): Code(s): K21.9 - Gastro-esophageal reflux disease without esophagitis Category: Medical Qualifiers: Esophagitis presence: esophagitis presence not specified Qualified Code(s): K21.9 - Gastro-esophageal reflux disease without esophagitis (7) Microalbuminuria: Code(s): R80.9 - Proteinuria, unspecified Category: Medical Plan Plan Patient was informed and verbally consented to the use of an ambient scribe for clinic note documentation during this visit. 1. Essential (primary) hypertension I10 Hypertension is managed with amlodipine and losartan, with no changes to the current regimen as blood pressure is well controlled. 2. Other specified disorders of bone density and structure, unspecified site M85.80 Osteopenia is treated with calcium and vitamin D supplementation, with follow-up bone density screening scheduled for 2025. 3. Hyperlipidemia, unspecified E78.5 Hyperlipidemia is controlled with pravastatin, and recent labs confirm LDL cholesterol is within the target range. 4. Major depressive disorder, recurrent, mild F33.0 HCC 59 Depression with anxiety is managed with paroxetine and mirtazapine, with no changes to the current meds. 5. Gastro-esophageal reflux disease without esophagitis K21.9 Gastroesophageal reflux disease is treated with omeprazole, with no reported issues or changes needed. 6. Type 2 diabetes mellitus without complications E11.9 HCC 19 Type 2 Diabetes Mellitus is managed with metformin and Jardiance, with blood glucose levels monitored regularly and currently stable. 7. Proteinuria, unspecified R80.9 Microalbuminuria is monitored by a powder room attendant, with a follow-up appointment scheduled for February 19. Orders: Orders Microalbumin, Random (w Creat) 4 Months R80.9 - Proteinuria, unspecified Vitamin D 25-OH Total 4 Months E55.9 - Vitamin D deficiency, unspecified Lipid Panel 4 Months E78.5 - Hyperlipidemia, unspecified Comprehensive [place]. Panel Fast 4 Months N18.31 - Chronic kidney disease, stage 3a Medications: New paroxetine HCl 10 mg PO DAILY 90 tabs 3RF 90 days amoxicillin 500 mg PO BID 10 caps 0RF 5 days Refilled amlodipine 10 mg PO DAILY 90 tabs 5RF 90 days empagliflozin (Jardiance) 10 mg PO DAILY 30 tabs 6RF ferrous sulfate 325 mg PO DAILY 90 tabs 0RF 90 days losartan 100 mg PO DAILY 90 tabs 3RF 90 days omeprazole 20 mg PO DAILY 90 caps 0RF pravastatin 40 mg PO DAILY 90 tabs 0RF 90 days acetaminophen ER (Pain Relief (acetaminophen)) 1,300 mg (2 x 650 mg) PO Q8H PRN 180 tabs 6RF pain 30 days aspirin 81 mg PO DAILY 90 tabs 3RF 90 days bumetanide 1 mg PO DAILY 90 tabs 4RF calcium carbonate-vitamin D3 600 mg-10 mcg (400 unit) 1 tab PO BID 180 tabs 0RF 90 days metformin 1,000 mg PO BID 180 tabs 0RF 90 days
[2024-11-24 15:08] VITALS: BP 140/60; PULSE 58; O2SAT 98; BMI 27.5
--- OUTSIDE RECORDS SUMMARY | 2024-11-24 17:25 | XMS_ITS | Clinical Summary ---
Author Organization [facility] Address [address] [place] [address] Phone Care Team Providers Care Cafe Operator Name Role Phone Karina Baires MD Primary Care Provider [phone] Allergies No known active allergies Medications aspirin [...] patient's age to complete this topic Insurance [facility] ([id number]) [facility] ([id number]) [place] [id number] Care Teams Cafe Operator Relationship Specialty Start Date End Date Karina Baires MD [address] [place] [address] PCP - General 03/28/20
--- OUTSIDE RECORDS SUMMARY | 2024-11-24 17:25 | XMS_ITS | Encounter Summary ---
Author Organization [employer] [facility] Address [address] [place] [address] Care Team Providers Care Piano Professor Name Role Phone Unavailable Primary Care Provider Unavailabl e Encounter Details Date Type Department Care Team (Late st Contact Info) Description 02/28/2022 Abstract [facility] ADULT DENTAL [address] [place] [address] Brian Boydaris [address] [place] [address] Social History Tobacco Use Types Packs/Day Years [...] Description 02/03/2025 3:00 PM EST Office Visit [facility] ADULT DENTAL [address] [place] [address] Gracie Aguilar documented as of this encounter [...]
--- OUTSIDE RECORDS SUMMARY | 2024-11-24 17:25 | XMS_ITS | Clinical Summary ---
Author Organization [employer] Address [address] [place] [address] [address] [place] [address] Care Team Providers Care Commutator Tester Name Role Phone Unavailable Primary Care Provider [...] Description 02/03/2025 3:00 PM EST Office Visit [facility] ADULT DENTAL [address] [place] [id number] Gracie Aguilar Health Maintenance Due Date Last [...] 12/07/2022 06/05/2022 COVID-19 Vaccine (3 - season) 2024 11/07/2020, 10/10/2020 Influenza Vaccine (#1) 2024 , [...] Most Recently Relevant to Health Maintenance Insurance [facility]
== END 2024-11-24 15:49 | disposition home or self-care (01) ==
LOC: HO.HMCH 14:59
PROVIDERS: PCP Internal Medicine; Visit Provider Internal Medicine
DX: I12.9 Hypertensive chronic kidney disease with stage 1 through stage 4 chronic kidney disease, or unspecified chronic kidney disease (principal); E11.3593 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 without macular edema, bilateral; N18.31 Chronic kidney disease, stage 3a; F32.0 Major depressive disorder, single episode, mild; E78.5 Hyperlipidemia, unspecified; K21.9 Gastro-esophageal reflux disease without esophagitis; R80.9 Proteinuria, unspecified

== ENCOUNTER → 2024-11-24 14:59 | Outpatient (BNVA) | payer OTHER, SELFPAY | PROVIDERS: PCP Internal Medicine; Visit Provider Internal Medicine | DX: E11.22 Type 2 diabetes mellitus with diabetic chronic kidney disease (principal); E11.3593 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 without macular edema, bilateral; I12.9 Hypertensive chronic kidney disease with stage 1 through stage 4 chronic kidney disease, or unspecified chronic kidney disease; M85.80 Other specified disorders of bone density and structure, unspecified site; E78.5 Hyperlipidemia, unspecified; F41.9 Anxiety disorder, unspecified; K21.9 Gastro-esophageal reflux disease without esophagitis; F32.0 Major depressive disorder, single episode, mild; N18.31 Chronic kidney disease, stage 3a; R80.9 Proteinuria, unspecified; E55.9 Vitamin D deficiency, unspecified; Z79.899 Other long term (current) drug therapy | CPT/HCPCS: 96127; 99212 ==

== ENCOUNTER 2025-02-15 14:36 | Outpatient (REF) | payer OTHER, SELFPAY ==
[2025-02-15 15:43] LABS: Anion Gap 12 (12-20); Blood Urea Nitrogen 29 mg/dL (9-16); Carbon Dioxide 26 mmol/L (22-29); Chloride 110 mmol/L (96-108); Estimated Glomerular Filt Rate 52; Potassium 4.3 mmol/L (3.3-5.1); Sodium 144 mmol/L (135-145)
--- OUTSIDE RECORDS SUMMARY | 2025-02-15 17:54 | XMS_ITS | Encounter Summary ---
Author Organization [employer] Address [address] [place] [address] Care Team Providers Care Mixer Whipped Topping Name Role Phone Unavailable Primary Care Provider Unavailabl e Encounter Details Date Type Department Care Team (Late st Contact Info) Description 02/28/2022 Abstract [facility] ADULT DENTAL [address] [place] [address] Deb, Clare [address] [place] [address] Social History Tobacco Use Types Packs/Day Years [...]
--- OUTSIDE RECORDS SUMMARY | 2025-02-15 17:54 | XMS_ITS | Clinical Summary ---
Author Organization [facility] Address [address] [place] [address] Phone Care Team Providers Care Commercial Fishing Vessel Operator Name Role Phone Karina Baires MD Primary Care Provider [phone] Allergies No known active allergies Medications aspirin [...] ([id number]) [facility] ([id number]) [place] [id number] Care Teams Commercial Fishing Vessel Operator Relationship Specialty Start Date End Date Karina Baires MD [address] [place] [address] PCP - General 03/28/20
--- OUTSIDE RECORDS SUMMARY | 2025-02-15 17:54 | XMS_ITS | Clinical Summary ---
Author Organization [employer] Address [address] [facility] [address] [place] [address] Care Team Providers Care Network Design Architect Name Role Phone Unavailable Primary Care Provider Unavailabl e Allergies No known active allergies Medications acetaminophen (Tylenol) 500 MG tabletIndicatio ns:Dental abscess Take 1 tablet (500 mg) by mouth every 6 (six) hours if needed for mild pain for up to 20 doses. 20 tablet 3 Active Aspirin Low Dose 81 MG EC tablet 3 Active cholecalciferol (Vitamin D3) 25 MCG (1000 UT) tablet 3 Active amLODIPine (Norvasc) 10 MG tablet 5 Active bumetanide (Bumex) 1 MG tablet 5 Active Calcium Carb-Cholecalci ferol 500-10 MG-MCG tablet Take 1 tablet by mouth 2 times daily. Active FeroSul 325 (65 Fe) MG tablet 5 Active furosemide (Lasix) 40 MG tablet Take 40 mg by mouth 2 times daily. 3 Active hydroCHLOROthia zide (HYDRODiuril) 25 MG tablet take 1 tablet (25MG) by oral route every day 7 Active lisinopril 10 MG tablet Take 1 tablet by mouth at bed time. 8 Active losartan (Cozaar) 100 MG tablet 5 Active losartan (Cozaar) 25 MG tablet Take 1 tablet by mouth Once per day. 3 Active metFORMIN (Glucophage) 1000 MG tablet Take 1 tablet by mouth with breakfast and with evening meal. Active metroNIDAZOLE (Flagyl) 500 MG tablet 5 Active nystatin (Mycostatin) 248293 UNIT/GM powder Apply topically every 12 (twelve) hours. 7 Active omeprazole (PriLOSEC) [address] capsule Take 1 capsule by mouth Once per day. Active Paxil 10 MG tablet take 1 tablet (10MG) by oral route every night. Active pravastatin (Pravachol) 40 MG tablet take 1 tablet (40MG) by oral route every day at bedtime 8 Active raNITIdine (ZANTAC) 150 MG tablet take 1 tablet by oral route 2 times every day 8 Active Active Problems Problem Noted Date Diagnosed Date Altered mental status 02/05/2025 Anemia 02/05/2025 Bilateral carpal tunnel syndrome 02/05/2025 CKD (chronic kidney disease) stage 3, GFR 30-59 ml/min ([facility]) 02/05/2025 CKD (chronic kidney disease) stage 4, GFR 15-29 ml/min ([facility]) 02/05/2025 Chronic venous insufficiency 02/05/2025 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 Congestive heart failure 02/05/2025 Delirium 02/05/2025 Dyspnea 02/05/2025 GERD (gastroesophageal reflux disease) High cholesterol 02/05/2025 Pure hypercholesterolemia 02/05/2025 Hypovitaminosis D 02/05/2025 Lumbar degenerative disc disease 02/05/2025 Microalbuminuria 02/05/2025 Mild major depression 02/05/2025 Nail lesion 02/05/2025 Neck pain 02/05/2025 Pedal edema 02/05/2025 Physical deconditioning 02/05/2025 Physical exam 02/05/2025 Pre-op evaluation 02/05/2025 Right shoulder pain 02/05/2025 Diabetes 02/05/2025 Urinary incontinence 02/05/2025 Periodontal disease 02/05/2025 Bone loss 02/05/2025 Missing teeth, acquired 02/05/2025 Acute nontraumatic kidney injury 05/23/2022 Chronic kidney disease, stage 3a (CMS/HCC) 06/15 Edema 06/15/2020 Hyperkalemia 06/15/2020 Hypertensive renal disease 06/15/2020 Essential hypertension 01/07/2015 Glaucoma 01/07/2015 Hyperlipidemia LDL goal <70 01/07/2015 Moderate recurrent major depression (CMS/HCC) Obesity 01/07/2015 Osteoarthritis, generalized 01/07/2015 Type 2 diabetes mellitus 01/07/2015 Encounters Date Type Department Care Team Description 02/05/2025 3:00 PM EST Office Visit [facility] [address] [place] [address] Jose Escobar DDS Periodontal disease (Primary Dx); Bone loss; Missing teeth, acquired from Last 3 Months Social History Tobacco Use Types Packs/Day Years Used Date Smoking Tobacco: Never Smokeless Tobacco: Never Tobacco Cessation:Counseling Given: Not Answered Alcohol Answer Date Recorded How often do you have a drink containing alcohol ? 0 02/05/2025 Average Number of Drinks Not on file 025 Frequency of Binge Drinking Not on file 01/17 Comments Unknown Sex and Gender Information Value Date Recorded Sex Assigned at Female 01/15/2022 10:15 AM EDT Legal Sex Female 10:15 AM EDT Gender Identity Female 04/26/2022 12:57 PM EST Sexual Orientation Choose not to disclose 2021 10:15 AM EDT Last Filed Vital Signs Vital Sign Reading Time Taken Comments Blood Pressure 140/50 02/05/2025 2:48 PM EST Pulse 68 02/05/2025 2:48 PM EST Temperature - - Respiratory Rate - - Oxygen Saturation - - Inhaled Oxygen Concentration - - Weight - - Height - - Body Mass Index - - Plan of Treatment Health Maintenance Due Date Last Done Comments Dental Prophylaxis 1937 Dental X-Ray: Bitewings 1937 Dental X-Ray: Full Mouth 1937 Depression Screening 1937 Diabetes: Hemoglobin A1C 1937 Lipid Panel 1937 SDOH Screening 1937 Diabetes: Foot Exam 1947 Eye Exam 1947 Diabetes: Urine Protein Screening 1956 RSV Patients and Patients Aged 60 years or older (1 - 1-dose 75+ series) 2012 Zoster Vaccines (2 of 3) 08/12/2014 06/17/2014 COVID-19 Vaccine (3 - season) 2024 11/07/2020, 10/10/2020 Influenza Vaccine (#1) 2024 , 03/23/2021, 12/17/2018, Additional history exists Dental Oral Exam 08/06/2025 02/05/2025, 06/05/2022 Alcohol/Substance Use Screening 02/05/2026 02/05/2025 Tobacco Screening 02/05/2026 02/05/2025 DTaP/Tdap/Td Vaccines (5 - Td or Tdap) [...] on patient's age to complete this topic Goals Goal Patient Goal Type Associated Problems Recent Progress Patient-Stated? Author Help patients manage their type 2 diabetes Care Plan Help patients manage their type 2 diabetes No Gayathri Reagan Weekly blood pressure task Care Plan Weekly blood pressure task No Gayathri Reagan Help patients manage their type 2 diabetes Care Plan Help patients manage their type 2 diabetes No Gayathri Reagan Patient has chronic kidney disease Care Plan Patient has chronic kidney disease No Gayathri Reagan Weekly blood pressure task Care Plan Weekly blood pressure task No Gayathri Reagan Patient has chronic kidney disease Care Plan Patient has chronic kidney disease No Gayathri Reagan Procedures Procedure Name Priority Date/Time Associated Diagnosis Comments CASE PRESENTATION, DETAILED AND EXTENSIVE TREATMENT PLANNING Routine 02/05/2025 3:00 PM EST PERIODIC ORAL EVALUATION - ESTABLISHED PATIENT Routine 02/05/2025 3:00 PM EST from Last 3 Months Additional Health Concerns Active Problems Noted Date Diagnosed Date Help patients manage their type 2 diabetes 02/05 Weekly blood pressure task 02/05/2025 Help patients manage their type 2 diabetes 02/05 Patient has chronic kidney disease 02/05/2025 Weekly blood pressure task 02/05/2025 Patient has chronic kidney disease 02/05/2025 Insurance [facility]
== END 2025-02-15 14:37 | disposition home or self-care (01) ==
LOC: HO.LAB 14:36
PROVIDERS: PCP Internal Medicine; Visit Provider Internal Medicine Nephrology
DX: I12.9 Hypertensive chronic kidney disease with stage 1 through stage 4 chronic kidney disease, or unspecified chronic kidney disease (principal); N18.31 Chronic kidney disease, stage 3a
CPT/HCPCS: 36415; 80051; 82565; 84520

== ENCOUNTER 2025-02-19 14:27 | Outpatient (AMB) | payer OTHER, SELFPAY ==
--- NOTE | 2025-02-19 14:51 | HO.NEPHOV ---
Vital Signs 02/19/25 14:54 Height 5 ft 5 in Weight 166 lb 6 oz BMI 27.7 BP 140/60 H Blood Pressure Location Rt brachial Position Sitting Pulse 57 Pulse Source Pulse Oximeter Pulse Oximetry (%) 97 Oxygen Delivery Method Room Air Intake Visit Reasons: 3mon f/u w/labs-LVM Egg Factory Worker Required: Yes Egg Factory Worker Language: Tent Assembler Services: Egg Factory Worker Offered & Declined ([facility] Egg Factory Worker services refused ) Accompanied by: Grand Child Allergies No Known Allergies Allergy (Unknown, Verified 02/19/25 14:53) HPI Comments Details: Sharon in follow-up of her chronic kidney disease and hypertension. Her volume status is well maintained on current dose of diuretics. Her blood pressure has been at goal. She does not have any chest pain, orthostatic symptoms, shortness of breath, proximal nocturnal dyspnea, orthopnea, pedal edema or urinary symptoms. She does not have any nausea vomiting or diarrhea now. She does not take any nonsteroidal anti-inflammatories. She had no other new complaints at the time of this visit [facility] Medical History Mild major depression CKD (chronic kidney disease) stage 3, GFR 30-59 ml/min Diabetes CKD (chronic kidney disease) stage 4, GFR 15-29 ml/min Anemia Bilateral carpal tunnel syndrome Moderate recurrent major depression Pure hypercholesterolemia Essential hypertension Carpal tunnel syndrome Urinary incontinence Hypovitaminosis D GERD (gastroesophageal reflux disease) High cholesterol Hypertension Surgical History S/P carpal tunnel release History of cholecystectomy Family History Father No problems noted. Mother No problems noted. Social History Household Members: Unknown / Unable to assess Housing: Unknown / Unable to assess Do you presently have visiting nurse or other home services: No (unknown) Alcohol intake: former Patient Tobacco Use Status: Former Tobacco user Tobacco use type: Cigarette e-Cigarette/Vaping Use: Never Used Second Hand Smoke Exposure: No service: No Current occupational status: disabled Current occupation: rt hand Cognitive needs: Yes Hearing needs: No Vision needs: Yes Review of Systems Const All systems reviewed & are unremarkable except as noted in HPI and below Physical Exam Vital Signs: Last Vital Signs Pulse 57 02/19/25 14:54 BP 140/60 H 02/19/25 14:54 Pulse Ox 97 02/19/25 14:54 Oxygen Delivery Method Room Air 02/19/25 14:54 BMI result Body Mass Index 27.7 Const General: comfortable and no acute distress Orientation/consciousness: patient oriented x3 HEENT Head: Yes normocephalic Mouth: Normal oral and palatal mucosa present Eyes EOM: EOMs intact bilaterally Neck Neck: Yes supple Resp Auscultation: clear to auscultation bilaterally Cardio Jugular venous distension: no JVD Rate: regular rate GI Palpation (GI): Soft to palpation Auscultation: normal bowel sounds General: Yes no CVA tenderness Back/Spine/Pelvis Back: no CVA tenderness Skin General skin exam: no rashes or lesions noted Neuro General: patient oriented x3 and moves all extremities Extrem General: Yes no pedal edema Results Reviewed Nephrology Results: Sodium, (135-145) 144 mmol/L 02/15/25 Potassium, (3.3-5.1) 4.3 mmol/L 02/15/25 Chloride, (96-108) 110 mmol/L H 02/15/25 Carbon Dioxide, (22-29) 26 mmol/L 02/15/25 BUN, (9-16) 29 mg/dL H 02/15/25 Creatinine, (0.5-1.4) 1.00 mg/dL 02/15/25 Urine Creatinine 157.24 mg/dL 11/05/24 Protein/Creatinin Ratio, (<0.2) 1.77 H 11/05/24 Assessment & Plan Assessment & Plan (1) Essential hypertension: Code(s): I10 - Essential (primary) hypertension Category: Medical (2) CKD (chronic kidney disease) stage 3, GFR 30-59 ml/min: Code(s): N18.30 - Chronic kidney disease, stage 3 unspecified Category: Medical Qualifiers: Chronic kidney disease stage 3 subtype: stage 3a (GFR 45-59) Qualified Code(s): N18.31 - Chronic kidney disease, stage 3a (3) Proteinuria: Code(s): R80.9 - Proteinuria, unspecified Category: Medical Qualifiers: Proteinuria type: other Qualified Code(s): R80.8 - Other proteinuria Plan 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 She had no significant proteinuria in the past but has it now. Her blood pressure is usually at goal. She can continue bumex 1 mg daily. She avoids nonsteroidal anti-inflammatories. She is on angiotensin receptor ambrose. She should continue 10 mg Jardiance daily which I may increase to 25 mg at next visit. I did not make any other medication changes today. All her questions were answered. Follow-up blood work ordered. Follow-up appointment given. Orders: Orders Creatinine 3 Months I10 - Essential (primary) hypertension, N18.31 - Chronic kidney disease, stage 3a, R80.8 - Other proteinuria Protein Creatinine Ratio, Ur 3 Months I10 - Essential (primary) hypertension, N18.31 - Chronic kidney disease, stage 3a, R80.8 - Other proteinuria Blood Urea Nitrogen 3 Months I10 - Essential (primary) hypertension, N18.31 - Chronic kidney disease, stage 3a, R80.8 - Other proteinuria Electrolytes 3 Months I10 - Essential (primary) hypertension, N18.31 - Chronic kidney disease, stage 3a, R80.8 - Other proteinuria Hemoglobin A1c 3 Months I10 - Essential (primary) hypertension, N18.31 - Chronic kidney disease, stage 3a, R80.8 - Other proteinuria Coding Level of Care Code Est Pt Level 4 (75621) Diagnoses Essential hypertension I10 Stage 3a chronic kidney disease N18.31 Chronic kidney disease stage 3 subtype: stage 3a (GFR 45-59) Other proteinuria R80.8 Proteinuria type: other
[2025-02-19 14:54] VITALS: BP 140/60; PULSE 57; O2SAT 97; BMI 27.7
--- OUTSIDE RECORDS SUMMARY | 2025-02-19 18:34 | XMS_ITS | Clinical Summary ---
Author Organization [facility] Address [address] [place] [address] [place] [address] Phone Care Team Providers Care Appeals Officer Name Role Phone Karina Baires MD Primary Care Provider [phone] Allergies No known active allergies Medications aspirin [...] patient's age to complete this topic Insurance [facility] ([id number]) [facility] ([id number]) [place] [phone] Care Teams Appeals Officer Relationship Specialty Start Date End Date Karina Baires MD [address] [place] [address] PCP - General 03/28/20
--- OUTSIDE RECORDS SUMMARY | 2025-02-19 18:34 | XMS_ITS | Clinical Summary ---
Author Organization [employer] Address [address] [facility] [address] [place] [address] Care Team Providers Care Network Support Engineer Name Role Phone Unavailable Primary Care Provider [...] 500 MG tablet 5 Active nystatin (Mycostatin) 846379 UNIT/GM powder Apply topically every 12 (twelve) [...] kidney disease) stage 3, GFR 30-59 ml/min ([facility]) 02/05/2025 CKD (chronic kidney disease) stage 4, GFR 15-29 ml/min ([facility]) 02/05/2025 Chronic venous insufficiency 02/05/2025 Colitis due [...] Description 02/05/2025 3:00 PM EST Office Visit [facility] [address] [place] [address] Jose Escobar DDS Periodontal disease (Primary Dx); [...] Patient has chronic kidney disease 02/05/2025 Insurance [facility]
--- OUTSIDE RECORDS SUMMARY | 2025-02-19 18:34 | XMS_ITS | Encounter Summary ---
Author Organization [employer] Address [address] [place] [address] Care Team Providers Care Auto Cleaner Name Role Phone Unavailable Primary Care Provider Unavailabl e Encounter Details Date Type Department Care Team (Late st Contact Info) Description 02/28/2022 Abstract [facility] [address] [place] [address] Deb, Clare [address] [place] [address] Social History Tobacco Use Types Packs/Day Years [...]
== END 2025-02-19 15:09 | disposition home or self-care (01) ==
LOC: HO.HKA 14:27
PROVIDERS: PCP Internal Medicine; Visit Provider Internal Medicine Nephrology
DX: I10 Essential (primary) hypertension (principal); N18.31 Chronic kidney disease, stage 3a; R80.8 Other proteinuria
CPT/HCPCS: 99214

== ENCOUNTER → 2025-02-19 14:27 | Outpatient (BNVA) | payer OTHER, SELFPAY | PROVIDERS: PCP Internal Medicine; Visit Provider Internal Medicine Nephrology | DX: I12.9 Hypertensive chronic kidney disease with stage 1 through stage 4 chronic kidney disease, or unspecified chronic kidney disease (principal); N18.4 Chronic kidney disease, stage 4 (severe); E11.22 Type 2 diabetes mellitus with diabetic chronic kidney disease; R80.8 Other proteinuria; Z79.899 Other long term (current) drug therapy; Z79.84 Long term (current) use of oral hypoglycemic drugs; Z87.891 Personal history of nicotine dependence | CPT/HCPCS: 99212 ==